=== PATIENT | female | born 1970 | race Caucasian/White ===

== ENCOUNTER 2019-07-09 18:27 | Inpatient (IN) | payer OTHER, SELFPAY ==
--- NOTE | ~2019-07-09 | XR_ITS ---
EXAMINATION: XR chest 2V DATE: 07/09/2019 20:23 INDICATION: Asthma presenting with shortness of breath and cough TECHNIQUE: PA and lateral views of the chest were obtained. COMPARISON: CT abdomen and pelvis dated 07/09/2019 FINDINGS: The small region of tree-in-bud opacities in the posterior basilar segment of the right lower lobe is indiscernible on the current plain radiographs. No pulmonary edema, pleural effusion or pneumothorax . Cardiomediastinal silhouette is normal. Visualized bones and soft tissues are unremarkable. IMPRESSION: 1. No evident acute cardiopulmonary disease. Small region of tree-in-bud opacities seen in the right lower lobe on the immediately prior CT is consistent with endobronchial spread of disease which could represent aspiration and/or pneumonia. Reviewed, dictated and finalized at location A. ER PULLER IMPRESSION: 1. No evident acute cardiopulmonary disease. Small region of tree-in-bud opacit ies seen in the right lower lobe on the immediately prior CT is consistent with endobronchial spread of disease which could represent aspiration and/or pneumo mitesh.
--- NOTE | ~2019-07-09 | US_ITS ---
EXAMINATION: US right upper quadrant DATE: 07/11/2019 09:19 INDICATION: Right upper quadrant pain, prior cholecystectomy TECHNIQUE: Multiple grayscale and Doppler ultrasound images of the abdomen were obtained. COMPARISON: CT, 07/09/2019 FINDINGS: Bowel gas obscures visualization of the pancreas. The visualized portions of the pancreas a re unremarkable. The liver demonstrates increased echogenicity, heterogenous echotexture, and decreas ed through transmission. No surface nodularity. Normal hepatopetal flow in the main portal vein. The gallbladder is surgically absent. The common bile duct measures 8 mm, likely related to post cholecys tectomy state. IMPRESSION: 1. Diffuse hepatic steatosis. Reviewed, dictated and finalized at location B. RNS CLERK
--- NOTE | ~2019-07-09 | CT_ITS ---
EXAMINATION: CT chest wo con DATE: 07/10/2019 10:22 INDICATION: Possible pneumonia on chest radiograph TECHNIQUE: Computed tomography (CT) of the chest was performed without intravenous contrast. The dose -length product (DLP) was 740.82 mGy-cm. Automated exposure control and iterative reconstruction tech nique were employed. COMPARISON: Abdominal CT from yesterday FINDINGS: There is mild emphysema. Tree-in-bud opacities are again noted in the medial aspect of the right lower lobe. Scattered small pulmonary nodules measure up to 3 mm. There is no pleural effusion or pneumothorax. No pathologically enlarged thoracic lymph nodes are identified. The heart size is no rmal. Calcified coronary artery atherosclerosis is noted. There are findings consistent with previous ly described acute pancreatitis. IMPRESSION: 1. Tree-in-bud opacities of the right lower lobe, most consistent with infection/inflammation. Reviewed, dictated and finalized at location B. NSED PRACTICAL NURSE INSTRUCTOR IMPRESSION: 1. Tree-in-bud opacities of the right lower lobe, most consistent with infectio n/inflammation.
--- NOTE | ~2019-07-09 | CT_ITS ---
EXAMINATION: CT abdomen pelvis w con DATE: 07/09/2019 20:08 INDICATION: Right upper quadrant abdominal pain, nausea and vomiting. TECHNIQUE: Computed tomography (CT) of the abdomen and pelvis was performed with 100 mL Omnipaque-350 intravenous contrast. Automated exposure control and iterative reconstruction technique were employe d. The dose-length product was 1330.28 mGy-cm. COMPARISON: 09/05/2018 FINDINGS: Small region of tree-in-bud opacity in the posterior basilar segment of the right lower lobe consiste nt with endobronchial spread of disease including aspiration and/or pneumonia. Heart size is normal. Lipomatous hypertrophy of the interatrial septum. Atherosclerotic coronary artery calcification. No p ericardial or pleural effusion. Cholecystectomy clips the gallbladder fossa. Diffuse hepatic steatosi s with more focal fat at the ligamentum teres. Spleen, bilateral adrenal glands and kidneys are andre l. There is diffuse peripancreatic inflammatory stranding consistent with acute interstitial pancreat itis. Homogeneous pancreatic parenchymal enhancement with no evident necrosis. No discrete peripancre atic fluid collections. Bowels including the appendix are normal. Bladder is normal. The uterus is no t identified and has likely been surgically resected. No free intraperitoneal gas or fluid. No pathol ogically enlarged abdominal or pelvic lymphadenopathy. Bones are unremarkable. IMPRESSION: 1. Radiographically uncomplicated acute interstitial pancreatitis. Reviewed, dictated and finalized at location A. ED PRINTER
[2019-07-09 18:33] VITALS: PULSE 79; RESP 16; TEMP 36.7; O2SAT 94
--- NOTE | 2019-07-09 18:52 | ED.ABDPAIN ---
HPI - Abdominal Pain General Chief Complaint: Abdominal Pain Stated Complaint: MULTIPLE C/O Time Seen by Provider: 07/09/19 18:42 Source: patient Mode of arrival: EMS Limitations: no limitations History of Present Illness HPI narrative: A 49 y/o female presents to the ED, via EMS, with c/o epigastric ABD pain that radiates to her lower back. She describes the pain as stabbing in character. Pt has a PMHx of DM and takes Metformin. Pt's sugars have been running around 595. Pt has not missed any doses of her medication. Pt states that she smoked marijuana 3 days ago but wasn't sure if there was crack in it. She reports N/V, a cough, chills, sweats, dysuria, and a PSHx of a cholecystectomy, but denies SOB and alcohol use. MD elicited complaint: abdominal pain Location: epigastric Quality: stabbing Radiation: back (lower) Related Data Home Medications Medication Instructions Recorded Confirmed aspirin [Aspir-81] 81 mg PO DAILY 07/09/19 07/09/19 atorvastatin mg PO DAILY 07/09/19 07/09/19 dicyclomine 10 mg PO QID 07/09/19 07/09/19 doxycycline monohydrate 100 mg PO BID 07/09/19 07/09/19 furosemide 40 mg PO DAILY 07/09/19 07/09/19 insulin lispro [Admelog SoloStar unit SUBCUT 07/09/19 U-100 Insulin] metformin 750 mg PO DAILY 07/09/19 07/09/19 nitroglycerin mg PRN 07/09/19 paroxetine HCl [Paxil] 60 mg PO HS 07/09/19 07/09/19 ranitidine HCl mg PO BID 07/09/19 topiramate 50 mg PO BID 07/09/19 07/09/19 trazodone 50 mg PO HS 07/09/19 07/09/19 Allergies Allergy/AdvReac Type Severity Reaction Status Date / Time codeine Allergy Unknown HIVES Verified 07/09/19 18:38 ibuprofen Allergy Unknown HIVES Verified 07/09/19 18:38 ketorolac Allergy Unknown HIVES Verified 07/09/19 18:38 levofloxacin Allergy Unknown ITCH Verified 07/09/19 18:38 prochlorperazine Allergy Unknown HIVES Verified 07/09/19 18:38 tramadol Allergy Unknown HIVES Verified 07/09/19 18:38 Review of Systems Review of Systems: Narrative: CONSTITUTIONAL: Reports: chills, sweats; Denies fever RESPIRATORY: Reports: a cough; Denies dyspnea. GASTROINTESTINAL: Reports epigastric ABD pain radiating to lower back, N/V GENITOURINARY: Reports: dysuria; Denies hematuria. 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 Webster Exam Narrative: Exam Narrative: GENERAL: Well-appearing, well-nourished, and in no acute distress. Tearful. HEAD: Normocephalic, atraumatic. NECK: Supple. CHEST: Clear to auscultation. No respiratory distress. HEART: Regular rate and rhythm. No murmur heard. Normal peripheral pulses. ABDOMEN: Soft, mild epigastric tenderness, RUQ tenderness, nondistended, no guarding, obese ABD, not rigid, normal active bowel sounds. EXTREMITIES: Normal range of motion. No edema. SKIN: Warm, dry, no rash. Excoriations on bilateral forearms NEURO: No focal deficits. Alert and oriented Course Vital Signs Vital signs: Vital Signs Temperature 36.7 C 07/09/19 18:33 Pulse Rate 79 07/09/19 18:33 Respiratory Rate 16 07/09/19 18:33 Pulse Oximetry 94 L 07/09/19 18:33 Temperature 36.7 C 07/09/19 22:30 Pulse Rate 79 07/09/19 18:33 Respiratory Rate 16 07/09/19 18:33 Pulse Oximetry 94 L 07/09/19 18:33 MDM - Abdominal Pain MDM Narrative Medical decision making narrative: Patient presented for evaluation of abdominal pain and vomiting. At the time of initial assessment, ABCs are intact. Vital signs are stable. She is not tachycardic or hyp
--- NOTE | 2019-07-09 19:14 | ECG_ITS ---
Measurements Intervals [place] Rate: 57 P: 37 [place]: 166 QRS: -19 QRSD: 84 T: 27 QT: 403 QTc: 393 Interpretive Statements SINUS BRADYCARDIA LOW QRS VOLTAGE IN PRECORDIAL LEADS BORDERLINE ST-T WAVE ABNORMALITY- ANTERIOR LEADS BASELINE ARTIFACT- I, III, AVL, AVF BORDERLINE ECG Electronically Signed On 07-09-2019 20:47:01 LEAVE MANAGER by Larry York D.O.
[2019-07-09 19:38] LABS: Alveolar/Arterial O2 Gradient 41.8 mmHg; Base Excess ABG 0.5 mEq/l (+/-2.0); Carboxyhemoglobin 5.4 % THb (0-2.0); Fractional Inspired Oxygen 21 %; HCO3 ABG 24.5 mEq/l (22.0-26.0); Methemoglobin ABG 0.3 %THb (0-1.5); Oxygen Content ABG 19.8 %vol (16.0-22.0); Oxygen Saturation ABG 92.8 % (95.0-100.0); Oxyhemoglobin 87.2 % THb (90.0-100.0); PCO2 ABG 37.6 mmHg (35.0-45.0); PO2 ABG 62.9 mmHg (80.0-100.0); Reduced Hemoglobin 7.1 %THb (0-5.0); Total Hemoglobin 16.2 g/dL (12.0-18.0); pH ABG 7.431 (7.350-7.450)
[2019-07-09 19:39] LABS: Device ROOM AIR; Modified Allen's Test Pass; Site Drawn LEFT RADIAL
[2019-07-09 19:57] LABS: Basophils Absolute Auto 0.1 K/mm3 (0.0-0.1); Basophils Percent Auto 0.5 % (0.2-1.2); Eosinophils Absolute Auto 0.3 K/mm3 (0-0.3); Eosinophils Percent Auto 2.4 % (0-4.4); Hematocrit 45.4 % (37.0-47.0); Hemoglobin 15.5 g/dL (12.0-15.0); Immature Granulocyte Absolute 0.06 K/mm3 (0.00-0.031); Immature Granulocyte Percent A 0.5 % (0-0.5); Lymphocytes Absolute Auto 3.43 K/mm3 (0.9-3.2); Lymphocytes Percent Auto 26.7 % (18.3-44.2); Mean Corpuscular HGB Conc 34.1 g/dl (32-36); Mean Corpuscular Hemoglobin 31.7 pg (26-34); Mean Corpuscular Volume 92.8 fl (80-100); Mean Platelet Volume 10.1 fl (7.4-10.4); Monocytes Absolute Auto 0.5 K/mm3 (0.1-0.6); Neutrophils Absolute Auto 8.5 K/mm3 (1.3-6.7); Neutrophils Percent Auto 65.9 % (45.5-73.1); Platelet Count Result 251 k/mm3 (150-375); Red Blood Count 4.89 M/mm3 (4.2-5.4); Red Cell Distribution Width 14.8 % (11.5-14.5); White Blood Count 12.8 K/mm3 (4.5-10.0)
[2019-07-09 20:01] LABS: Add Urine Microscopic? YES; Appearance Urine Clear (Clear); Bacteria Urine Trace /hpf; Bilirubin Urine Negative (Negative); Blood Urine 1+ (Negative); Color Urine Straw (Yellow); Glucose Urine UA 3+ mg/dL (Negative); Ketones Urine Negative (Negative); Leukocyte Esterase Ur Trace LEU/UL (NEGATIVE); Nitrate Urine Negative (Negative); Protein Urine Negative (Negative); Squamous Epithelial Cell Urine Rare /hpf (Few); Urobilinogen Urine Negative mg/dL (<2.0)
[2019-07-09 20:12] LABS: Amphetamine Screen Urine Negative (Negative); Barbiturate Screen Urine Negative (Negative); Benzodiazepines Screen Urine Negative (Negative); Cannabinoid Screen Urine Negative (Negative); Cocaine Screen Urine Positive (Negative); Methadone Screen Urine Negative (Negative); Opiate Screen Urine Negative (Negative); Phencyclidine Screen Urine Negative (Negative)
[2019-07-09 20:14] LABS: Alanine Aminotransferase 21 U/L (4-35); Albumin Level 3.9 g/dL (3.5-5.1); Alkaline Phosphatase 218 U/L (38-126); Aspartate Amino Transferase 18 U/L (14-36); Beta-Hydroxybutyrate/Acetoacetate 0.18 mmol/L (0.02-0.27); Bilirubin,Total 0.9 mg/dL (0.2-1.3); Blood Urea Nitrogen 13 mg/dL (7-17); Carbon Dioxide 23 mmol/L (22-30); Chloride 96 mmol/L (98-107); Estimated CRCL calculation 102 ml/min; Estimated Glomerular Filt Rate > 60; Glucose 520 mg/dL (65-105); Lipase 1781 U/L (23-300); Potassium 3.6 mmol/L (3.4-5.0); Sodium 132 mmol/L (137-145)
[2019-07-09 20:16] LABS: Specific Grav Ur 1.036 (1.001-1.035)
[2019-07-09 20:18] LABS: Troponin I < 0.012 ng/mL (0.000-0.034)
[2019-07-09] MEDS: INSULIN HUMAN REGULAR (*BKC) 100 UNITS/ML 8 UNITS SUB-Q (20:32)
[2019-07-09] MEDS: SODIUM CHLORIDE 0.9% IV 2,000 ML 999 ML IV CONT (20:35)
[2019-07-09] MEDS: ONDANSETRON INJ 4 MG/2 ML VIAL IV PUSH (20:36)
[2019-07-09] MEDS: FAMOTIDINE 20 MG/2 ML VIAL IV PUSH (20:36)
[2019-07-09 20:39] LABS: Glucose Point of Care 500 (65-105)
[2019-07-09 20:49] LABS: INR 1.1
[2019-07-09 21:04] VITALS: TEMP 36.7
[2019-07-09 22:23] LABS: Glucose Point of Care 436 (65-105)
[2019-07-09 22:26] LABS: Glucose Point of Care 334 (65-105)
[2019-07-09 22:30] VITALS: TEMP 36.7
[2019-07-09 22:39] LABS: Blood Urea Nitrogen 12 mg/dL (8-26); Estimated CRCL calculation 102 ml/min; Estimated Glomerular Filt Rate > 60
[2019-07-09 22:54] VITALS: BP 113/66; PULSE 68; RESP 20; O2SAT 93
--- NOTE | 2019-07-09 23:04 | ADMGEN ---
This patient, Mikayla Hays I, was admitted to 2 Medical Room 240-01. Patient/family oriented to hospital policies and general routines including ID bracelet, bed and alarms, visiting hours, pain management, procedures, bathroom and other care routines, personal items, smoking policy, room service/diet, and visiting hours. Valuables list has been completed. Information on how to activate the Rapid Response Team has been discussed. Patient/Family are encouraged to report perceived risks to care and to ask questions if they do not understand what they are told or what they should do.
[2019-07-09 23:09] VITALS: BP 122/61; PULSE 70; RESP 16; TEMP 36.1; O2SAT 96; BMI 39.9
[2019-07-10] VITALS (8 sets, daily range): BP systolic 101–132; BP diastolic 60–75; PULSE 62–74; RESP 16–18; TEMP 35.8–36.3; O2SAT 91–96
[2019-07-10] MEDS: SODIUM CHLORIDE 0.9% IV 1,000 ML 125 ML IV CONT ×3 (00:02→15:12)
[2019-07-10] MEDS: MICONAZOLE NITRATE 2% VAGINAL CREAM 45 GM TUBE 1 APPFUL VAGINAL ×2 (00:03→21:01)
[2019-07-10 03:20] LABS: Glucose Point of Care 283 (65-105)
[2019-07-10] MEDS: MORPHINE SULFATE 2 MG/ML INJ IV PUSH (06:19)
--- NOTE | 2019-07-10 07:14 | PC.NURSE ---
Pt requesting more pain medication. Called Dr Gallegos to ask and updated her that patient had been leaving the floor to smoke although advised not to. Dr Gallegos stated that she will give pain medication but if the patient leaves the floor then she is to sign out AMA as it is against medical advice, she will order a nicotine patch. Explained to the pt and patient agreed.
[2019-07-10 07:34] LABS: Basophils Absolute Auto 0.1 K/mm3 (0.0-0.1); Basophils Percent Auto 0.6 % (0.2-1.2); Eosinophils Absolute Auto 0.3 K/mm3 (0-0.3); Eosinophils Percent Auto 3.5 % (0-4.4); Hematocrit 41.1 % (37.0-47.0); Hemoglobin 13.7 g/dL (12.0-15.0); Immature Granulocyte Absolute 0.03 K/mm3 (0.00-0.031); Immature Granulocyte Percent A 0.3 % (0-0.5); Lymphocytes Absolute Auto 2.21 K/mm3 (0.9-3.2); Lymphocytes Percent Auto 24.7 % (18.3-44.2); Mean Corpuscular HGB Conc 33.3 g/dl (32-36); Mean Corpuscular Hemoglobin 31.4 pg (26-34); Mean Corpuscular Volume 94.3 fl (80-100); Mean Platelet Volume 9.6 fl (7.4-10.4); Monocytes Absolute Auto 0.4 K/mm3 (0.1-0.6); Monocytes Percent Auto 4.9 % (2.6-8.5); Neutrophils Absolute Auto 5.9 K/mm3 (1.3-6.7); Platelet Count Result 212 k/mm3 (150-375); Red Blood Count 4.36 M/mm3 (4.2-5.4); White Blood Count 8.9 K/mm3 (4.5-10.0)
[2019-07-10 08:07] LABS: Alanine Aminotransferase 18 U/L (4-35); Albumin Level 3.3 g/dL (3.5-5.1); Alkaline Phosphatase 173 U/L (38-126); Amylase 54 U/L (30-110); Aspartate Amino Transferase 19 U/L (14-36); Bilirubin,Total 0.7 mg/dL (0.2-1.3); Blood Urea Nitrogen 10 mg/dL (7-17); Calcium 8.3 mg/dL (8.4-10.2); Carbon Dioxide 23 mmol/L (22-30); Chloride 104 mmol/L (98-107); Estimated CRCL calculation 116 ml/min; Estimated Glomerular Filt Rate > 60; Glucose 323 mg/dL (65-105); Potassium 3.3 mmol/L (3.4-5.0); Sodium 135 mmol/L (137-145)
[2019-07-10] MEDS: FAMOTIDINE 20 MG/2 ML VIAL IV PUSH ×2 (08:10→21:10)
[2019-07-10 08:53] LABS: Lipase 695 U/L (23-300)
[2019-07-10] MEDS: HYDROMORPHONE HCL 1 MG/ML INJ IV PUSH ×4 (09:43→21:20)
[2019-07-10] MEDS: INSULIN ASPART (*BKC) 100 UNITS/ML SUB-Q ×3 (10:35→20:58)
--- NOTE | 2019-07-10 10:35 | PM.IMPN ---
Objective Data Vital Signs Vital Signs: Vital Signs - 24 hr 07/09/19 18:33 07/09/19 21:04 07/09/19 22:30 Temperature 98.1 F 98.1 F 98.1 F Pulse Rate 79 Respiratory Rate 16 Blood Pressure Pulse Oximetry 94 L 07/09/19 22:54 07/09/19 23:09 07/10/19 05:02 Temperature 96.9 F L 96.9 F L Pulse Rate 68 70 65 Respiratory Rate 20 16 16 Blood Pressure 113/66 122/61 120/75 Pulse Oximetry 93 L 96 95 07/10/19 08:00 Temperature 97.4 F L Pulse Rate 71 Respiratory Rate 18 Blood Pressure 113/64 Pulse Oximetry 93 L Intake/Output Intake/Output: Intake & Output 07/07/19 07/08/19 07/09/19 07/10/19 23:59 23:59 23:59 23:59 Intake Total 692 Output Total 600 Balance 92 Meds/Results Medications: Active Medications Generic Name Dose Route Start Last Admin Trade Name Freq PRN Reason Stop Dose Admin Dextrose 12.5 gm 07/10/19 08:49 Dextrose 50% Syringe IV PUSH PRN PRN Hypoglycemia Protocol Famotidine 20 mg 07/10/19 09:00 07/10/19 08:10 Pepcid Iv IV PUSH 20 mg Q12HR LORENA Administration Glucagon 1 mg 07/10/19 08:49 Glucagon For Inj IM PRN PRN Hypoglycemia Protocol Glucose 15 gm 07/10/19 08:49 Glutose 15 PO PRN PRN Hypoglycemia Protocol Hydromorphone HCl 1 mg 07/10/19 08:45 07/10/19 09:43 Dilaudid Inj IV PUSH 1 mg Q3H PRN Administration Pain Rated 7-10 Acetaminophen 650 mg in 65 mls @ 260 mls/hr 07/09/19 21:25 07/10/19 00:17 Ofirmev 650 Mg Ivpb IVPB 07/10/19 21:26 Infused Q6H PRN Infusion Mild Pain (1-3) or Fever Sodium Chloride 1,000 mls @ 125 mls/hr 07/09/19 21:25 07/10/19 07:12 Normal Saline Iv IV CONT 125 mls/hr .Q8H LORENA Infusion Potassium Chloride 500 mls @ 125 mls/hr 07/10/19 09:00 Kcl 40 Meq/D5w 500 Ml Peripheral IVPB 07/10/19 12:59 ONCE ONE Piperacillin/Tazobactam/Dextrose 3.375 gm in 50 mls @ 100 mls/hr 07/10/19 09:00 07/10/19 09:43 Zosyn 3.375 Gm/D5w 50ml Pm IVPB 100 mls/hr Q6H LORENA Administration Dextrose 1,000 mls @ 100 mls/hr 07/10/19 08:49 Dextrose 5% 1,000 Ml IVPB PRN PRN Hypoglycemia Protocol Insulin Aspart 3 - 6 units 07/10/19 08:50 Novolog SUB-Q Q6H LORENA Protocol Insulin Glargine 15 units 07/10/19 21:00 Lantus SUB-Q HS LORENA Miconazole Nitrate 1 appful 07/09/19 22:40 07/10/19 00:03 Monistat VAGINAL 1 appful HS LORENA Administration Nicotine 1 patch 07/10/19 06:00 07/10/19 06:19 Nicoderm Cq 21 Mg TRANSDERM 1 patch Q24H LORENA Administration Ondansetron HCl 4 mg 07/09/19 21:25 Zofran Inj IV PUSH Q4H PRN Nausea Radiology Results: ITS Impressions Abdomen/Pelvis CT 07/09/19 20:16 IMPRESSION: 1. Radiographically uncomplicated acute interstitial pancreatitis. Chest X-Ray 07/09/19 20:33 IMPRESSION: 1. No evident acute cardiopulmonary disease. Small region of tree-in-bud opacities seen in the right lower lobe on the immediately prior CT is consistent with endobronchial spread of disease which could represent aspiration and/or pneumonia. Labs Labs: Laboratory Results - last 24 hr 07/09/19 07/09/19 07/09/19 19:29 19:45 19:45 WBC 12.8 H RBC 4.89 Hgb 15.5 H Hct 45.4 MCV 92.8 MCH 31.7 MCHC 34.1 RDW 14.8 H Plt Count 251 MPV 10.1 Immature Gran % (Auto) 0.5 Neut % (Auto) 65.9 Lymph % (Auto) 26.7 Sandoval % (Auto) 4.0 Eos % (Auto) 2.4 Baso % (Auto) 0.5 Lymph # (Auto) 3.43 H Sand[place] # (Auto) 0.5 Eos # (Auto) 0.3 Baso # (Auto) 0.1 Abs Immat Gran (auto) 0.06 H Absolute Neuts (auto) 8.5 H Absolute Nucleated RBC 0.0 Nucleated RBC % 0.0 PT 14.0 INR 1.1 APTT 30.0 Puncture Site Left radial ABG pH 7.431 ABG pCO2 37.6 ABG pO2 62.9 L ABG PO2/FiO2 Ratio 3.00 ABG HCO3 24.5 ABG O2 Saturation 92.8 L ABG O2 Content 19.8 ABG Base Excess 0.5
--- NOTE | 2019-07-10 10:35 | PM.IMHP ---
H&P: HPI History of Present Illness Chief complaint: PANCREATITIS Narrative: Mikayla Hays is a 49 year old female with a history of Type II diabetes, dyslipidemia, anxiety, depression, obstructive sleep apnea, and pancreatitis that presented to the ER with complaints of severe epigastric pain since Monday. She reports that the pain started after she had been helping her sister move furniture and she assumed it was musculoskeletal in nature. She report eating fried catfish that day, but denies any alcohol use. She reports not eating since Monday evening and once the pain worsened is when she presented to the ER. The patient's CT of her abdomen/Pelvis showed 1. Radiographically uncomplicated acute interstitial pancreatitis. 2. Small region of tree-in-bud opacity in the posterior basilar segment right lower lobe consistent with aspiration and/or pneumonia. Her Chest x-ray showed 1. No evident acute cardiopulmonary disease. Small region of tree-in-bud opacities seen in the right lower lobe on the immediately prior CT is consistent with endobronchial spread of disease which could represent aspiration and/or pneumonia. I repeated a CT of her chest which showed 1. Tree-in-bud opacities of the right lower lobe, most consistent with infection/inflammation. Blood culture were ordered and she was started on Zoysn. Patient does not recall aspirating, but does report vomiting yesterday morning, but was sitting up when she did. Her VS in the ER were a temp of 96.3, pulse 70, RR 16, Blood pressure 122/61, and O2 sat 96% on room air. On admission her WBC was 12.8, Hgb 15.5, Hct 45.4, Platlet count 251. Sodium is 132, potassium 3.6, chloride 96, CO2 23, BUN 13, creatinine 0.70, glucose was 520, AST 18, ALT 21, alkaline phosphate 218, lipase 1781. Review of Systems Review of Systems: Narrative: REVIEW OF SYSTEMS: General: Reports pain to abdomen. Denies fever or chills. HEENT: Denies congestion, sore throat. Respiratory: Reports: SOB with exertion and wheezing. Denies: Hemoptysis and shortness of breath at rest. Cardiology: Denies: Chest pain, diaphoresis, edema, lightheadedness, palpitations. Gastrointestinal: Reports: Abdominal pain. Denies: Nausea, vomiting, constipation, diarrhea. Genitourinary: Reports: Vaginal itching due to yeast. Denies: Burning, hematuria. Integumentary: Denies: Rash, hives. Musculoskeletal: Denies: Joint pain, muscle weakness Neurology: Denies: Dizziness, memory loss, confusion. Psychiatric: Reports: Depression, anxiety. ROS Comment: Except as documented, all other systems reviewed and negative. [facility] Past Medical History Medical History (Updated 07/10/19 @ 13:00 by ALONZO Tinoco) Anxiety (Acute) Cholecystitis (Acute) Depression (Acute) Diabetes mellitus (Acute) Dyslipidemia (Acute) Obstructive sleep apnea (Acute) Pancreatitis (Acute) Surgical History Surgical History History of cholecystectomy (Acute) Family History Family History (Updated 07/10/19 @ 12:02 by ALONZO Tinoco) Father Hypertension Acute myocardial infarction Heart disease Mother Hypertension Diabetes mellitus Acute myocardial infarction Sibling Diabetes mellitus Social History Social History (Updated 07/10/19 @ 12:05 by ALONZO Tinoco) Social History: She had 5 children and 2 have passed. One passed as an infant from SIDS are her 23 year old daughter last year from leukemia. Smoking packs per day: 1 Smoking cigarettes per day: 20.0 Years smoked: 20 Smoking pack-years: 20.00 Smoking status: Current every day smoker Tobacco type: cigarettes Second hand tobacco smoke exposure: Yes Alcohol intake: never Substance use: current Substance use type: marijuana Other substance usage details: Denies crack/coccaine use, but reports marijuana use. UA was + for coccaine Last use: 3 days ago Living arrangements: al
[2019-07-10 10:51] LABS: Glucose Point of Care 326 (65-105)
[2019-07-10 10:51] LABS: Glucose Point of Care 337 (65-105)
[2019-07-10] MEDS: LORAZEPAM INJ 2 MG/ML VIAL 0.5 MG IV PUSH ×2 (11:57→18:11)
[2019-07-10] MEDS: FLUCONAZOLE 150 MG TABLET PO (12:01)
--- NOTE | 2019-07-10 13:00 | PC.NURSE ---
Patient requested pain medication, educated patient on alternating pain meds to acquire better coverage. Patient agreed to alternate medications.
[2019-07-10] MEDS: IPRATROPIUM BR 0.02% INH SOLN 0.5 MG/2.5 ML VIAL INHALATION ×2 (16:53→21:08)
[2019-07-10] MEDS: ALBUTEROL SULFATE NEB 2.5 MG/0.5 ML INH INHALATION ×2 (16:53→21:08)
[2019-07-10 17:06] LABS: Glucose Point of Care 237 (65-105)
--- NOTE | 2019-07-10 19:23 | PC.NURSE ---
Patient requested pain medication, took ofirmev to the patient and explained the name of the drug and it was a pain medicine. After administered ofirmev, and after 20 mL was infused patient said I want dilaudid now. Explained to patient that two pain meds shouldn't be given at once and she could have a dose of dilaudid in a few hours. Patient then said well im going home then, i can take tylenol at home. get me the doctor. Called MD to ask if patient could have both doses at once, MD okayed. Patient agreed to stay.
[2019-07-10] MEDS: VITAMIN A & D OINTMENT 60 GM TUBE 1 APPLIC TOPICAL (21:02)
[2019-07-10 21:39] LABS: Glucose Point of Care 218 (65-105)
[2019-07-10] MEDS: INSULIN GLARGINE (*BKC) 100 UNITS/ML 15 UNITS SUB-Q (22:16)
[2019-07-10 22:21] LABS: Glucose Point of Care 233 (65-105)
[2019-07-11] VITALS (12 sets, daily range): BP systolic 96–151; BP diastolic 52–76; PULSE 64–87; RESP 16–20; TEMP 36.3–36.8; O2SAT 95
[2019-07-11] MEDS: HYDROMORPHONE HCL 1 MG/ML INJ IV PUSH ×2 (00:33→05:58)
[2019-07-11 01:23] LABS: Glucose Point of Care 201 (65-105)
[2019-07-11] MEDS: ALBUTEROL SULFATE NEB 2.5 MG/0.5 ML INH INHALATION ×5 (01:38→16:14)
[2019-07-11] MEDS: IPRATROPIUM BR 0.02% INH SOLN 0.5 MG/2.5 ML VIAL INHALATION ×5 (01:38→16:13)
[2019-07-11] MEDS: LORAZEPAM INJ 2 MG/ML VIAL 0.5 MG IV PUSH ×2 (03:13→10:10)
[2019-07-11] MEDS: SODIUM CHLORIDE 0.9% IV 1,000 ML 125 ML IV CONT (03:21)
[2019-07-11 03:31] LABS: Glucose Point of Care 197 (65-105)
[2019-07-11 05:47] LABS: Basophils Absolute Auto 0.1 K/mm3 (0.0-0.1); Basophils Percent Auto 0.6 % (0.2-1.2); Eosinophils Absolute Auto 0.3 K/mm3 (0-0.3); Eosinophils Percent Auto 3.3 % (0-4.4); Hematocrit 38.9 % (37.0-47.0); Hemoglobin 12.7 g/dL (12.0-15.0); Immature Granulocyte Absolute 0.02 K/mm3 (0.00-0.031); Immature Granulocyte Percent A 0.3 % (0-0.5); Immature Platelet Fraction Pct 2.4 % (0.9-11.2); Lymphocytes Absolute Auto 2.15 K/mm3 (0.9-3.2); Lymphocytes Percent Auto 27.2 % (18.3-44.2); Mean Corpuscular HGB Conc 32.6 g/dl (32-36); Mean Corpuscular Hemoglobin 31.5 pg (26-34); Mean Corpuscular Volume 96.5 fl (80-100); Mean Platelet Volume 10.3 fl (7.4-10.4); Monocytes Absolute Auto 0.3 K/mm3 (0.1-0.6); Monocytes Percent Auto 4.1 % (2.6-8.5); Neutrophils Absolute Auto 5.1 K/mm3 (1.3-6.7); Neutrophils Percent Auto 64.5 % (45.5-73.1); Platelet Count Result 210 k/mm3 (150-375); Red Blood Count 4.03 M/mm3 (4.2-5.4); Red Cell Distribution Width 15.4 % (11.5-14.5); White Blood Count 7.9 K/mm3 (4.5-10.0)
[2019-07-11 05:52] LABS: Lipase 321 U/L (23-300)
[2019-07-11 05:54] LABS: Alanine Aminotransferase 114 U/L (4-35); Albumin Level 3.2 g/dL (3.5-5.1); Alkaline Phosphatase 198 U/L (38-126); Aspartate Amino Transferase 146 U/L (14-36); Bilirubin,Total 0.6 mg/dL (0.2-1.3); Blood Urea Nitrogen 8 mg/dL (7-17); Calcium 8.4 mg/dL (8.4-10.2); Carbon Dioxide 21 mmol/L (22-30); Chloride 109 mmol/L (98-107); Estimated CRCL calculation 100 ml/min; Estimated Glomerular Filt Rate > 60; Glucose 199 mg/dL (65-105); Potassium 3.3 mmol/L (3.4-5.0); Sodium 139 mmol/L (137-145)
[2019-07-11 06:00] LABS: Amylase < 30 U/L (30-110)
[2019-07-11 07:23] LABS: Hemoglobin A1C 13.9 % (<5.7)
--- NOTE | 2019-07-11 08:01 | PM.IMPN ---
Progress Note: A&P Assessment and Plan (1) Pancreatitis: Qualifiers: Acute pancreatitis complication: no infection or necrosis Chronicity: acute Pancreatitis type: unspecified pancreatitis type Qualified Code(s): K85.90 - Acute pancreatitis without necrosis or infection, unspecified Code(s): K85.90 - Acute pancreatitis without necrosis or infection, unspecified Status: Acute Assessment and Plan: 07/10/19: Patient's initial lipase on admission was 1781 and she was started on Normal Saline at 125. This morning her lipase decreased to 695. Will continue to keep the patient NPO until her abdominal pain/tenderness has improved. 07/11/19: Lipase has decreased to 321. Patient's RUQ showed hepatic steatosis and her pain has no improved. Will advance her diet as tolerated to a diabetic/low fat and plan for discharge today. (2) Diabetes mellitus: Qualifiers: Diabetes mellitus complication status: with hyperglycemia Diabetes mellitus skilled nursing insulin use: with extermination supervisor use Diabetes mellitus type: type 2 Qualified Code(s): E11.65 - Type 2 diabetes mellitus with hyperglycemia; Z79.4 - intermediate project manager (current) use of insulin Code(s): E11.9 - Type 2 diabetes mellitus without complications Status: Acute Assessment and Plan: 07/10/19: On admission, her blood sugar was 520. Patient is currently NPO and at home takes Lantus 30 units BID, Insulin Lispro at meals, and Metformin 750 daily. Due to the patient being NPO, will start the patient on 15 units Lantus at night and medium dose sliding scale. Will increase the Lantus to BID if her blood sugar does not improve and adjust her insulin accordingly. 07/11/19: Her Hgb A1C is 13.9. Her glucose had been improving and then after her clear liquid tray, it increased to over 500. Lantus and Novolog were given and her diet was changed. Will repeat glucose this afternoon and if she is improving, will plan for discharge. (3) Hypokalemia: Code(s): E87.6 - Hypokalemia Status: Acute Assessment and Plan: 07/10/19: K+ 3.3 Will give KCL rider due to patient being NPO. Will repeat CMP in the am. 07/11/19: K+ 3.3. Will replace. (4) Dyslipidemia: Code(s): E78.5 - Hyperlipidemia, unspecified Status: Acute Assessment and Plan: 07/10/19: Will continue statin once the patient is no longer NPO. 07/11/19: Statin restarted. (5) Obstructive sleep apnea: Code(s): G47.33 - Obstructive sleep apnea (adult) (pediatric) Status: Acute Assessment and Plan: 07/11/19: Continue CPAP. (6) Pneumonia: Qualifiers: Laterality: right Lung location: lower lobe of lung Pneumonia type: due to unspecified organism Qualified Code(s): J18.1 - Lobar pneumonia, unspecified organism Code(s): J18.9 - Pneumonia, unspecified organism Status: Acute Assessment and Plan: 07/10/19: Patient's chest x-ray showed 1. No evident acute cardiopulmonary disease. Small region of tree-in-bud opacities seen in the right lower lobe on the immediately prior CT is consistent with endobronchial spread of disease which could represent aspiration and/or pneumonia. CT of her chest showed 1. Tree-in-bud opacities of the right lower lobe, most consistent with infection/inflammation. She was started on Zoysn and breathing treatments were ordered. 07/11/19: Patient's lung sounds have improved and she remains afebrile. Will plan for discharge later today and discharge on Augmentin. (7) Yeast infection: Code(s): B37.9 - Candidiasis, unspecified Status: Acute Assessment and Plan: 07/10/19: Patient has been started on Diflucan 150 mg X 1 one and Monistat cream has been ordered by the ER for nighttime. Patient complains of continuous discomfort and will add A&D ointment for vulvar itching. Will add IV benadryl PRN for itching. 07/11/19: Patient's itching has improved. (8) Anxiety: Code(s): F41.9 - Anxiety
[2019-07-11] MEDS: FAMOTIDINE 20 MG/2 ML VIAL IV PUSH (08:19)
[2019-07-11 08:42] LABS: Hepatitis B Surface Antigen Negative (Negative)
[2019-07-11 08:48] LABS: HAV RESULT Negative (Negative); Hepatitis B Core IgM Result Negative (Negative)
[2019-07-11 09:00] LABS: Hepatitis C Virus Antibody Negative (Negative)
[2019-07-11] MEDS: HYDROMORPHONE HCL 1 MG/ML INJ 0.5 MG IV PUSH (09:23)
[2019-07-11] MEDS: TOPIRAMATE 25 MG TABLET 50 MG PO (10:48)
[2019-07-11] MEDS: ASPIRIN 81 MG ENTERIC TABLET PO (10:48)
[2019-07-11] MEDS: DOXYCYCLINE HYCLATE 100 MG TABLET PO (10:49)
[2019-07-11] MEDS: FUROSEMIDE 40 MG TABLET PO (10:49)
[2019-07-11] MEDS: ATORVASTATIN 10 MG TABLET PO (10:49)
[2019-07-11 11:00] LABS: Glucose Point of Care > 500 (65-105)
[2019-07-11] MEDS: INSULIN GLARGINE (*BKC) 100 UNITS/ML 20 UNITS SUB-Q (11:31)
[2019-07-11] MEDS: INSULIN ASPART (*BKC) 100 UNITS/ML 20 UNITS SUB-Q ×2 (11:31→14:09)
[2019-07-11] MEDS: DICYCLOMINE HCL 10 MG CAPSULE PO (13:22)
[2019-07-11] MEDS: POTASSIUM CHLORIDE 20 MEQ TABLET 40 MEQ PO (13:22)
[2019-07-11 14:03] LABS: Glucose Point of Care 428 (65-105)
--- NOTE | 2019-07-11 14:23 | PC.NURSE ---
Called and informed TARSHA Dodson of patient leaving floor to smoke. Patient states she did not know .
[2019-07-11 15:01] LABS: Glucose Point of Care 368 (65-105)
--- NOTE | 2019-07-11 19:00 | PM.DS ---
DS: Diagnosis Admitting Diagnosis Admitting Diagnosis: Acute pancreatitis without necrosis or infection, unspecified DS: Summary Hospital Course Reason for hospitalization: 1. Acute pancreatitis 2. Diabetes mellitus type 2 3. Hypokalemia 4. Hyperlipidemia 5. Obstructive sleep apnea 6. Pneumonia Hospital Course: Mikayla Hays is a 49 year old female with a history of Type II diabetes, dyslipidemia, anxiety, depression, obstructive sleep apnea, and pancreatitis that presented to the ER with complaints of severe epigastric pain since Monday. The patient's CT of her abdomen/Pelvis showed 1. Radiographically uncomplicated acute interstitial pancreatitis. 2. Small region of tree-in-bud opacity in the posterior basilar segment right lower lobe consistent with aspiration and/or pneumonia. Her Chest x-ray showed 1. No evident acute cardiopulmonary disease. Small region of tree-in-bud opacities seen in the right lower lobe on the immediately prior CT is consistent with endobronchial spread of disease which could represent aspiration and/or pneumonia. I repeated a CT of her chest which showed 1. Tree-in-bud opacities of the right lower lobe, most consistent with infection/inflammation. She was started on Zosyn and her O2 sat and WBC remained stable. On admission her lipase was 1781 and by discharge decreased to 321. She was started on clear liquids and was able to advance quickly to a diabetic/low fat diet and tolerated it well several hours after eating. Her blood sugar was elevated after eating, but decreased with insulin. She was discharged with Augmentin and instructed to contact her PCP, Dr. Karla Webster for a follow up as soon as possible. She was hemodynamically stable upon discharge. Please see what transpired during her hospital course below each diagnosis. My attending physician for this discharge was Dr. Bedolla. Time spent discussing smoking cessation with patient: 3 to 10 minutes Status at Discharge Cognitive/behavioral status at discharge: Stable Functional status at discharge: independent ambulation Overall status at discharge: patient is back to baseline Time Spent with Patient Time attestation: Total time spent providing and/or coordinating discharge services: 45 minutes Time spent: Greater than 30 minutes DS: Data Data Completed and Pending Labs on day of discharge: Labs from last 24 hours 07/11/19 07/11/19 14:59 14:01 POC Capillary Glucose 368 [id number] Preliminary micro results at discharge 07/10/19 09:43 Blood Culture - Preliminary Blood 07/10/19 09:43 Blood Culture - Preliminary Blood Discharge Plan Discharge Attending physician on discharge: Ivory eLigh Discharging Clinician: Ivory Leigh Anticipated Discharge Date/Time: 07/11/19 15:05 Patient Disposition: Home, Self-Care Activity: may shower and as tolerated Diet: diabetic and low fat Discharge Instructions: -Follow up with your primary care provider as scheduled later this month. -Please check your blood sugar at least 3x's per day and record the readings. Bring the readings with you to your follow up appointment. -Please take your antibiotics as prescribed. -Labs have been ordered to follow up on your elevated liver enzymes. Please have drawn before your follow up appointment. If you develop a fever greater than 100.4, chest pain, severe shortness of breath, leg swelling, severe abdominal pain, or persistent nausea and vomiting, please report the ER Patient Instructions: Antibiotic Form, How to Stop Smoking (DC), Pancreatitis (DC), Pain Management (DC), Type 2 Diabetes in Adults (DC) Patient Language: Italian Stand Alone Forms: General Discharge Information Follow-up/Referrals: UNKNOWN,DOCTOR [Primary Care Provider] - Keep Reg. Scheduled Appt. (Please follow up with Dr. Karla Webster as previously scheduled later this month. ) Discharge Medications: New amoxicillin-pot clavulanate 875-125 mg tablet 1 tablet
--- NOTE | 2019-07-11 19:16 | PC.NURSE ---
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 Patient was found to have left room with all of belongings around 1800. Patient had been trying to contact family for a ride.
== END 2019-07-11 18:00 | disposition home or self-care (01) | DRG 282 ==
LOC: ANHED 19:27 → ANH2MED 21:45
PROVIDERS: Clinical Nurse Specialist; Admitting Provider Internal Medicine; Emergency Provider Emergency Medicine; Visit Provider Hospitalist
DX: K85.80 Other acute pancreatitis without necrosis or infection (principal); J18.9 Pneumonia, unspecified organism; Z23 Encounter for immunization; E78.5 Hyperlipidemia, unspecified; F41.8 Other specified anxiety disorders; G47.33 Obstructive sleep apnea (adult) (pediatric); Z90.49 Acquired absence of other specified parts of digestive tract; I25.2 Old myocardial infarction; F17.210 Nicotine dependence, cigarettes, uncomplicated; E11.65 Type 2 diabetes mellitus with hyperglycemia; Z79.4 Long term (current) use of insulin; E87.6 Hypokalemia; Z79.84 Long term (current) use of oral hypoglycemic drugs; B37.9 Candidiasis, unspecified
CPT/HCPCS: 36415; 36600; 71046; 71250; 74177; 76705; 80053; 80307; 81001; 82010; 82150; 82375; 82565; 82805; 83036; 83050; 83690; 84484; 84520; 85025; 85610; 85730; 87040; 87185; 90471; 90686; 93005; 94640; 96374; 96375; 96376; 99285; A9270; G0008; J0131; J1170; J1200; J1815; J2060; J2270; J2405; J2543; J3010; J3480; J7030; Q9967

== ENCOUNTER 2020-03-27 18:48 | Observation (INO) | payer OTHER, SELFPAY ==
[2020-03-27] VITALS (9 sets, daily range): BP systolic 97–121; BP diastolic 57–79; PULSE 74–84; RESP 15–24; TEMP 36.3–36.9; O2SAT 97–99; BMI 40.1
--- NOTE | ~2020-03-27 | XR_ITS ---
EXAMINATION: XR chest 2V EXAM DATE: 03/27/2020 20:01 INDICATION: Shortness of breath, cough, history COPD asthma. TECHNIQUE: Frontal and lateral projections of the chest obtained and reviewed. Comparison is made to prior examination from 07/09/2019. FINDINGS: The lungs are clear. There are no pleural effusions. The cardiomediastinal silhouette is within normal limits. There is no pneumothorax suspected. The bones and soft tissues are unremarkab le. IMPRESSION: No acute cardiopulmonary findings. Reviewed, dictated and finalized at location A.
--- NOTE | 2020-03-27 19:08 | ECG_ITS ---
Measurements Intervals [place] Rate: 74 P: 46 TX: 159 QRS: 54 QRSD: 80 T: 57 QT: 415 QTc: 463 Interpretive Statements SINUS RHYTHM LOW QRS VOLTAGE IN PRECORDIAL LEADS BORDERLINE T WAVE ABNORMALITY- ANTERIOR LEADS BORDERLINE ECG Electronically Signed On 03-28-2020 7:35:05 CDT by Larry York D.O.
[2020-03-27 19:31] LABS: Basophils Absolute Auto 0.1 K/mm3 (0.0-0.1); Basophils Percent Auto 0.5 % (0.2-1.2); Eosinophils Absolute Auto 0.4 K/mm3 (0-0.3); Eosinophils Percent Auto 3.4 % (0-4.4); Hematocrit 40.1 % (37.0-47.0); Hemoglobin 13.2 g/dL (12.0-15.0); Immature Granulocyte Absolute 0.03 K/mm3 (0.00-0.031); Immature Granulocyte Percent A 0.3 % (0-0.5); Lymphocytes Absolute Auto 3.17 K/mm3 (0.9-3.2); Lymphocytes Percent Auto 31.1 % (18.3-44.2); Mean Corpuscular HGB Conc 32.9 g/dl (32-36); Mean Corpuscular Volume 97.1 fl (80-100); Mean Platelet Volume 9.5 fl (7.4-10.4); Monocytes Absolute Auto 0.6 K/mm3 (0.1-0.6); Monocytes Percent Auto 5.4 % (2.6-8.5); Neutrophils Percent Auto 59.3 % (45.5-73.1); Platelet Count Result 262 k/mm3 (150-375); Red Blood Count 4.13 M/mm3 (4.2-5.4); Red Cell Distribution Width 14.6 % (11.5-14.5); White Blood Count 10.2 K/mm3 (4.5-10.0)
--- NOTE | 2020-03-27 19:32 | ED.CHESTPAIN ---
HPI - Chest Pain General Chief Complaint: Chest Pain Stated Complaint: cp Time Seen by Provider: 03/27/20 19:12 Source: patient Mode of arrival: ambulatory Limitations: no limitations History of Present Illness HPI narrative: 49-year-old female History of coronary disease with a stent hypertension diabetes on insulin smokes anxiety and depression Sees cardiology in [place] around 6 or 630 she went out to walk her dog and began having a headache chest pain left arm pain left leg pain and felt cold and sweaty She received aspirin and nitroglycerin from EMS which did not make much difference No cough or shortness of breath or fever MD complaint: chest pain Pertinent past history: coronary artery disease Onset (ago): hour(s) Timing of current episode: episodic and still present Prior episodes: Yes Onset: during exertion Pain location: left chest Pain radiation: left arm and other (left leg) Severity: moderate Quality: aching Relieving factors: nothing Exacerbating factors: exertion Associated symptoms: diaphoresis Treatment prior to arrival: nitroglycerin Risk Factors Coronary artery disease risk factors: diabetes and smoking history Related Data Home Medications Medication Instructions Recorded Confirmed Basaglar KwikPen U-100 Insulin 30 unit SUBCUT 0900,2100 07/09/19 07/12/19 aspirin [Aspir-81] 81 mg PO DAILY 07/09/19 07/12/19 atorvastatin 10 mg PO DAILY 07/09/19 07/12/19 dicyclomine 10 mg PO QID 07/09/19 07/12/19 doxycycline monohydrate 100 mg PO BID 07/09/19 07/12/19 furosemide 40 mg PO DAILY 07/09/19 07/12/19 insulin lispro [Admelog SoloStar 15 unit SUBCUT TIDWM 07/09/19 07/12/19 U-100 Insulin] metformin 750 mg PO DAILY 07/09/19 07/12/19 nitroglycerin See Rx Instructions .ROUTE 07/09/19 07/12/19 .COMPLEX PRN paroxetine HCl [Paxil] 60 mg PO HS 07/09/19 07/12/19 ranitidine HCl 300 mg PO BID 07/09/19 07/12/19 topiramate 50 mg PO BID 07/09/19 07/12/19 trazodone 50 mg PO HS 07/09/19 07/12/19 Dulera 2 puff INHALATION Q12H 07/12/19 07/12/19 albuterol sulfate 2 puff INHALATION QID PRN 07/12/19 07/12/19 albuterol sulfate 2.5 mg INHALATION Q4H PRN 07/12/19 07/12/19 gabapentin 600 mg PO QAM AND QHS 07/12/19 07/12/19 lorazepam 1 mg PO HS 07/13/19 07/13/19 Allergies Allergy/AdvReac Type Severity Reaction Status Date / Time codeine Allergy Unknown HIVES Verified 07/12/19 16:36 ibuprofen Allergy Unknown HIVES Verified 07/12/19 16:36 ketorolac Allergy Unknown HIVES Verified 07/12/19 16:36 levofloxacin Allergy Unknown ITCH Verified 07/12/19 16:36 prochlorperazine Allergy Unknown HIVES Verified 07/12/19 16:36 tramadol Allergy Unknown HIVES Verified 07/12/19 16:36 Review of Systems Review of Systems: All systems reviewed & are unremarkable except as noted in HPI and below Constitutional: Constitutional: Denies chills, Reports fatigue and Denies fever(s) Eyes: Eyes: Reports no additional eye complaints ENT: Denies dizziness Cardiovascular: Cardiovascular: Reports as per HPI and Reports no additional cardiovascular complaints Respiratory: Respiratory: Reports no additional respiratory complaints, Denies cough and Denies wheezing Gastrointestinal: Gastrointestinal: Denies diarrhea and Denies vomiting Musculoskeletal: Musculoskeletal: Reports back pain (chronic) Neurologic: Denies vertigo, Reports headache(s) and Denies focal weakness Endocrine: Endocrine: Reports no additional endocrine complaints Hematologic/Lymphatic: Hematologic/Lymphatic: Reports no additional hematologic/lymphatic complaints [facility] Social History Social History Social History: She had 5 children and 2 have passed. One passed as an infant from SIDS are her 23 year old daughter last year from leukemia. Smoking packs per day: 1 Smoking cigarettes per day: 20.0 Years smoked: 20 Smoking pack-years: 20.00 Smoking status: Current every day smoker Tobacco t
[2020-03-27 19:43] LABS: Anion Gap 14.2 mmol/L (7-16); Blood Urea Nitrogen 22 mg/dL (7-17); Carbon Dioxide 23 mmol/L (22-30); Chloride 103 mmol/L (98-107); Estimated CRCL calculation 86 ml/min; Estimated Glomerular Filt Rate > 60; Glucose 235 mg/dL (65-105); Potassium 4.2 mmol/L (3.4-5.0); Sodium 136 mmol/L (137-145)
[2020-03-27 19:44] LABS: Prothrombin Time 12.6 Seconds (11.1-14.7)
[2020-03-27 19:47] LABS: Partial Thromboplastin Time 29.2 SECONDS (22.3-36.8)
[2020-03-27 19:55] LABS: Troponin I < 0.012 ng/mL (0.000-0.034)
[2020-03-27] MEDS: NITROGLYCERIN SL 0.4 MG TABLET SUBLINGUAL (20:15)
--- NOTE | 2020-03-27 20:15 | PC.NURSE ---
Administered 1 SL Nitro tab. Pt. CP 05/14 HR 77 BP 113/74
[2020-03-27] MEDS: ASPIRIN 81 MG CHEWABLE TABLET 324 MG PO (20:16)
[2020-03-27] MEDS: NITROGLYCERIN OINTMENT 1 INCH DOSE TRANSDERM (20:16)
--- NOTE | 2020-03-27 20:20 | PC.NURSE ---
administered 0.4 mg SL pt cp 05/14 BP 123/74
--- NOTE | 2020-03-27 20:35 | PC.NURSE ---
Administered 0.4 mg SL nitro pt CP 05/14 bp 90/70
--- NOTE | 2020-03-27 21:00 | PC.NURSE ---
Pt reports CP 05/14. Pt requesting sandwhich and something to drink. ERP notified. No further orders
--- NOTE | 2020-03-27 21:19 | PC.NURSE ---
pt walked outside to smoke, she was asked by Abraham RAYMOND to put out cig and return to her room. Pt ambulatory to room.
--- NOTE | 2020-03-27 21:41 | PC.NURSE ---
Pt seen amb to ed waiting room and having a cigarette
[2020-03-27] MEDS: ACETAMINOPHEN 500 MG TABLET 1000 MG PO (22:03)
[2020-03-27 22:13] LABS: Amphetamine Screen Urine Negative (Negative); Barbiturate Screen Urine Negative (Negative); Benzodiazepines Screen Urine Negative (Negative); Cannabinoid Screen Urine Positive (Negative); Cocaine Screen Urine Positive (Negative); Methadone Screen Urine Negative (Negative); Opiate Screen Urine Positive (Negative); Phencyclidine Screen Urine Negative (Negative)
[2020-03-27 22:31] LABS: Troponin I < 0.012 ng/mL (0.000-0.034)
--- NOTE | 2020-03-27 22:53 | ECG_ITS ---
Measurements Intervals [place] Rate: 81 P: -5 ND: 144 QRS: -6 QRSD: 89 T: 6 QT: 388 QTc: 451 Interpretive Statements SINUS RHYTHM LOW QRS VOLTAGE IN PRECORDIAL LEADS BORDERLINE T WAVE ABNORMALITY- ANT/INF LEADS BASELINE WANDER- II, III, V1-V3 BORDERLINE ECG Electronically Signed On 03-28-2020 7:28:12 CDT by Larry York D.O.
[2020-03-27] MEDS: BELLADONNA ALK/PHENOB ELIX 10 ML, MAG HYDROX/ALUMINUM HYD/SIMETH 30 ML, LIDOCAINE HCL 2... PO (23:33)
--- NOTE | 2020-03-27 23:47 | ADMGEN ---
This patient, Mikayla Hays, was admitted to IMU Room 204-01 on 03/27/20 at 2332. Patient/family oriented to hospital policies and general routines including ID bracelet, bed and alarms, visiting hours, pain management, procedures, bathroom and other care routines, personal items, smoking policy, room service/diet, and visiting hours. Valuables list has been completed. Information on how to activate the Rapid Response Team has been discussed. Patient/Family are encouraged to report perceived risks to care and to ask questions if they do not understand what they are told or what they should do.
[2020-03-28] VITALS (15 sets, daily range): BP systolic 91–111; BP diastolic 57–72; PULSE 65–97; RESP 16–24; TEMP 35.8–36.4; O2SAT 92–100
[2020-03-28] MEDS: NITROGLYCERIN OINTMENT 1 INCH DOSE TRANSDERM ×3 (00:51→14:25)
[2020-03-28] MEDS: LACTATED RINGERS 1,000 ML 125 ML IV CONT (00:52)
[2020-03-28 01:21] LABS: Troponin I < 0.012 ng/mL (0.000-0.034)
[2020-03-28] MEDS: ATORVASTATIN 40 MG TABLET 80 MG PO (04:11)
[2020-03-28] MEDS: GABAPENTIN 300 MG CAPSULE 600 MG PO ×4 (04:11→16:31)
[2020-03-28] MEDS: PARoxetine 20 MG TABLET 60 MG PO (04:11)
[2020-03-28] MEDS: CYCLOBENZAPRINE HCL 10 MG TABLET PO ×3 (04:11→16:31)
[2020-03-28] MEDS: TOPIRAMATE 100 MG TABLET PO ×3 (04:12→16:31)
[2020-03-28] MEDS: traZODone HCL 50 MG TABLET 100 MG PO (04:12)
[2020-03-28] MEDS: RANOLAZINE 500 MG TAB.ER.12H 1000 MG PO ×2 (04:12→12:10)
--- NOTE | 2020-03-28 06:00 | ECG_ITS ---
Measurements Intervals [place] Rate: 78 P: [place]: 0 QRS: 50 QRSD: 87 T: 46 QT: 417 QTc: 477 Interpretive Statements SINUS RHYTHM LOW QRS VOLTAGE IN PRECORDIAL LEADS BORDERLINE T WAVE ABNORMALITY- ANTERIOR LEADS BASELINE ARTIFACT- I, II, III, AVL, AVF, V1-V6 ABNORMAL ECG Electronically Signed On 03-28-2020 7:41:23 CDT by Larry York D.O.
[2020-03-28] MEDS: CLOPIDOGREL BISULFATE 75 MG TABLET PO (07:52)
[2020-03-28] MEDS: ASPIRIN 81 MG ENTERIC TABLET PO (07:52)
[2020-03-28] MEDS: FENOFIBRATE 160 MG TABLET PO (07:53)
[2020-03-28] MEDS: DOCUSATE SODIUM 100 MG CAPSULE PO (07:53)
[2020-03-28] MEDS: FUROSEMIDE 40 MG TABLET PO (07:53)
[2020-03-28] MEDS: FAMOTIDINE 20 MG/2 ML VIAL IV PUSH (07:53)
[2020-03-28] MEDS: ENOXAPARIN 40 MG/0.4 ML SYRINGE SUB-Q (07:53)
[2020-03-28] MEDS: ISOSORBIDE MONONITRATE 30 MG TAB.ER.24H PO (07:54)
[2020-03-28 08:25] LABS: Glucose Point of Care 252 (65-105)
[2020-03-28] MEDS: INSULIN HUMAN ISOPHAN/REGULAR 70/30 (*BKC) 100 UNITS/ML 52 UNITS SUB-Q ×2 (08:26→17:22)
[2020-03-28] MEDS: INSULIN ASPART (*BKC) 100 UNITS/ML SUB-Q ×3 (08:26→17:21)
--- NOTE | 2020-03-28 09:43 | PM.IMHP ---
H&P: HPI History of Present Illness Chief complaint: chest pain Narrative: Mikayla Hays is a 49 year old female with history of coronary disease, diabetes, hypertension who continues to smoke who is here for chest pain. Patient has a history heart catheterization with stent placement 2014. She is followed by phlebotomy support tech in [place]. She has not had any type of heart evaluation since 2014 she states. It should be mentioned that the patient is extremely somnolent and falls asleep often when trying to obtain history. Patient states she last saw her phlebotomy support tech a month ago. About 1-2 weeks ago, patient developed right-sided chest pain that lasted a couple of days . She went to [facility] ER but left against medical advice because of the increased wait time. They did not treat her with medications. Unclear if the chest pain resolved on its own or if she took other medications. Yesterday, while walking the dog around the block around 330 in the afternoon in heat, she developed chest pain that was 10/10. It was right-sided that radiated to the left side and down the left arm. She had shortness of breath, diaphoresis and nausea with the pain. She has also been having headaches mostly in the neck and occipital region. She has a history of migraines but this feels different. She contacted 911 and was brought to the emergency room few hours later. She states EMS gave her nitroglycerin and morphine which helped. In the emergency room she states the pain was still 9/10. She was given Tylenol nitroglycerin with some relief. The pain is not palpable or pleuritic. Patient was also given a GI cocktail as well. She was admitted for further care. Troponiins negative and EKG showing borderline T wave changes in anterior/inferior but no change from prior EKG in July. Her urine drug screen was positive for cocaine which she uses once a month. She denies any history of other illegal drug use. No history of IV drug use. She denies buying prescription medication off the street. Review of Systems Review of Systems: All systems reviewed & are unremarkable except as noted in HPI and below PMFSH Past Medical History Medical History (Updated 03/28/20 @ 13:27 by Ralph Zurita MD) Anxiety Cholecystitis Coronary artery disease Depression Diabetes mellitus Dyslipidemia Obstructive sleep apnea Pancreatitis 07/2019 Surgical History Surgical History History of cholecystectomy History of hysterectomy Social History Social History (Updated 03/28/20 @ 10:31 by Ralph Zurita MD) Social History: She had 5 children and 2 have passed. One passed as an infant from SIDS are her 23 year old daughter from leukemia. She smokes half a pack a day for past 20 years. Drug use as mentioned above. No alcohol use. She lives at home with her boyfriend and son. She is a full code. She nominates Rashaun Hays to be the individual would make medical decisions for if she is not able. Smoking packs per day: 0.5 Smoking cigarettes per day: 10.0 Years smoked: 20 Smoking pack-years: 10.00 Smoking status: Heavy tobacco smoker Tobacco type: cigarettes Second hand tobacco smoke exposure: Yes Alcohol intake: never Substance use: current Substance use type: marijuana and crack/cocaine Other substance usage details: current marijuana use and former cocaine use Last use: Cocaine use last 2018, Marijuana use 03/25/20 Additional living arrangements comments: Patient lives with boyfriend, Chinmay Jean. 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
[2020-03-28 10:44] LABS: Alveolar/Arterial O2 Gradient 27.2 mmHg; Base Excess ABG -1.1 mEq/l (+/-2.0); Device CPAP; Fractional Inspired Oxygen 21 %; Modified Allen's Test Pass; Oxygen Content ABG 16.9 %vol (16.0-22.0); Oxygen Saturation ABG 91.7 % (95.0-100.0); Oxyhemoglobin 90.1 % THb (90.0-100.0); PCO2 ABG 47.4 mmHg (35.0-45.0); PO2 ABG 65.8 mmHg (80.0-100.0); PO2 FiO2 Ratio Arterial Blood 3.13 %; Site Drawn LEFT RADIAL; Total Hemoglobin 13.3 g/dL (12.0-18.0)
[2020-03-28 10:48] LABS: CPAP 17 cmH2O
[2020-03-28 12:11] LABS: Glucose Point of Care 248 (65-105)
--- NOTE | 2020-03-28 13:18 | PM.DS ---
DS: Discharge Diagnosis Discharge Diagnosis (1) Chest pain: Code(s): R07.9 - Chest pain, unspecified Status: Acute Assessment and Plan: Patient with chest pain when she was out walking in the heat. She has multiple risk factors. She also uses cocaine. Etiology is unclear but could be related to dehydration and heat related. Consider also ischemia since she is having chest pain with exertion although this seems less likely given the normal troponins an unchanged EKG. Cocaine also could be causing chest pain as well. She was educated about the benefits of abstain from drug use. We continued her aspirin, Plavix, Imdur, Ranexa and Lipitor. She also states she has been out of her scheduled Ativan recently which alos could be causing her symptoms. She was educated about rationing medciation so as not to be completely out prior to refill. She later mentions that she has a stress test scheduled for 04/20 which I told her to keep. Her ABG was okay and she woke up and was up walking in halls. She was comfortable with discharge. She should return the emergency if she has recurrent chest pain. (2) Cocaine abuse: Code(s): F14.10 - Cocaine abuse, uncomplicated Status: Acute Assessment and Plan: Patient has been educated about the benefits of abstaining from cocaine use. (3) Obstructive sleep apnea: Code(s): G47.33 - Obstructive sleep apnea (adult) (pediatric) Status: Acute Assessment and Plan: ABG showing pH 7.34 with pCO2 of 47. After resting the CPAP, patient became more awake alert. Was up walking halls. (4) Diabetes mellitus: Qualifiers: Diabetes mellitus type: type 2 Diabetes mellitus mcc insulin use: with parts counterman use Diabetes mellitus complication status: with hyperglycemia Qualified Code(s): E11.65 - Type 2 diabetes mellitus with hyperglycemia; Z79.4 - senior living (current) use of insulin Code(s): E11.9 - Type 2 diabetes mellitus without complications Status: Acute Assessment and Plan: Last A1c 13.9 in July. Glucose in the 200s. She was covered with sliding scale protocol. Home insulin regiment was resumed. (5) Coronary artery disease: Code(s): I25.10 - Atherosclerotic heart disease of [place] coronary artery without angina pectoris Status: Acute Assessment and Plan: As mentioned above. We continued medical management. (6) Dyslipidemia: Code(s): E78.5 - Hyperlipidemia, unspecified Status: Acute Assessment and Plan: Stable. We continued high-dose Lipitor. (7) DVT prophylaxis: Code(s): Z29.9 - Encounter for prophylactic measures, unspecified Status: Acute Assessment and Plan: Lovenox (8) Tobacco abuse: Code(s): Z72.0 - Tobacco use Status: Acute Assessment and Plan: patient educated about the benefits of abstain from tobacco use. DS: Summary Hospital Course Reason for hospitalization: 49yo female with multiple medical problems here for chest pain after walking her dog in the heat and also found to have cocaine in her urine. Please see H&P for details. Hospital Course: As above Time Spent with Patient Time attestation: Total time spent providing and/or coordinating discharge services: 45 minutes Time spent: Greater than 30 minutes Exam Narrative: Exam Narrative: AF 97.5 96/57 68 16 97% Gen - Well-nourished, well-developed female no acute respiratory distress lying flat in bed with BiPAP machine in place HEENT - normocephalic. Atraumatic. Pupils equal round reactive to light. Sclera clear. Dry mucous membranes. Neck - Supple. no obvious adenopathy or masses. Chest - minor expiratory wheezes anteriorly with expiratory rhonchi posteriorly. Normal respiratory rate. CV - Regular rate and rhythm. S1-S2. No murmurs. Abd - Soft. Obese. Nontender. Positive bowel sounds. Ext - No pedal edema. 2+ DP
[2020-03-28] MEDS: LORazepam 0.5 MG TABLET PO (13:32)
--- NOTE | 2020-03-28 13:37 | ECG_ITS ---
Measurements Intervals [place] Rate: 79 P: 41 NC: 156 QRS: 47 QRSD: 88 T: 50 QT: 408 QTc: 470 Interpretive Statements SINUS RHYTHM LOW QRS VOLTAGE IN PRECORDIAL LEADS BORDERLINE T WAVE ABNORMALITY- ANTERIOR LEADS BASELINE WANDER- I, II, III, V3 BORDERLINE ECG Electronically Signed On 03-28-2020 13:58:40 CDT by Larry York D.O.
--- NOTE | 2020-03-28 13:44 | PC.NURSE ---
Patient wanted to walk in hallway. mask was applied and RN stated to stay on Unit. Patient was then off monitor. RN checked patient room. patient was not in room and monitor laying on bed. RN walked the halls and did not find patient. Tech went downstairs to look while RN called sprayer operator. Tech found patient outside smoking. Tech walked patient up to room. RN went over rules of not being able to leave floor until discharge. Patient stated she was having chest pain. Dr. Beckman called and order obtained to get a stat EKG.
[2020-03-28] MEDS: ACETAMINOPHEN 325 MG TABLET 650 MG PO (14:25)
[2020-03-28 15:08] LABS: Troponin I < 0.012 ng/mL (0.000-0.034)
[2020-03-28 20:38] LABS: Glucose Point of Care 365 (65-105)
== END 2020-03-28 17:35 | disposition home or self-care (01) ==
LOC: ANHED 22:52 → ANHIMU 23:19
PROVIDERS: Admitting Provider Internal Medicine; Emergency Provider Emergency Medicine; PCP Family Medicine; Visit Provider Internal Medicine
DX: R07.9 Chest pain, unspecified (principal); F14.10 Cocaine abuse, uncomplicated; G47.33 Obstructive sleep apnea (adult) (pediatric); E11.65 Type 2 diabetes mellitus with hyperglycemia; I25.10 Atherosclerotic heart disease of native coronary artery without angina pectoris; Z95.5 Presence of coronary angioplasty implant and graft; F17.210 Nicotine dependence, cigarettes, uncomplicated; I10 Essential (primary) hypertension; E78.5 Hyperlipidemia, unspecified; Z79.4 Long term (current) use of insulin; Z79.82 Long term (current) use of aspirin; Z79.899 Other long term (current) drug therapy
CPT/HCPCS: 36415; 36600; 71046; 80048; 80307; 82805; 84484; 85025; 85610; 85730; 93005; 96372; 96374; 99285; A9270; G0378; G0379; J1650; J1815; J7120

== ENCOUNTER 2020-04-20 16:29 | Emergency (ER) | payer OTHER, SELFPAY ==
--- NOTE | ~2020-04-20 | XR_ITS ---
EXAMINATION: XR chest 2V DATE: 04/20/2020 17:24 INDICATION: Right-sided chest pain TECHNIQUE: PA and lateral views of the chest are obtained. COMPARISON: 03/27/2020 FINDINGS: The lungs are free of acute opacities. There is no pleural effusion or pneumothorax. The ca rdiomediastinal silhouette is normal. There is mild thoracic spondylosis. IMPRESSION: 1. No acute cardiopulmonary abnormality. Reviewed, dictated and finalized at location A.
--- NOTE | ~2020-04-20 | CT_ITS ---
EXAMINATION: CTA chest PE protocol DATE: 04/20/2020 18:47 INDICATION: Chest pain. TECHNIQUE: Computed tomography (CT) pulmonary angiogram of the chest was performed with 100 mL Omnipa que-350 intravenous contrast. Additional 3D reconstructions utilizing coronal maximum intensity proje ction (MIP) were performed. Automated exposure control and iterative reconstruction technique were em ployed. The dose-length product was 996.91 mGy-cm. COMPARISON: None FINDINGS: Excellent contrast opacification of the pulmonary arteries. There is mild streak artifact from dense contrast in the superior vena cava and right atrium. Mild scattered respiratory motion artifact which does not significantly limit evaluation. No pulmonary embolism. Mild emphysema. No pneumonia, pulmon mitzi edema, pleural effusion or pneumothorax. Mild atelectasis in the lingula and right middle lobe. H eart size is normal. Atherosclerotic coronary artery calcification with stenting along the left anter ior descending coronary artery. No pericardial effusion. Thoracic aorta is normal in caliber with no dissection. No pathologically enlarged thoracic lymphadenopathy. Visualized upper abdomen and bones a re unremarkable. IMPRESSION: 1. No pulmonary embolism or other acute cardiopulmonary disease. 2. Mild emphysema. Reviewed, dictated and finalized at location A.
--- NOTE | 2020-04-20 16:33 | ECG_ITS ---
Measurements Intervals [place] Rate: 84 P: 58 [place]: 163 QRS: 59 QRSD: 79 T: 62 QT: 359 QTc: 426 Interpretive Statements SINUS RHYTHM LOW QRS VOLTAGE IN PRECORDIAL LEADS BASELINE ARTIFACT- I, III, AVL, V3, V5-V6 BORDERLINE ECG Electronically Signed On 04-20-2020 17:21:49 CDT by Larry York D.O.
[2020-04-20 16:51] VITALS: BP 123/66; PULSE 88; RESP 14; TEMP 37.7; O2SAT 96
--- NOTE | 2020-04-20 16:51 | ED.CHESTPAIN ---
HPI - Chest Pain General Chief Complaint: Chest Pain <Renay Fabian MD - Last Filed: 04/21/20 07:12> Stated Complaint: CHEST PAIN <Renay Fabian MD - Last Filed: 04/21/20 07:12> Time Seen by Provider: 04/20/20 16:43 <Renay Fabian MD - Last Filed: 04/21/20 07:12> History of Present Illness HPI narrative: Patient arrives to the ED with chest pain. She points mid lower and then under her right breast. She says it is 8 out of 10. She said is like her last heart attack. She has coronary artery disease, hypertension, and diabetes. She does not have shortness of breath or nausea but some diaphoresis. She tried aspirin and nitroglycerin at home without improvement. The pain radiates to both arms and both legs. She has not been sick recently. She still smokes cigarettes. <Renay Fabian MD - Last Filed: 04/21/20 07:12> MD complaint: chest pain <Renay Fabian MD - Last Filed: 04/21/20 07:12> Pertinent past history: coronary artery disease <Renay Fabian MD - Last Filed: 04/21/20 07:12> Onset (ago): hour(s) <Renay Fabian MD - Last Filed: 04/21/20 07:12> Timing of current episode: constant <Renay Fabian MD - Last Filed: 04/21/20 07:12> Prior episodes: Yes <Renay Fabian MD - Last Filed: 04/21/20 07:12> Pain location: substernal <Renay Fabian MD - Last Filed: 04/21/20 07:12> Pain radiation: right arm and left arm <Renay Fabian MD - Last Filed: 04/21/20 07:12> Severity: severe <Renay Fabian MD - Last Filed: 04/21/20 07:12> Pain scale (0-10): 8 <Renay Fabian MD - Last Filed: 04/21/20 07:12> Relieving factors: nothing <Renay Fabian MD - Last Filed: 04/21/20 07:12> Exacerbating factors: nothing <Renay Fabian MD - Last Filed: 04/21/20 07:12> Treatment prior to arrival: aspirin and nitroglycerin <Renay Fabian MD - Last Filed: 04/21/20 07:12> Risk Factors Coronary artery disease risk factors: diabetes and hypertension <Renay Fabian MD - Last Filed: 04/21/20 07:12> Related Data On Oral Contraceptives: No <Renay Fabian MD - Last Filed: 04/21/20 07:12> Home Medications: Home Medications Medication Instructions Recorded Confirmed aspirin [Aspir-81] 81 mg PO DAILY 07/09/19 03/28/20 atorvastatin 80 mg PO HS 07/09/19 03/28/20 furosemide 40 mg PO DAILY 07/09/19 03/28/20 paroxetine HCl [Paxil] 60 mg PO HS 07/09/19 03/28/20 trazodone 100 mg PO HS 07/09/19 03/28/20 albuterol sulfate 2 puff INHALATION QID PRN 07/12/19 03/28/20 albuterol sulfate 2.5 mg INHALATION Q4H PRN 07/12/19 03/28/20 gabapentin 600 mg PO TID 07/12/19 03/28/20 Humulin 70/30 U-100 KwikPen 52 unit SUBCUT BID 03/28/20 03/28/20 acetaminophen [Tylenol Extra 1,000 mg PO Q6H PRN 03/28/20 03/28/20 Strength] clopidogrel 75 mg PO DAILY 03/28/20 03/28/20 clotrimazole 1 applic TOPICAL BID PRN 03/28/20 03/28/20 cyclobenzaprine 10 mg PO BID 03/28/20 03/28/20 diphenhydramine-acetaminophen 1 tablet PO HS PRN 03/28/20 03/28/20 [Tylenol PM Extra Strength] docusate sodium 2 cap PO BID 03/28/20 03/28/20 fenofibrate 160 mg PO DAILY 03/28/20 03/28/20 isosorbide mononitrate 30 mg PO DAILY 03/28/20 03/28/20 nitroglycerin 0.4 mg SUBLINGUAL Q5MIN PRN 03/28/20 03/28/20 nystatin 1 applic TOPICAL BID PRN 03/28/20 03/28/20 ondansetron HCl 4 mg PO Q6H PRN 03/28/20 03/28/20 ranolazine 1,000 mg PO BID 03/28/20 03/28/20 terbinafine HCl 1 applic TOPICAL BID PRN 03/28/20 03/28/20 topiramate 100 mg PO BID 03/28/20 03/28/20 <Renay Fabian MD - Last Filed: 04/21/20 07:12> Allergies/Adverse Reactions: Allergies Allergy/AdvReac Type Severity Reaction Status Date / Time codeine Allergy Unknown HIVES Verified 04/20/20 16:56 ibuprofen Allergy Unknown HIVES Verified 04/20/20 16:56 ketorolac Allergy Unknown HIVES Verified 04/20/20 16:56 levofloxacin Allergy Unknown Swelling Verified 04/20/20 16:56 prochlorperazine Allergy Unknown HIVES Verified 04/20/20 16:56
[2020-04-20 16:56] VITALS: PULSE 85
[2020-04-20] MEDS: MORPHINE SULFATE 4 MG/ML INJ IV PUSH ×2 (17:09→18:18)
[2020-04-20] MEDS: SODIUM CHLORIDE 0.9% IV 1,000 ML 500 ML IV CONT (17:09)
[2020-04-20] MEDS: FAMOTIDINE 20 MG/2 ML VIAL IV PUSH (17:09)
[2020-04-20 17:23] LABS: Basophils Percent Auto 0.4 % (0.2-1.2); Eosinophils Absolute Auto 0.2 K/mm3 (0-0.3); Eosinophils Percent Auto 1.8 % (0-4.4); Hematocrit 39.6 % (37.0-47.0); Hemoglobin 13.2 g/dL (12.0-15.0); Immature Granulocyte Absolute 0.05 K/mm3 (0.00-0.031); Immature Granulocyte Percent A 0.5 % (0-0.5); Lymphocytes Absolute Auto 1.25 K/mm3 (0.9-3.2); Lymphocytes Percent Auto 13.2 % (18.3-44.2); Mean Corpuscular HGB Conc 33.3 g/dl (32-36); Mean Corpuscular Hemoglobin 32.4 pg (26-34); Mean Corpuscular Volume 97.1 fl (80-100); Mean Platelet Volume 9.8 fl (7.4-10.4); Monocytes Absolute Auto 0.4 K/mm3 (0.1-0.6); Neutrophils Absolute Auto 7.6 K/mm3 (1.3-6.7); Neutrophils Percent Auto 80.1 % (45.5-73.1); Platelet Count Result 246 k/mm3 (150-375); Red Blood Count 4.08 M/mm3 (4.2-5.4); Red Cell Distribution Width 14.7 % (11.5-14.5); White Blood Count 9.5 K/mm3 (4.5-10.0)
[2020-04-20 17:30] LABS: Anion Gap 8 mmol/L (8-16); Blood Urea Nitrogen 19 mg/dL (7-17); Calcium 9.1 mg/dL (8.4-10.2); Carbon Dioxide 29 mmol/L (22-30); Chloride 101 mmol/L (98-107); Estimated CRCL calculation 70 ml/min; Estimated Glomerular Filt Rate 59; Glucose 174 mg/dL (65-105); Potassium 3.9 mmol/L (3.4-5.0); Sodium 138 mmol/L (137-145)
[2020-04-20 17:35] LABS: Partial Thromboplastin Time 27.6 SECONDS (22.3-36.8)
[2020-04-20 17:39] LABS: NT Pro B Type Natriuretic Pept 64 PG/ML (5-100)
[2020-04-20 17:42] LABS: Troponin I < 0.012 ng/mL (0.000-0.034)
[2020-04-20 17:48] VITALS: BP 106/72; PULSE 81; RESP 18; O2SAT 98
[2020-04-20 18:25] VITALS: BP 108/57; PULSE 83; RESP 15; O2SAT 96
[2020-04-20 19:59] LABS: Troponin I < 0.012 ng/mL (0.000-0.034)
[2020-04-20 20:22] VITALS: BP 148/91; PULSE 86; RESP 20; TEMP 36.7; O2SAT 100
== END 2020-04-20 20:23 | disposition home or self-care (01) ==
PROVIDERS: Emergency Provider Emergency Medicine; PCP Family Medicine
DX: R07.89 Other chest pain (principal); F41.9 Anxiety disorder, unspecified; I25.10 Atherosclerotic heart disease of native coronary artery without angina pectoris; F32.9 Major depressive disorder, single episode, unspecified; E11.9 Type 2 diabetes mellitus without complications; G47.30 Sleep apnea, unspecified; E78.5 Hyperlipidemia, unspecified; Z79.4 Long term (current) use of insulin
CPT/HCPCS: 36415; 71046; 71275; 80048; 83880; 84484; 85025; 85610; 85730; 93005; 96361; 96374; 96375; 96376; 99284; J2060; J2270; J7030; Q9967

== ENCOUNTER 2020-04-21 06:57 | Outpatient (CLI) | payer OTHER, SELFPAY ==
--- NOTE | 2020-04-21 | EST_ITS ---
Patient Info Name: Mikayla Hays Age: 49 years : 1970 Gender: Female Ht: 64 in Wt: 220 lbs BSA: 2.17 m2 Exam Date: 04/21/2020 8:29 AM Exam Location: [facility] Stress Patient Status: Outpatient Admit Date: 04/21/2020 Staff Ordering Physician: Corazon, Roshni Gillis MD Attending Provider: Corazon, Roshni Gillis MD Exercise Technologist: Nancy Rodriguez RDCS Exercise Physician: Larry York DO Exam Type: CA stress elizabeth w NM Study Info Indications R06.02 - Shortness of breath A regadenoson stress test was performed. Summary 1. 1. Negative lexiscan stress test for ischemic ST changes by ECG criteria. 2. 2. Baseline relative hypotension. 3. 3. Nuclear scan to follow and will be reported separately. Please correlate with it. 4. 4. Patient informed of the above results. Protocol: Lexiscan Stress ECG Details Stage: REST Duration (min): 0 min : 56 sec HR (bpm): 80 SBP (mmHg): 87 DBP (mmHg): 57 Stage: REST Duration (min): 1 min : 3 sec HR (bpm): 80 SBP (mmHg): 87 DBP (mmHg): 57 Stage: STAGE 1 Duration (min): 0 min : 59 sec HR (bpm): 84 SBP (mmHg): 85 DBP (mmHg): 53 Stage: RECOVERY Duration (min): 1 min : 0 sec HR (bpm): 92 SBP (mmHg): 79 DBP (mmHg): 50 Stage: RECOVERY Duration (min): 2 min : 0 sec HR (bpm): 95 SBP (mmHg): 79 DBP (mmHg): 50 Stage: RECOVERY Duration (min): 3 min : 0 sec HR (bpm): 94 SBP (mmHg): 87 DBP (mmHg): 48 Stage: RECOVERY Duration (min): 4 min : 0 sec HR (bpm): 93 SBP (mmHg): 87 DBP (mmHg): 48 Stage: RECOVERY Duration (min): 4 min : 41 sec HR (bpm): 92 SBP (mmHg): 92 DBP (mmHg): 50 Rest HR: 80 bpm Peak HR: 95 bpm Rest Sys BP: 87 mmHg Peak Sys BP: 92 mmHg Max Pred HR: 172 bpm % Max Pred HR: 55 % Target HR: 146 bpm Max RPP: 8,740 bpm*mmHg Termination Reason: Completed protocol Cardiac Symptoms: Shortness of breath Total Time: 1 min : 0 sec Rest Valdez BP: 57 mmHg Peak Valdez BP: 50 mmHg Total Dose: 0.4 mg Resting ECG Sinus rhythm, low voltage- precordial leads, cannot r/o septal infarct, age indeterminate. Stress ECG No ST changes. Arrhythmias None. Report Signatures
--- NOTE | ~2020-04-21 | NM_ITS ---
EXAMINATION: NM elizabeth stress w perfusion DATE: 04/21/2020 10:06 INDICATION: Chest pain. TECHNIQUE: Rest images were obtained following intravenous administration of 10.5 mCi Tc99m tetrofosm in (Myoview). The patient was infused intravenously with Lexiscan (regadenoson). Then, 32 mCi Tc99m t etrofosmin (Myoview) was administered intravenously, and stress images were obtained. Data was recons tructed into short axis and horizontal and vertical long axis SPECT images. Gated SPECT images were a lso obtained. COMPARISON: Chest CT 04/20/2020 FINDINGS: There is a small, mild, fixed perfusion defect involving left ventricular apex and apical a nterior segment, consistent with infarct. No reversible component to suggest ischemia. There is no s egmental wall motion abnormality. Left ventricular ejection fraction measures >70%. IMPRESSION: 1. Small area of mild infarct involving left ventricular apex and apical anterior segment. 2. Normal left ventricular ejection fraction measuring >70%. Reviewed, dictated and finalized at location A. IMPRESSION: 1. Small area of mild infarct involving left ventricular apex and apical anteri or segment. 2. Normal left ventricular ejection fraction measuring >70%.
== END 2020-04-21 06:58 | disposition home or self-care (01) ==
PROVIDERS: PCP Family Medicine; Visit Provider Internal Medicine Cardiovascular Disease
DX: I21.9 Acute myocardial infarction, unspecified (principal); R06.02 Shortness of breath
CPT/HCPCS: 78452; 93017; A9502; J2785

== ENCOUNTER 2020-11-26 12:44 | Outpatient (CLI) | payer OTHER, SELFPAY ==
--- NOTE | 2020-11-26 | ECHO_ITS ---
Patient Info Name: Mikayla Hays Age: 50 years : 1970 Gender: Female Ht: 64 in Wt: 236 lbs BSA: 2.25 m2 HR: 72 bpm BP: 104 / 74 mmHg Technical Quality: Good Exam Date: 11/26/2020 1:14 PM Exam Location: [facility] Patient Status: Outpatient Admit Date: 11/26/2020 Staff Ordering Physician: Larry York DO Outsole Splicer: Jose Manuel Husain RDCS, RT Attending Provider: Larry York DO Referring Physician: Jaylen DINH; Exam Type: CA echo doppler color flow Study Info Indications I35.0 - Nonrheumatic aortic (valve) stenosis Complete two-dimensional, color flow and Doppler transthoracic echocardiogram is performed. Strain analysis performed. Summary 1. Complete two-dimensional, color flow and Doppler transthoracic echocardiogram is performed. 2. Left ventricular chamber dimension is normal. 3. The apex is akinetic. 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 No thrombus in apex. 4. Left ventricular systolic function is normal, estimated at 60-65%. 5. The left ventricular diastolic function is grade I diastolic dysfunction. 6. E/e' 9 is minimally elevated. 7. Global longitudinal strain is abnormal at -15.2%. 8. There is moderate aortic valve sclerosis. 9. There is mild aortic valve stenosis with a peak velocity of 178 cm/s, mean gradient of 7 mmHg, and aortic valve area of 1.8 cm2. 10. Dilated inferior vena cava with >50% collapse upon inspiration consistent with elevated right atrial pressure, 10 mmHg. Left Ventricle E/e' 9 is minimally elevated. Global longitudinal strain is abnormal at -15.2%. The apex is akinetic. 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 No thrombus in apex. Left ventricular chamber dimension is normal. Left ventricular systolic function is normal, estimated at 60-65%. The left ventricular diastolic function is grade I diastolic dysfunction. Right Ventricle Right ventricular chamber dimension is normal. Right ventricular systolic function is normal. Left Atria Left atrial chamber dimension is normal. Right Atria Right atrial chamber dimension is normal. Aortic Valve The aortic valve is trileaflet. There is moderate aortic valve sclerosis. There is mild aortic valve stenosis with a peak velocity of 178 cm/s, mean gradient of 7 mmHg, and aortic valve area of 1.8 cm2. There is no aortic valve regurgitation. Pulmonic Valve There is no pulmonic regurgitation. Mitral Valve There is no mitral valve stenosis. There is no mitral valve regurgitation. Tricuspid Valve There is no tricuspid valve regurgitation. Pericardium/Pleural There is no pericardial effusion. Inferior Vena Cava Dilated inferior vena cava with >50% collapse upon inspiration consistent with elevated right atrial pressure, 10 mmHg. Aorta The aortic root size at the sinus of Valsalva is normal. Left Ventricular Outflow Tract Name Value Normal LVOT 2D LVOT Diameter 2.0 cm LVOT Doppler LVOT Peak Gradient 5 mmHg LVOT Mean Gradient 2 mmHg LVOT VTI 21 cm LVOT VTI/AV VTI Ratio 0.6
== END 2020-11-26 12:45 | disposition home or self-care (01) ==
LOC: ANHCARD 12:46
PROVIDERS: PCP Family Medicine; Visit Provider Internal Medicine Cardiovascular Disease
DX: I25.10 Atherosclerotic heart disease of native coronary artery without angina pectoris (principal); I35.0 Nonrheumatic aortic (valve) stenosis; I35.8 Other nonrheumatic aortic valve disorders; I87.8 Other specified disorders of veins; I51.89 Other ill-defined heart diseases
CPT/HCPCS: 93306

== ENCOUNTER 2021-07-07 16:34 | Emergency (ER) | payer OTHER, SELFPAY ==
[2021-07-07] VITALS (8 sets, daily range): BP systolic 124–125; BP diastolic 86–90; PULSE 79–88; RESP 17–18; TEMP 36.3; O2SAT 99–100
--- NOTE | ~2021-07-07 | CT_ITS ---
EXAMINATION: CT abdomen pelvis w con DATE: 07/07/2021 21:48 INDICATION: Right upper quadrant abdominal pain for 3 days. History of pancreatitis. TECHNIQUE: Computed tomography (CT) of the abdomen and pelvis was performed with 100 cc Omnipaque 350 intravenous contrast. Automated exposure control and iterative reconstruction technique were employe d. Exam dose: 1397.40 mGy-cm total exam DLP. COMPARISON: 07/12/2019 CT abdomen pelvis FINDINGS: Mild discoid atelectasis or scarring of the lingula and medial segment of the middle lobe. No infiltrate or consolidation of the lung bases. Normal heart size. No pericardial or pleural effusi on. Status post cholecystectomy. No hepatic, splenic, pancreatic, and adrenal or renal space-occupying ma ss lesion is evident. No bile duct or pancreatic duct dilatation. No urinary tract calculus or hydrou reteronephrosis. Normal caliber of the abdominal aorta. No intraperitoneal or retroperitoneal or pelvic mass lesion or adenopathy or ascites. Normal appendix. No bowel obstruction, bowel wall thickening, pneumatosis or intraperitoneal free air . The urinary bladder is unremarkable. Status post hysterectomy. Small fat-containing umbilical hernia. Included skeletal structures are unremarkable. IMPRESSION: Status post cholecystectomy No CT evidence of pancreatitis Normal appendix Status post hysterectomy Reviewed, dictated and finalized at Location A. Reviewed, dictated and finalized at location A.
[2021-07-07 20:39] LABS: Basophils Absolute Auto 0.1 K/mm3 (0.0-0.1); Basophils Percent Auto 0.4 % (0.2-1.2); Eosinophils Absolute Auto 0.4 K/mm3 (0-0.3); Eosinophils Percent Auto 3.5 % (0-4.4); Hematocrit 42.4 % (37.0-47.0); Hemoglobin 14.2 g/dL (12.0-15.0); Immature Granulocyte Absolute 0.05 K/mm3 (0.00-0.031); Immature Granulocyte Percent A 0.4 % (0-0.5); Lymphocytes Absolute Auto 3.58 K/mm3 (0.9-3.2); Lymphocytes Percent Auto 31.5 % (18.3-44.2); Mean Corpuscular HGB Conc 33.5 g/dl (32-36); Mean Corpuscular Hemoglobin 31.8 pg (26-34); Mean Corpuscular Volume 95.1 fl (80-100); Mean Platelet Volume 9.6 fl (7.4-10.4); Monocytes Absolute Auto 0.5 K/mm3 (0.1-0.6); Monocytes Percent Auto 4.4 % (2.6-8.5); Neutrophils Absolute Auto 6.8 K/mm3 (1.3-6.7); Neutrophils Percent Auto 59.8 % (45.5-73.1); Platelet Count Result 276 k/mm3 (150-375); Red Blood Count 4.46 M/mm3 (4.2-5.4); White Blood Count 11.4 K/mm3 (4.5-10.0)
[2021-07-07 20:44] LABS: Add Urine Microscopic? YES; Appearance Urine Cloudy (Clear); Bacteria Urine Trace /hpf; Bilirubin Urine Negative (Negative); Blood Urine Negative (Negative); Color Urine Yellow (Yellow); Glucose Urine UA Negative (Negative); Ketones Urine Negative (Negative); Leukocyte Esterase Ur 2+ LEU/UL (Negative); Nitrate Urine Negative (Negative); Protein Urine Negative (Negative); Specific Grav Ur 1.013 (1.001-1.035); Squamous Epithelial Cell Urine Few /hpf (Few); Urobilinogen Urine Negative mg/dL (<2.0)
[2021-07-07 21:09] LABS: Alanine Aminotransferase 34 U/L (4-35); Albumin Level 4.1 g/dL (3.5-5.1); Alkaline Phosphatase 157 U/L (38-126); Anion Gap 11 mmol/L (8-16); Aspartate Amino Transferase 33 U/L (14-36); Bilirubin,Total 0.8 mg/dL (0.2-1.3); Blood Urea Nitrogen 22 mg/dL (7-17); Calcium 9.4 mg/dL (8.4-10.2); Carbon Dioxide 25 mmol/L (22-30); Chloride 102 mmol/L (98-107); Estimated CRCL calculation 68 ml/min; Estimated Glomerular Filt Rate 59; Glucose 290 mg/dL (65-110); Lipase 70 U/L (23-300); Potassium 3.9 mmol/L (3.4-5.0); Sodium 138 mmol/L (137-145)
[2021-07-07] MEDS: fentaNYL CITRATE INJ (*CRX) 100 MCG/2 ML VIAL 50 MCG IV PUSH (21:47)
[2021-07-07] MEDS: ONDANSETRON INJ 4 MG/2 ML VIAL (21:48)
--- NOTE | 2021-07-07 22:16 | ED.ABDPAIN ---
HPI - Abdominal Pain General Chief Complaint: Abdominal Pain Stated Complaint: abd pain/swelling/dark stool Time Seen by Provider: 07/07/21 19:58 Source: patient Mode of arrival: ambulatory History of Present Illness HPI narrative: 51-year-old with a history of hypertension, recurrent pancreatitis, asthma anxiety and depression here with complaints of epigastric pain and right upper quadrant pain for last few days. Patient states that my pancreatitis is acting up she denies any nausea or vomiting. No recent alcohol use. MD elicited complaint: abdominal pain Pertinent past history: none and other (Pancreatitis) Onset (ago): day(s) (2) Pain Consistency: constant Location: epigastric and RUQ Severity: moderate Quality: cramping and aching Exacerbating factors: nothing Related Data Home Medications Medication Instructions Recorded Confirmed aspirin [Aspir-81] 81 mg PO DAILY 07/09/19 10/29/20 atorvastatin 80 mg PO HS 07/09/19 10/29/20 furosemide 40 mg PO DAILY 07/09/19 10/29/20 paroxetine HCl [Paxil] 60 mg PO HS 07/09/19 10/29/20 trazodone 100 mg PO HS 07/09/19 10/29/20 albuterol sulfate 2 puff INHALATION QID PRN 07/12/19 10/29/20 albuterol sulfate 2.5 mg INHALATION Q4H PRN 07/12/19 10/29/20 acetaminophen [Tylenol Extra 1,000 mg PO Q6H PRN 03/28/20 10/29/20 Strength] cyclobenzaprine 10 mg PO BID 03/28/20 10/29/20 ondansetron HCl 4 mg PO Q6H PRN 03/28/20 10/29/20 ranolazine 1,000 mg PO BID 03/28/20 10/29/20 topiramate 100 mg PO BID 03/28/20 10/29/20 Allergies Allergy/AdvReac Type Severity Reaction Status Date / Time amoxicillin Allergy Mild Unknown Verified 10/29/20 13:58 cephalexin [From Keflex] Allergy Mild Unknown Verified 10/29/20 13:58 ciprofloxacin Allergy Mild Unknown Verified 10/29/20 13:58 clavulanic acid Allergy Mild Unknown Verified 10/29/20 13:58 [From Augmentin] metronidazole Allergy Mild Unknown Verified 10/29/20 13:58 Sulfa (Sulfonamide Allergy Mild Unknown Verified 10/29/20 13:58 Antibiotics) codeine Allergy Unknown HIVES Verified 10/29/20 13:58 ibuprofen Allergy Unknown HIVES Verified 10/29/20 13:58 ketorolac Allergy Unknown HIVES Verified 10/29/20 13:58 levofloxacin Allergy Unknown Swelling Verified 10/29/20 13:58 prochlorperazine Allergy Unknown HIVES Verified 10/29/20 13:58 tramadol Allergy Unknown HIVES Verified 10/29/20 13:58 Review of Systems Review of Systems: All systems reviewed & are unremarkable except as noted in HPI and below Constitutional: Constitutional: Reports no additional constitutional complaints Eyes: Eyes: Reports no additional eye complaints ENT: Reports system reviewed and no additional complaints, except as documented Cardiovascular: Cardiovascular: Reports no additional cardiovascular complaints Respiratory: Respiratory: Reports no additional respiratory complaints Gastrointestinal: Gastrointestinal: Reports as per HPI Musculoskeletal: Musculoskeletal: Reports no additional musculoskeletal complaints PMFSH Past Medical History Medical History Anxiety Cholecystitis COPD (chronic obstructive pulmonary disease) Coronary artery disease Depression Diabetes mellitus Dyslipidemia History of defect of abdominal wall Obesity Obstructive sleep apnea Pancreatitis 07/2019 Surgical History Surgical History History of bone marrow biopsy History of History of cholecystectomy History of dilatation and curettage History of hysterectomy History of tubal ligation Family History Family History Father Acute myocardial infarction Heart disease Hypertension Mother Diabetes mellitus Acute myocardial infarction Hypertension Sibling Diabetes mellitus Daughter Leukemia Social History Social History Social History: She had 5 c
== END 2021-07-07 22:40 | disposition home or self-care (01) ==
PROVIDERS: Emergency Provider Family Medicine; PCP Family Medicine
DX: R10.13 Epigastric pain (principal); F41.9 Anxiety disorder, unspecified; J44.9 Chronic obstructive pulmonary disease, unspecified; I25.10 Atherosclerotic heart disease of native coronary artery without angina pectoris; F32.9 Major depressive disorder, single episode, unspecified; E78.5 Hyperlipidemia, unspecified; E11.9 Type 2 diabetes mellitus without complications
CPT/HCPCS: 36415; 74177; 80053; 81001; 83690; 85025; 87077; 87086; 87088; 96374; 96375; 99284; J2405; J3010; Q9967

== ENCOUNTER 2021-09-08 02:37 | Observation (INO) | payer OTHER, SELFPAY ==
[2021-09-08] VITALS (7 sets, daily range): BP systolic 92–147; BP diastolic 69–89; PULSE 69–84; RESP 16–23; TEMP 36–36.8; O2SAT 92–100; BMI 38.5
--- NOTE | 2021-09-08 | ECG_ITS ---
Measurements Intervals [place] Rate: 77 P: 49 CT: 164 QRS: 51 QRSD: 89 T: 47 QT: 401 QTc: 454 Interpretive Statements SINUS RHYTHM DELAYED PRECORDIAL R/S TRANSITION LOW QRS VOLTAGE IN PRECORDIAL LEADS BORDERLINE ST-T WAVE ABNORMALITY- ANTERIOR LEADS BASELINE WANDER- V1-V2 BORDERLINE ECG Electronically Signed On 09-08-2021 6:41:37 CABLE TOOL OPERATOR by Larry York D.O.
--- NOTE | ~2021-09-08 | XR_ITS ---
EXAMINATION: XR chest 2V DATE: 09/08/2021 03:04 INDICATION: Cough. Chest pain. TECHNIQUE: Frontal and lateral views of the chest were obtained. COMPARISON: Chest 2 views 04/20/2020, CT abdomen and pelvis 07/07/2021 FINDINGS: The chest demonstrates clear lungs without pneumonia, pleural effusion, or pneumothorax. Th e heart size is normal. IMPRESSION: 1. No acute cardiopulmonary disease. Reviewed, dictated and finalized at location A. [employer]
--- NOTE | ~2021-09-08 | NM_ITS ---
EXAMINATION: NM elizabeth stress w perfusion DATE: 09/08/2021 14:13 INDICATION: Chest pain TECHNIQUE: Rest images were obtained following intravenous administration of 9.44 mCi Tc99m tetrofosm in (Myoview). The patient was infused intravenously with Lexiscan (Regadenoson). Then, 30.8 mCi Tc99m tetrofosmin (Myoview) was administered intravenously, and stress images were obtained in supine posi tion. Additional post stress prone images were obtained. Data was reconstructed into short axis and h orizontal and vertical long axis SPECT images. Gated SPECT images were also obtained. COMPARISON: None. FINDINGS: There is breast attenuation artifact along the anterior wall on the supine images which nor malizes on the prone post stress imaging. There is no definite reversible or fixed perfusion abnormal ity to suggest ischemia or infarction. There is normal left ventricular chamber size, wall motion an d ejection fraction. Left ventricular ejection fraction measures >70%. IMPRESSION: 1. Normal myocardial perfusion at rest and during stress. 2. Left ventricular ejection fraction measuring >70%. Reviewed, dictated and finalized at location B. 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
[2021-09-08 02:47] LABS: Glucose Point of Care > 500 mg/dl (65-105)
[2021-09-08 03:04] LABS: Basophils Percent Auto 0.4 % (0.2-1.2); Eosinophils Absolute Auto 0.2 K/mm3 (0-0.3); Eosinophils Percent Auto 2.3 % (0-4.4); Hematocrit 40.4 % (37.0-47.0); Hemoglobin 13.6 g/dL (12.0-15.0); Immature Granulocyte Absolute 0.03 K/mm3 (0.00-0.031); Immature Granulocyte Percent A 0.3 % (0-0.5); Lymphocytes Absolute Auto 2.18 K/mm3 (0.9-3.2); Lymphocytes Percent Auto 23.1 % (18.3-44.2); Mean Corpuscular HGB Conc 33.7 g/dl (32-36); Mean Corpuscular Volume 95.1 fl (80-100); Mean Platelet Volume 9.9 fl (7.4-10.4); Monocytes Absolute Auto 0.5 K/mm3 (0.1-0.6); Monocytes Percent Auto 5.5 % (2.6-8.5); Neutrophils Absolute Auto 6.4 K/mm3 (1.3-6.7); Neutrophils Percent Auto 68.4 % (45.5-73.1); Platelet Count Result 212 k/mm3 (150-375); Red Blood Count 4.25 M/mm3 (4.2-5.4); Red Cell Distribution Width 14.6 % (11.5-14.5); White Blood Count 9.4 K/mm3 (4.5-10.0)
--- NOTE | 2021-09-08 03:09 | ED.CHESTPAIN ---
HPI - Chest Pain General Chief Complaint: Chest Pain Stated Complaint: CP & high BS, N/V Time Seen by Provider: 09/08/21 03:11 Source: patient and EMS Mode of arrival: EMS Limitations: no limitations History of Present Illness HPI narrative: Patient is a 51-year-old female complaining of chest pain, midsternal, tightness, and abdomen, nonradiating started tonight. Patient also states that she has been having nausea, vomiting, diarrhea and cough, productive, yellowish sputum that started 3 days ago. Patient denies any shortness of breath, abdominal pain, fever or chills. Patient's blood sugar read high on the glucose meter. Related Data Home Medications Medication Instructions Recorded Confirmed aspirin [Aspir-81] 81 mg PO DAILY 07/09/19 10/29/20 atorvastatin 80 mg PO HS 07/09/19 10/29/20 furosemide 40 mg PO DAILY 07/09/19 10/29/20 paroxetine HCl [Paxil] 60 mg PO HS 07/09/19 10/29/20 trazodone 100 mg PO HS 07/09/19 10/29/20 albuterol sulfate 2 puff INHALATION QID PRN 07/12/19 10/29/20 albuterol sulfate 2.5 mg INHALATION Q4H PRN 07/12/19 10/29/20 acetaminophen [Tylenol Extra 1,000 mg PO Q6H PRN 03/28/20 10/29/20 Strength] cyclobenzaprine 10 mg PO BID 03/28/20 10/29/20 ondansetron HCl 4 mg PO Q6H PRN 03/28/20 10/29/20 ranolazine 1,000 mg PO BID 03/28/20 10/29/20 topiramate 100 mg PO BID 03/28/20 10/29/20 Allergies Allergy/AdvReac Type Severity Reaction Status Date / Time amoxicillin Allergy Mild Unknown Verified 10/29/20 13:58 cephalexin [From Keflex] Allergy Mild Unknown Verified 10/29/20 13:58 ciprofloxacin Allergy Mild Unknown Verified 10/29/20 13:58 clavulanic acid Allergy Mild Unknown Verified 10/29/20 13:58 [From Augmentin] metronidazole Allergy Mild Unknown Verified 10/29/20 13:58 Sulfa (Sulfonamide Allergy Mild Unknown Verified 10/29/20 13:58 Antibiotics) codeine Allergy Unknown HIVES Verified 10/29/20 13:58 ibuprofen Allergy Unknown HIVES Verified 10/29/20 13:58 ketorolac Allergy Unknown HIVES Verified 10/29/20 13:58 levofloxacin Allergy Unknown Swelling Verified 10/29/20 13:58 prochlorperazine Allergy Unknown HIVES Verified 10/29/20 13:58 tramadol Allergy Unknown HIVES Verified 10/29/20 13:58 Review of Systems Review of Systems: All systems reviewed & are unremarkable except as noted in HPI and below Constitutional: Constitutional: Denies body ache(s), Denies chills, Denies excessive sweating, Denies fatigue, Denies fever(s), Denies headache(s), Denies lethargy, Denies malaise, Denies weakness and Denies weight loss Eyes: Eyes: Denies blurry vision, Denies change in vision and Denies loss of vision ENT: Denies dizziness, Denies ear discharge, Denies headache(s), Denies lip swelling, Denies epistaxis, Denies nasal congestion, Denies neck pain, Denies throat swelling and Denies tongue swelling Cardiovascular: Cardiovascular: Denies diaphoresis, Denies rapid heart rate, Denies edema, Denies irregular heart rhythm, Denies lightheadedness, Denies palpitations, Denies dyspnea and Denies dyspnea on exertion Respiratory: Respiratory: Denies chest congestion, Denies hemoptysis, Denies dyspnea and Denies dyspnea on exertion Gastrointestinal: Gastrointestinal: Denies abdominal pain, Denies melena, Denies hematochezia and Denies hematemesis Musculoskeletal: Musculoskeletal: Denies abnormal gait, Denies deformity, Denies joint swelling, Denies limited range of motion, Denies neck pain and Denies numbness Neurologic: Denies Abnormal speech present, Denies abnormal gait, Denies confusion, Denies dizziness, Denies headache(s), Denies focal weakness, Denies loss of vision, Denies numbness, Denies Other visual disturbances, Denies Sensory deficit (Neuro) and Denies weakness Psychiatric: Psychiatric: Denies confusion, Denies depression, Denies auditory hallucinations, Denies homicidal ideation and Denies suicidal ideation Endocrine: Endocrine: Denies cold intolerance, Denies excessive sweating, Denies fatigue, Denies heat into
[2021-09-08 03:18] LABS: Partial Thromboplastin Time 27.6 SECONDS (22.3-36.8); Prothrombin Time 12.8 Seconds (11.1-14.7)
[2021-09-08] MEDS: LACTATED RINGERS 1,000 ML 999 ML IV CONT ×2 (03:18→05:33)
[2021-09-08 03:21] LABS: Albumin Level 4.1 g/dL (3.5-5.1); Alkaline Phosphatase 192 U/L (38-126); Anion Gap 14 mmol/L (8-16); Aspartate Amino Transferase 28 U/L (14-36); Bilirubin,Total 0.7 mg/dL (0.2-1.3); Blood Urea Nitrogen 9 mg/dL (7-17); Calcium 8.8 mg/dL (8.4-10.2); Carbon Dioxide 18 mmol/L (22-30); Chloride 98 mmol/L (98-107); Estimated CRCL calculation 76 ml/min; Estimated Glomerular Filt Rate > 60; Lipase 32 U/L (23-300); Potassium 3.6 mmol/L (3.4-5.0); Sodium 130 mmol/L (137-145)
[2021-09-08 03:31] LABS: Alanine Aminotransferase 30 U/L (4-35); Glucose 729 mg/dL (65-110); Troponin I < 0.012 ng/mL (0.000-0.034)
[2021-09-08 03:38] LABS: Alveolar/Arterial O2 Gradient 22.3 mmHg; Base Excess ABG -6.2 mEq/l (+/-2.0); Carboxyhemoglobin 6.8 % THb (0-2.0); Fractional Inspired Oxygen 21 %; Methemoglobin ABG 0.2 %THb (0-1.5); Oxygen Content ABG 16.9 %vol (16.0-22.0); Oxygen Saturation ABG 95.6 % (95.0-100.0); Oxyhemoglobin 88.6 % THb (90.0-100.0); PCO2 ABG 36.9 mmHg (35.0-45.0); PO2 ABG 83.2 mmHg (80.0-100.0); PO2 FiO2 Ratio Arterial Blood 3.96 %; Reduced Hemoglobin 4.4 %THb (0-5.0); Total Hemoglobin 13.5 g/dL (12.0-18.0)
[2021-09-08 03:39] LABS: Device ROOM AIR; Modified Allen's Test Pass; Site Drawn RIGHT RADIAL
[2021-09-08 04:06] LABS: EDCOVIDSCREEN Negative (Negative)
[2021-09-08 04:07] LABS: Beta-Hydroxybutyrate/Acetoacetate 0.11 mmol/L (0.02-0.27)
[2021-09-08] MEDS: SODIUM CHLORIDE 0.9% IV 1,000 ML 999 ML IV CONT (04:24)
[2021-09-08] MEDS: LORazepam (*CRX) 1 MG TABLET PO ×2 (05:13→10:44)
[2021-09-08] MEDS: INSULIN HUMAN REGULAR (*BKC) 100 UNITS/ML 10 UNITS IV PUSH (05:14)
[2021-09-08 05:18] LABS: Glucose Point of Care > 500 mg/dl (65-105)
[2021-09-08] MEDS: POTASSIUM CHLORIDE 20 MEQ PACKET (FOR LIQUID) 40 MEQ PO (05:20)
--- NOTE | 2021-09-08 06:11 | PC.NURSE ---
patient none compliant with efforts to monitor taking off monitoring equipment and walking to bathroom without notifying staff
[2021-09-08 06:15] LABS: Glucose Point of Care 458 mg/dl (65-105)
[2021-09-08 06:45] LABS: Troponin I < 0.012 ng/mL (0.000-0.034)
--- NOTE | 2021-09-08 07:47 | ADMGEN ---
This patient, Mikayla Hays, was admitted to IMU Room 203-01. Patient/family oriented to hospital policies and general routines including ID bracelet, bed and alarms, visiting hours, pain management, procedures, bathroom and other care routines, personal items, smoking policy, room service/diet, and visiting hours. Information on how to activate the Rapid Response Team has been discussed. Patient/Family are encouraged to report perceived risks to care and to ask questions if they do not understand what they are told or what they should do.
[2021-09-08] MEDS: LACTATED RINGERS 1,000 ML 125 ML IV CONT (08:25)
[2021-09-08] MEDS: MORPHINE SULFATE (*CRX) 2 MG/ML INJ IV PUSH (08:30)
--- NOTE | 2021-09-08 08:33 | EST_ITS ---
Patient Info Name: Mikayla Hays Age: 51 years : 1970 Gender: Female Ht: 64 in Wt: 241 lbs BSA: 2.28 m2 HR: 68 bpm BP: 108 / 63 mmHg Heart Rhythm: Sinus Rhythm Exam Date: 09/08/2021 1:06 PM Exam Location: [facility] Stress Patient Status: Inpatient Admit Date: 09/08/2021 Staff Ordering Physician: Kimberly Barrios DO Attending Provider: Erik Trevizo MD Exercise Technologist: Tatyana Eugene CT Exercise Physician: Larry York DO Exam Type: CA stress elizabeth w NM Study Info Indications R07.9 - Chest pain, unspecified A regadenoson stress test was performed. Summary 1. 1. Negative lexiscan stress test for ischemic ST changes by ECG criteria. 2. 2. Stable hemodynamics throughout the test. 3. 3. Nuclear scan to follow and will be reported separately. Please correlate with it. 4. 4. Patient informed of the above results. Protocol: Lexiscan Stress ECG Details Stage: REST Duration (min): 0 min : 58 sec HR (bpm): 68 SBP (mmHg): 108 DBP (mmHg): 63 Stage: REST Duration (min): 5 min : 35 sec HR (bpm): 67 SBP (mmHg): 108 DBP (mmHg): 63 Stage: STAGE 1 Duration (min): 1 min : 0 sec HR (bpm): 71 SBP (mmHg): 141 DBP (mmHg): 68 Stage: RECOVERY Duration (min): 1 min : 0 sec HR (bpm): 80 SBP (mmHg): 141 DBP (mmHg): 68 Stage: RECOVERY Duration (min): 2 min : 0 sec HR (bpm): 77 SBP (mmHg): 141 DBP (mmHg): 68 Stage: RECOVERY Duration (min): 3 min : 0 sec HR (bpm): 74 SBP (mmHg): 109 DBP (mmHg): 66 Stage: RECOVERY Duration (min): 3 min : 59 sec HR (bpm): 73 SBP (mmHg): 109 DBP (mmHg): 66 Rest HR: 67 bpm Peak HR: 84 bpm Rest Sys BP: 108 mmHg Peak Sys BP: 141 mmHg Max Pred HR: 170 bpm % Max Pred HR: 49 % Target HR: 145 bpm Max RPP: 11,844 bpm*mmHg Termination Reason: Completed protocol Cardiac Symptoms: Shortness of breath, Headache Total Time: 1 min : 0 sec Rest Valdez BP: 63 mmHg Peak Valdez BP: 68 mmHg Total Dose: 0.4 mg Resting ECG Sinus rhythm, borderline ST-T wave abnormality in anterior leads, low voltage in precordial leads. Stress ECG No ST changes. Arrhythmias None. Report Signatures
--- NOTE | 2021-09-08 08:38 | PM.IMHP ---
H&P: HPI History of Present Illness Date/Time: 09/08/21 08:38 Patient is a 51-year-old female past medical history of CAD status post stent from VT in 2013, hypertension, recurrent pancreatitis, asthma/COPD, nicotine dependence, anxiety/depression, who presents to ED with mid substernal chest pain. Patient has a history of VT in 2013 1 stent placed in LAD by Dr. Jackson at [facility]. She now follows Dr. York cardiology for which she has a follow-up appointment this week. 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 Of note patient recently had cocaine 5 days ago. Patient has been grieving the loss of her nephew who from an VT at age 34. Patient also said that her daughter had previously. Patient appears to be in significant distress, in tears during the exam. She does not have a psychiatrist and is requesting new provider. She is on many medications including benzodiazepines for her anxiety depression. She lives with her boyfriend and is independent. In the ED: Troponins have been negative x2, EKG normal sinus rhythm. She is hyperglycemic blood sugar 700s. Pseudo hyponatremia secondary to hyperglycemia. COVID-19 past was negative. Patient admitted for observation for chest pain. Chief Complaint: midsternal chest pain Review of Systems Review of Systems: Constitutional: No Fever, No Chills, No Night Sweats, No Fatigue, No Malaise ENT/Mouth: No Hearing Changes, No Ear Pain, No Nasal Congestion, No Sinus Pain, No Hoarseness, No sore throat, No Rhinorrhea, No Swallowing Difficulty Eyes: No Eye Pain, No Redness, No Vision Changes Cardiovascular: Endorses chest pain which is present at rest and worse with exertion. No Palpitations, No Orthopnea, No Claudication, No Edema Respiratory: No Cough, No Sputum, No Wheezing, No Shortness of Breath Gastrointestinal: No Nausea, No Vomiting, No Diarrhea, No Constipation, No Abdominal Pain, No Heartburn, No Hematochezia, No Melena Genitourinary: No Dysuria, No Urinary Frequency, No Hematuria, No Urinary Incontinence, No Urgency Musculoskeletal: No Arthralgias, No Myalgias, No Joint Swelling, No Joint Stiffness, No Back Pain Skin: No Skin Lesions, No Pruritis, No Hair Changes Neuro: No Weakness, No Numbness, No Paresthesias, No Loss of Consciousness, No Syncope, No Dizziness, No Headache Psych: Endorses anxiety, depression. She has insomnia which she uses trazodone Heme: No Bruising, No Bleeding Lymph: No Adenopathy Endocrine: No Polyuria, No Polydipsia, No Temperature Intolerance [facility] Past Medical History Medical History Anxiety Cholecystitis COPD (chronic obstructive pulmonary disease) Coronary artery disease Depression Diabetes mellitus Dyslipidemia History of defect of abdominal wall Obesity Obstructive sleep apnea Pancreatitis 07/2019 Surgical History Surgical History History of bone marrow biopsy History of History of cholecystectomy History of dilatation and curettage History of hysterectomy History of tubal ligation Family History Family History Father Acute myocardial infarction Heart disease Hypertension Congestive heart failure Mother Diabetes mellitus Acute myocardial infarction Hypertension Congestive heart failure Sibling Diabetes mellitus Asthma Chronic obstructive pulmonary disease Congestive heart failure Daughter Leukemia Sibling Overdose Asthma Chronic obstructive pulmonary disease Other Acute myocardial infarction Congestive heart failure Sibling Asthma Chronic obstructive pulmonary disease Sibling Asthma Chronic obstructive pulmonary disease Social History Social History So
[2021-09-08 09:25] LABS: Troponin I < 0.012 ng/mL (0.000-0.034)
[2021-09-08] MEDS: buPROPion HCL XL (24 HR) 150 MG TABCR 300 MG PO (10:44)
[2021-09-08] MEDS: CYCLOBENZAPRINE HCL 10 MG TABLET PO (10:44)
[2021-09-08] MEDS: ASPIRIN 81 MG ENTERIC TABLET PO (10:44)
[2021-09-08] MEDS: NICOTINE (*PBKC) 21 MG PATCH 1 PATCH TRANSDERM (11:57)
[2021-09-08] MEDS: TOPIRAMATE 100 MG TABLET PO (11:58)
[2021-09-08] MEDS: RANOLAZINE 500 MG TAB.ER.12H 1000 MG PO (11:58)
--- NOTE | 2021-09-08 12:20 | PC.NURSE ---
Pt to stress test, via wheelchair
[2021-09-08 12:43] LABS: Glucose Point of Care 439 mg/dl (65-105)
[2021-09-08 13:05] LABS: Glucose Point of Care 422 mg/dl (65-105)
[2021-09-08] MEDS: busPIRone HCL 2.5 MG TABLET PO (14:45)
[2021-09-08] MEDS: busPIRone HCL 5 MG TABLET PO (14:45)
[2021-09-08] MEDS: glipiZIDE 5 MG TABLET PO (14:45)
--- NOTE | 2021-09-08 14:54 | PM.DS ---
DS: Admitting Diagnosis Discharge Date 09/08/2021 Admitting Diagnosis Atypical chest pain DS: Discharge Diagnosis Discharge Diagnosis (1) Asthma-COPD overlap syndrome: Code(s): J44.9 - Chronic obstructive pulmonary disease, unspecified Status: Acute (2) Obesity: Code(s): E66.9 - Obesity, unspecified Status: Acute (3) Cocaine abuse: Code(s): F14.10 - Cocaine abuse, uncomplicated Status: Acute (4) Tobacco abuse: Code(s): Z72.0 - Tobacco use Status: Acute (5) Coronary artery disease: Code(s): I25.10 - Atherosclerotic heart disease of [place] coronary artery without angina pectoris Status: Acute (6) Chest pain: Code(s): R07.9 - Chest pain, unspecified Status: Acute DS: Summary Hospital Course Reason for hospitalization: Atypical chest pain Hospital Course: Patient is a 51-year-old female past medical history of CAD status post stent from DC in 2013, hypertension, recurrent pancreatitis, asthma/COPD, nicotine dependence, anxiety/depression, who presents to ED with mid substernal chest pain. Patient has a history of DC in 2013 1 stent placed in LAD by Dr. Jackson at [facility]. She now follows Dr. York cardiology for which she has a follow-up appointment this week. 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 Of note patient recently had cocaine 5 days ago. Patient has been grieving the loss of her nephew who from an DC at age 34. Also her daughter had recently contributing to depression. Patient appears to be in significant distress, in tears during the exam. She does not have a psychiatrist and is requesting new provider. She is on many medications including benzodiazepines for her anxiety depression. She lives with her boyfriend and is independent. She feels she has good social network at home. Her chest pain her troponins have been negative, EKG shows normal sinus rhythm. She had a Lexiscan which was negative. Patient's chest pain is likely secondary to her depression and grieving. Patient to follow-up with Dr. York as previously scheduled this week. She will also follow up with her PCP in 1 week. Case management have given resources for grievance counseling. At time of discharge vitals stable, labs stable, patient is stable for discharge. Patient understands agrees with plan. Time spent discussing smoking cessation with patient: 3 to 10 minutes Status at Discharge Cognitive/behavioral status at discharge: At baseline Functional status at discharge: independent ambulation Overall status at discharge: patient is back to baseline Time Spent with Patient Time attestation: Total time spent providing and/or coordinating discharge services:35 Time spent: Greater than 30 minutes Exam Narrative: - GENERAL: Morbidly obese woman sitting in bed no acute distress. She is tearful about loss of her nephew - EYES: EOMI. Anicteric. - HENT: Moist mucous membranes. - LUNGS: Clear to auscultation bilaterally, no wheezing, rhonchi, or rales. - CARDIOVASCULAR: Regular rate and rhythm. No murmur. No JVD. - ABDOMEN: Soft, non-tender and non-distended. Obese. - EXTREMITIES: No edema. Peripheral pulses 2+. Non-tender. - NEUROLOGIC: No focal neurological deficits. CN II-XII grossly intact. - PSYCHIATRIC: Awake, Alert and oriented x 3. Tearful anxious mood and affect. - SKIN: No rashes or lesions. Warm. Tattoos throughout. - LYMPH: No cervical lymphadenopathy. DS: Data Data Completed and Pending Labs on day of discharge: Labs from last 24 hours 09/08/21 09/08/21 09/08/21 11:44 08:48 07:49 WBC RBC Hgb Hct MCV MCH MCHC RDW Plt Count MPV Immature Gran % (Auto) Neut % (Auto) Lymph % (Auto) Tate % (Auto) Eos % (Auto) Baso % (Auto) Lymph # (Auto) Tate # (Auto) Eos # (Auto) Baso # (Auto) Abs Im
[2021-09-08 15:15] LABS: Cholesterol 130 mg/dL (0-200); HDL Direct 26 mg/dL; Triglycerides 411 mg/dL (<150)
[2021-09-08 15:26] LABS: LDL Cholesterol Direct 53 mg/dL
[2021-09-08 16:03] LABS: Hemoglobin A1C > 14.0 % (<5.7)
== END 2021-09-08 17:47 | disposition home or self-care (01) ==
LOC: ANHED 03:28 → ANHIMU 14:47
PROVIDERS: Internal Medicine; Admitting Provider Student in an Organized Health Care Education/Training Program; Emergency Provider Emergency Medicine; Visit Provider Student in an Organized Health Care Education/Training Program
DX: R07.89 Other chest pain (principal); E11.65 Type 2 diabetes mellitus with hyperglycemia; J44.9 Chronic obstructive pulmonary disease, unspecified; E66.01 Morbid (severe) obesity due to excess calories; E78.5 Hyperlipidemia, unspecified; F41.8 Other specified anxiety disorders; F14.10 Cocaine abuse, uncomplicated; F17.210 Nicotine dependence, cigarettes, uncomplicated; G47.33 Obstructive sleep apnea (adult) (pediatric); I25.10 Atherosclerotic heart disease of native coronary artery without angina pectoris; I25.2 Old myocardial infarction; I10 Essential (primary) hypertension; Z20.822 Contact with and (suspected) exposure to COVID-19; Z68.38 Body mass index [BMI] 38.0-38.9, adult; Z90.49 Acquired absence of other specified parts of digestive tract; Z90.710 Acquired absence of both cervix and uterus; Z95.5 Presence of coronary angioplasty implant and graft; Z79.82 Long term (current) use of aspirin; Z79.4 Long term (current) use of insulin; Z79.84 Long term (current) use of oral hypoglycemic drugs; Z79.899 Other long term (current) drug therapy
CPT/HCPCS: 36415; 36600; 71046; 78452; 80053; 80061; 82010; 82375; 82805; 82948; 83036; 83050; 83690; 84484; 85025; 85610; 85730; 87426; 93005; 93017; 96361; 96374; 96375; 99285; A9270; A9502; C9803; G0378; G0379; J1815; J2270; J2785; J7030; J7120

== ENCOUNTER 2021-10-12 15:11 | Inpatient (IN) | payer OTHER, SELFPAY ==
--- NOTE | ~2021-10-12 | US_ITS ---
EXAMINATION: US right upper quadrant EXAM DATE: 10/13/2021 11:08 INDICATION: Acute pancreatitis TECHNIQUE: Multiple grayscale and Doppler images of the abdomen right upper quadrant were obtained (b y a technologist who performed the scan) and subsequently reviewed. Comparison is made to prior exami nation from 07/11/2019. FINDINGS: The pancreatic head and body are normal in appearance. The pancreatic tail is not visualized. There is echogenic liver parenchyma, hepatic steatosis. There are no focal liver lesions identified. Th ere is no evidence of intrahepatic biliary duct dilation. Portal venous flow was seen in the hepatop edal, normal direction and has normal Doppler waveform. No right-sided hydronephrosis. Common bile duct measures 7 mm, which is normal. The gallbladder fossa is unremarkable. IMPRESSION: 1. Hepatic steatosis. Reviewed, dictated and finalized at location B. [employer]OR SAFETY COUNCIL IMPRESSION: 1. Hepatic steatosis.
--- NOTE | ~2021-10-12 | MR_ITS ---
EXAMINATION: MR MRCP wo con/w 3D wo ind pp DATE: 10/14/2021 13:02 INDICATION: Pancreatitis. Elevated liver enzymes. TECHNIQUE: Magnetic resonance imaging (MRI) of the abdomen was performed without intravenous contrast . Sequences included coronal T2-weighted SS-FSE and coronal T2-weighted FS SS-FSE. Study was terminat ed at patient request prior to obtaining remaining sequences including prior to postcontrast imaging. COMPARISON: CT dated 10/12/2021 and ultrasound dated 10/13/2021 FINDINGS: Heart size is normal. No pericardial or pleural effusion. Status post cholecystectomy. Liver, spleen, bilateral adrenal glands and kidneys are normal. There is minimal interstitial edema at the pancreas consistent with acute interstitial pancreatitis. No peripancreatic fluid collections. Common bile du ct is normal in caliber measuring up to 6 mm. No evident choledocholithiasis or intrahepatic biliary ductal dilation. Main pancreatic duct is normal in caliber. Bowels are unremarkable. No pathologicall y enlarged abdominal or pelvic lymphadenopathy. Bone marrow signal is normal throughout. IMPRESSION: 1. Acute interstitial pancreatitis which appears relatively mild with no peripancreatic fluid collect ions. 2. Status post cholecystectomy. No intra- or extra hepatic biliary ductal dilation or evident choledo cholithiasis. 3. Mildly limited study which was halted at patient request prior to completion of the majority of th e sequences including the postcontrast sequences. Reviewed, dictated and finalized at location A. UCT BUILDER IMPRESSION: 1. Acute interstitial pancreatitis which appears relatively mild with no peripa ncreatic fluid collections. 2. Status post cholecystectomy. No intra- or extra hepatic biliary ductal dilat ion or evident choledocholithiasis. 3. Mildly limited study which was halted at patient request prior to completion of the majority of the sequences including the postcontrast sequences.
--- NOTE | ~2021-10-12 | CT_ITS ---
EXAMINATION: CT abdomen pelvis w con DATE: 10/12/2021 18:12 INDICATION: Right upper quadrant abdominal pain. TECHNIQUE: Computed tomography (CT) of the abdomen and pelvis was performed with 100 mL Omnipaque 350 intravenous contrast. Automated exposure control and iterative reconstruction technique were employe d. The dose-length product was 1183.04 mGy-cm. COMPARISON: CT abdomen and pelvis 07/07/2021 FINDINGS: The visualized portions of the lung bases demonstrate mild atelectasis. No pleural effusion . The heart size is normal. There are coronary artery calcifications. No pericardial effusion. The li anjel and spleen are normal. There are changes of cholecystectomy. There is fat stranding around the pa ncreas, consistent with acute interstitial pancreatitis. The adrenal glands and kidneys are normal. T here are no dilated loops of bowel. The appendix is normal. There are no pathologically enlarged lymp h nodes. There is no free intraperitoneal fluid. There is mild lumbar spondylosis. IMPRESSION: 1. Acute interstitial pancreatitis. Reviewed, dictated and finalized at location A. NESS DEAN
[2021-10-12 15:21] VITALS: BP 136/74; PULSE 72; RESP 14; TEMP 36.7; O2SAT 100
[2021-10-12 16:11] VITALS: BP 125/81; PULSE 81; RESP 18; TEMP 36.7; O2SAT 99
--- NOTE | 2021-10-12 16:18 | ED.ABDPAIN ---
HPI - Abdominal Pain General Chief Complaint: Abdominal Pain Stated Complaint: abd pain x 2 days Time Seen by Provider: 10/12/21 16:06 Source: RN notes reviewed History of Present Illness HPI narrative: Patient presents emergency room from home for abdominal pain. Patient states symptoms began 2 days ago. The pain is located diffusely throughout the abdomen described as aching in nature states is been associate with nausea and vomiting. States she has had a history of previous pancreatitis and this feels similar to prior she denies any fevers or chills chest pain shortness of breath or any other symptoms states she has been taking her insulin Related Data Home Medications Medication Instructions Recorded Confirmed aspirin [Aspir-81] 81 mg PO DAILY 07/09/19 09/08/21 atorvastatin 80 mg PO HS 07/09/19 09/08/21 furosemide 40 mg PO DAILY 07/09/19 09/08/21 paroxetine HCl [Paxil] 60 mg PO HS 07/09/19 09/08/21 trazodone 100 mg PO HS 07/09/19 09/08/21 albuterol sulfate 2 puff INHALATION QID PRN 07/12/19 09/08/21 albuterol sulfate 2.5 mg INHALATION Q4H PRN 07/12/19 09/08/21 acetaminophen [Tylenol Extra 1,000 mg PO Q6H PRN 03/28/20 09/08/21 Strength] cyclobenzaprine 10 mg PO Q12H 03/28/20 09/08/21 ondansetron HCl 4 mg PO Q6H PRN 03/28/20 09/08/21 ranolazine 1,000 mg PO Q12H 03/28/20 09/08/21 topiramate 100 mg PO Q12H 03/28/20 09/08/21 bupropion HCl 300 mg PO DAILY 09/08/21 09/08/21 buspirone 7.5 mg PO Q12H 09/08/21 09/08/21 glipizide 5 mg PO ,09/08/21 09/08/21 insulin lispro protamin-lispro 90 unit SUBCUT Q12H 09/08/21 09/08/21 [Humalog Mix 75-25 KwikPen] rizatriptan See Rx Instructions .ROUTE 09/08/21 09/08/21 .COMPLEX PRN Allergies Allergy/AdvReac Type Severity Reaction Status Date / Time amoxicillin Allergy Mild Rash Verified 09/08/21 07:59 cephalexin [From Keflex] Allergy Mild Rash Verified 09/08/21 07:59 ciprofloxacin Allergy Mild Rash Verified 09/08/21 07:59 clavulanic acid Allergy Mild Rash Verified 09/08/21 07:59 [From Augmentin] metronidazole Allergy Mild Rash Verified 09/08/21 07:59 Sulfa (Sulfonamide Allergy Mild Rash Verified 09/08/21 07:59 Antibiotics) codeine Allergy Unknown HIVES Verified 10/29/20 13:58 ibuprofen Allergy Unknown HIVES Verified 10/29/20 13:58 ketorolac Allergy Unknown HIVES Verified 10/29/20 13:58 levofloxacin Allergy Unknown Swelling Verified 10/29/20 13:58 prochlorperazine Allergy Unknown HIVES Verified 10/29/20 13:58 tramadol Allergy Unknown HIVES Verified 10/29/20 13:58 Review of Systems Review of Systems: Gen.: Denies fevers or chills ENT: Denies congestion Respiratory: Denies shortness of breath or cough CV: Denies chest pain or palpitations GI: See HPI Musculoskeletal: Denies back pain or muscle pain Neuro: Denies numbness, tingling, weakness or focal weakness Skin: Denies rash Except as documented, all other systems reviewed and negative PMFSH Past Medical History Medical History Anxiety Cholecystitis COPD (chronic obstructive pulmonary disease) Coronary artery disease Depression Diabetes mellitus Dyslipidemia History of defect of abdominal wall Obesity Obstructive sleep apnea Pancreatitis 07/2019 Surgical History Surgical History History of bone marrow biopsy History of History of cholecystectomy History of dilatation and curettage History of hysterectomy History of tubal ligation Family History Family History Father Acute myocardial infarction Heart disease Hypertension Congestive heart failure Mother Diabetes mellitus Acute myocardial infarction Hypertension Congestive heart failure Sibling Diabetes mellitus Asthma Chronic obstructive pulmonary disease Congestive heart failure Daughter Leukemia Sibling Overdose Asthma Chronic obstructive pul
[2021-10-12] MEDS: SODIUM CHLORIDE 0.9% IV 1,000 ML 999 ML IV CONT ×2 (16:42→17:47)
[2021-10-12] MEDS: MORPHINE SULFATE (*CRX) 4 MG/ML INJ IV PUSH ×3 (16:43→21:38)
[2021-10-12] MEDS: ONDANSETRON INJ 4 MG/2 ML VIAL IV PUSH ×2 (16:43→20:41)
--- NOTE | 2021-10-12 16:50 | PC.NURSE ---
Patient receives saline, zofran, and morphine. Patient requested pain medication to be infused first prior to zofran or saline. Patient receives saline and zofran prior to pain medication. During pain medication administration, patient requested morphine to be infused at nearest port. Patient states she doesnt have to wait as long to receive pain relief. Medication infused at distal port. medication administration well tolerated. ERP informed of patient status.
[2021-10-12 16:59] LABS: Basophils Percent Auto 0.3 % (0.2-1.2); Eosinophils Absolute Auto 0.3 K/mm3 (0-0.3); Hematocrit 39.9 % (37.0-47.0); Hemoglobin 13.8 g/dL (12.0-15.0); Immature Granulocyte Absolute 0.01 K/mm3 (0.00-0.031); Immature Granulocyte Percent A 0.1 % (0-0.5); Lymphocytes Absolute Auto 3.21 K/mm3 (0.9-3.2); Lymphocytes Percent Auto 36.8 % (18.3-44.2); Mean Corpuscular HGB Conc 34.6 g/dl (32-36); Mean Corpuscular Hemoglobin 31.4 pg (26-34); Mean Corpuscular Volume 90.9 fl (80-100); Mean Platelet Volume 10.2 fl (7.4-10.4); Monocytes Absolute Auto 0.4 K/mm3 (0.1-0.6); Monocytes Percent Auto 4.5 % (2.6-8.5); Neutrophils Absolute Auto 4.8 K/mm3 (1.3-6.7); Neutrophils Percent Auto 55.3 % (45.5-73.1); Platelet Count Result 193 k/mm3 (150-375); Red Blood Count 4.39 M/mm3 (4.2-5.4); Red Cell Distribution Width 14.6 % (11.5-14.5); White Blood Count 8.7 K/mm3 (4.5-10.0)
[2021-10-12 17:04] LABS: Alanine Aminotransferase 26 U/L (4-35); Albumin Level 4.1 g/dL (3.5-5.1); Alkaline Phosphatase 186 U/L (38-126); Anion Gap 10 mmol/L (8-16); Aspartate Amino Transferase 22 U/L (14-36); Bilirubin,Total 0.6 mg/dL (0.2-1.3); Blood Urea Nitrogen 12 mg/dL (7-17); Calcium 9.2 mg/dL (8.4-10.2); Carbon Dioxide 19 mmol/L (22-30); Chloride 102 mmol/L (98-107); Estimated CRCL calculation 86 ml/min; Estimated Glomerular Filt Rate > 60; Glucose 438 mg/dL (65-110); Lipase 1914 U/L (23-300); Potassium 3.9 mmol/L (3.4-5.0); Sodium 131 mmol/L (137-145)
--- NOTE | 2021-10-12 17:35 | PC.NURSE ---
Patient upset morphine medication was administered through distal injection port instead of proximal injection port in IV tubing. Stated that was why morphine did not work the first time.
[2021-10-12 17:50] VITALS: BP 142/83; PULSE 73; RESP 20; O2SAT 99
--- NOTE | 2021-10-12 17:54 | PC.NURSE ---
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 Reports improvement of pain with 2nd IV morphine medication.
[2021-10-12 18:04] LABS: Triglycerides 323 mg/dL (<150)
--- NOTE | 2021-10-12 18:15 | PC.NURSE ---
Patient states she does not want to leave monitoring equipment on and will remove when staff leaves room.
[2021-10-12 18:45] LABS: Glucose Point of Care 365 mg/dl (65-105)
[2021-10-12 18:48] LABS: Add Urine Microscopic? YES; Appearance Urine Clear (Clear); Bilirubin Urine Negative (Negative); Blood Urine Negative (Negative); Color Urine Straw (Yellow); Glucose Urine UA 3+ mg/dL (Negative); Ketones Urine Negative (Negative); Leukocyte Esterase Ur Negative LEU/UL (Negative); Mucus Urine Rare /lpf; Nitrate Urine Negative (Negative); Protein Urine Negative (Negative); RBC Urine 0-2 /hpf (0-2); Squamous Epithelial Cell Urine Occasional /hpf (Few); Urobilinogen Urine Negative mg/dL (<2.0); WBC Urine 0-3 /hpf
[2021-10-12 18:49] LABS: Specific Grav Ur 1.035 (1.001-1.035)
--- NOTE | 2021-10-12 19:01 | PC.NURSE ---
Patient states her pain is 10/10 after 2 doses of morphine. patient asks if there is anything stronger than morphine she can have. ERP consulted.
[2021-10-12] MEDS: INSULIN ASPART (*BKC) 100 UNITS/ML SUB-Q (19:34)
[2021-10-12 19:38] LABS: Glucose Point of Care 380 mg/dl (65-105)
[2021-10-12 20:03] VITALS: BP 150/79; PULSE 70; RESP 18; O2SAT 99
[2021-10-12] MEDS: fentaNYL CITRATE INJ (*CRX) 100 MCG/2 ML VIAL 25 MCG IV PUSH (20:03)
[2021-10-12 20:10] VITALS: BP 127/83; PULSE 74; RESP 20; TEMP 36.7; O2SAT 97
[2021-10-12] MEDS: SODIUM CHLORIDE 0.9% IV 1,000 ML 150 ML IV CONT (20:41)
--- NOTE | 2021-10-12 21:45 | PM.IMHP ---
H&P: HPI History of Present Illness Date/Time: 10/12/21 21:45 Chief Complaint: Abdominal pain Narrative: Patient presents to the emergency room from home for abdominal pain. Patient states symptoms began 2 days ago. The pain is located diffusely throughout the abdomen but more so in the upper abdominal area. She describes the pain as aching in nature. She states that this is associated with nausea and vomiting. States she has had a history of previous pancreatitis and this feels similar to prior. She denies any fevers or chills chest pain shortness of breath or any other symptoms states she has also been taking her insulin regularly. No new medications started. Review of Systems Review of Systems: - CONSTITUTIONAL: Denies weight loss, fever and chills. - HEENT: Denies changes in vision and hearing - RESPIRATORY: Denies SOB and has chronic cough due to smoking. - CV: Denies palpitations and CP. - GI: Reports abdominal pain, nausea, vomiting and denies diarrhea. - : Denies dysuria and urinary frequency. - MSK: Denies myalgia and joint pain. - SKIN: Denies rash and pruritus. - NEUROLOGICAL: Denies headache and syncope. - PSYCHIATRIC: Denies recent changes in mood. Denies anxiety and depression. All systems reviewed & are unremarkable except as noted in HPI and below Constitutional: Constitutional: Reports fatigue and Reports weakness Neurologic: Reports weakness Endocrine: Endocrine: Reports fatigue PMFSH Past Medical History Medical History Anxiety Cholecystitis COPD (chronic obstructive pulmonary disease) Coronary artery disease Depression Diabetes mellitus Dyslipidemia History of defect of abdominal wall Obesity Obstructive sleep apnea Pancreatitis 07/2019 Surgical History Surgical History History of bone marrow biopsy History of History of cholecystectomy History of dilatation and curettage History of hysterectomy History of tubal ligation Family History Family History Father Acute myocardial infarction Heart disease Hypertension Congestive heart failure Mother Diabetes mellitus Acute myocardial infarction Hypertension Congestive heart failure Sibling Diabetes mellitus Asthma Chronic obstructive pulmonary disease Congestive heart failure Daughter Leukemia Sibling Overdose Asthma Chronic obstructive pulmonary disease Other Acute myocardial infarction Congestive heart failure Sibling Asthma Chronic obstructive pulmonary disease Sibling Asthma Chronic obstructive pulmonary disease Social History Social History Social History: She had 5 children and 2 have passed. One passed as an infant from SIDS are her 23 year old daughter from leukemia. She smokes half a pack a day for past 20 years. Drug use as mentioned above. No alcohol use. She lives at home with her boyfriend and son. She is a full code. She nominates Rashaun Hays to be the individual would make medical decisions for if she is not able. Smoking packs per day: 1 Smoking cigarettes per day: 20.0 Years smoked: 30 Smoking pack-years: 30.00 Smoking status: Heavy tobacco smoker Tobacco type: cigarettes Second hand tobacco smoke exposure: Yes Alcohol intake: never Substance use: current Substance use type: crack/cocaine Other substance usage details: current marijuana use and former cocaine use Last use: a month ago Additional living arrangements comments: Patient lives with boyfriend, Chinmay Jean. 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
[2021-10-12 21:53] LABS: Glucose Point of Care 323 mg/dl (65-105)
[2021-10-12 22:30] LABS: Hemoglobin A1C 13.2 % (<5.7)
[2021-10-12] MEDS: INSULIN HUMAN NPH (*BKC) 100 UNITS/ML 50 UNITS SUB-Q (23:18)
[2021-10-13 00:39] LABS: Glucose Point of Care 372 mg/dl (65-105)
[2021-10-13] MEDS: ONDANSETRON INJ 4 MG/2 ML VIAL IV PUSH ×2 (01:01→05:33)
[2021-10-13] MEDS: MORPHINE SULFATE (*CRX) 4 MG/ML INJ IV PUSH (01:27)
[2021-10-13] MEDS: SODIUM CHLORIDE 0.9% IV 1,000 ML 150 ML IV CONT ×2 (02:31→09:46)
[2021-10-13] MEDS: HYDROmorphone HCL INJ (*CRX) 1 MG/ML SYR IV PUSH ×6 (05:32→22:27)
[2021-10-13] MEDS: INSULIN HUMAN NPH (*BKC) 100 UNITS/ML 50 UNITS SUB-Q (05:43)
[2021-10-13 05:51] LABS: Glucose Point of Care 333 mg/dl (65-105)
[2021-10-13 06:00] VITALS: BP 123/66; PULSE 67; RESP 18; TEMP 36.3; O2SAT 99
[2021-10-13 06:43] LABS: Basophils Percent Auto 0.5 % (0.2-1.2); Eosinophils Absolute Auto 0.1 K/mm3 (0-0.3); Eosinophils Percent Auto 2.1 % (0-4.4); Hematocrit 39.8 % (37.0-47.0); Hemoglobin 13.2 g/dL (12.0-15.0); Immature Granulocyte Absolute 0.02 K/mm3 (0.00-0.031); Immature Granulocyte Percent A 0.3 % (0-0.5); Lymphocytes Absolute Auto 2.12 K/mm3 (0.9-3.2); Lymphocytes Percent Auto 32.3 % (18.3-44.2); Mean Corpuscular HGB Conc 33.2 g/dl (32-36); Mean Corpuscular Hemoglobin 31.6 pg (26-34); Mean Corpuscular Volume 95.2 fl (80-100); Mean Platelet Volume 9.9 fl (7.4-10.4); Monocytes Absolute Auto 0.3 K/mm3 (0.1-0.6); Neutrophils Absolute Auto 3.9 K/mm3 (1.3-6.7); Neutrophils Percent Auto 59.8 % (45.5-73.1); Platelet Count Result 172 k/mm3 (150-375); Red Blood Count 4.18 M/mm3 (4.2-5.4); Red Cell Distribution Width 14.7 % (11.5-14.5); White Blood Count 6.6 K/mm3 (4.5-10.0)
[2021-10-13 06:56] LABS: Alanine Aminotransferase 48 U/L (4-35); Albumin Level 3.8 g/dL (3.5-5.1); Alkaline Phosphatase 183 U/L (38-126); Anion Gap 6 mmol/L (8-16); Aspartate Amino Transferase 91 U/L (14-36); Bilirubin,Total 0.5 mg/dL (0.2-1.3); Blood Urea Nitrogen 6 mg/dL (7-17); Calcium 8.5 mg/dL (8.4-10.2); Carbon Dioxide 20 mmol/L (22-30); Chloride 110 mmol/L (98-107); Estimated CRCL calculation 112 ml/min; Estimated Glomerular Filt Rate > 60; Glucose 294 mg/dL (65-110); Potassium 3.7 mmol/L (3.4-5.0); Sodium 136 mmol/L (137-145)
[2021-10-13 06:59] LABS: Lipase 1903 U/L (23-300)
[2021-10-13] MEDS: ENOXAPARIN 40 MG/0.4 ML SYRINGE SUB-Q (08:38)
[2021-10-13] MEDS: INSULIN ASPART (*BKC) 100 UNITS/ML 18 UNITS SUB-Q (08:39)
[2021-10-13] MEDS: INSULIN ASPART (*BKC) 100 UNITS/ML SUB-Q (08:40)
--- NOTE | 2021-10-13 10:15 | P.PNIM_ITS ---
Progress Note: A&P Assessment and Plan (1) Acute pancreatitis: Code(s): K85.90 - Acute pancreatitis without necrosis or infection, unspecified Status: Acute Assessment and Plan: * Acute pancreatitis noted on the CT of the abd/pel * IV fluids D5/NS at 150ml/hr * IV Dilaudid * IV Zofran * NPO except ice chips * lipase level 1914 on admission, and 1903 toda, continue trend * right up upper quadrant ultrasound Hepatic steatosis. * She does have severe hyperglycemia on admission along with hypertriglyceridemia that could precipitate pancreatitis * No new medications elucidated in the history (2) Acute hyperglycemia: Code(s): R73.9 - Hyperglycemia, unspecified Status: Acute Assessment and Plan: * Diabetes mellitus with severe hyperglycemia * Accu cheks Q6hr while NPO * Glucose was 438 on admission, and 294 today * restart her home insulin regimen and titrate as needed * 75/25 units in the morning 90 units in the evening * start with NPH 50 units b.i.d. along with Humalog 18 units t.i.d. with meals. * Add sliding scale insulin moderate does (3) Diabetes mellitus: Qualifiers: Diabetes mellitus complication status: with hyperglycemia Diabetes mellitus long term care pharmacist insulin use: with care home use Diabetes mellitus type: type 2 Qualified Code(s): E11.65 - Type 2 diabetes mellitus with hyperglycemia; Z79.4 - USP (current) use of insulin Code(s): E11.9 - Type 2 diabetes mellitus without complications Status: Acute Assessment and Plan: * See above * A1c is 13.2 (4) Asthma-COPD overlap syndrome: Code(s): J44.9 - Chronic obstructive pulmonary disease, unspecified Status: Acute Assessment and Plan: * Asthma/COPD not in acute severe exacerbation * Continue home inhalers (5) Obesity: Code(s): E66.9 - Obesity, unspecified Status: Acute Assessment and Plan: * Obesity BMI 39 * Life style changes * Card Lacer Jacquard consult (6) Coronary artery disease: Code(s): I25.10 - Atherosclerotic heart disease of [place] coronary artery without angina pectoris Status: Acute Assessment and Plan: * Coronary artery disease status post stent 2012 in LAD * Restart aspirin 81mg PO when not NPO (7) Hypertriglyceridemia: Code(s): E78.1 - Pure hyperglyceridemia Status: Acute Assessment and Plan: * Hypertriglyceridemia likely due to diabetes. * Triglycerides are 323 (8) Dyslipidemia: Code(s): E78.5 - Hyperlipidemia, unspecified Status: Acute Assessment and Plan: * Restart home medications when appropiate (9) Obstructive sleep apnea: Code(s): G47.33 - Obstructive sleep apnea (adult) (pediatric) Status: Acute Assessment and Plan: * Obstructive sleep apnea on CPAP * Cpap titrate to home settings (10) Anxiety and depression: Code(s): F41.9 - Anxiety disorder, unspecified; F32.A - Depression, unspecified Status: Acute Assessment and Plan: * Anxiety/depression * Continue home medications when appropiate (11) Transaminitis: Code(s): R74.01 - Elevation of levels of liver transaminase levels Status: Acute Assessment and Plan: * Liver enzymes elevated * AST/ALT 91/48, Alk Phos 183 * RUQ ultrasound showed hepatic rayray
--- NOTE | 2021-10-13 10:15 | PM.IMPN ---
Progress Note: A&P Assessment and Plan (1) Acute pancreatitis: Code(s): K85.90 - Acute pancreatitis without necrosis or infection, unspecified Status: Acute Assessment and Plan: Acute pancreatitis noted on the CT of the abd/pel IV fluids D5/NS at 150ml/hr IV Dilaudid IV Zofran NPO except ice chips lipase level 1914 on admission, and 1903 toda, continue trend right up upper quadrant ultrasound Hepatic steatosis. She does have severe hyperglycemia on admission along with hypertriglyceridemia that could precipitate pancreatitis No new medications elucidated in the history (2) Acute hyperglycemia: Code(s): R73.9 - Hyperglycemia, unspecified Status: Acute Assessment and Plan: Diabetes mellitus with severe hyperglycemia Accu cheks Q6hr while NPO Glucose was 438 on admission, and 294 today restart her home insulin regimen and titrate as needed 75/25 units in the morning 90 units in the evening start with NPH 50 units b.i.d. along with Humalog 18 units t.i.d. with meals. Add sliding scale insulin moderate does (3) Diabetes mellitus: Qualifiers: Diabetes mellitus complication status: with hyperglycemia Diabetes mellitus middle or intermediate school principal insulin use: with middle or intermediate school principal use Diabetes mellitus type: type 2 Qualified Code(s): E11.65 - Type 2 diabetes mellitus with hyperglycemia; Z79.4 - predatory animal exterminator (current) use of insulin Code(s): E11.9 - Type 2 diabetes mellitus without complications Status: Acute Assessment and Plan: See above A1c is 13.2 (4) Asthma-COPD overlap syndrome: Code(s): J44.9 - Chronic obstructive pulmonary disease, unspecified Status: Acute Assessment and Plan: Asthma/COPD not in acute severe exacerbation Continue home inhalers (5) Obesity: Code(s): E66.9 - Obesity, unspecified Status: Acute Assessment and Plan: Obesity BMI 39 Life style changes Mine Safety Manager consult (6) Coronary artery disease: Code(s): I25.10 - Atherosclerotic heart disease of [place] coronary artery without angina pectoris Status: Acute Assessment and Plan: Coronary artery disease status post stent 2013 in LAD Restart aspirin 81mg PO when not NPO (7) Hypertriglyceridemia: Code(s): E78.1 - Pure hyperglyceridemia Status: Acute Assessment and Plan: Hypertriglyceridemia likely due to diabetes. Triglycerides are 323 (8) Dyslipidemia: Code(s): E78.5 - Hyperlipidemia, unspecified Status: Acute Assessment and Plan: Restart home medications when appropiate (9) Obstructive sleep apnea: Code(s): G47.33 - Obstructive sleep apnea (adult) (pediatric) Status: Acute Assessment and Plan: Obstructive sleep apnea on CPAP Cpap titrate to home settings (10) Anxiety and depression: Code(s): F41.9 - Anxiety disorder, unspecified; F32.A - Depression, unspecified Status: Acute Assessment and Plan: Anxiety/depression Continue home medications when appropiate (11) Transaminitis: Code(s): R74.01 - Elevation of levels of liver transaminase levels Status: Acute Assessment and Plan: Liver enzymes elevated AST/ALT 91/48, Alk Phos 183 RUQ ultrasound showed hepatic stenosis Hep panel in the am (12) Hypoglycemia: Code(s): E16.2 - Hypoglycemia, unspecified Status: Acute Assessment and Plan: Glucose noted to be 55 Fluids switched to D5NS at 150 Trend glucose Adjust therapy as indicated Time Spent With Patient Time with patient: Greater than 35 minutes Subjective Date/time seen: 10/13/21 1015 Interval history: Date/Time: 10/12/21 21:45 Narrative: Patient presents to the emergency room from home for abdominal pain. Patient states symptoms began 2 days ago. The pain is located diffusely throughout t
[2021-10-13] MEDS: LORazepam INJ (*CRX) 2 MG/ML VIAL 0.5 MG IV PUSH (11:21)
[2021-10-13 12:28] VITALS: O2SAT 95
[2021-10-13 12:43] LABS: Glucose Point of Care 55 mg/dl (65-105)
[2021-10-13 13:05] LABS: Glucose Point of Care 74 mg/dl (65-105)
[2021-10-13] MEDS: DEXTROSE 5%/0.9% SOD CHL 1,000 ML 150 ML IV CONT ×2 (13:14→20:34)
[2021-10-13 14:00] VITALS: BP 121/69; PULSE 70; RESP 14; TEMP 36.1; O2SAT 98
[2021-10-13 14:21] LABS: Glucose Point of Care 101 mg/dl (65-105)
[2021-10-13 18:27] LABS: Glucose Point of Care 138 mg/dl (65-105)
[2021-10-13 22:00] VITALS: BP 97/44; PULSE 72; RESP 16; TEMP 36.4; O2SAT 97
[2021-10-13 23:21] LABS: Glucose Point of Care 102 mg/dl (65-105)
[2021-10-14] MEDS: LORazepam INJ (*CRX) 2 MG/ML VIAL 0.5 MG IV PUSH ×2 (02:58→08:15)
[2021-10-14] MEDS: diphenhydrAMINE HCl INJ 50 MG/ML VIAL 25 MG IV PUSH ×2 (02:59→13:58)
[2021-10-14] MEDS: HYDROmorphone HCL INJ (*CRX) 1 MG/ML SYR IV PUSH ×5 (03:07→20:58)
--- NOTE | 2021-10-14 04:29 | PC.NURSE ---
10/14/2021 0131 spoke with hospitalist sriram while on the floor at this time. given new verbal order for benadryl 25mg ivp q6h prn for itching.
[2021-10-14 05:49] VITALS: BP 100/71; PULSE 70; RESP 18; TEMP 36.2; O2SAT 98
[2021-10-14 06:52] LABS: Glucose Point of Care 79 mg/dl (65-105)
[2021-10-14 06:58] LABS: Basophils Percent Auto 0.4 % (0.2-1.2); Eosinophils Absolute Auto 0.2 K/mm3 (0-0.3); Eosinophils Percent Auto 2.7 % (0-4.4); Hematocrit 38.2 % (37.0-47.0); Hemoglobin 12.6 g/dL (12.0-15.0); Immature Granulocyte Absolute 0.01 K/mm3 (0.00-0.031); Immature Granulocyte Percent A 0.1 % (0-0.5); Lymphocytes Absolute Auto 2.26 K/mm3 (0.9-3.2); Lymphocytes Percent Auto 33.4 % (18.3-44.2); Mean Corpuscular Hemoglobin 31.8 pg (26-34); Mean Corpuscular Volume 96.5 fl (80-100); Mean Platelet Volume 9.8 fl (7.4-10.4); Monocytes Absolute Auto 0.3 K/mm3 (0.1-0.6); Monocytes Percent Auto 4.9 % (2.6-8.5); Neutrophils Percent Auto 58.5 % (45.5-73.1); Platelet Count Result 175 k/mm3 (150-375); Red Blood Count 3.96 M/mm3 (4.2-5.4); Red Cell Distribution Width 14.9 % (11.5-14.5); White Blood Count 6.8 K/mm3 (4.5-10.0)
[2021-10-14 07:09] LABS: Alanine Aminotransferase 266 U/L (4-35); Albumin Level 3.7 g/dL (3.5-5.1); Alkaline Phosphatase 399 U/L (38-126); Anion Gap 6 mmol/L (8-16); Aspartate Amino Transferase 468 U/L (14-36); Bilirubin,Total 1.1 mg/dL (0.2-1.3); Blood Urea Nitrogen 6 mg/dL (7-17); Calcium 8.7 mg/dL (8.4-10.2); Carbon Dioxide 24 mmol/L (22-30); Chloride 109 mmol/L (98-107); Estimated CRCL calculation 112 ml/min; Estimated Glomerular Filt Rate > 60; Glucose 66 mg/dL (65-110); Lipase 207 U/L (23-300); Potassium 3.6 mmol/L (3.4-5.0); Sodium 139 mmol/L (137-145)
[2021-10-14 08:00] VITALS: PULSE 70; RESP 18; O2SAT 98
[2021-10-14] MEDS: SODIUM CHLORIDE 0.9% IV 1,000 ML 999 ML IV CONT (08:00)
[2021-10-14] MEDS: ENOXAPARIN 40 MG/0.4 ML SYRINGE SUB-Q (08:06)
[2021-10-14 09:38] LABS: Lactic Acid Reflex 0.5 mmol/L (0.7-2.1)
[2021-10-14 09:55] LABS: Acetaminophen < 10 ug/mL (10-30)
[2021-10-14 10:43] LABS: Hepatitis B Surface Antigen Negative (Negative)
[2021-10-14 10:49] LABS: HAV RESULT Negative (Negative); Hepatitis B Core IgM Result Negative (Negative)
[2021-10-14 11:00] LABS: Hepatitis C Virus Antibody Negative (Negative)
--- NOTE | 2021-10-14 11:15 | P.PNIM_ITS ---
Progress Note: A&P Assessment and Plan (1) Acute pancreatitis: Code(s): K85.90 - Acute pancreatitis without necrosis or infection, unspecified Status: Acute Assessment and Plan: * Acute pancreatitis noted on the CT of the abd/pel * IV fluids D5/NS at 150ml/hr * IV Dilaudid * IV Zofran * NPO except ice chips * lipase level 1914 on admission, and 207 today, continue trend * right up upper quadrant ultrasound Hepatic steatosis. * She does have severe hyperglycemia on admission along with hypertriglyceridemia that could precipitate pancreatitis * No new medications elucidated in the history (2) Acute hyperglycemia: Code(s): R73.9 - Hyperglycemia, unspecified Status: Acute Assessment and Plan: * Diabetes mellitus with severe hyperglycemia * Accu cheks Q6hr while NPO * Glucose was 438 on admission, and 294 today * restart her home insulin regimen and titrate as needed * 75/25 units in the morning 90 units in the evening * start with NPH 50 units b.i.d. along with Humalog 18 units t.i.d. with meals. * Add sliding scale insulin moderate does (3) Diabetes mellitus: Qualifiers: Diabetes mellitus complication status: with hyperglycemia Diabetes mellitus long term care social worker insulin use: with usp use Diabetes mellitus type: type 2 Qualified Code(s): E11.65 - Type 2 diabetes mellitus with hyperglycemia; Z79.4 - senior care (current) use of insulin Code(s): E11.9 - Type 2 diabetes mellitus without complications Status: Acute Assessment and Plan: * See above * A1c is 13.2 (4) Asthma-COPD overlap syndrome: Code(s): J44.9 - Chronic obstructive pulmonary disease, unspecified Status: Acute Assessment and Plan: * Asthma/COPD not in acute severe exacerbation * Continue home inhalers (5) Obesity: Code(s): E66.9 - Obesity, unspecified Status: Acute Assessment and Plan: * Obesity BMI 39 * Life style changes * Payroll Lead consult (6) Coronary artery disease: Code(s): I25.10 - Atherosclerotic heart disease of [place] coronary artery without angina pectoris Status: Acute Assessment and Plan: * Coronary artery disease status post stent 2012 in LAD * Restart aspirin 81mg PO when not NPO (7) Hypertriglyceridemia: Code(s): E78.1 - Pure hyperglyceridemia Status: Acute Assessment and Plan: * Hypertriglyceridemia likely due to diabetes. * Triglycerides are 323 (8) Dyslipidemia: Code(s): E78.5 - Hyperlipidemia, unspecified Status: Acute Assessment and Plan: * Restart home medications when appropiate (9) Obstructive sleep apnea: Code(s): G47.33 - Obstructive sleep apnea (adult) (pediatric) Status: Acute Assessment and Plan: * Obstructive sleep apnea on CPAP * Cpap titrate to home settings (10) Anxiety and depression: Code(s): F41.9 - Anxiety disorder, unspecified; F32.A - Depression, unspecified Status: Acute Assessment and Plan: * Anxiety/depression * Continue home medications when appropiate (11) Transaminitis: Code(s): R74.01 - Elevation of levels of liver transaminase levels Status: Acute Assessment and Plan: * Liver enzymes elevated * AST/ALT 468/233, Alk Phos 399, trending up * GI Consult anayeli boone
--- NOTE | 2021-10-14 11:15 | PM.IMPN ---
Progress Note: A&P Assessment and Plan (1) Acute pancreatitis: Code(s): K85.90 - Acute pancreatitis without necrosis or infection, unspecified Status: Acute Assessment and Plan: Acute pancreatitis noted on the CT of the abd/pel IV fluids D5/NS at 150ml/hr IV Dilaudid IV Zofran NPO except ice chips lipase level 1914 on admission, and 207 today, continue trend right up upper quadrant ultrasound Hepatic steatosis. She does have severe hyperglycemia on admission along with hypertriglyceridemia that could precipitate pancreatitis No new medications elucidated in the history (2) Acute hyperglycemia: Code(s): R73.9 - Hyperglycemia, unspecified Status: Acute Assessment and Plan: Diabetes mellitus with severe hyperglycemia Accu cheks Q6hr while NPO Glucose was 438 on admission, and 294 today restart her home insulin regimen and titrate as needed 75/25 units in the morning 90 units in the evening start with NPH 50 units b.i.d. along with Humalog 18 units t.i.d. with meals. Add sliding scale insulin moderate does (3) Diabetes mellitus: Qualifiers: Diabetes mellitus complication status: with hyperglycemia Diabetes mellitus terminal carman insulin use: with terminal carman use Diabetes mellitus type: type 2 Qualified Code(s): E11.65 - Type 2 diabetes mellitus with hyperglycemia; Z79.4 - extermination supervisor (current) use of insulin Code(s): E11.9 - Type 2 diabetes mellitus without complications Status: Acute Assessment and Plan: See above A1c is 13.2 (4) Asthma-COPD overlap syndrome: Code(s): J44.9 - Chronic obstructive pulmonary disease, unspecified Status: Acute Assessment and Plan: Asthma/COPD not in acute severe exacerbation Continue home inhalers (5) Obesity: Code(s): E66.9 - Obesity, unspecified Status: Acute Assessment and Plan: Obesity BMI 39 Life style changes Livestock Farmers consult (6) Coronary artery disease: Code(s): I25.10 - Atherosclerotic heart disease of [place] coronary artery without angina pectoris Status: Acute Assessment and Plan: Coronary artery disease status post stent 2013 in LAD Restart aspirin 81mg PO when not NPO (7) Hypertriglyceridemia: Code(s): E78.1 - Pure hyperglyceridemia Status: Acute Assessment and Plan: Hypertriglyceridemia likely due to diabetes. Triglycerides are 323 (8) Dyslipidemia: Code(s): E78.5 - Hyperlipidemia, unspecified Status: Acute Assessment and Plan: Restart home medications when appropiate (9) Obstructive sleep apnea: Code(s): G47.33 - Obstructive sleep apnea (adult) (pediatric) Status: Acute Assessment and Plan: Obstructive sleep apnea on CPAP Cpap titrate to home settings (10) Anxiety and depression: Code(s): F41.9 - Anxiety disorder, unspecified; F32.A - Depression, unspecified Status: Acute Assessment and Plan: Anxiety/depression Continue home medications when appropiate (11) Transaminitis: Code(s): R74.01 - Elevation of levels of liver transaminase levels Status: Acute Assessment and Plan: Liver enzymes elevated AST/ALT 468/233, Alk Phos 399, trending up GI Consult thank you for your help Continue to trend labs RUQ ultrasound showed hepatic stenosis Hep panel negative Lactic acid 0.5 Urine tox screen pending Tylenol level <10 MRCP completed just need to be read (12) Hypoglycemia: Code(s): E16.2 - Hypoglycemia, unspecified Status: Acute Assessment and Plan: Glucose noted to be 55, current glucose is 66, POC 79 Fluids switched to D5NS at 150 Trend glucose Adjust therapy as indicated Time Spent With Patient Time with patient: Greater than 35 minutes Subjective Date/time seen: 10/14/21 11:
[2021-10-14 11:34] LABS: Glucose Point of Care 56 mg/dl (65-105)
[2021-10-14] MEDS: DEXTROSE 50% 25 GM/50 ML SYRINGE IV PUSH (12:00)
--- NOTE | 2021-10-14 12:23 | PC.NURSE ---
MD Barclay called to increase diet to clr liquids then progress to low fat diet.Awaiting call back.
[2021-10-14 12:59] LABS: Glucose Point of Care 189 mg/dl (65-105)
--- NOTE | 2021-10-14 14:02 | PC.NURSE ---
Pt stopped MRI screen early, unable to complete.
[2021-10-14 14:30] VITALS: BP 94/63; PULSE 78; RESP 20; TEMP 36.6; O2SAT 94
[2021-10-14 14:37] VITALS: O2SAT 94
--- NOTE | 2021-10-14 15:20 | PC.NURSE ---
Weston Dang informed, pt has not IV access, bolus didn't infuse, pt uncooperative, bends arm and IV continues to beep, has pulled out several IV's this shift.
--- NOTE | 2021-10-14 15:47 | PC.NURSE ---
order received for midline.
[2021-10-14] MEDS: diphenhydrAMINE HCl INJ 50 MG/ML VIAL IV PUSH (16:21)
[2021-10-14] MEDS: methylPREDNISolone SOD SUCC 125 MG VIAL 80 MG IV PUSH (16:27)
[2021-10-14 16:30] VITALS: BP 136/75
--- NOTE | 2021-10-14 16:57 | WPDGICN ---
Assessment and Plan Assessment and plan (1) Acute pancreatitis: Code(s): K85.90 - Acute pancreatitis without necrosis or infection, unspecified Status: Acute Assessment and Plan: acute on chronic episode of pancreatitis, no clear etiology but this is 4th episode at least, she is post cholecystectomy in the past she used cocaine denies alcohol abuse liquid diet and advance as tolerated (2) Transaminitis: Code(s): R74.01 - Elevation of levels of liver transaminase levels Status: Acute Assessment and Plan: from pancreatitis hepatitis panel negative (3) Cocaine abuse: Code(s): F14.10 - Cocaine abuse, uncomplicated Status: Acute Assessment and Plan: positive in previous Utox (4) Diabetes mellitus: Qualifiers: Diabetes mellitus type: type 2 Diabetes mellitus halfway insulin use: with halfway use Diabetes mellitus complication status: with hyperglycemia Qualified Code(s): E11.65 - Type 2 diabetes mellitus with hyperglycemia; Z79.4 - retirement (current) use of insulin Code(s): E11.9 - Type 2 diabetes mellitus without complications Status: Acute Assessment and Plan: managed by insulin DM sometimes can cause pancreatitis will check MRCP to rule out biliary cause (5) Nausea and vomiting in adult: Code(s): R11.2 - Nausea with vomiting, unspecified Status: Acute GI Consult Note Consult date/time: 10/14/21 16:57 Reason for consult: acute pancreatitis HPI: Mikayla Hays is a 51 year old female admitted with new onset of severe abdominal epigastric pain associated with nausea and vomiting, she was diagnosed again with pancreatitis after had elevated pancreatic enzymes (this will be 4th episode), she had cholecystectomy in the past. Denies alcohol, she has DM on insulin. Blood work also revealed elevated transaminases 200-400's, normal bilirubin. CT scan showed pancreatitis with normal bile duct. Pain improved but not gone, also still nausea. Review of Systems Constitutional: Constitutional: Denies chills Eyes: Eyes: Denies blurry vision ENT: Reports Normal hearing present Cardiovascular: Cardiovascular: Denies chest pain Respiratory: Respiratory: Denies dyspnea Gastrointestinal: Gastrointestinal: Reports abdominal pain, Reports nausea and Reports vomiting Genitourinary: Genitourinary: Denies hematuria Musculoskeletal: Musculoskeletal: Denies neck pain Integumentary/Breasts: Skin/Breast: Denies dry skin Neurologic: Denies headache(s) Psychiatric: Psychiatric: Denies behavioral changes PMFSH Past Medical History Medical History (Updated 10/14/21 @ 17:00 by Grover Mistry MD) Cholecystitis COPD (chronic obstructive pulmonary disease) Coronary artery disease Diabetes mellitus Dyslipidemia History of defect of abdominal wall Nausea and vomiting in adult Obesity Obstructive sleep apnea Pancreatitis 07/2019 Surgical History Surgical History History of bone marrow biopsy History of History of cholecystectomy History of dilatation and curettage History of hysterectomy History of tubal ligation Family History Family History Father Acute myocardial infarction Heart disease Hypertension Congestive heart failure Mother Diabetes mellitus Acute myocardial infarction Hypertension Congestive heart failure Sibling Diabetes mellitus Asthma Chronic obstructive pulmonary disease Congestive heart failure Daughter Leukemia Sibling Overdose Asthma Chronic obstructive pulmonary disease Other Acute myocardial infarction Congestive heart failure Sibling Asthma Chronic obstructive pulmonary disease Sibling Asthma Chronic obstructive pulmonary disease Social History Social History So
--- NOTE | 2021-10-14 17:16 | PC.NURSE ---
urine Drug screen sent to lab for analysis
--- NOTE | 2021-10-14 17:17 | PC.NURSE ---
Charge nurse Annamarie Moody to call [facility] for midline placement.
--- NOTE | 2021-10-14 17:33 | PC.NURSE ---
pt has pulled out x4 IV in total.
[2021-10-14 17:53] LABS: Glucose Point of Care 229 mg/dl (65-105)
[2021-10-14 19:25] LABS: Barbiturate Screen Urine Negative (Negative); Benzodiazepines Screen Urine Negative (Negative)
[2021-10-14 19:36] LABS: Amphetamine Screen Urine Negative (Negative); Cannabinoid Screen Urine Negative (Negative); Cocaine Screen Urine Negative (Negative); Methadone Screen Urine Negative (Negative); Opiate Screen Urine Positive (Negative); Phencyclidine Screen Urine Negative (Negative)
[2021-10-14] MEDS: PARoxetine 20 MG TABLET 40 MG PO (20:43)
[2021-10-14] MEDS: CYCLOBENZAPRINE HCL 10 MG TABLET PO (20:43)
[2021-10-14] MEDS: traZODone HCL 50 MG TABLET 200 MG PO (20:44)
[2021-10-14] MEDS: RANOLAZINE 500 MG TAB.ER.12H PO (20:44)
[2021-10-14] MEDS: TOPIRAMATE 100 MG TABLET PO (20:44)
[2021-10-14] MEDS: ATORVASTATIN 40 MG TABLET 80 MG PO (20:44)
[2021-10-14] MEDS: busPIRone HCL 2.5 MG TABLET 7.5 MG PO (20:47)
[2021-10-14] MEDS: LORazepam (*CRX) 1 MG TABLET PO (20:58)
[2021-10-14 21:42] VITALS: BP 141/68; PULSE 81; RESP 18; TEMP 36.3; O2SAT 96
[2021-10-15 00:21] LABS: Glucose Point of Care 487 mg/dl (65-105)
[2021-10-15] MEDS: INSULIN ASPART (*BKC) 100 UNITS/ML 6 UNITS SUB-Q (00:21)
[2021-10-15 05:45] VITALS: BP 107/49; PULSE 59; RESP 18; TEMP 36.7; O2SAT 94
[2021-10-15 07:25] LABS: Basophils Percent Auto 0.2 % (0.2-1.2); Eosinophils Percent Auto 0.2 % (0-4.4); Hematocrit 40.6 % (37.0-47.0); Hemoglobin 13.2 g/dL (12.0-15.0); Immature Granulocyte Absolute 0.02 K/mm3 (0.00-0.031); Immature Granulocyte Percent A 0.4 % (0-0.5); Lymphocytes Absolute Auto 1.17 K/mm3 (0.9-3.2); Lymphocytes Percent Auto 23.3 % (18.3-44.2); Mean Corpuscular HGB Conc 32.5 g/dl (32-36); Mean Corpuscular Hemoglobin 31.1 pg (26-34); Mean Corpuscular Volume 95.8 fl (80-100); Mean Platelet Volume 10.1 fl (7.4-10.4); Monocytes Absolute Auto 0.2 K/mm3 (0.1-0.6); Monocytes Percent Auto 4.4 % (2.6-8.5); Neutrophils Absolute Auto 3.6 K/mm3 (1.3-6.7); Neutrophils Percent Auto 71.5 % (45.5-73.1); Platelet Count Result 187 k/mm3 (150-375); Red Blood Count 4.24 M/mm3 (4.2-5.4); Red Cell Distribution Width 14.6 % (11.5-14.5)
[2021-10-15 07:34] LABS: Alanine Aminotransferase 166 U/L (4-35); Albumin Level 3.6 g/dL (3.5-5.1); Alkaline Phosphatase 428 U/L (38-126); Anion Gap 9 mmol/L (8-16); Aspartate Amino Transferase 92 U/L (14-36); Bilirubin,Total 0.7 mg/dL (0.2-1.3); Blood Urea Nitrogen 9 mg/dL (7-17); Calcium 9.1 mg/dL (8.4-10.2); Carbon Dioxide 22 mmol/L (22-30); Chloride 107 mmol/L (98-107); Estimated CRCL calculation 112 ml/min; Estimated Glomerular Filt Rate > 60; Glucose 363 mg/dL (65-110); Magnesium 2.2 mg/dL (1.6-2.3); Potassium 3.9 mmol/L (3.4-5.0); Sodium 138 mmol/L (137-145)
[2021-10-15 08:00] VITALS: PULSE 59; RESP 18; O2SAT 94
[2021-10-15 08:31] LABS: Glucose Point of Care 379 mg/dl (65-105)
[2021-10-15] MEDS: INSULIN ASPART (*BKC) 100 UNITS/ML SUB-Q ×2 (08:34→12:00)
[2021-10-15] MEDS: INSULIN ASPART (*BKC) 100 UNITS/ML 10 UNITS SUB-Q ×2 (08:34→12:00)
[2021-10-15] MEDS: busPIRone HCL 2.5 MG TABLET 7.5 MG PO ×2 (08:36→21:50)
[2021-10-15] MEDS: ASPIRIN 81 MG ENTERIC TABLET PO (08:36)
[2021-10-15] MEDS: CYCLOBENZAPRINE HCL 10 MG TABLET PO ×2 (08:37→21:50)
[2021-10-15] MEDS: FUROSEMIDE 20 MG TABLET PO (08:37)
[2021-10-15] MEDS: RANOLAZINE 500 MG TAB.ER.12H PO ×2 (08:37→21:51)
[2021-10-15] MEDS: buPROPion HCL XL (24 HR) 150 MG TABCR 300 MG PO (08:37)
[2021-10-15] MEDS: INSULIN GLARGINE (*BKC) 100 UNITS/ML 45 UNITS SUB-Q (08:38)
[2021-10-15] MEDS: TOPIRAMATE 100 MG TABLET PO ×2 (08:38→21:51)
[2021-10-15] MEDS: ENOXAPARIN 40 MG/0.4 ML SYRINGE SUB-Q (08:39)
[2021-10-15] MEDS: LORazepam (*CRX) 1 MG TABLET PO ×2 (08:40→21:51)
--- NOTE | 2021-10-15 10:15 | PM.IMPN ---
Progress Note: A&P Assessment and Plan (1) Acute pancreatitis: Code(s): K85.90 - Acute pancreatitis without necrosis or infection, unspecified Status: Acute Assessment and Plan: Acute pancreatitis noted on the CT of the abd/pel IV fluids D5/NS at 150ml/hr IV Dilaudid, discontinued as this could be causing the itching IV Zofran Advance diet as tolerated GI consult thank you for your help lipase level 1914 on admission, and 207 right up upper quadrant ultrasound Hepatic steatosis. She does have severe hyperglycemia on admission along with hypertriglyceridemia that could precipitate pancreatitis No new medications elucidated in the history (2) Acute hyperglycemia: Code(s): R73.9 - Hyperglycemia, unspecified Status: Acute Assessment and Plan: Diabetes mellitus with severe hyperglycemia Accu cheks Q6hr while NPO Glucose was 438 on admission, and 487 per POC today Changed insulin to 45 units of Lantus, 10 units before meals Sliding scale ordered and adjusted for her trends Adjust therapy as indicated (3) Diabetes mellitus: Qualifiers: Diabetes mellitus complication status: with hyperglycemia Diabetes mellitus custodial insulin use: with custodial use Diabetes mellitus type: type 2 Qualified Code(s): E11.65 - Type 2 diabetes mellitus with hyperglycemia; Z79.4 - group home (current) use of insulin Code(s): E11.9 - Type 2 diabetes mellitus without complications Status: Acute Assessment and Plan: See above A1c is 13.2 (4) Asthma-COPD overlap syndrome: Code(s): J44.9 - Chronic obstructive pulmonary disease, unspecified Status: Acute Assessment and Plan: Asthma/COPD not in acute severe exacerbation Continue home inhalers (5) Obesity: Code(s): E66.9 - Obesity, unspecified Status: Acute Assessment and Plan: Obesity BMI 39 Life style changes Post Graduate Internship consult (6) Coronary artery disease: Code(s): I25.10 - Atherosclerotic heart disease of [place] coronary artery without angina pectoris Status: Acute Assessment and Plan: Coronary artery disease status post stent 2013 in LAD Restart aspirin 81mg PO when not NPO (7) Hypertriglyceridemia: Code(s): E78.1 - Pure hyperglyceridemia Status: Acute Assessment and Plan: Hypertriglyceridemia likely due to diabetes. Triglycerides are 323 (8) Dyslipidemia: Code(s): E78.5 - Hyperlipidemia, unspecified Status: Acute Assessment and Plan: Home medications restarted (9) Obstructive sleep apnea: Code(s): G47.33 - Obstructive sleep apnea (adult) (pediatric) Status: Acute Assessment and Plan: Obstructive sleep apnea on CPAP Cpap titrate to home settings (10) Anxiety and depression: Code(s): F41.9 - Anxiety disorder, unspecified; F32.A - Depression, unspecified Status: Acute Assessment and Plan: Anxiety/depression Home medications restarted Added Atarax (11) Transaminitis: Code(s): R74.01 - Elevation of levels of liver transaminase levels Status: Acute Assessment and Plan: Liver enzymes elevated AST/ALT 468/233, Alk Phos 399, trending up GI Consult thank you for your help Continue to trend labs RUQ ultrasound showed hepatic stenosis Hep panel negative Lactic acid 0.5 Urine tox screen pending Tylenol level <10 MRCP completed Acute interstitial pancreatitis which appears relatively mild with no peripancreatic fluid collections, no stones present, or dilation of the bile duct (12) Hypoglycemia: Code(s): E16.2 - Hypoglycemia, unspecified Status: Acute Assessment and Plan: Seems to be resolved at this time as glucose is in the 400s per POC Glucose noted to be 55, current glucose is 66, POC 79 Fluids switched to D5NS
--- NOTE | 2021-10-15 10:15 | P.PNIM_ITS ---
Progress Note: A&P Assessment and Plan (1) Acute pancreatitis: Code(s): K85.90 - Acute pancreatitis without necrosis or infection, unspecified Status: Acute Assessment and Plan: * Acute pancreatitis noted on the CT of the abd/pel * IV fluids D5/NS at 150ml/hr * IV Dilaudid, discontinued as this could be causing the itching * IV Zofran * Advance diet as tolerated * GI consult thank you for your help * lipase level 1914 on admission, and 207 * right up upper quadrant ultrasound Hepatic steatosis. * She does have severe hyperglycemia on admission along with hypertriglyceridemia that could precipitate pancreatitis * No new medications elucidated in the history (2) Acute hyperglycemia: Code(s): R73.9 - Hyperglycemia, unspecified Status: Acute Assessment and Plan: * Diabetes mellitus with severe hyperglycemia * Accu cheks Q6hr while NPO * Glucose was 438 on admission, and 487 per POC today * Changed insulin to 45 units of Lantus, 10 units before meals * Sliding scale ordered and adjusted for her trends * Adjust therapy as indicated (3) Diabetes mellitus: Qualifiers: Diabetes mellitus complication status: with hyperglycemia Diabetes m joãoitus halfway insulin use: with truck terminal manager use Diabetes mellitus type: type 2 Qualified Code(s): E11.65 - Type 2 diabetes mellitus with hyperglycemia; Z79.4 - parts counterman (current) use of insulin Code(s): E11.9 - Type 2 diabetes mellitus without complications Status: Acute Assessment and Plan: * See above * A1c is 13.2 (4) Asthma-COPD overlap syndrome: Code(s): J44.9 - Chronic obstructive pulmonary disease, unspecified Status: Acute Assessment and Plan: * Asthma/COPD not in acute severe exacerbation * Continue home inhalers (5) Obesity: Code(s): E66.9 - Obesity, unspecified Status: Acute Assessment and Plan: * Obesity BMI 39 * Life style changes * Wafer Batter Mixer consult (6) Coronary artery disease: Code(s): I25.10 - Atherosclerotic heart disease of [place] coronary artery without angina pectoris Status: Acute Assessment and Plan: * Coronary artery disease status post stent 2012 in LAD * Restart aspirin 81mg PO when not NPO (7) Hypertriglyceridemia: Code(s): E78.1 - Pure hyperglyceridemia Status: Acute Assessment and Plan: * Hypertriglyceridemia likely due to diabetes. * Triglycerides are 323 (8) Dyslipidemia: Code(s): E78.5 - Hyperlipidemia, unspecified Status: Acute Assessment and Plan: * Home medications restarted (9) Obstructive sleep apnea: Code(s): G47.33 - Obstructive sleep apnea (adult) (pediatric) Status: Acute Assessment and Plan: * Obstructive sleep apnea on CPAP * Cpap titrate to home settings (10) Anxiety and depression: Code(s): F41.9 - Anxiety disorder, unspecified; F32.A - Depression, unspecified Status: Acute Assessment and Plan: * Anxiety/depression * Home medications restarted * Added Atarax (11) Transaminitis: Code(s): R74.01 - Elevation of levels of liver transaminase levels Status: Acute Assessment and Plan: * Liver enzymes elevated * AST/ALT 468/233, Alk Phos 399, trending up * GI Consult thank you for your hel
[2021-10-15] MEDS: HYDROmorphone HCL INJ (*CRX) 1 MG/ML SYR IV PUSH (10:42)
[2021-10-15] MEDS: diphenhydrAMINE HCl INJ 50 MG/ML VIAL IV PUSH (10:42)
--- NOTE | 2021-10-15 11:50 | PCDIET ---
RDN consulted for uncontrolled diabetes and obesity. RDN provided nutrition education for diabetes management. See nutritional teachings for further information.
[2021-10-15 11:53] LABS: Glucose Point of Care 419 mg/dl (65-105)
[2021-10-15 11:58] LABS: Glucose Point of Care 410 mg/dl (65-105)
[2021-10-15] MEDS: hydrOXYzine HCL 25 MG TABLET 50 MG PO ×2 (12:00→21:52)
[2021-10-15] MEDS: cloNIDine HCL 0.1 MG TABLET PO ×2 (12:00→21:50)
[2021-10-15] MEDS: HYDROcodone/acetaminophen (*CRX) 5-325 MG TABLET 1 TAB PO (12:01)
--- NOTE | 2021-10-15 12:04 | PC.NURSE ---
Reported 419 accucheck to Weston Dang NP, stated will put orders in.
[2021-10-15 12:09] VITALS: BP 124/90; PULSE 62
[2021-10-15] MEDS: SODIUM CHLORIDE 0.9% IV 500 ML IV CONT (12:44)
[2021-10-15 14:00] VITALS: BP 116/71; PULSE 72; RESP 14; TEMP 35.9; O2SAT 100
--- NOTE | 2021-10-15 16:09 | WPDGIPROGNO ---
Progress Note: A&P Assessment and Plan (1) Acute pancreatitis: Code(s): K85.90 - Acute pancreatitis without necrosis or infection, unspecified Status: Acute Assessment and Plan: acute on chronic episode, MRCP reviewed and no stones, no lesions, showed pancreatitis advancing diet as tolerated hopefully home in 1-2 days (2) Transaminitis: Code(s): R74.01 - Elevation of levels of liver transaminase levels Status: Acute Assessment and Plan: from pancreatitis and trending down normal bilirubin (3) Diabetes mellitus: Qualifiers: Diabetes mellitus type: type 2 Diabetes mellitus snf insulin use: with vermin exterminator use Diabetes mellitus complication status: with hyperglycemia Qualified Code(s): E11.65 - Type 2 diabetes mellitus with hyperglycemia; Z79.4 - correction (current) use of insulin Code(s): E11.9 - Type 2 diabetes mellitus without complications Status: Acute Assessment and Plan: uncontrolled DM, probably also a factor in pancreatitis (4) Hypertriglyceridemia: Code(s): E78.1 - Pure hyperglyceridemia Status: Acute Assessment and Plan: at 300-400's (5) Cocaine abuse: Code(s): F14.10 - Cocaine abuse, uncomplicated Status: Acute Assessment and Plan: utox was negative this time Subjective Date/time seen: 10/15/21 16:09 Interval history: less pain and tolerating more diet, feeling better Review of Systems Review of Systems: All systems reviewed & are unremarkable except as noted in HPI and below Exam Const: General: comfortable and no acute distress Nutritional Appearance: obese HENMT: General nose exam: Normal nares present Eyes: General: appearance normal, both eyes and all related structures Neck: Neck: no JVD Resp: Auscultation: clear to auscultation bilaterally Cardio: Rate: regular rate Rhythm: regular rhythm GI: GI Palp: Yes Soft to palpation and Yes Tenderness to palpation present (GI) (epigastric, no rebound) Auscultation: normal bowel sounds Skin: General skin exam: normal color Neuro: Speech: normal speech Motor exam (neuro): Normal motor muscle tone present throughout Extrem: General: normal to inspection Psych: Mental Status: mental status grossly normal Objective Data Vital Signs Vital Signs: Vital Signs - 24 hr 10/14/21 16:30 10/14/21 21:42 10/15/21 05:45 Temperature 97.4 F L 98.1 F Pulse Rate 81 59 L Respiratory Rate 18 18 Blood Pressure 136/75 141/68 H 107/49 L Pulse Oximetry 96 94 10/15/21 08:00 10/15/21 12:09 10/15/21 14:00 Temperature 96.7 F L Pulse Rate 59 L 62 72 Respiratory Rate 18 14 Blood Pressure 124/90 116/71 Pulse Oximetry 94 100 Intake/Output Intake/Output: Intake & Output 10/12/21 10/13/21 10/14/21 10/15/21 23:59 23:59 23:59 23:59 Intake Total 1999 3810 600 1920 Output Total 400 800 Balance 1999 3810 200 1120 Meds/Results Medications: Active Medications Generic Name Dose Route Start Last Admin Trade Name Freq PRN Reason Stop Dose Admin Acetaminophen 1,000 mg 10/14/21 13:46 Acetaminophen 500 Mg Tablet PO Q6H PRN Pain (Scale Score 1-3) Hydrocodone Bitart/Acetaminophen 1 tab 10/14/21 15:51 10/15/21 12:01 Hydrocodone/Acetaminophen (*Crx) 5-325 Mg Tablet PO 1 tab Q6H PRN Administration Pain Rated 4-6 Albuterol 2 puff 10/14/21 13:46 Albuterol Sulfate (*Sp) Aerosol 1 Puff INHALATION QID PRN Shortness Of Breath Aspirin 81 mg 10/15/21 09:00 10/15/21 08:36 Aspirin 81 Mg Enteric Tablet PO 81 mg DAILY LORENA Administration Atorvastatin Calcium 80 mg 10/14/21 21:00 10/14/21 20:44 Atorvastatin 40 Mg Tablet PO 80 mg HS LORENA Administration Bupropion HCl 300 mg 10/15/21 09:00 10/15/21 08:37 Bupropion Hcl Xl (24 Hr) 150 Mg Tabcr PO 300 mg DAILY LORENA Administration Buspirone HCl 7.5 mg 10/14/21 21:00 10/15/21 08:36 Buspirone Hcl 2.5 Mg Table
--- NOTE | 2021-10-15 16:56 | PC.NURSE ---
Provider Weston Dang informed bs 129, order to hold insulin scheduled and SSI this evening with dinner.
[2021-10-15 16:57] LABS: Glucose Point of Care 129 mg/dl (65-105)
[2021-10-15 20:00] VITALS: O2SAT 100
[2021-10-15 21:43] LABS: Glucose Point of Care 205 mg/dl (65-105)
[2021-10-15] MEDS: ATORVASTATIN 40 MG TABLET 80 MG PO (21:49)
[2021-10-15] MEDS: traZODone HCL 50 MG TABLET 200 MG PO (21:51)
[2021-10-15] MEDS: PARoxetine 20 MG TABLET 40 MG PO (21:51)
[2021-10-15 22:00] VITALS: BP 123/80; PULSE 67; RESP 16; TEMP 36; O2SAT 100
[2021-10-16] MEDS: hydrOXYzine HCL 25 MG TABLET 50 MG PO (05:29)
[2021-10-16 06:00] VITALS: BP 95/53; PULSE 65; RESP 16; TEMP 37; O2SAT 96
[2021-10-16 06:06] LABS: Basophils Percent Auto 0.5 % (0.2-1.2); Eosinophils Absolute Auto 0.1 K/mm3 (0-0.3); Eosinophils Percent Auto 2.4 % (0-4.4); Hematocrit 39.8 % (37.0-47.0); Hemoglobin 12.7 g/dL (12.0-15.0); Immature Granulocyte Absolute 0.01 K/mm3 (0.00-0.031); Immature Granulocyte Percent A 0.2 % (0-0.5); Immature Platelet Fraction Pct 3.4 % (0.9-11.2); Lymphocytes Absolute Auto 2.69 K/mm3 (0.9-3.2); Mean Corpuscular HGB Conc 31.9 g/dl (32-36); Mean Corpuscular Hemoglobin 31.7 pg (26-34); Mean Corpuscular Volume 99.3 fl (80-100); Mean Platelet Volume 9.7 fl (7.4-10.4); Monocytes Absolute Auto 0.2 K/mm3 (0.1-0.6); Monocytes Percent Auto 3.9 % (2.6-8.5); Neutrophils Absolute Auto 2.8 K/mm3 (1.3-6.7); Platelet Count Result 188 k/mm3 (150-375); Red Blood Count 4.01 M/mm3 (4.2-5.4); Red Cell Distribution Width 14.6 % (11.5-14.5); White Blood Count 5.9 K/mm3 (4.5-10.0)
[2021-10-16 06:17] LABS: Alanine Aminotransferase 107 U/L (4-35); Albumin Level 3.3 g/dL (3.5-5.1); Alkaline Phosphatase 326 U/L (38-126); Anion Gap 11 mmol/L (8-16); Aspartate Amino Transferase 39 U/L (14-36); Bilirubin,Total 0.8 mg/dL (0.2-1.3); Blood Urea Nitrogen 11 mg/dL (7-17); Carbon Dioxide 20 mmol/L (22-30); Chloride 107 mmol/L (98-107); Estimated CRCL calculation 97 ml/min; Estimated Glomerular Filt Rate > 60; Glucose 282 mg/dL (65-110); Potassium 3.8 mmol/L (3.4-5.0); Sodium 138 mmol/L (137-145)
[2021-10-16 08:09] LABS: Glucose Point of Care 246 mg/dl (65-105)
[2021-10-16] MEDS: TOPIRAMATE 100 MG TABLET PO (09:38)
[2021-10-16] MEDS: RANOLAZINE 500 MG TAB.ER.12H PO (09:38)
[2021-10-16] MEDS: FUROSEMIDE 20 MG TABLET PO (09:38)
[2021-10-16] MEDS: CYCLOBENZAPRINE HCL 10 MG TABLET PO (09:38)
[2021-10-16] MEDS: ASPIRIN 81 MG ENTERIC TABLET PO (09:38)
[2021-10-16] MEDS: buPROPion HCL XL (24 HR) 150 MG TABCR 300 MG PO (09:38)
[2021-10-16] MEDS: busPIRone HCL 2.5 MG TABLET 7.5 MG PO (09:38)
[2021-10-16] MEDS: ENOXAPARIN 40 MG/0.4 ML SYRINGE SUB-Q (09:39)
[2021-10-16] MEDS: cloNIDine HCL 0.1 MG TABLET PO (09:42)
[2021-10-16] MEDS: LORazepam (*CRX) 1 MG TABLET PO (09:42)
[2021-10-16] MEDS: INSULIN GLARGINE (*BKC) 100 UNITS/ML 45 UNITS SUB-Q (09:43)
[2021-10-16] MEDS: INSULIN ASPART (*BKC) 100 UNITS/ML 10 UNITS SUB-Q ×2 (09:44→12:56)
[2021-10-16] MEDS: INSULIN ASPART (*BKC) 100 UNITS/ML SUB-Q ×2 (09:44→12:57)
[2021-10-16] MEDS: HYDROcodone/acetaminophen (*CRX) 5-325 MG TABLET 1 TAB PO (10:06)
--- NOTE | 2021-10-16 10:42 | WPDGIPROGNO ---
Progress Note: A&P Assessment and Plan (1) Acute pancreatitis: Code(s): K85.90 - Acute pancreatitis without necrosis or infection, unspecified Status: Acute Assessment and Plan: acute on chronic episode, MRCP reviewed and no stones, no lesions, showed pancreatitis low fat diet and she can go home today follow-up office in 3-4 weeks (2) Transaminitis: Code(s): R74.01 - Elevation of levels of liver transaminase levels Status: Acute Assessment and Plan: from pancreatitis, already trending down with normal bilirubin (3) Diabetes mellitus: Qualifiers: Diabetes mellitus type: type 2 Diabetes mellitus tank terminal gauger insulin use: with tank terminal gauger use Diabetes mellitus complication status: with hyperglycemia Qualified Code(s): E11.65 - Type 2 diabetes mellitus with hyperglycemia; Z79.4 - jail (current) use of insulin Code(s): E11.9 - Type 2 diabetes mellitus without complications Status: Acute Assessment and Plan: uncontrolled DM, probably also a factor in pancreatitis (4) Hypertriglyceridemia: Code(s): E78.1 - Pure hyperglyceridemia Status: Acute Assessment and Plan: at 300-400's Subjective Date/time seen: 10/16/21 10:42 Interval history: abdominal pain and had breakfast, feeling like going home Review of Systems Review of Systems: All systems reviewed & are unremarkable except as noted in HPI and below Exam Const: General: comfortable and no acute distress Nutritional Appearance: obese HENMT: General nose exam: Normal nares present Eyes: General: appearance normal, both eyes and all related structures Neck: Neck: no JVD Resp: Auscultation: clear to auscultation bilaterally Cardio: Rate: regular rate Rhythm: regular rhythm GI: Inspection: non-distended GI Palp: Yes Soft to palpation and No Guarding due to palpation present (GI) Auscultation: normal bowel sounds Skin: General skin exam: normal color Neuro: Speech: normal speech Motor exam (neuro): Normal motor muscle tone present throughout Extrem: General: normal to inspection Psych: Mental Status: mental status grossly normal Objective Data Vital Signs Vital Signs: Vital Signs - 24 hr 10/15/21 12:09 10/15/21 14:00 10/15/21 20:00 Temperature 96.7 F L Pulse Rate 62 72 Respiratory Rate 14 Blood Pressure 124/90 116/71 Pulse Oximetry 100 100 10/15/21 22:00 10/16/21 06:00 Temperature 96.8 F L 98.6 F Pulse Rate 67 65 Respiratory Rate 16 16 Blood Pressure 123/80 95/53 L Pulse Oximetry 100 96 Intake/Output Intake/Output: Intake & Output 10/13/21 10/14/21 10/15/21 10/16/21 23:59 23:59 23:59 23:59 Intake Total 3810 600 2860 1210 Output Total 400 800 500 Balance 3810 200 2060 710 Meds/Results Medications: Active Medications Generic Name Dose Route Start Last Admin Trade Name Freq PRN Reason Stop Dose Admin Acetaminophen 1,000 mg 10/14/21 13:46 Acetaminophen 500 Mg Tablet PO Q6H PRN Pain (Scale Score 1-3) Hydrocodone Bitart/Acetaminophen 1 tab 10/14/21 15:51 10/16/21 10:06 Hydrocodone/Acetaminophen (*Crx) 5-325 Mg Tablet PO 1 tab Q6H PRN Administration Pain Rated 4-6 Albuterol 2 puff 10/14/21 13:46 Albuterol Sulfate (*Sp) Aerosol 1 Puff INHALATION QID PRN Shortness Of Breath Aspirin 81 mg 10/15/21 09:00 10/16/21 09:38 Aspirin 81 Mg Enteric Tablet PO 81 mg DAILY LORENA Administration Atorvastatin Calcium 80 mg 10/14/21 21:00 10/15/21 21:49 Atorvastatin 40 Mg Tablet PO 80 mg HS LORENA Administration Bupropion HCl 300 mg 10/15/21 09:00 10/16/21 09:38 Bupropion Hcl Xl (24 Hr) 150 Mg Tabcr PO 300 mg DAILY LORENA Administration Buspirone HCl 7.5 mg 10/14/21 21:00 10/16/21 09:38 Buspirone Hcl 2.5 Mg Tablet PO 7.5 mg Q12HR LORENA Administration Clonidine HCl 0.1 mg 10/15/21 11:10 10/16/21 09:42 Clonidine Hcl 0.1 Mg Tablet PO 0.1 mg Q12HR SC
--- NOTE | 2021-10-16 10:45 | PM.DS ---
DS: Admitting Diagnosis Discharge Date 10/16/21 1045 Admitting Diagnosis acute pancreatitis DS: Discharge Diagnosis Discharge Diagnosis (1) Acute pancreatitis: Code(s): K85.90 - Acute pancreatitis without necrosis or infection, unspecified Status: Acute Assessment and Plan: Acute pancreatitis noted on the CT of the abd/pel IV fluids D5/NS at 150ml/hr IV Dilaudid, discontinued as this could be causing the itching IV Zofran Advance diet as tolerated GI consult thank you for your help lipase level 1914 on admission, and 207 right up upper quadrant ultrasound Hepatic steatosis. She does have severe hyperglycemia on admission along with hypertriglyceridemia that could precipitate pancreatitis No new medications elucidated in the history (2) Acute hyperglycemia: Code(s): R73.9 - Hyperglycemia, unspecified Status: Acute Assessment and Plan: Diabetes mellitus with severe hyperglycemia Accu cheks Q6hr while NPO Glucose was 438 on admission, and 487 per POC today Changed insulin to 45 units of Lantus, 10 units before meals Sliding scale ordered and adjusted for her trends Adjust therapy as indicated (3) Diabetes mellitus: Qualifiers: Diabetes mellitus complication status: with hyperglycemia Diabetes mellitus termite inspector insulin use: with fci use Diabetes mellitus type: type 2 Qualified Code(s): E11.65 - Type 2 diabetes mellitus with hyperglycemia; Z79.4 - long term care phlebotomist (current) use of insulin Code(s): E11.9 - Type 2 diabetes mellitus without complications Status: Acute Assessment and Plan: See above A1c is 13.2 (4) Asthma-COPD overlap syndrome: Code(s): J44.9 - Chronic obstructive pulmonary disease, unspecified Status: Acute Assessment and Plan: Asthma/COPD not in acute severe exacerbation Continue home inhalers (5) Obesity: Code(s): E66.9 - Obesity, unspecified Status: Acute Assessment and Plan: Obesity BMI 39 Life style changes Computer Teacher consult (6) Coronary artery disease: Code(s): I25.10 - Atherosclerotic heart disease of [place] coronary artery without angina pectoris Status: Acute Assessment and Plan: Coronary artery disease status post stent 2013 in LAD Restart aspirin 81mg PO when not NPO (7) Hypertriglyceridemia: Code(s): E78.1 - Pure hyperglyceridemia Status: Acute Assessment and Plan: Hypertriglyceridemia likely due to diabetes. Triglycerides are 323 (8) Dyslipidemia: Code(s): E78.5 - Hyperlipidemia, unspecified Status: Acute Assessment and Plan: Home medications restarted (9) Obstructive sleep apnea: Code(s): G47.33 - Obstructive sleep apnea (adult) (pediatric) Status: Acute Assessment and Plan: Obstructive sleep apnea on CPAP Cpap titrate to home settings (10) Anxiety and depression: Code(s): F41.9 - Anxiety disorder, unspecified; F32.A - Depression, unspecified Status: Acute Assessment and Plan: Anxiety/depression Home medications restarted Added Atarax (11) Transaminitis: Code(s): R74.01 - Elevation of levels of liver transaminase levels Status: Acute Assessment and Plan: Liver enzymes elevated AST/ALT 468/233, Alk Phos 399, trending up GI Consult thank you for your help Continue to trend labs RUQ ultrasound showed hepatic stenosis Hep panel negative Lactic acid 0.5 Urine tox screen pending Tylenol level <10 MRCP completed Acute interstitial pancreatitis which appears relatively mild with no peripancreatic fluid collections, no stones present, or dilation of the bile duct (12) Hypoglycemia: Code(s): E16.2 - Hypoglycemia, unspecified Status: Acute Assessment and Plan: Seems to be resolved at this time as glucose
--- NOTE | 2021-10-16 10:45 | P.DS_ITS ---
DS: Admitting Diagnosis Discharge Date 10/16/21 1045 Admitting Diagnosis acute pancreatitis DS: Discharge Diagnosis Discharge Diagnosis (1) Acute pancreatitis: Code(s): K85.90 - Acute pancreatitis without necrosis or infection, unspecified Status: Acute Assessment and Plan: * Acute pancreatitis noted on the CT of the abd/pel * IV fluids D5/NS at 150ml/hr * IV Dilaudid, discontinued as this could be causing the itching * IV Zofran * Advance diet as tolerated * GI consult thank you for your help * lipase level 1914 on admission, and 207 * right up upper quadrant ultrasound Hepatic steatosis. * She does have severe hyperglycemia on admission along with hypertriglyceridemia that could precipitate pancreatitis * No new medications elucidated in the history (2) Acute hyperglycemia: Code(s): R73.9 - Hyperglycemia, unspecified Status: Acute Assessment and Plan: * Diabetes mellitus with severe hyperglycemia * Accu cheks Q6hr while NPO * Glucose was 438 on admission, and 487 per POC today * Changed insulin to 45 units of Lantus, 10 units before meals * Sliding scale ordered and adjusted for her trends * Adjust therapy as indicated (3) Diabetes mellitus: Qualifiers: Diabetes mellitus complication status: with hyperglycemia Diabetes mellitus long distance billing operator insulin use: with long distance billing operator use Diabetes mellitus type: type 2 Qualified Code(s): E11.65 - Type 2 diabetes mellitus with hyperglycemia; Z79.4 - alf (current) use of insulin Code(s): E11.9 - Type 2 diabetes mellitus without complications Status: Acute Assessment and Plan: * See above * A1c is 13.2 (4) Asthma-COPD overlap syndrome: Code(s): J44.9 - Chronic obstructive pulmonary disease, unspecified Status: Acute Assessment and Plan: * Asthma/COPD not in acute severe exacerbation * Continue home inhalers (5) Obesity: Code(s): E66.9 - Obesity, unspecified Status: Acute Assessment and Plan: * Obesity BMI 39 * Life style changes * Mechanist consult (6) Coronary artery disease: Code(s): I25.10 - Atherosclerotic heart disease of [place] coronary artery without angina pectoris Status: Acute Assessment and Plan: * Coronary artery disease status post stent 2012 in LAD * Restart aspirin 81mg PO when not NPO (7) Hypertriglyceridemia: Code(s): E78.1 - Pure hyperglyceridemia Status: Acute Assessment and Plan: * Hypertriglyceridemia likely due to diabetes. * Triglycerides are 323 (8) Dyslipidemia: Code(s): E78.5 - Hyperlipidemia, unspecified Status: Acute Assessment and Plan: * Home medications restarted (9) Obstructive sleep apnea: Code(s): G47.33 - Obstructive sleep apnea (adult) (pediatric) Status: Acute Assessment and Plan: * Obstructive sleep apnea on CPAP * Cpap titrate to home settings (10) Anxiety and depression: Code(s): F41.9 - Anxiety disorder, unspecified; F32.A - Depression, unspecified Status: Acute Assessment and Plan: * Anxiety/depression * Home medications restarted * Added Atarax (11) Transaminitis: Code(s): R74.01 - Elevation of levels of liver transaminase levels Status: Acute Assessment and
[2021-10-16 12:32] LABS: Glucose Point of Care 206 mg/dl (65-105)
== END 2021-10-16 13:35 | disposition home or self-care (01) | DRG 282 ==
LOC: ANHED 17:12 → ANH3MEDSUR 18:47
PROVIDERS: Internal Medicine; Admitting Provider Family Medicine; Emergency Provider Emergency Medicine; Visit Provider Nurse Practitioner
DX: K85.80 Other acute pancreatitis without necrosis or infection (principal); F41.9 Anxiety disorder, unspecified; J44.9 Chronic obstructive pulmonary disease, unspecified; I25.10 Atherosclerotic heart disease of native coronary artery without angina pectoris; F32.A Depression, unspecified; E78.5 Hyperlipidemia, unspecified; E66.9 Obesity, unspecified; G47.33 Obstructive sleep apnea (adult) (pediatric); F17.210 Nicotine dependence, cigarettes, uncomplicated; Z79.82 Long term (current) use of aspirin; E11.65 Type 2 diabetes mellitus with hyperglycemia; Z68.39 Body mass index [BMI] 39.0-39.9, adult; Z95.5 Presence of coronary angioplasty implant and graft; E78.1 Pure hyperglyceridemia; R74.01 Elevation of levels of liver transaminase levels; E11.649 Type 2 diabetes mellitus with hypoglycemia without coma; Z76.5 Malingerer [conscious simulation]
CPT/HCPCS: 36415; 74177; 74181; 76376; 76705; 80053; 80074; 80307; 81001; 82948; 83036; 83605; 83690; 83735; 84478; 85025; 85055; 96361; 96372; 96374; 96375; 96376; 99285; A9270; G0378; G0379; J1170; J1200; J1650; J1815; J2060; J2270; J2405; J2930; J3010; J7030; J7040; J7042; Q9967

== ENCOUNTER 2021-11-16 13:33 | Emergency (ER) | payer OTHER, SELFPAY ==
[2021-11-16 13:37] VITALS: BP 131/79; PULSE 76; RESP 17; TEMP 36.5; O2SAT 99
--- NOTE | 2021-11-16 14:05 | ED.DENTAL ---
HPI - Dental/Oral General Chief complaint: Dental/Oral Stated complaint: dental pain Time Seen by Provider: 11/16/21 13:50 Source: patient and EMS Mode of arrival: EMS Limitations: no limitations History of Present Illness HPI Narrative: Patient presents with left upper dental pain started weeks ago. Started on amoxicillin November 03, 2021, by her dentist, no improvement then started on Augmentin by her family physician without improvement, still hurting. Patient was advised to go to the emergency room. Patient denies any fever, chills, nausea, vomiting, headache, difficulty breathing or swallowing. MD Complaint: tooth pain Location: Tooth # Teeth map: 1. Extensive dental caries and decay, swollen erythematous gum, no clear abscess formation at this time., Diffusely tender ,no discharge Related Data Home Medications Medication Instructions Recorded Confirmed aspirin [Aspir-81] 81 mg PO DAILY 07/09/19 10/13/21 furosemide 20 mg PO DAILY 07/09/19 10/13/21 paroxetine HCl [Paxil] 40 mg PO HS 07/09/19 10/13/21 albuterol sulfate 2 puff INHALATION QID PRN 07/12/19 10/13/21 albuterol sulfate 2.5 mg INHALATION Q4H PRN 07/12/19 10/13/21 acetaminophen [Tylenol Extra 1,000 mg PO Q6H PRN 03/28/20 10/13/21 Strength] cyclobenzaprine 10 mg PO Q12H 03/28/20 10/13/21 ondansetron HCl 4 mg PO Q6H PRN 03/28/20 10/13/21 ranolazine 500 mg PO Q12H 03/28/20 10/13/21 topiramate 100 mg PO Q12H 03/28/20 10/13/21 bupropion HCl 300 mg PO DAILY 09/08/21 10/13/21 buspirone 7.5 mg PO Q12H 09/08/21 10/13/21 glipizide 5 mg PO 09/08/21 10/13/21 insulin lispro protamin-lispro 90 unit SUBCUT Q12H 09/08/21 10/13/21 [Humalog Mix 75-25 KwikPen] rizatriptan 10 mg PO QID PRN 09/08/21 10/13/21 atorvastatin 80 mg PO HS 10/13/21 10/13/21 trazodone 200 mg PO HS 10/13/21 10/13/21 Allergies Allergy/AdvReac Type Severity Reaction Status Date / Time amoxicillin Allergy Mild Rash Verified 10/13/21 14:29 cephalexin [From Keflex] Allergy Mild Rash Verified 10/13/21 14:29 ciprofloxacin Allergy Mild Rash Verified 10/13/21 14:29 clavulanic acid Allergy Mild Rash Verified 10/13/21 14:29 [From Augmentin] metronidazole Allergy Mild Rash Verified 10/13/21 14:29 Sulfa (Sulfonamide Allergy Mild Rash Verified 10/13/21 14:29 Antibiotics) codeine Allergy Unknown HIVES Verified 10/13/21 14:29 ibuprofen Allergy Unknown HIVES Verified 10/13/21 14:29 ketorolac Allergy Unknown HIVES Verified 10/13/21 14:29 levofloxacin Allergy Unknown Swelling Verified 10/13/21 14:29 prochlorperazine Allergy Unknown HIVES Verified 10/29/20 13:58 tramadol Allergy Unknown HIVES Verified 10/29/20 13:58 Review of Systems Review of Systems: CONSTITUTIONAL: Denies fever, chills, or sweats. EYES: Denies visual changes, redness, or discharge. ENT: Denies rhinorrhea, congestion, sore throat, or otalgia. Extensive dental decay and caries CARDIOVASCULAR: Denies chest pain, palpitations, or edema. RESPIRATORY: Denies cough or dyspnea. GASTROINTESTINAL: Denies abdominal pain, nausea, vomiting, or diarrhea. GENITOURINARY: Denies dysuria or hematuria. SKIN: Denies rash or itching. MUSCULOSKELETAL: Denies back pain, joint pain, or myalgia. NEUROLOGIC: Denies headache, numbness, or weakness. PSYCHIATRIC: Denies anxiety or depression. [facility] Past Medical History Medical History Cholecystitis COPD (chronic obstructive pulmonary disease) Coronary artery disease Diabetes mellitus Dyslipidemia History of defect of abdominal wall Nausea and vomiting in adult Obesity Obstructive sleep apnea Pancreatitis 07/2019 Surgical History Surgical History History of bone marrow biopsy History of History of cholecystectomy History of dilatation and curettage History of hysterectomy History of tubal ligation Family History Family History Father
[2021-11-16] MEDS: MORPHINE SULFATE INJ (*CRX) 10 MG/ML AMP 6 MG IM (14:24)
[2021-11-16] MEDS: ONDANSETRON HCL ODT 4 MG TABLET PO (14:24)
== END 2021-11-16 14:31 | disposition home or self-care (01) ==
PROVIDERS: Emergency Provider Emergency Medicine
DX: K02.9 Dental caries, unspecified (principal); J44.9 Chronic obstructive pulmonary disease, unspecified; I25.10 Atherosclerotic heart disease of native coronary artery without angina pectoris; E11.9 Type 2 diabetes mellitus without complications; E78.5 Hyperlipidemia, unspecified; G47.33 Obstructive sleep apnea (adult) (pediatric); E66.9 Obesity, unspecified; Z68.39 Body mass index [BMI] 39.0-39.9, adult; F17.210 Nicotine dependence, cigarettes, uncomplicated; Z79.82 Long term (current) use of aspirin; Z79.4 Long term (current) use of insulin
CPT/HCPCS: 96372; 99283; A9270; J2270

== ENCOUNTER 2021-11-24 06:23 | Outpatient (RCR) | payer SELFPAY | END 2022-02-07 10:33 | disposition home or self-care (01) | LOC: ANHDMC 06:23 | DX: E11.9 Type 2 diabetes mellitus without complications (principal); Z71.3 Dietary counseling and surveillance | CPT/HCPCS: 99199 ==

== ENCOUNTER 2021-12-06 15:17 | Observation (INO) | payer OTHER, SELFPAY ==
--- NOTE | ~2021-12-06 | XR_ITS ---
EXAMINATION: XR chest 1V portable EXAM DATE: 12/06/2021 15:46 INDICATION: Chest pain. TECHNIQUE: Portable AP frontal chest x-ray was obtained. Comparison is made to prior examination from 09/08/2021. FINDINGS: The lungs are clear. There are no pleural effusions. The cardiomediastinal silhouette is within normal limits. There is no pneumothorax suspected. The bones and soft tissues are unremarkab le. IMPRESSION: No acute cardiopulmonary findings. Reviewed, dictated and finalized at location A.
--- NOTE | ~2021-12-06 | US_ITS ---
EXAMINATION: US venous doppler [facility] DATE: 12/07/2021 10:39 INDICATION: Left lower limb pain TECHNIQUE: Grayscale ultrasound images without and with compression and Doppler ultrasound images of the bilateral lower extremity veins were obtained. COMPARISON: None. FINDINGS: The visualized portions of right common femoral vein, profunda (deep) femoral vein, femoral vein, pop liteal vein, posterior tibial veins, peroneal veins, gastrocnemius vein and greater saphenous vein ou tflow are patent. The visualized portions of left common femoral vein, profunda femoral vein, femoral vein, popliteal v ein, posterior tibial veins, peroneal veins, gastrocnemius vein and greater saphenous vein outflow ar e patent. IMPRESSION: 1. No deep venous thrombosis in either lower limb. Reviewed, dictated and finalized at location B.
[2021-12-06 15:26] VITALS: BP 106/77; PULSE 81; RESP 20; TEMP 37.1; O2SAT 98
--- NOTE | 2021-12-06 15:30 | PC.NURSE ---
EDP at bedside to assess pt.
--- NOTE | 2021-12-06 15:32 | ECG_ITS ---
Measurements Intervals [place] Rate: 73 P: 51 WA: 158 QRS: 48 QRSD: 85 T: 51 QT: 395 QTc: 437 Interpretive Statements SINUS RHYTHM LOW QRS VOLTAGE IN PRECORDIAL LEADS SEPTAL MYOCARDIAL INFARCTION , OF INDETERMINATE AGE Electronically Signed On 12-06-2021 15:54:11 CDT by Isai Feldman M.D.
--- NOTE | 2021-12-06 15:39 | ED.CHESTPAIN ---
HPI - Chest Pain General Chief Complaint: Chest Pain Stated Complaint: chest pain Time Seen by Provider: 12/06/21 15:22 Source: patient Mode of arrival: EMS Limitations: no limitations History of Present Illness HPI narrative: 51-year-old female presents emergency room by EMS secondary to chest pain. She states she developed chest pain just prior to coming to emergency room. Scribes as a sharp pain to the left side of her chest. All the time she described as a dull ache and having some radiation to her left arm. She does have a history of coronary artery disease already having a stent in her LAD. Since that time it sounds like she had a follow-up cardiac catheterization showed a 60% lesion in one of her vessels but no angioplasty was done at that time as not indicated. She states that recently when she gets up and starts moving around and exerting herself she gets very short of breath. She is also complaining of some mid abdominal pain she had pancreatitis in the past. She denies alcohol consumption. She does smoke about a half a pack per day. She is had some nausea associated with abdominal pain. She is also complaining of some pain to her left great toe. States that she actually took a knife and cut it because it was very large and stomach had some drainage coming from it. Patient is a diabetic. Related Data Home Medications Medication Instructions Recorded Confirmed aspirin [Aspir-81] 81 mg PO DAILY 07/09/19 10/13/21 furosemide 20 mg PO DAILY 07/09/19 10/13/21 paroxetine HCl [Paxil] 40 mg PO HS 07/09/19 10/13/21 albuterol sulfate 2 puff INHALATION QID PRN 07/12/19 10/13/21 albuterol sulfate 2.5 mg INHALATION Q4H PRN 07/12/19 10/13/21 acetaminophen [Tylenol Extra 1,000 mg PO Q6H PRN 03/28/20 10/13/21 Strength] cyclobenzaprine 10 mg PO Q12H 03/28/20 10/13/21 ondansetron HCl 4 mg PO Q6H PRN 03/28/20 10/13/21 ranolazine 500 mg PO Q12H 03/28/20 10/13/21 topiramate 100 mg PO Q12H 03/28/20 10/13/21 bupropion HCl 300 mg PO DAILY 09/08/21 10/13/21 buspirone 7.5 mg PO Q12H 09/08/21 10/13/21 glipizide 5 mg PO 09,12 09/08/21 10/13/21 insulin lispro protamin-lispro 90 unit SUBCUT Q12H 09/08/21 10/13/21 [Humalog Mix 75-25 KwikPen] rizatriptan 10 mg PO QID PRN 09/08/21 10/13/21 atorvastatin 80 mg PO HS 10/13/21 10/13/21 trazodone 200 mg PO HS 10/13/21 10/13/21 Allergies Allergy/AdvReac Type Severity Reaction Status Date / Time amoxicillin Allergy Mild Rash Verified 10/13/21 14:29 cephalexin [From Keflex] Allergy Mild Rash Verified 10/13/21 14:29 ciprofloxacin Allergy Mild Rash Verified 10/13/21 14:29 clavulanic acid Allergy Mild Rash Verified 10/13/21 14:29 [From Augmentin] metronidazole Allergy Mild Rash Verified 10/13/21 14:29 Sulfa (Sulfonamide Allergy Mild Rash Verified 10/13/21 14:29 Antibiotics) codeine Allergy Unknown HIVES Verified 10/13/21 14:29 ibuprofen Allergy Unknown HIVES Verified 10/13/21 14:29 ketorolac Allergy Unknown HIVES Verified 10/13/21 14:29 levofloxacin Allergy Unknown Swelling Verified 10/13/21 14:29 prochlorperazine Allergy Unknown HIVES Verified 10/29/20 13:58 tramadol Allergy Unknown HIVES Verified 10/29/20 13:58 Review of Systems Review of Systems: CONSTITUTIONAL: Denies fever, chills, or sweats. EYES: Denies visual changes, redness, or discharge. ENT: Denies rhinorrhea, congestion, sore throat, or otalgia. CARDIOVASCULAR: Having chest pain but no palpitations RESPIRATORY: Denies cough but having some exertional dyspnea GASTROINTESTINAL: Denies abdominal pain, nausea, vomiting, or diarrhea. GENITOURINARY: Denies dysuria or hematuria. SKIN: Denies rash or itching. MUSCULOSKELETAL: Denies back pain, joint pain, or myalgia. Complaining of pain to her left great toe on the lateral aspect NEUROLOGIC: Denies headache, numbness, or weakness. PSYCHIATRIC: Denies anxiety or depression. [facility] Past Medical History Medical History Cholecystitis C
[2021-12-06] MEDS: MORPHINE SULFATE (*CRX) 2 MG/ML INJ IV PUSH (16:06)
[2021-12-06] MEDS: ONDANSETRON INJ 4 MG/2 ML VIAL IV PUSH (16:06)
[2021-12-06 16:09] LABS: Basophils Percent Auto 0.4 % (0.2-1.2); Eosinophils Absolute Auto 0.2 K/mm3 (0-0.3); Eosinophils Percent Auto 2.4 % (0-4.4); Hematocrit 36.8 % (37.0-47.0); Hemoglobin 12.1 g/dL (12.0-15.0); Immature Granulocyte Absolute 0.04 K/mm3 (0.00-0.031); Immature Granulocyte Percent A 0.5 % (0-0.5); Lymphocytes Percent Auto 30.9 % (18.3-44.2); Mean Corpuscular HGB Conc 32.9 g/dl (32-36); Mean Corpuscular Hemoglobin 31.2 pg (26-34); Mean Corpuscular Volume 94.8 fl (80-100); Mean Platelet Volume 9.1 fl (7.4-10.4); Monocytes Absolute Auto 0.4 K/mm3 (0.1-0.6); Monocytes Percent Auto 4.5 % (2.6-8.5); Neutrophils Absolute Auto 5.2 K/mm3 (1.3-6.7); Neutrophils Percent Auto 61.3 % (45.5-73.1); Platelet Count Result 229 k/mm3 (150-375); Red Blood Count 3.88 M/mm3 (4.2-5.4); Red Cell Distribution Width 15.1 % (11.5-14.5); White Blood Count 8.4 K/mm3 (4.5-10.0)
[2021-12-06 16:19] LABS: Alanine Aminotransferase 18 U/L (4-35); Alkaline Phosphatase 147 U/L (38-126); Anion Gap 8 mmol/L (8-16); Aspartate Amino Transferase 20 U/L (14-36); Bilirubin,Total 0.6 mg/dL (0.2-1.3); Blood Urea Nitrogen 14 mg/dL (7-17); Calcium 8.5 mg/dL (8.4-10.2); Carbon Dioxide 22 mmol/L (22-30); Chloride 107 mmol/L (98-107); Estimated CRCL calculation 77 ml/min; Estimated Glomerular Filt Rate > 60; Glucose 355 mg/dL (65-110); Potassium 3.4 mmol/L (3.4-5.0); Sodium 137 mmol/L (137-145)
[2021-12-06 16:20] LABS: INR 1.1; Prothrombin Time 13.4 Seconds (11.1-14.7)
[2021-12-06 16:21] LABS: Partial Thromboplastin Time 29.6 SECONDS (22.3-36.8)
[2021-12-06 16:23] LABS: Lipase 33 U/L (23-300)
[2021-12-06 16:31] LABS: Troponin I < 0.012 ng/mL (0.000-0.034)
[2021-12-06] MEDS: MORPHINE SULFATE (*CRX) 4 MG/ML INJ IV PUSH (17:00)
[2021-12-06] MEDS: LIDOCAINE HCL 1% PF 30 ML VIAL (17:45)
--- NOTE | 2021-12-06 19:00 | PC.NURSE ---
Patient continues to wander in the hallway. Attempted to go outside and smoke in the ambulance bay and was redirected.
--- NOTE | 2021-12-06 19:50 | ADMGEN ---
This patient, Mikayla Hays, was admitted to IMU Room 204-01. Patient/family oriented to hospital policies and general routines including ID bracelet, bed and alarms, visiting hours, pain management, procedures, bathroom and other care routines, personal items, smoking policy, room service/diet, and visiting hours. Information on how to activate the Rapid Response Team has been discussed. Patient/Family are encouraged to report perceived risks to care and to ask questions if they do not understand what they are told or what they should do.
[2021-12-06 20:00] VITALS: BP 117/99; PULSE 75; PULSE 79; RESP 20; TEMP 36.6; O2SAT 99
[2021-12-06 20:46] VITALS: BMI 39.3
[2021-12-06 20:54] LABS: Glucose Point of Care 366 mg/dl (65-105)
[2021-12-06] MEDS: ACETAMINOPHEN 500 MG TABLET 1000 MG PO (21:49)
[2021-12-06 22:00] VITALS: PULSE 88
[2021-12-06 22:05] LABS: Troponin I < 0.012 ng/mL (0.000-0.034)
[2021-12-06] MEDS: ATORVASTATIN 40 MG TABLET 80 MG PO (22:59)
[2021-12-06] MEDS: PARoxetine 20 MG TABLET 40 MG PO (22:59)
[2021-12-06] MEDS: busPIRone HCL 5 MG TABLET PO (23:00)
[2021-12-06] MEDS: TOPIRAMATE 100 MG TABLET PO (23:00)
[2021-12-06] MEDS: LORazepam (*CRX) 1 MG TABLET PO (23:00)
[2021-12-06] MEDS: busPIRone HCL 2.5 MG TABLET PO (23:00)
[2021-12-06] MEDS: RANOLAZINE 500 MG TAB.ER.12H PO (23:00)
[2021-12-06] MEDS: traZODone HCL 50 MG TABLET 200 MG PO (23:00)
[2021-12-06] MEDS: TAPENTADOL HCL (*CRX) 50 MG TABLET PO (23:10)
[2021-12-06 23:36] VITALS: BP 120/77; PULSE 71; RESP 20; TEMP 35.9; O2SAT 97
[2021-12-06] MEDS: NICOTINE (*PBKC) 14 MG PATCH 1 PATCH TRANSDERM (23:41)
[2021-12-07] VITALS (11 sets, daily range): BP systolic 102–120; BP diastolic 63–77; PULSE 61–95; RESP 18–22; TEMP 36.3–36.9; O2SAT 93–99
[2021-12-07 00:56] LABS: Troponin I < 0.012 ng/mL (0.000-0.034)
[2021-12-07 08:07] LABS: Glucose Point of Care 248 mg/dl (65-105)
[2021-12-07] MEDS: INSULIN ASPART (*BKC) 100 UNITS/ML SUB-Q (08:33)
[2021-12-07] MEDS: TOPIRAMATE 100 MG TABLET PO (08:38)
[2021-12-07] MEDS: RANOLAZINE 500 MG TAB.ER.12H PO (08:38)
[2021-12-07] MEDS: NICOTINE (*PBKC) 14 MG PATCH 1 PATCH TRANSDERM (08:38)
[2021-12-07] MEDS: busPIRone HCL 2.5 MG TABLET PO (08:39)
[2021-12-07] MEDS: busPIRone HCL 5 MG TABLET PO (08:39)
[2021-12-07] MEDS: glipiZIDE 5 MG TABLET PO (08:40)
[2021-12-07] MEDS: ASPIRIN 81 MG ENTERIC TABLET PO (08:40)
[2021-12-07] MEDS: LORazepam (*CRX) 1 MG TABLET PO (08:42)
[2021-12-07] MEDS: buPROPion HCL XL (24 HR) 150 MG TABCR 300 MG PO (09:56)
[2021-12-07] MEDS: FUROSEMIDE 20 MG TABLET PO (09:56)
[2021-12-07] MEDS: TAPENTADOL HCL (*CRX) 50 MG TABLET PO ×2 (10:00→14:04)
--- NOTE | 2021-12-07 10:02 | ECG_ITS ---
Measurements Intervals [place] Rate: 74 P: 55 NV: 160 QRS: 51 QRSD: 80 T: 44 QT: 395 QTc: 441 Interpretive Statements SINUS RHYTHM LOW QRS VOLTAGE IN PRECORDIAL LEADS Electronically Signed On 12-07-2021 11:43:45 CDT by Isai Feldman M.D.
--- NOTE | 2021-12-07 10:49 | PM.CNCAR ---
Assessment and Plan Assessment and plan (1) Chest pain: Code(s): R07.9 - Chest pain, unspecified Status: Acute Assessment and Plan: 51-year-old female with CAD, history of PCI/stenting of LAD in the setting of [place] as per patient at [facility] (intervention report not available); mild aortic stenosis, type 2 diabetes mellitus,? Crohn's disease, history of pancreatitis, obesity, SOFIA on CPAP, anxiety/depression, heavy tobacco abuse, cocaine abuse. Patient has baseline angina, admitted to the hospital with worsening chest pain in the setting of cocaine abuse. EKG did not show any acute ST segment abnormality. Serial troponins negative. Recent MPI negative for ischemia. -patient was strongly advised to stop smoking and stop cocaine. She was cautioned that she is at risk for major adverse cardiovascular events with ongoing tobacco and cocaine abuse. She verbalized understanding. -medical treatment with aspirin, statin. Antianginal treatment with nitroglycerin, ranolazine. Avoid beta-juhi due to ongoing cocaine abuse. -outpatient cardiology follow-up. Need for repeat ischemic evaluation can be considered as an outpatient if necessary based on clinical course. -other medical management as per primary team. (2) Coronary artery disease: Code(s): I25.10 - Atherosclerotic heart disease of [place] coronary artery without angina pectoris Status: Acute Assessment and Plan: Medical treatment as described above (3) Tobacco abuse: Code(s): Z72.0 - Tobacco use Status: Acute Assessment and Plan: Smoking cessation counseling done (4) Cocaine abuse: Code(s): F14.10 - Cocaine abuse, uncomplicated Status: Acute Assessment and Plan: Patient advised to stop cocaine. Recommend social work/case folder evaluation for drug rehab. History of Present Illness History of Present Illness Consult date/time: 12/07/21 10:49 DATE OF CONSULT: 12/07/2021 REASON FOR CONSULT: Chest pain, CAD REQUESTING PHYSICIAN:Ralph Zurita MD CHIEF COMPLAINT: Chest pain HPI: 51-year-old female with CAD, history of PCI/stenting of LAD in the setting of [place] as per patient at [facility] (intervention report not available); mild aortic stenosis, type 2 diabetes mellitus,? Crohn's disease, history of pancreatitis, obesity, SOFIA on CPAP, anxiety/depression, heavy tobacco abuse, cocaine abuse. Patient presented to [facility] on 12/06/2021 with complaints of chest pain. At baseline, patient states that she usually gets chest pain with limited activity. She states that she uses nitroglycerin at home. She also has dyspnea on exertion. No palpitation, dizziness syncope. She states that she smoked cocaine couple of days ago and had worsening chest pain yesterday. She states that she used to see Dr York, but has not had recent follow-up as per patient. EKG on my personal evaluation showed sinus rhythm, low voltage in the precordial leads, septal Q-waves, unchanged from previous EKG. Serial troponins are negative. Chest x-ray unremarkable. No DVT on venous duplex. Lipase on this admission is within normal limits. Urine drug screen positive for opiates and cocaine. Recent MPI from 09/08/2021 normal at rest and during stress; LVEF more than 70%. Previous echo from 11/26/2020 showed normal LV systolic function with segmental wall motion abnormality; mild aortic stenosis. Reason For Visit: chest pain, CAD, Abd Pain, Ingrown toenail Review of Systems Review of Systems: General: Negative for fever, chills, fatigue Psychological: Positive for anxiety, depression Ophthalmic: negative for loss of vision ENT: Negative for epistaxis, headaches Allergy and immunology: Negative for hives, nasal congestion Hematologic and lymphatic: Negative for overt bleeding problems Endocrine: Negative for hot flashes, palpitations Respiratory: Negative for cough, hemoptysis Cardiovascula
[2021-12-07 10:51] LABS: Amphetamine Screen Urine Negative (Negative); Barbiturate Screen Urine Negative (Negative); Benzodiazepines Screen Urine Negative (Negative); Cannabinoid Screen Urine Negative (Negative); Cocaine Screen Urine Positive (Negative); Methadone Screen Urine Negative (Negative); Opiate Screen Urine Positive (Negative); Phencyclidine Screen Urine Negative (Negative)
[2021-12-07 10:58] LABS: Hepatitis B Surface Antigen Negative (Negative)
[2021-12-07 11:02] LABS: Thyroid Stimulating Hormone Reflex 0.575 uIU/mL (0.465-4.68)
[2021-12-07 11:03] LABS: Hepatitis B Core IgM Result Negative (Negative)
[2021-12-07 11:09] LABS: HIV 1/2 Ab P24 Ag Result Negative (Negative)
[2021-12-07 11:15] LABS: Hepatitis B Surface Anti Res Negative; Hepatitis C Virus Antibody Negative (Negative)
[2021-12-07 11:19] LABS: D Dimer 0.49 ug/mL (<0.48)
[2021-12-07 11:42] LABS: Glucose Point of Care 60 mg/dl (65-105)
--- NOTE | 2021-12-07 13:47 | PM.SD2 ---
Same Day Admit/Disch: HPI History of Present Illness Chief complaint: chest pain, CAD, Abd Pain, Ingrown toenail Narrative: Mikayla Hays is a 51 year old female with CAD, DM, and COPD presents with complaints chest pain. Over the past few days patient has had diarrhea with nausea and abdominal pain. She has a history of pancreatitis. She does not drink alcohol. Denies fevers but was having chills, rhinorrhea and cough productive yellow sputum. Also complains of left ear pain. No sore throat. She took Tylenol, Imodium and NyQuil for her symptoms. Diarrhea is still persistent but better. She denies shortness of breath. She does wheeze. She has been eating okay. About 2 hours prior to presenting to the ED, patient developed sharp stabbing chest pain when laying in bed. She was not feeling well. The pain radiated to her left arm. It was continuous but would wax and wane in severity. She does state that it pleuritic, palpable and positional made worse with moving the left arm. She was raking leaves 2 days ago. She did not have chest pain when she was raking leaves. Pain seems to be worse with walking. She denies any injury or fall. She does complain of left calf pain. No history of VTE. Her diabetes is poorly controlled with wide variations in her glucose from 90-400. Last A1c was 13.2 in October. Patient also complains of breast discharge this been going on for years. She cannot recall her last mammogram. Patient still smokes a pack a day and has done so for about 30 years. She still smokes cocaine and did so about 3 days prior to this admission. She denies any other drug use and no hx of IV drug use. She is agreeable for HIV and Hepatitis testing Patient also complains of left great toe pain. She had been seen in the ED recently and was diagnosed with paronychia involving the left great toe that was treated. The symptoms returned and she used a knife to try to open and drain without much success. Patient presented to the emergency room for evaluation. COUNTS INCLUDE 234 BEDS AT THE [facility] Past Medical History Medical History (Updated 12/07/21 @ 14:13 by Ralph Zurita MD) Cholecystitis COPD (chronic obstructive pulmonary disease) Coronary artery disease Stent to the LAD in 2012. Diabetes mellitus Dyslipidemia History of defect of abdominal wall Nausea and vomiting in adult Obesity Obstructive sleep apnea Pancreatitis 07/2019 Surgical History Surgical History History of bone marrow biopsy History of History of cholecystectomy History of dilatation and curettage History of hysterectomy History of tubal ligation Family History Family History Father Acute myocardial infarction Heart disease Hypertension Congestive heart failure Mother Diabetes mellitus Acute myocardial infarction Hypertension Congestive heart failure Sibling Diabetes mellitus Asthma Chronic obstructive pulmonary disease Congestive heart failure Daughter Leukemia Sibling Overdose Asthma Chronic obstructive pulmonary disease Other Acute myocardial infarction Congestive heart failure Sibling Asthma Chronic obstructive pulmonary disease Sibling Asthma Chronic obstructive pulmonary disease Social History Social History (Updated 12/07/21 @ 13:57 by Ralph Zurita MD) Social History: She had 5 children and 2 have passed. One passed as an from SIDS and her 23 year old daughter from leukemia. She smokes a pack a day for past 30 years. She uses marijuana and smokes cocaine. No alcohol use. She lives at home with her boyfriend. She is a full code. She nominates Rashaun Hays, her son, to be the individual would make medical decisions for if she is not able. Smoking packs per day: 0.5 Smoking cigarettes per day: 10.0 Years smoked: 30 Smoking pack-years: 15.00 Smoking status: Current every
[2021-12-11 20:09] LABS: Hepatitis B Core Ab Total Nonreactive (Nonreactive)
--- NOTE | 2021-12-14 07:39 | PC.NURSE ---
Hep B core total is nonreactive. Dr. Yudith mccarthy.
== END 2021-12-07 14:37 | disposition home or self-care (01) ==
LOC: ANHED 15:34 → ANHIMU 23:34
PROVIDERS: Internal Medicine; Admitting Provider Family Medicine; Emergency Provider Emergency Medicine; Visit Provider Internal Medicine
DX: R07.9 Chest pain, unspecified (principal); L03.032 Cellulitis of left toe; L60.0 Ingrowing nail; I25.10 Atherosclerotic heart disease of native coronary artery without angina pectoris; E11.65 Type 2 diabetes mellitus with hyperglycemia; E78.5 Hyperlipidemia, unspecified; F14.10 Cocaine abuse, uncomplicated; F17.210 Nicotine dependence, cigarettes, uncomplicated; G47.33 Obstructive sleep apnea (adult) (pediatric); N64.52 Nipple discharge; J44.9 Chronic obstructive pulmonary disease, unspecified; Z79.4 Long term (current) use of insulin; Z95.5 Presence of coronary angioplasty implant and graft; Z79.82 Long term (current) use of aspirin; Z90.49 Acquired absence of other specified parts of digestive tract; Z79.84 Long term (current) use of oral hypoglycemic drugs; Z90.710 Acquired absence of both cervix and uterus
CPT/HCPCS: 11740; 36415; 71045; 80053; 80307; 82948; 83690; 84443; 84484; 85025; 85380; 85610; 85730; 86703; 86704; 86705; 86706; 86803; 87340; 93005; 93970; 96374; 96375; 96376; 99285; A9270; G0378; G0379; G0432; J1815; J2270; J2405

== ENCOUNTER 2022-04-18 18:52 | Emergency (ER) | payer OTHER, SELFPAY ==
[2022-04-18 18:58] VITALS: BP 123/90; PULSE 69; RESP 17; TEMP 36.3; O2SAT 100
--- NOTE | 2022-04-18 19:16 | PC.NURSE ---
EDP at bedside to assess pt.
--- NOTE | 2022-04-18 19:20 | ED.ABDPAIN ---
HPI - Abdominal Pain General Chief Complaint: Abdominal Pain Stated Complaint: RU EXT ABSCESS, HTN, HYPERGLYCEMIA Time Seen by Provider: 04/18/22 19:08 History of Present Illness HPI narrative: 51-year-old female presents emergency room with 2 separate complaints. She comes in secondary to abdominal pain. She been having abdominal pain for couple weeks. She went to the hospital and told she had colitis. However now she is having increasing pain in the right upper and midportion of her abdomen. She states this is consistent with pancreatitis which she has had before. She denies alcohol consumption. She has had no nausea vomiting but has had some diarrhea. Second complaint she is got an early abscess formation to the right axilla. She states that been going for couple days getting larger and more tender. No drainage from it at this time. Related Data Home Medications Medication Instructions Recorded Confirmed aspirin 81 mg tablet,delayed 81 mg PO DAILY 07/09/19 12/06/21 release (Aspir-) furosemide 40 mg tablet 20 mg PO DAILY 07/09/19 12/06/21 paroxetine HCl 40 mg tablet (Paxil) 40 mg PO HS 07/09/19 12/06/21 albuterol sulfate 2.5 mg/3 mL 2.5 mg inhalation Q4H PRN SOB 07/12/19 12/06/21 (0.083 %) solution for nebulization albuterol sulfate 90 mcg/actuation 2 puff inhalation QID PRN SOB 07/12/19 12/06/21 aerosol inhaler acetaminophen 500 mg tablet 1,000 mg PO Q6H PRN Pain (Scale 03/28/20 12/06/21 (Tylenol Extra Strength) Score 1-3) ondansetron HCl 4 mg tablet 4 mg PO Q6H PRN Nausea And Vomiting 03/28/20 12/06/21 ranolazine 500 mg tablet,extended 500 mg PO Q12H 03/28/20 12/06/21 release,12 hr topiramate 100 mg tablet 100 mg PO Q12H 03/28/20 12/06/21 bupropion HCl 300 mg 24 hr tablet, 300 mg PO DAILY 09/08/21 12/06/21 extended release buspirone 7.5 mg tablet 7.5 mg PO Q12H 09/08/21 12/06/21 glipizide 5 mg tablet 5 mg PO 09,12 09/08/21 12/06/21 insulin lispro protamine-lispro 90 unit subcut Q12H 09/08/21 12/06/21 100 unit/mL (75-25) subcutaneous pen (Humalog Mix 75-25 KwikPen) rizatriptan 10 mg tablet 10 mg PO QID PRN Migraine Headache 09/08/21 12/06/21 atorvastatin 80 mg tablet 80 mg PO HS 10/13/21 12/06/21 trazodone 100 mg tablet 200 mg PO HS 10/13/21 12/06/21 Allergies Allergy/AdvReac Type Severity Reaction Status Date / Time cephalexin [From Keflex] Allergy Mild Rash Verified 04/18/22 20:02 ciprofloxacin Allergy Mild Rash Verified 04/18/22 20:02 clavulanic acid Allergy Mild Rash Verified 04/18/22 20:02 [From Augmentin] metronidazole Allergy Mild Rash Verified 04/18/22 20:02 Sulfa (Sulfonamide Allergy Mild Rash Verified 04/18/22 20:02 Antibiotics) codeine Allergy Unknown HIVES Verified 04/18/22 20:02 ibuprofen Allergy Unknown HIVES Verified 04/18/22 20:02 levofloxacin Allergy Unknown Swelling Verified 04/18/22 20:02 prochlorperazine Allergy Unknown HIVES Verified 04/18/22 20:02 tramadol Allergy Unknown HIVES Verified 04/18/22 20:02 Review of Systems Review of Systems: CONSTITUTIONAL: Denies fever, chills, or sweats. Patient is obese EYES: Denies visual changes, redness, or discharge. ENT: Denies rhinorrhea, congestion, sore throat, or otalgia. CARDIOVASCULAR: Denies chest pain, palpitations, or edema. RESPIRATORY: Denies cough or dyspnea. GASTROINTESTINAL: Complaining of abdominal pain with some diarrhea but no nausea vomiting. GENITOURINARY: Denies dysuria or hematuria. SKIN: Denies rash or itching. Swollen painful area noted to the right axilla MUSCULOSKELETAL: Denies back pain, joint pain, or myalgia. NEUROLOGIC: Denies headache, numbness, or weakness. PSYCHIATRIC: Denies anxiety or depression. [facility] Past Medical History Medical History Cholecystitis COPD (chronic obstructive pulmonary disease) Coronary artery disease Stent to the LAD in 2013. Diabetes mellitus Dyslipidemia History of defect of abdominal wall Nausea and vomiting in adul
[2022-04-18] MEDS: MORPHINE SULFATE (*CRX) 4 MG/ML INJ IV PUSH (19:29)
[2022-04-18] MEDS: LIDOCAINE HCL 1% LOCAL INJ 20 ML VIAL 10 ML INFILTRATE (19:30)
[2022-04-18 20:05] LABS: Basophils Absolute Auto 0.1 K/mm3 (0.0-0.1); Basophils Percent Auto 0.4 % (0.2-1.2); Eosinophils Absolute Auto 0.2 K/mm3 (0-0.3); Eosinophils Percent Auto 1.8 % (0-4.4); Hematocrit 35.1 % (37.0-47.0); Hemoglobin 11.8 g/dL (12.0-15.0); Immature Granulocyte Absolute 0.04 K/mm3 (0.00-0.031); Immature Granulocyte Percent A 0.4 % (0-0.5); Lymphocytes Percent Auto 23.4 % (18.3-44.2); Mean Corpuscular HGB Conc 33.6 g/dl (32-36); Mean Corpuscular Hemoglobin 30.5 pg (26-34); Mean Corpuscular Volume 90.7 fl (80-100); Mean Platelet Volume 9.6 fl (7.4-10.4); Monocytes Absolute Auto 0.5 K/mm3 (0.1-0.6); Monocytes Percent Auto 4.8 % (2.6-8.5); Neutrophils Absolute Auto 7.7 K/mm3 (1.3-6.7); Neutrophils Percent Auto 69.2 % (45.5-73.1); Platelet Count Result 195 k/mm3 (150-375); Red Blood Count 3.87 M/mm3 (4.2-5.4); Red Cell Distribution Width 14.4 % (11.5-14.5); White Blood Count 11.1 K/mm3 (4.5-10.0)
--- NOTE | 2022-04-18 20:12 | PC.NURSE ---
Patient ambulatory to the with steady gait. Urine sample collected.
[2022-04-18 20:14] LABS: Alanine Aminotransferase 24 U/L (6-35); Albumin Level 3.8 g/dL (3.5-5.1); Alkaline Phosphatase 178 U/L (38-126); Anion Gap 14 mmol/L (8-16); Aspartate Amino Transferase 22 U/L (14-36); Bilirubin,Total 0.6 mg/dL (0.2-1.3); Blood Urea Nitrogen 12 mg/dL (7-17); Calcium 8.8 mg/dL (8.4-10.2); Carbon Dioxide 21 mmol/L (22-30); Chloride 98 mmol/L (98-107); Estimated CRCL calculation 66 ml/min; Estimated Glomerular Filt Rate 59; Glucose 457 mg/dL (65-110); Lipase 124 U/L (23-300); Potassium 3.5 mmol/L (3.4-5.0); Sodium 133 mmol/L (137-145)
[2022-04-18] MEDS: MORPHINE SULFATE (*CRX) 2 MG/ML INJ IV PUSH (20:54)
[2022-04-18 21:05] VITALS: BP 95/62; RESP 16; O2SAT 99
== END 2022-04-18 21:23 | disposition home or self-care (01) ==
PROVIDERS: Emergency Provider Emergency Medicine
DX: L02.411 Cutaneous abscess of right axilla (principal); R10.9 Unspecified abdominal pain; E11.8 Type 2 diabetes mellitus with unspecified complications; Z79.4 Long term (current) use of insulin; J44.9 Chronic obstructive pulmonary disease, unspecified; I25.10 Atherosclerotic heart disease of native coronary artery without angina pectoris; G47.30 Sleep apnea, unspecified
CPT/HCPCS: 36415; 80053; 83690; 85025; 96374; 96376; 99284; J2270

== ENCOUNTER 2022-04-19 13:25 | Emergency (ER) | payer OTHER, SELFPAY ==
--- NOTE | ~2022-04-19 | XR_ITS ---
EXAMINATION: XR chest 2V DATE: 04/19/2022 15:26 INDICATION: Shortness of breath. TECHNIQUE: Frontal and lateral views of the chest were obtained. COMPARISON: Chest single view 12/06/2021, CT abdomen and pelvis 10/12/2021 FINDINGS: There is no pneumonia, pleural effusion, pneumothorax. The heart size is normal. IMPRESSION: 1. No acute cardiopulmonary disease. Reviewed, dictated and finalized at location A.
[2022-04-19 13:41] VITALS: BP 120/64; PULSE 77; RESP 16; TEMP 37.2; O2SAT 100
--- NOTE | 2022-04-19 13:46 | ECG_ITS ---
Measurements Intervals [place] Rate: 74 P: 43 HI: 153 QRS: 52 QRSD: 90 T: 11 QT: 386 QTc: 429 Interpretive Statements SINUS RHYTHM LOW QRS VOLTAGE IN PRECORDIAL LEADS [QRS DEFLECTION < 1.0 mV IN CHEST LEADS] MODERATE T-WAVE ABNORMALITY, CONSIDER ANTEROLATERAL ISCHEMIA [-0.1+ mV T WAVE IN V3- V6] ABNORMAL ECG COMPARED TO ECG 12/07/2021 11:12:03 NO SIGNIFICANT CHANGES Electronically Signed On 04-19-2022 14:18:11 CDT by Bethel Kim M.D.
--- NOTE | 2022-04-19 15:01 | ED.WOUNDLAC ---
HPI - Wound/Laceration General Chief Complaint: Wound/Laceration Stated Complaint: abcess to right arm Time Seen by Provider: 04/19/22 15:01 History of Present Illness HPI narrative: The patient is a 51-year-old female with a history of HTN, HLD, chronic pancreatitis, DM, recurrent skin infection presenting to the ER for evaluation of right axillary pain after incision and drainage in this ER yesterday. Per chart review, patient had a simple axillary abscess that was incised and drained by other ER physician yesterday. Patient states that she tolerated this well but has had increased swelling, pain since initial incision and drainage. Patient reports fever of 101 Fahrenheit this afternoon. She reports general malaise. She denies nausea, vomiting. She does report pain at the site, increased redness and swelling. She denies drainage or other bruising. She denies bleeding. Patient reports in the past she has had to be admitted for IV antibiotics for recurrent skin infections. Chart reviewed, pt with history of malingering and drug seeking behavior per chart review. Related Data Home Medications Medication Instructions Recorded Confirmed aspirin 81 mg tablet,delayed 81 mg PO DAILY 07/09/19 12/06/21 release (Aspir-) furosemide 40 mg tablet 20 mg PO DAILY 07/09/19 12/06/21 paroxetine HCl 40 mg tablet (Paxil) 40 mg PO HS 07/09/19 12/06/21 albuterol sulfate 2.5 mg/3 mL 2.5 mg inhalation Q4H PRN SOB 07/12/19 12/06/21 (0.083 %) solution for nebulization albuterol sulfate 90 mcg/actuation 2 puff inhalation QID PRN SOB 07/12/19 12/06/21 aerosol inhaler acetaminophen 500 mg tablet 1,000 mg PO Q6H PRN Pain (Scale 03/28/20 12/06/21 (Tylenol Extra Strength) Score 1-3) ondansetron HCl 4 mg tablet 4 mg PO Q6H PRN Nausea And Vomiting 03/28/20 12/06/21 ranolazine 500 mg tablet,extended 500 mg PO Q12H 03/28/20 12/06/21 release,12 hr topiramate 100 mg tablet 100 mg PO Q12H 03/28/20 12/06/21 bupropion HCl 300 mg 24 hr tablet, 300 mg PO DAILY 09/08/21 12/06/21 extended release buspirone 7.5 mg tablet 7.5 mg PO Q12H 09/08/21 12/06/21 glipizide 5 mg tablet 5 mg PO 09,12 09/08/21 12/06/21 insulin lispro protamine-lispro 90 unit subcut Q12H 09/08/21 12/06/21 100 unit/mL (75-25) subcutaneous pen (Humalog Mix 75-25 KwikPen) rizatriptan 10 mg tablet 10 mg PO QID PRN Migraine Headache 09/08/21 12/06/21 atorvastatin 80 mg tablet 80 mg PO HS 10/13/21 12/06/21 trazodone 100 mg tablet 200 mg PO HS 10/13/21 12/06/21 Allergies Allergy/AdvReac Type Severity Reaction Status Date / Time tramadol Allergy Unknown HIVES Verified 04/18/22 20:02 Review of Systems Review of Systems: CONSTITUTIONAL: Reports fever and chills EYES: Denies visual changes, redness, or discharge. ENT: Denies rhinorrhea, congestion, sore throat, or otalgia. CARDIOVASCULAR: Denies chest pain, palpitations, or edema. RESPIRATORY: Denies cough or dyspnea. GASTROINTESTINAL: Denies abdominal pain, nausea, vomiting, or diarrhea. GENITOURINARY: Denies dysuria or hematuria. SKIN: Ports right underarm abscess with redness, swelling MUSCULOSKELETAL: Denies back pain, joint pain, or myalgia. NEUROLOGIC: Denies headache, numbness, or weakness. [facility] Past Medical History Medical History Cholecystitis COPD (chronic obstructive pulmonary disease) Coronary artery disease Stent to the LAD in 2012. Diabetes mellitus Dyslipidemia History of defect of abdominal wall Nausea and vomiting in adult Obesity Obstructive sleep apnea Pancreatitis 07/2019 Surgical History Surgical History History of bone marrow biopsy History of History of cholecystectomy History of dilatation and curettage History of hysterectomy History of tubal ligation Family History Family History Father Acute myocardial infarction H
[2022-04-19 15:23] LABS: Basophils Percent Auto 0.3 % (0.2-1.2); Eosinophils Absolute Auto 0.1 K/mm3 (0-0.3); Eosinophils Percent Auto 1.1 % (0-4.4); Hematocrit 35.2 % (37.0-47.0); Hemoglobin 12.1 g/dL (12.0-15.0); Immature Granulocyte Absolute 0.04 K/mm3 (0.00-0.031); Immature Granulocyte Percent A 0.4 % (0-0.5); Lymphocytes Absolute Auto 1.78 K/mm3 (0.9-3.2); Lymphocytes Percent Auto 15.8 % (18.3-44.2); Mean Corpuscular HGB Conc 34.4 g/dl (32-36); Mean Corpuscular Hemoglobin 31.2 pg (26-34); Mean Corpuscular Volume 90.7 fl (80-100); Mean Platelet Volume 9.9 fl (7.4-10.4); Monocytes Absolute Auto 0.5 K/mm3 (0.1-0.6); Monocytes Percent Auto 4.5 % (2.6-8.5); Neutrophils Absolute Auto 8.8 K/mm3 (1.3-6.7); Neutrophils Percent Auto 77.9 % (45.5-73.1); Platelet Count Result 191 k/mm3 (150-375); Red Blood Count 3.88 M/mm3 (4.2-5.4); Red Cell Distribution Width 14.6 % (11.5-14.5); White Blood Count 11.2 K/mm3 (4.5-10.0)
[2022-04-19 15:50] VITALS: BP 117/60; PULSE 73; RESP 16; O2SAT 100
[2022-04-19] MEDS: oxyCODONE/ACETAMINOPHEN (*CRX) 5-325 MG TABLET 1 TABLET PO (15:59)
[2022-04-19] MEDS: LORazepam (*CRX) 0.5 MG TABLET PO (16:00)
[2022-04-19 16:04] LABS: INR 1.2; Prothrombin Time 14.3 Seconds (11.1-14.7)
[2022-04-19 16:05] LABS: Partial Thromboplastin Time 30.9 SECONDS (22.3-36.8)
[2022-04-19 16:07] VITALS: PULSE 71; RESP 15; O2SAT 99
[2022-04-19 16:08] LABS: Lipase 42 U/L (23-300)
[2022-04-19 16:09] LABS: Alanine Aminotransferase 22 U/L (6-35); Alkaline Phosphatase 141 U/L (38-126); Anion Gap 14 mmol/L (8-16); Aspartate Amino Transferase 21 U/L (14-36); Blood Urea Nitrogen 7 mg/dL (7-17); Calcium 9.2 mg/dL (8.4-10.2); Carbon Dioxide 22 mmol/L (22-30); Chloride 102 mmol/L (98-107); Estimated CRCL calculation 80 ml/min; Estimated Glomerular Filt Rate > 60; Glucose 310 mg/dL (65-110); Potassium 3.6 mmol/L (3.4-5.0); Sodium 138 mmol/L (137-145)
[2022-04-19 16:12] LABS: Erythrocyte Sedimentation Rate 72 mm/hr (0-20)
[2022-04-19 16:15] VITALS: PULSE 70; RESP 17; O2SAT 99
[2022-04-19 16:17] VITALS: BP 96/56; PULSE 75; RESP 24; O2SAT 100
[2022-04-19 16:20] LABS: Troponin I < 0.012 ng/mL (0.000-0.034)
[2022-04-19] MEDS: MORPHINE SULFATE (*CRX) 4 MG/ML INJ IV PUSH (16:50)
[2022-04-19 21:18] LABS: CRP 5.5 mg/dL (<1.0)
== END 2022-04-19 17:20 | disposition home or self-care (01) ==
PROVIDERS: General Practice; Emergency Provider Emergency Medicine
DX: L03.111 Cellulitis of right axilla (principal); I10 Essential (primary) hypertension; E11.9 Type 2 diabetes mellitus without complications; E78.5 Hyperlipidemia, unspecified; J44.9 Chronic obstructive pulmonary disease, unspecified; I25.10 Atherosclerotic heart disease of native coronary artery without angina pectoris; G47.33 Obstructive sleep apnea (adult) (pediatric); E66.9 Obesity, unspecified; Z68.34 Body mass index [BMI] 34.0-34.9, adult; Z95.5 Presence of coronary angioplasty implant and graft; F17.210 Nicotine dependence, cigarettes, uncomplicated; Z79.82 Long term (current) use of aspirin; Z79.4 Long term (current) use of insulin; Z79.84 Long term (current) use of oral hypoglycemic drugs; Z90.710 Acquired absence of both cervix and uterus; R94.31 Abnormal electrocardiogram [ECG] [EKG]
CPT/HCPCS: 10060; 36415; 71046; 80053; 83690; 84484; 85025; 85610; 85652; 85730; 86140; 87070; 87147; 87186; 87205; 93005; 96374; 99284; A9270; J2270

== ENCOUNTER 2022-04-26 14:50 | Emergency (ER) | payer OTHER, SELFPAY ==
[2022-04-26 14:53] VITALS: BP 124/61; PULSE 76; RESP 18; TEMP 36.4; O2SAT 100
--- NOTE | 2022-04-26 16:38 | ED.SKABFB ---
HPI - Skin/Abscess/Foreign Bdy General Chief complaint: Skin/Abscess/Foreign Body Stated complaint: abcess Time Seen by Provider: 04/26/22 16:19 History of Present Illness HPI narrative: 51-year-old female presents to the ER today for recurrence of her right axillary abscess. She has a few other areas that she was concerned about but there are no abscesses in those locations. She does report that she is got some tenderness under the left nipple and she has had some nipple discharge as well. She has not had a mammogram in a long time. She was in our ER a little over a week ago and had her right axillary abscess drained. She denies any fever or chills. No nausea or vomiting. She is currently on doxycycline. Culture from last week shows staph. Related Data Home Medications Medication Instructions Recorded Confirmed aspirin 81 mg tablet,delayed 81 mg PO DAILY 07/09/19 12/06/21 release (Aspir-) furosemide 40 mg tablet 20 mg PO DAILY 07/09/19 12/06/21 paroxetine HCl 40 mg tablet (Paxil) 40 mg PO HS 07/09/19 12/06/21 albuterol sulfate 2.5 mg/3 mL 2.5 mg inhalation Q4H PRN SOB 07/12/19 12/06/21 (0.083 %) solution for nebulization albuterol sulfate 90 mcg/actuation 2 puff inhalation QID PRN SOB 07/12/19 12/06/21 aerosol inhaler acetaminophen 500 mg tablet 1,000 mg PO Q6H PRN Pain (Scale 03/28/20 12/06/21 (Tylenol Extra Strength) Score 1-3) ondansetron HCl 4 mg tablet 4 mg PO Q6H PRN Nausea And Vomiting 03/28/20 12/06/21 ranolazine 500 mg tablet,extended 500 mg PO Q12H 03/28/20 12/06/21 release,12 hr topiramate 100 mg tablet 100 mg PO Q12H 03/28/20 12/06/21 bupropion HCl 300 mg 24 hr tablet, 300 mg PO DAILY 09/08/21 12/06/21 extended release buspirone 7.5 mg tablet 7.5 mg PO Q12H 09/08/21 12/06/21 glipizide 5 mg tablet 5 mg PO 09,12 09/08/21 12/06/21 insulin lispro protamine-lispro 90 unit subcut Q12H 09/08/21 12/06/21 100 unit/mL (75-25) subcutaneous pen (Humalog Mix 75-25 KwikPen) rizatriptan 10 mg tablet 10 mg PO QID PRN Migraine Headache 09/08/21 12/06/21 atorvastatin 80 mg tablet 80 mg PO HS 10/13/21 12/06/21 trazodone 100 mg tablet 200 mg PO HS 10/13/21 12/06/21 Allergies Allergy/AdvReac Type Severity Reaction Status Date / Time tramadol Allergy Unknown HIVES Verified 04/18/22 20:02 Review of Systems Review of Systems: CONSTITUTIONAL: Denies fever, chills, or sweats. EYES: Denies visual changes, redness, or discharge. ENT: Denies rhinorrhea, congestion, sore throat, or otalgia. CARDIOVASCULAR: Denies chest pain, palpitations, or edema. RESPIRATORY: Denies cough or dyspnea. GASTROINTESTINAL: Denies abdominal pain, nausea, vomiting, or diarrhea. GENITOURINARY: Denies dysuria or hematuria. SKIN: as per HPI MUSCULOSKELETAL: Denies back pain, joint pain, or myalgia. NEUROLOGIC: Denies headache, numbness, dizziness, or weakness. PSYCHIATRIC: Denies anxiety or depression. [facility] Past Medical History Medical History Cholecystitis COPD (chronic obstructive pulmonary disease) Coronary artery disease Stent to the LAD in 2012. Diabetes mellitus Dyslipidemia History of defect of abdominal wall Nausea and vomiting in adult Obesity Obstructive sleep apnea Pancreatitis 07/2019 Surgical History Surgical History History of bone marrow biopsy History of History of cholecystectomy History of dilatation and curettage History of hysterectomy History of tubal ligation Family History Family History Father Acute myocardial infarction Heart disease Hypertension Congestive heart failure Mother Diabetes mellitus Acute myocardial infarction Hypertension Congestive heart failure Sibling Diabetes mellitus Asthma Chronic obstructive pulmonary disease Congestive heart failure Daughter Leukemia Sibling Overdose A
[2022-04-26] MEDS: LIDOCAINE HCL 1% LOCAL INJ 20 ML VIAL 8 ML INFILTRATE (17:08)
[2022-04-26] MEDS: HYDROcodone/acetaminophen (*CRX) 7.5-325 MG TABLET 1 TAB PO (17:08)
[2022-04-26] MEDS: MORPHINE SULFATE (*CRX) 2 MG/ML INJ IV PUSH (17:24)
[2022-04-26 18:16] VITALS: BP 108/77; PULSE 85; RESP 16; O2SAT 100
== END 2022-04-26 18:18 | disposition home or self-care (01) ==
PROVIDERS: Emergency Provider Nurse Practitioner Family
DX: L02.411 Cutaneous abscess of right axilla (principal); J44.9 Chronic obstructive pulmonary disease, unspecified; I25.10 Atherosclerotic heart disease of native coronary artery without angina pectoris; E78.5 Hyperlipidemia, unspecified; E11.9 Type 2 diabetes mellitus without complications; Z79.4 Long term (current) use of insulin; Z79.82 Long term (current) use of aspirin; E66.9 Obesity, unspecified; Z68.39 Body mass index [BMI] 39.0-39.9, adult; G47.33 Obstructive sleep apnea (adult) (pediatric); Z90.710 Acquired absence of both cervix and uterus; F17.210 Nicotine dependence, cigarettes, uncomplicated
CPT/HCPCS: 10061; 96374; 99284; A9270; J2270

== ENCOUNTER 2022-05-05 11:39 | Observation (INO) | payer OTHER, SELFPAY ==
[2022-05-05] VITALS (37 sets, daily range): BP systolic 103–164; BP diastolic 61–134; PULSE 66–99; RESP 13–31; TEMP 36.3–36.8; O2SAT 91–100; BMI 35.9
--- NOTE | ~2022-05-05 | XR_ITS ---
EXAMINATION: XR chest 2V DATE: 05/05/2022 12:25 INDICATION: Midsternal chest pain TECHNIQUE: PA and lateral views of the chest are obtained. COMPARISON: 04/19/2022 FINDINGS: The lungs are free of acute opacities. No pleural effusion or pneumothorax. The cardiomedia stinal silhouette is normal. There is mild thoracic spondylosis. Surgical clips in the right upper qu adrant are likely from prior cholecystectomy. IMPRESSION: 1. No acute cardiopulmonary abnormality. Reviewed, dictated and finalized at location A.
--- NOTE | 2022-05-05 11:40 | ECG_ITS ---
Measurements Intervals [place] Rate: 95 P: 70 [place]: 153 QRS: 64 QRSD: 90 T: 35 QT: 367 QTc: 463 Interpretive Statements SINUS RHYTHM LOW QRS VOLTAGE IN PRECORDIAL LEADS ST-T WAVE ABNORMALITY IN ANTEROLAT/INF LEADS- CONSIDER ISCHEMIA ABNORMAL ECG COMPARED TO ECG 04/19/2022 13:50:37 NO SIGNIFICANT CHANGES Electronically Signed On 05-05-2022 12:01:54 CDT by Larry York D.O.
[2022-05-05 11:50] LABS: Glucose Point of Care > 500 mg/dl (65-105)
[2022-05-05 12:12] LABS: Basophils Percent Auto 0.5 % (0.2-1.2); Eosinophils Absolute Auto 0.1 K/mm3 (0-0.3); Eosinophils Percent Auto 1.3 % (0-4.4); Hematocrit 42.6 % (37.0-47.0); Hemoglobin 14.1 g/dL (12.0-15.0); Immature Granulocyte Absolute 0.02 K/mm3 (0.00-0.031); Immature Granulocyte Percent A 0.2 % (0-0.5); Lymphocytes Absolute Auto 2.83 K/mm3 (0.9-3.2); Lymphocytes Percent Auto 34.7 % (18.3-44.2); Mean Corpuscular HGB Conc 33.1 g/dl (32-36); Mean Corpuscular Hemoglobin 30.7 pg (26-34); Mean Corpuscular Volume 92.6 fl (80-100); Mean Platelet Volume 9.8 fl (7.4-10.4); Monocytes Absolute Auto 0.4 K/mm3 (0.1-0.6); Monocytes Percent Auto 5.3 % (2.6-8.5); Neutrophils Absolute Auto 4.7 K/mm3 (1.3-6.7); Platelet Count Result 276 k/mm3 (150-375); Red Cell Distribution Width 15.1 % (11.5-14.5); White Blood Count 8.2 K/mm3 (4.5-10.0)
[2022-05-05 12:16] LABS: Alanine Aminotransferase 43 U/L (6-35); Albumin Level 4.6 g/dL (3.5-5.1); Alkaline Phosphatase 300 U/L (38-126); Anion Gap 22 mmol/L (8-16); Aspartate Amino Transferase 39 U/L (14-36); Bilirubin,Total 0.8 mg/dL (0.2-1.3); Blood Urea Nitrogen 8 mg/dL (7-17); Calcium 9.5 mg/dL (8.4-10.2); Carbon Dioxide 14 mmol/L (22-30); Chloride 97 mmol/L (98-107); Estimated CRCL calculation 70 ml/min; Estimated Glomerular Filt Rate 59; Glucose 589 mg/dL (65-110); INR 1.1; Lipase 277 U/L (23-300); Partial Thromboplastin Time 30.2 SECONDS (22.3-36.8); Potassium 3.8 mmol/L (3.4-5.0); Sodium 133 mmol/L (137-145)
--- NOTE | 2022-05-05 12:18 | ED.CHESTPAIN ---
HPI - Chest Pain General Chief Complaint: Chest Pain <Jenny Glover PA-C - Last Filed: 05/05/22 19:09> Stated Complaint: chest pain <Jenny Glover PA-C - Last Filed: 05/05/22 19:09> Time Seen by Provider: 05/05/22 12:16 <Jenny Glover PA-C - Last Filed: 05/05/22 19:09> History of Present Illness HPI narrative: Patient is a 51-year-old female with a history of cocaine use, CAD, history of PCI/stenting of LAD in the setting of DC at [facility] (per patient-2013), diabetes, cigarette smoking, here via EMS for evaluation of chest pain. Patient states the pain is in the center of her chest, described as a crushing sensation, occasionally moves down her left arm. Pain is there all the time but is worse with exertion. She has been feeling short of breath, has had 3 episodes of vomiting nonbloody/nonbilious emesis today, and has lower abdominal pain. She took an aspirin in addition to sublingual nitro without significant relief of her pain. She has not been compliant with her insulin at home. MPI from 09/08/2021 normal at rest and during stress; LVEF more than 70%. Has not had cath since 2012. Denies abdominal pain, diarrhea, fevers, chills. <Jenny Glover PA-C - Last Filed: 05/05/22 19:09> Related Data Home Medications: Home Medications Medication Instructions Recorded Confirmed furosemide 40 mg tablet 20 mg PO DAILY 07/09/19 05/05/22 paroxetine HCl 40 mg tablet (Paxil) 40 mg PO HS 07/09/19 05/05/22 albuterol sulfate 2.5 mg/3 mL 2.5 mg inhalation Q4H PRN SOB 07/12/19 05/05/22 (0.083 %) solution for nebulization albuterol sulfate 90 mcg/actuation 2 puff inhalation Q6H PRN SOB 07/12/19 05/05/22 aerosol inhaler acetaminophen 500 mg tablet 1,000 mg PO Q6H PRN Pain (Scale 03/28/20 05/05/22 (Tylenol Extra Strength) Score 1-3) ondansetron HCl 4 mg tablet 4 mg PO Q6H PRN Nausea And Vomiting 03/28/20 05/05/22 ranolazine 500 mg tablet,extended 500 mg PO Q12H 03/28/20 05/05/22 release,12 hr topiramate 100 mg tablet 100 mg PO Q12H 03/28/20 05/05/22 bupropion HCl 300 mg 24 hr tablet, 300 mg PO DAILY 09/08/21 05/05/22 extended release buspirone 7.5 mg tablet 7.5 mg PO Q12H 09/08/21 05/05/22 glipizide 5 mg tablet 5 mg PO 09/08/21 05/05/22 insulin lispro protamine-lispro 90 unit subcut Q12H 09/08/21 05/05/22 100 unit/mL (75-25) subcutaneous pen (Humalog Mix 75-25 KwikPen) rizatriptan 10 mg tablet 10 mg PO QID PRN Migraine Headache 09/08/21 05/05/22 atorvastatin 80 mg tablet 80 mg PO HS 10/13/21 05/05/22 trazodone 100 mg tablet 200 mg PO HS 10/13/21 05/05/22 aspirin 81 mg tablet,delayed 81 mg PO DAILY 05/05/22 05/05/22 release lorazepam 1 mg tablet 1 mg PO PRN PRN Anxiety 05/05/22 05/05/22 nitroglycerin 0.4 mg sublingual 0.4 mg sublingual Q5M PRN Chest 05/05/22 05/05/22 tablet Pain oxycodone-acetaminophen 5 mg-325 1 tablet PO PRN PRN Pain 05/05/22 05/05/22 mg tablet sulfamethoxazole 800 1 tablet PO BID 05/05/22 05/05/22 mg-trimethoprim 160 mg tablet <Jenny Glover PA-C - Last Filed: 05/05/22 19:09> Allergies/Adverse Reactions: Allergies Allergy/AdvReac Type Severity Reaction Status Date / Time levofloxacin [From Levaquin] AdvReac Itching Verified 05/05/22 12:39 <Jenny Glover PA-C - Last Filed: 05/05/22 19:09> Review of Systems Review of Systems: Gen: Denies fevers or chills Eyes: Denies eye pain or visual change ENT: Denies congestion Respiratory: Reports shortness of breath. Denies cough CV: Reports chest pain. denies chest pain or palpitations GI: Reports nausea, vomiting and abdominal pain. : denies burning, urgency, frequency or hematuria Musculoskeletal: Denies back pain or muscle pain Neuro: Denies numbness, tingling, weakness or focal weakness Skin: Denies rash Except as documented, all other systems reviewed and negative <Jenny Glover PA-C - Last Filed: 05/05/22 19:09> [facility] Past Med
[2022-05-05 12:25] LABS: Troponin I < 0.012 ng/mL (0.000-0.034)
[2022-05-05 12:39] LABS: Alveolar/Arterial O2 Gradient 26.1 mmHg; Base Excess ABG -10.3 mEq/l (+/-2.0); Fractional Inspired Oxygen 21 %; Oxygen Content ABG 19.4 %vol (16.0-22.0); Oxygen Saturation ABG 96.5 % (95.0-100.0); PCO2 ABG 27.6 mmHg (35.0-45.0); PO2 ABG 90.6 mmHg (80.0-100.0); PO2 FiO2 Ratio Arterial Blood 4.31 %; Total Hemoglobin 14.6 g/dL (12.0-18.0); pH ABG 7.323 (7.350-7.450)
[2022-05-05] MEDS: SODIUM CHLORIDE 0.9% IV 1,000 ML 999 ML IV CONT ×3 (12:39→22:50)
[2022-05-05 12:40] LABS: Device ROOM AIR; Modified Allen's Test Pass; Site Drawn LEFT RADIAL
[2022-05-05] MEDS: INSULIN HUMAN REGULAR (*BKC) 100 UNITS/ML 10 UNITS IV PUSH (12:40)
[2022-05-05] MEDS: ONDANSETRON INJ 4 MG/2 ML VIAL IV PUSH (12:40)
--- NOTE | 2022-05-05 12:47 | PC.NURSE ---
pt currently refusing nitro, asking for alternative pain medications. provider aware, no NNO
[2022-05-05] MEDS: MORPHINE SULFATE (*CRX) 2 MG/ML INJ IV PUSH (13:19)
[2022-05-05 13:26] LABS: Magnesium 1.9 mg/dL (1.6-2.3); Phosphorus 4.2 mg/dL (2.5-4.5)
[2022-05-05 13:31] LABS: Beta-Hydroxybutyrate/Acetoacetate 0.09 mmol/L (0.02-0.27)
[2022-05-05 14:00] LABS: Appearance Urine Clear (Clear); Bilirubin Urine Negative (Negative); Blood Urine Negative (Negative); Color Urine Yellow (Yellow); Glucose Urine UA 3+ mg/dL (Negative); Ketones Urine Negative (Negative); Leukocyte Esterase Ur Negative LEU/UL (Negative); Nitrate Urine Negative (Negative); Protein Urine Negative (Negative); Specific Grav Ur 1.015 (1.001-1.035); Urobilinogen Urine 0.2 mg/dL (<2.0)
[2022-05-05 14:08] LABS: Bacteria Urine Trace /hpf; Mucus Urine Rare /lpf; Squamous Epithelial Cell Urine Few /hpf (Few); WBC Urine 0-3 /hpf
[2022-05-05 14:14] LABS: Add Urine Microscopic? YES
[2022-05-05 14:35] LABS: D Dimer 0.46 ug/mL (<0.48)
[2022-05-05 16:42] LABS: Anion Gap 7 mmol/L (8-16); Blood Urea Nitrogen 6 mg/dL (7-17); Calcium 8.5 mg/dL (8.4-10.2); Carbon Dioxide 19 mmol/L (22-30); Chloride 107 mmol/L (98-107); Estimated CRCL calculation 77 ml/min; Estimated Glomerular Filt Rate > 60; Glucose 199 mg/dL (65-110); Potassium 3.9 mmol/L (3.4-5.0); Sodium 133 mmol/L (137-145)
[2022-05-05 16:45] LABS: Lactic Acid Reflex 1.5 mmol/L (0.7-2.0)
[2022-05-05 16:56] LABS: Troponin I < 0.012 ng/mL (0.000-0.034)
[2022-05-05] MEDS: ASPIRIN 81 MG CHEWABLE TABLET 324 MG PO (18:53)
--- NOTE | 2022-05-05 19:32 | ADMGEN ---
This patient, Mikayla Hays, was admitted to IMU Room 201-01. Patient/family oriented to hospital policies and general routines including ID bracelet, bed and alarms, visiting hours, pain management, procedures, bathroom and other care routines, personal items, smoking policy, room service/diet, and visiting hours. Information on how to activate the Rapid Response Team has been discussed. Patient/Family are encouraged to report perceived risks to care and to ask questions if they do not understand what they are told or what they should do. Pt found in room. Unsure of arrival time.
[2022-05-05] MEDS: SODIUM CHLORIDE 0.9% IV 1,000 ML 75 ML IV CONT (20:23)
[2022-05-05 20:33] LABS: Glucose Point of Care 357 mg/dl (65-105)
[2022-05-05 21:03] LABS: Troponin I < 0.012 ng/mL (0.000-0.034)
[2022-05-05] MEDS: INSULIN ASPART (*BKC) 100 UNITS/ML 10 UNITS SUB-Q (21:24)
--- NOTE | 2022-05-05 21:40 | PM.IMHP ---
H&P: HPI History of Present Illness Date/Time: 05/05/22 20:40 Chief Complaint: Chest pain Narrative: 51-year-old female with a past medical history of coronary artery disease status post stent, hypertension, recurrent pancreatitis, COPD, tobacco use, anxiety, depression, and uncontrolled diabetes who presented to the ER via EMS after developing chest pain. The patient reports that she was having extra stress in her life due to not yet receiving her daughter's ashes that worse post be delivered in March and her son recently being put in [facility]cf. She was sitting in her sister's house when she developed substernal chest pain that radiated to her left arm and was accompanied by nausea and diaphoresis. She reported that her symptoms were similar to when she had her stent placed in her LAD in 2012. She reports that the symptoms started just after she became quite anxious about her social situation. Her pain was improved with morphine. She reports that she last used cocaine to ER staff 2 days ago and reports that she last used cocaine 7 days ago to me. She received nitro via EMS which did not provide any relief of her pain. She is still having chest pain at the time of my evaluation. She reports that her headache that was worse than her chest pain. She has been having headache all day in it is frontal in position and is severe and aching. She has not had any vision changes or light sensitivity. She does have a history of migraines. She reports that Tylenol does not work for her headaches and reports an allergy to ibuprofen as a makes her nauseous. She has a history of drug-seeking behaviors in the past. She reports increased dyspnea on exertion for the last week but she reports that this is been due to her purposely trying to increase her activity. She was not having increased chest pain with activity. She has a chronic smoker's cough and has chronic production of yellow sputum. She reports that her cough has been worse over last 2 days and that her chest pain is worse with deep breathing. She is noted to be wheezing on exam. She denies any lower extremity swelling or history of heart failure. She denies any orthopnea. She was recently on Bactrim for 14 days after having an abscess drained under her arm. She has subsequently had diarrhea for the last 2 days about 5 loose stools a day. She reports that the stools are watery and brown in color. There made worse by her painful hemorrhoids and she is requesting something to treat her diarrhea. She denies any associated abdominal pain. She does have a history of peripheral neuropathy but denies any increasing symptoms. She also has history of diabetic retinopathy. She does not know where her recent A1c was. She admits that she has not taken her insulin today. She has not checked her blood sugars in the last week. She has had increased thirst over the last week. Review of Systems Review of Systems: 12 systems were reviewed with pertinent positives and negatives per HPI. Except as documented in the HPI, all other systems were reviewed and are negative. [facility] Past Medical History Medical History (Updated 05/06/22 @ 00:14 by Ashleigh Gallegos DO) Cocaine abuse COPD (chronic obstructive pulmonary disease) Coronary artery disease Stent to the LAD in 2012. Diabetes mellitus A1c 13.2% October 2021 Diabetic neuropathy Diabetic retinopathy Drug-seeking behavior Dyslipidemia Hypertriglyceridemia Obesity Obstructive sleep apnea Pancreatitis 07/2019 Tobacco abuse Surgical History Surgical History (Updated 05/05/22 @ 23:26 by Ashleigh Gallegos DO) History of bone marrow biopsy History of History of cholecystectomy History of coronary artery stent placement (~2012) [facility] History of dilatation and curettage History of hysterectomy History of tubal ligation Family History Family History Father Acute myoc
[2022-05-05 22:36] LABS: IFOB Positive Control Positive; Immunochemical Fecal Occult Bl Negative (N)
[2022-05-05 22:38] LABS: Toxigenic C. Diff NEGATIVE (NEGATIVE)
[2022-05-05] MEDS: LORazepam (*CRX) 1 MG TABLET PO (22:44)
[2022-05-05] MEDS: traMADol HCL (*CRX) 50 MG TABLET PO (22:44)
[2022-05-05 22:45] LABS: Amphetamine Screen Urine Negative (Negative); Barbiturate Screen Urine Negative (Negative); Benzodiazepines Screen Urine Negative (Negative); Cannabinoid Screen Urine Negative (Negative); Cocaine Screen Urine Positive (Negative); Methadone Screen Urine Negative (Negative); Opiate Screen Urine Negative (Negative); Phencyclidine Screen Urine Negative (Negative)
[2022-05-05] MEDS: busPIRone HCL 2.5 MG TABLET PO (22:46)
[2022-05-05] MEDS: busPIRone HCL 5 MG TABLET PO (22:46)
[2022-05-05] MEDS: traZODone HCL 50 MG TABLET 200 MG PO (22:46)
[2022-05-05] MEDS: TOPIRAMATE 100 MG TABLET PO (22:46)
[2022-05-05] MEDS: RANOLAZINE 500 MG TAB.ER.12H PO (22:46)
[2022-05-05] MEDS: PARoxetine 20 MG TABLET 40 MG PO (22:46)
[2022-05-05] MEDS: ATORVASTATIN 40 MG TABLET 80 MG PO (22:47)
[2022-05-05] MEDS: WITCH HAZEL 40 PADS 1 PAD TOPICAL (23:34)
[2022-05-06] VITALS (16 sets, daily range): BP systolic 104–105; BP diastolic 47–62; PULSE 54–93; RESP 14–24; TEMP 36.1–36.9; O2SAT 95–99
[2022-05-06 00:59] LABS: Glucose Point of Care 332 mg/dl (65-105)
[2022-05-06 00:59] LABS: Glucose Point of Care 72 mg/dl (65-105)
[2022-05-06 01:41] LABS: Glucose Point of Care 60 mg/dl (65-105)
[2022-05-06 01:41] LABS: Glucose Point of Care 71 mg/dl (65-105)
[2022-05-06] MEDS: IPRATROPIUM BR 0.02% INH SOLN 0.5 MG/2.5 ML VIAL INHALATION ×3 (01:42→13:02)
[2022-05-06] MEDS: DEXTROSE 50% 25 GM/50 ML SYRINGE IV PUSH (01:42)
[2022-05-06] MEDS: ALBUTEROL SULFATE NEB 2.5 MG/3 ML INH 5 MG INHALATION ×3 (01:42→13:02)
[2022-05-06 02:12] LABS: Glucose Point of Care 176 mg/dl (65-105)
[2022-05-06 05:18] LABS: Alanine Aminotransferase 32 U/L (6-35); Albumin Level 3.4 g/dL (3.5-5.1); Alkaline Phosphatase 208 U/L (38-126); Anion Gap 7 mmol/L (8-16); Aspartate Amino Transferase 32 U/L (14-36); Bilirubin,Total 0.4 mg/dL (0.2-1.3); Blood Urea Nitrogen 6 mg/dL (7-17); Calcium 8.2 mg/dL (8.4-10.2); Carbon Dioxide 18 mmol/L (22-30); Chloride 114 mmol/L (98-107); Estimated CRCL calculation 82 ml/min; Estimated Glomerular Filt Rate > 60; Glucose 69 mg/dL (65-110); Potassium 3.4 mmol/L (3.4-5.0); Sodium 139 mmol/L (137-145)
[2022-05-06 05:20] LABS: Hemoglobin A1C 11.2 % (<5.7)
[2022-05-06] MEDS: GLUCAGON FOR INJ 1 MG VIAL IM (05:40)
[2022-05-06 06:21] LABS: Glucose Point of Care 210 mg/dl (65-105)
[2022-05-06 06:21] LABS: Glucose Point of Care 73 mg/dl (65-105)
[2022-05-06 07:05] LABS: Hematocrit 36.3 % (37.0-47.0); Hemoglobin 12.1 g/dL (12.0-15.0); Mean Corpuscular HGB Conc 33.3 g/dl (32-36); Mean Corpuscular Volume 93.1 fl (80-100); Mean Platelet Volume 10.2 fl (7.4-10.4); Platelet Count Result 224 k/mm3 (150-375); Red Cell Distribution Width 15.1 % (11.5-14.5); White Blood Count 7.6 K/mm3 (4.5-10.0)
--- NOTE | 2022-05-06 07:35 | PM.IMPN ---
Progress Note: A&P Assessment and Plan (1) Hyperosmolar hyperglycemic state (HHS): Code(s): E11.00 - Type 2 diabetes mellitus with hyperosmolarity without nonketotic hyperglycemic-hyperosmolar coma (NKHHC) Status: Acute Assessment and Plan: Due to noncompliance, restart home medications and monitor (2) Chest pain: Qualifiers: Chest pain type: chest pain on breathing Qualified Code(s): R07.1 - Chest pain on breathing Code(s): R07.9 - Chest pain, unspecified Status: Acute Assessment and Plan: Cardiology has signed off, recommended outpatient follow-up, discussed smoking cessation and avoidance of cocaine (3) COPD exacerbation: Code(s): J44.1 - Chronic obstructive pulmonary disease with (acute) exacerbation Status: Acute Assessment and Plan: Stable (4) Diarrhea: Code(s): R19.7 - Diarrhea, unspecified Status: Acute Assessment and Plan: Improved with Imodium (5) Transaminitis: Code(s): R74.01 - Elevation of levels of liver transaminase levels Status: Acute Assessment and Plan: Improved (6) High anion gap metabolic acidosis: Code(s): E87.2 - Acidosis Status: Acute Assessment and Plan: Resolved (7) Cocaine abuse: Code(s): F14.10 - Cocaine abuse, uncomplicated Status: Acute Assessment and Plan: Recommended cessation (8) Anxiety and depression: Code(s): F41.9 - Anxiety disorder, unspecified; F32.A - Depression, unspecified Status: Acute Assessment and Plan: Uncontrolled, recommended increasing the dose (9) Coronary artery disease: Qualifiers: Associated angina: without angina Coronary Disease-Associated Artery/Lesion type: mcgrath artery [place] vs. transplanted heart: mcgrath heart Qualified Code(s): I25.10 - Atherosclerotic heart disease of mcgrath coronary artery without angina pectoris Code(s): I25.10 - Atherosclerotic heart disease of mcgrath coronary artery without angina pectoris Status: Acute Assessment and Plan: No evidence of acute cardiac ischemia. Will continue statin therapy and Ranexa. (10) Headache: Qualifiers: Headache chronicity pattern: acute headache Headache type: unspecified Intractability: intractable Qualified Code(s): R51.9 - Headache, unspecified Code(s): R51.9 - Headache, unspecified Status: Acute Assessment and Plan: Resolved Plan DVT prophylaxis Lovenox GI prophylaxis not indicated Code status full code Subjective Date/time seen: 05/06/22 07:35 Interval history: Patient with significant anxiety, tearful over social issues at home. No overnight events noted. No chest pain or shortness of breath. No nausea, vomiting or diarrhea. No fevers or chills. Review of Systems Review of Systems: 12 point review of systems was assessed and was negative except as noted in the HPI Exam Narrative: General: No acute distress, alert and oriented per baseline HEENT: Atraumatic, normocephalic, mucous membranes moist CV: Regular rate and rhythm, S1, S2 Lungs: Clear to auscultation bilaterally, no rales or crackles noted, no wheezes, good air entry Abdomen: Soft, nontender, nondistended Extremities: Normal to inspection Skin: No rashes noted, no lesions or wounds seen Psych: Euthymic, normal affect Objective Data Vital Signs Vital Signs: Vital Signs - 24 hr 05/05/22 11:43 05/05/22 12:47 05/05/22 12:38 Temperature 98.2 F Pulse Rate 99 93 87 Respiratory Rate 22 H 26 H Blood Pressure 126/77 Pulse Oximetry 99 Oxygen Delivery Room Air 05/05/22 12:41 05/05/22 12:45 05/05/22 12:46 Temperature Pulse Rate 91 89 88 Respiratory Rate 18 24 H 24 H Blood Pressure 125/84 129/80 Pulse Oximetry Oxygen Delivery 05/05/22 12:47 05/05/22 13:00 05/05/22 13:02 Temperature Pulse Rate 93 90 91 Respiratory Rate 2
[2022-05-06 07:52] LABS: Glucose Point of Care 283 mg/dl (65-105)
[2022-05-06] MEDS: NICOTINE (*PBKC) 21 MG PATCH 1 PATCH TRANSDERM (08:26)
[2022-05-06] MEDS: TOPIRAMATE 100 MG TABLET PO ×2 (08:28→19:54)
[2022-05-06] MEDS: glipiZIDE 5 MG TABLET PO (08:29)
[2022-05-06] MEDS: RANOLAZINE 500 MG TAB.ER.12H PO ×2 (08:29→19:54)
[2022-05-06] MEDS: busPIRone HCL 2.5 MG TABLET PO ×2 (08:29→19:53)
[2022-05-06] MEDS: ENOXAPARIN 40 MG/0.4 ML SYRINGE SUB-Q (08:29)
[2022-05-06] MEDS: ASPIRIN 81 MG ENTERIC TABLET PO (08:30)
[2022-05-06] MEDS: buPROPion HCL XL (24 HR) 150 MG TABCR 300 MG PO (08:30)
[2022-05-06] MEDS: INSULIN ASPART (*BKC) 100 UNITS/ML SUB-Q ×2 (08:31→08:32)
[2022-05-06] MEDS: busPIRone HCL 5 MG TABLET PO ×2 (08:33→19:53)
--- NOTE | 2022-05-06 10:19 | PM.CNCAR ---
Assessment and Plan Assessment and plan (1) Cocaine abuse: Code(s): F14.10 - Cocaine abuse, uncomplicated Status: Acute (2) Chest pain: Qualifiers: Chest pain type: chest pain on breathing Qualified Code(s): R07.1 - Chest pain on breathing Code(s): R07.9 - Chest pain, unspecified Status: Acute Plan This is a 51-year-old woman known to have coronary artery disease with stenting of her left anterior descending a long time ago. She has had a number of hospital admissions with chest pain but has never had a documented ischemic problem on any of the subsequent admissions. Once again she is admitted to the hospital with some atypical sounding sharp low substernal pain that was brief and self-limited in nature. There were no ischemic sounding symptoms associated with this. Fortunately her electrocardiogram does not show any signs of acute ischemia or injury and her troponin levels are negative. Unfortunately she continues to smoke cigarettes and consumes cocaine. I described the dangers of these habits to this patient in some detail at the end of my consultation. She is stable for discharge. She says she has an appointment later this month for follow-up with my partner, Dr. Feldman which she was encouraged to keep. At this point she does not need to be kept in the hospital for ischemia testing in my opinion Anthony Kang MD [facility] History of Present Illness History of Present Illness Consult date/time: 05/06/22 10:19 Consult reason: chest pain Reason For Visit: chest pain/hyperglycemia Narrative: This is a 51-year-old woman I am seeing at the request of the hospitalist because of chest pain. She is unknown to me prior to this encounter but is known to have coronary disease and has follow-up scheduled with my partner Dr. Feldman. The patient yesterday came to the hospital because of chest pain she describes while she was at home episodes of sharp stabbing mid to low substernal pain that occurred off and on for about 10-15 minutes. She came to the emergency room where she was evaluated and after that admitted to the hospital. Her chest pain was not associated with shortness of breath diaphoresis or nausea. There was no radiation of the pain to any other location in her body. In the emergency room her electrocardiogram shows a sinus mechanism with precordial T-wave inversions. Compared to previous ECGs in the chart there is no interval change. Her troponin levels have of course been sampled and they are normal x3 sets. The patient feels well this morning when I entered the room to see her in consultation she was sleeping in her bed. She has a history of coronary artery disease with a history of a stent to her left anterior descending many years ago. She has not had any known ischemic problems since then. She has had a series of admissions at a variety of hospital with chest pain incident since then but never another documented coronary artery stenosis. We saw the patient here previously with a similar episode. She is not having any exertional chest pain she does have some exertional shortness of breath which is chronic and attributed to COPD and cigarette smoking. She unfortunately continues to smoke cigarettes and unfortunately also continues to use cocaine. Her drug screen on admission was again positive for cocaine. At times her drug screen is also positive for opiates this time it was not. He is denying any symptoms such as orthopnea PND or edema she is not experiencing any palpitations or other cardiac symptoms or concerns. Review of Systems Constitutional: Constitutional: Reports fatigue Eyes: Eyes: Reports no additional eye complaints ENT: Reports system reviewed and no additional complaints, except as documented Cardiovascular: Cardiovascular: Reports as per HPI Respiratory: Respiratory: Reports dyspnea on exertion Gastrointestinal: Gastrointestinal: Reports no additional gastrointestin
[2022-05-06] MEDS: LORazepam (*CRX) 1 MG TABLET PO (10:29)
[2022-05-06 12:09] LABS: Glucose Point of Care 147 mg/dl (65-105)
[2022-05-06] MEDS: INSULIN ASPART (*BKC) 100 UNITS/ML 8 UNITS SUB-Q (12:30)
--- NOTE | 2022-05-06 13:29 | PHAR ---
SPOKE WITH DR NOLAN 05-05-22 LATE EVENING TO VERIFY DOSE AND TIMING OF HUMALOG 75/25. PATIENT DOSE WAS VERY HIGH, 90 UNITS Q12HR, AND FREQUENCY OF Q12HR MAY BE INCORRECT THIS TYPE OF INSULIN USUALLY GIVEN BEFORE MEALS. DR STATED GLUCOSE WAS HIGH AND TO GIVE ONE DOSE NOW AND THEN BIDAC WOULD BE OK. SUGGESTED MAYBE LANTUS WOULD BE A BETTER OPTION. DR DIDN'T WANT TO SWITCH TO LANTUS MAYBE DUE TO INSURANCE PAYING SO KEEP DOSE AND TYPE ORDERED FOR NOW.
--- NOTE | 2022-05-06 14:38 | PC.NURSE ---
pt report given to Neva RAYMOND, all questions answered. pt transport via bed to [phone]
--- NOTE | 2022-05-06 15:37 | PC.NURSE ---
This patient, Mikayla Hays, was received from IMU on 05/06/22 at 1537. Patient/family oriented to unit policies and routines. Report received SEGUNDO Rey.
[2022-05-06 17:27] LABS: Glucose Point of Care 188 mg/dl (65-105)
[2022-05-06] MEDS: LORazepam INJ (*CRX) 2 MG/ML VIAL 1 MG IV PUSH (18:14)
--- NOTE | 2022-05-06 18:14 | PCRCNOTE ---
pt uses cpap at home but has refused to wear cpap here.
[2022-05-06] MEDS: ATORVASTATIN 40 MG TABLET 80 MG PO (19:52)
[2022-05-06] MEDS: PARoxetine 20 MG TABLET 40 MG PO (19:53)
[2022-05-06] MEDS: traZODone HCL 50 MG TABLET 200 MG PO (19:54)
[2022-05-06 20:58] LABS: Glucose Point of Care 154 mg/dl (65-105)
[2022-05-07] MEDS: IPRATROPIUM BR 0.02% INH SOLN 0.5 MG/2.5 ML VIAL INHALATION ×2 (02:00→08:23)
[2022-05-07] MEDS: ALBUTEROL SULFATE NEB 2.5 MG/3 ML INH 5 MG INHALATION ×2 (02:00→08:22)
[2022-05-07 02:40] VITALS: PULSE 82; RESP 20
[2022-05-07 02:50] VITALS: PULSE 80; RESP 20
[2022-05-07] MEDS: ALBUTEROL SULFATE NEB 2.5 MG/0.5 ML INH (03:00)
[2022-05-07 05:33] VITALS: BP 105/49; PULSE 66; RESP 18; TEMP 36.7; O2SAT 100
--- NOTE | 2022-05-07 07:51 | PM.DS ---
DS: Admitting Diagnosis Discharge Date May 07, 2022 Admitting Diagnosis Chest pain DS: Discharge Diagnosis Discharge Diagnosis (1) Hyperosmolar hyperglycemic state (HHS): Code(s): E11.00 - Type 2 diabetes mellitus with hyperosmolarity without nonketotic hyperglycemic-hyperosmolar coma (NKHHC) Status: Acute Assessment and Plan: Due to noncompliance, restart home medications and monitor (2) Chest pain: Qualifiers: Chest pain type: chest pain on breathing Qualified Code(s): R07.1 - Chest pain on breathing Code(s): R07.9 - Chest pain, unspecified Status: Acute Assessment and Plan: Cardiology has signed off, recommended outpatient follow-up, discussed smoking cessation and avoidance of cocaine (3) COPD exacerbation: Code(s): J44.1 - Chronic obstructive pulmonary disease with (acute) exacerbation Status: Acute Assessment and Plan: Stable (4) Diarrhea: Code(s): R19.7 - Diarrhea, unspecified Status: Acute Assessment and Plan: Improved with Imodium (5) Transaminitis: Code(s): R74.01 - Elevation of levels of liver transaminase levels Status: Acute Assessment and Plan: Improved (6) High anion gap metabolic acidosis: Code(s): E87.2 - Acidosis Status: Acute Assessment and Plan: Resolved (7) Cocaine abuse: Code(s): F14.10 - Cocaine abuse, uncomplicated Status: Acute Assessment and Plan: Recommended cessation (8) Anxiety and depression: Code(s): F41.9 - Anxiety disorder, unspecified; F32.A - Depression, unspecified Status: Acute Assessment and Plan: Uncontrolled, recommended increasing the dose (9) Coronary artery disease: Qualifiers: Associated angina: without angina Coronary Disease-Associated Artery/Lesion type: [place] artery [place] vs. transplanted heart: [place] heart Qualified Code(s): I25.10 - Atherosclerotic heart disease of [place] coronary artery without angina pectoris Code(s): I25.10 - Atherosclerotic heart disease of [place] coronary artery without angina pectoris Status: Acute Assessment and Plan: No evidence of acute cardiac ischemia. Will continue statin therapy and Ranexa. (10) Headache: Qualifiers: Headache chronicity pattern: acute headache Headache type: unspecified Intractability: intractable Qualified Code(s): R51.9 - Headache, unspecified Code(s): R51.9 - Headache, unspecified Status: Acute Assessment and Plan: Resolved Plan DVT prophylaxis Lovenox GI prophylaxis not indicated Code status full code DS: Summary Hospital Course Hospital Course: 51-year-old female with a past medical history of coronary artery disease status post stent, hypertension, recurrent pancreatitis, COPD, tobacco use, anxiety, depression, and uncontrolled diabetes who presented to the ER via EMS after developing chest pain.? The patient reports that she was having extra stress in her life due to not yet receiving her daughter's ashes that worse post be delivered in March and her son recently being put in half-way.? She was sitting in her sister's house when she developed substernal chest pain that radiated to her left arm and was accompanied by nausea and diaphoresis.? She reported that her symptoms were similar to when she had her stent placed in her LAD in 2012.? She reports that the symptoms started just after she became quite anxious about her social situation.? Her pain was improved with morphine.? She reports that she last used cocaine to ER staff 2 days ago and reports that she last used cocaine 7 days ago to me.? She received nitro via EMS which did not provide any relief of her pain.? She is still having chest pain at the time of my evaluation.? She reports that her headache that was worse than her chest pain.? She has been having headache all day in it is frontal in position and
--- NOTE | 2022-05-07 08:04 | PC.NURSE ---
Spoke with Dr. Feldman to make sure patient is ready to discharge at 10am. Her ride will be here at 10am per care coordination. Dr. Feldman states patient is ready to discharge
[2022-05-07 08:15] VITALS: PULSE 79; RESP 20
[2022-05-07 08:24] VITALS: PULSE 78; RESP 20
[2022-05-07 08:25] LABS: Glucose Point of Care 192 mg/dl (65-105)
[2022-05-07] MEDS: NICOTINE (*PBKC) 21 MG PATCH 1 PATCH TRANSDERM (08:47)
[2022-05-07] MEDS: ASPIRIN 81 MG ENTERIC TABLET PO (08:47)
[2022-05-07] MEDS: busPIRone HCL 2.5 MG TABLET PO (08:47)
[2022-05-07] MEDS: buPROPion HCL XL (24 HR) 150 MG TABCR 450 MG PO (08:47)
[2022-05-07] MEDS: TOPIRAMATE 100 MG TABLET PO (08:47)
[2022-05-07] MEDS: RANOLAZINE 500 MG TAB.ER.12H PO (08:47)
[2022-05-07] MEDS: busPIRone HCL 5 MG TABLET PO (08:51)
[2022-05-07] MEDS: INSULIN ASPART (*BKC) 100 UNITS/ML 8 UNITS SUB-Q (08:56)
[2022-05-07] MEDS: LORazepam (*CRX) 1 MG TABLET PO (09:04)
== END 2022-05-07 09:40 | disposition home or self-care (01) ==
LOC: ANHED 19:03 → ANHIMU 19:29 → ANH2MED 05-06 15:27
PROVIDERS: Emergency Medicine; Internal Medicine; Nurse Practitioner; Physician Assistant; Admitting Provider Student in an Organized Health Care Education/Training Program; Emergency Provider Emergency Medicine; Visit Provider Student in an Organized Health Care Education/Training Program
DX: E11.00 Type 2 diabetes mellitus with hyperosmolarity without nonketotic hyperglycemic-hyperosmolar coma (NKHHC) (principal); R07.1 Chest pain on breathing; R74.01 Elevation of levels of liver transaminase levels; R19.7 Diarrhea, unspecified; E87.2 Acidosis; J44.1 Chronic obstructive pulmonary disease with (acute) exacerbation; R51.9 Headache, unspecified; I25.10 Atherosclerotic heart disease of native coronary artery without angina pectoris; I25.2 Old myocardial infarction; Z95.5 Presence of coronary angioplasty implant and graft; G47.33 Obstructive sleep apnea (adult) (pediatric); E11.40 Type 2 diabetes mellitus with diabetic neuropathy, unspecified; E11.319 Type 2 diabetes mellitus with unspecified diabetic retinopathy without macular edema; E78.5 Hyperlipidemia, unspecified; F41.9 Anxiety disorder, unspecified; F32.A Depression, unspecified; F17.210 Nicotine dependence, cigarettes, uncomplicated; Z91.14 Patient's other noncompliance with medication regimen; Z79.51 Long term (current) use of inhaled steroids; Z79.84 Long term (current) use of oral hypoglycemic drugs; Z79.82 Long term (current) use of aspirin; F12.90 Cannabis use, unspecified, uncomplicated; F14.10 Cocaine abuse, uncomplicated
CPT/HCPCS: 36415; 36600; 71046; 80048; 80053; 80307; 81001; 82010; 82274; 82805; 82948; 83036; 83605; 83690; 83735; 84100; 84484; 85025; 85027; 85380; 85610; 85730; 87045; 87427; 87493; 93005; 94640; 96361; 96372; 96374; 96375; 99285; A9270; G0378; G0379; J1610; J1650; J1815; J2060; J2270; J2405; J7030

== ENCOUNTER 2022-05-25 14:19 | Observation (INO) | payer OTHER, SELFPAY ==
[2022-05-25] VITALS (17 sets, daily range): BP systolic 111–133; BP diastolic 66–116; PULSE 72–98; RESP 14–22; TEMP 36.4–36.6; O2SAT 94–100; BMI 34.0
--- NOTE | ~2022-05-25 | US_ITS ---
EXAMINATION: US_ABSCYSTIMG_US DATE: 05/26/2022 14:49 INDICATION: Abscess in the periareolar region of the slightly outer left breast TECHNIQUE: The procedure including the risks and benefits were discussed with the patient. Risks disc ussed included bleeding. A timeout was performed to verify the patient's name, date of , and p rocedure to be performed. The skin overlying the left breast was prepared and draped in usual sterile fashion. Anesthetic was administered with 1% lidocaine subcutaneously. An 18-gauge needle was advan cuca using ultrasound guidance into the breast abscess. There were no immediate complications. FINDINGS: Ultrasound images demonstrate the catheter within the abscess. Approximately 5 mL of purule nt and bloody material was aspirated. IMPRESSION: 1. Successful ultrasound-guided left breast abscess drainage. Abscess fluid was sent for further anal ysis. Reviewed, dictated and finalized at location A. IMPRESSION: 1. Successful ultrasound-guided left breast abscess drainage. Abscess fluid was sent for further analysis.
[2022-05-25 14:50] LABS: Glucose Point of Care 458 mg/dl (65-105)
[2022-05-25 16:10] LABS: Appearance Urine Clear (Clear); Bilirubin Urine Negative (Negative); Blood Urine Negative (Negative); Color Urine Yellow (Yellow); Glucose Urine UA 3+ mg/dL (Negative); Ketones Urine Negative (Negative); Leukocyte Esterase Ur Trace LEU/UL (Negative); Nitrate Urine Negative (Negative); Protein Urine Negative (Negative); Urobilinogen Urine 0.2 mg/dL (<2.0); pH Urine 6.5 (5.0-9.0)
[2022-05-25 16:23] LABS: Mucus Urine Rare /lpf; RBC Urine 0-2 /hpf (0-2); Squamous Epithelial Cell Urine Moderate /hpf (Few); WBC Urine 0-3 /hpf
[2022-05-25 16:27] LABS: Add Urine Microscopic? YES
[2022-05-25 17:05] LABS: Glucose Point of Care 379 mg/dl (65-105)
[2022-05-25 17:07] LABS: Basophils Absolute Auto 0.1 K/mm3 (0.0-0.1); Basophils Percent Auto 0.4 % (0.2-1.2); Eosinophils Absolute Auto 0.2 K/mm3 (0-0.3); Eosinophils Percent Auto 1.6 % (0-4.4); Hematocrit 40.4 % (37.0-47.0); Hemoglobin 13.8 g/dL (12.0-15.0); Immature Granulocyte Absolute 0.03 K/mm3 (0.00-0.031); Immature Granulocyte Percent A 0.2 % (0-0.5); Lymphocytes Absolute Auto 2.76 K/mm3 (0.9-3.2); Lymphocytes Percent Auto 21.7 % (18.3-44.2); Mean Corpuscular HGB Conc 34.2 g/dl (32-36); Mean Corpuscular Hemoglobin 30.5 pg (26-34); Mean Corpuscular Volume 89.2 fl (80-100); Mean Platelet Volume 9.8 fl (7.4-10.4); Monocytes Absolute Auto 0.6 K/mm3 (0.1-0.6); Neutrophils Absolute Auto 9.1 K/mm3 (1.3-6.7); Neutrophils Percent Auto 71.1 % (45.5-73.1); Platelet Count Result 298 k/mm3 (150-375); Red Blood Count 4.53 M/mm3 (4.2-5.4); Red Cell Distribution Width 14.6 % (11.5-14.5); White Blood Count 12.7 K/mm3 (4.5-10.0)
--- NOTE | 2022-05-25 17:07 | ED.SKABFB ---
HPI - Skin/Abscess/Foreign Bdy General Chief complaint: Dental/Oral Stated complaint: oral ulcers Time Seen by Provider: 05/25/22 15:42 History of Present Illness HPI narrative: Pt presents with numerous abscesses. Pt has one on her chin, one on her breast, one under her arm and a small one on her lower abdomen. Pt says her blood sugars have been elevated. Related Data Home Medications Medication Instructions Recorded Confirmed furosemide 40 mg tablet 20 mg PO DAILY 07/09/19 05/05/22 paroxetine HCl 40 mg tablet (Paxil) 40 mg PO HS 07/09/19 05/05/22 albuterol sulfate 2.5 mg/3 mL 2.5 mg inhalation Q4H PRN SOB 07/12/19 05/05/22 (0.083 %) solution for nebulization albuterol sulfate 90 mcg/actuation 2 puff inhalation Q6H PRN SOB 07/12/19 05/05/22 aerosol inhaler acetaminophen 500 mg tablet 1,000 mg PO Q6H PRN Pain (Scale 03/28/20 05/05/22 (Tylenol Extra Strength) Score 1-3) ondansetron HCl 4 mg tablet 4 mg PO Q6H PRN Nausea And Vomiting 03/28/20 05/05/22 ranolazine 500 mg tablet,extended 500 mg PO Q12H 03/28/20 05/05/22 release,12 hr topiramate 100 mg tablet 100 mg PO Q12H 03/28/20 05/05/22 buspirone 7.5 mg tablet 7.5 mg PO Q12H 09/08/21 05/05/22 glipizide 5 mg tablet 5 mg PO 09/08/21 05/05/22 insulin lispro protamine-lispro 90 unit subcut Q12H 09/08/21 05/05/22 100 unit/mL (75-25) subcutaneous pen (Humalog Mix 75-25 KwikPen) rizatriptan 10 mg tablet 10 mg PO QID PRN Migraine Headache 09/08/21 05/05/22 atorvastatin 80 mg tablet 80 mg PO HS 10/13/21 05/05/22 trazodone 100 mg tablet 200 mg PO HS 10/13/21 05/05/22 aspirin 81 mg tablet,delayed 81 mg PO DAILY 05/05/22 05/05/22 release lorazepam 1 mg tablet 1 mg PO PRN PRN Anxiety 05/05/22 05/05/22 nitroglycerin 0.4 mg sublingual 0.4 mg sublingual Q5M PRN Chest 05/05/22 05/05/22 tablet Pain oxycodone-acetaminophen 5 mg-325 1 tablet PO PRN PRN Pain 05/05/22 05/05/22 mg tablet Allergies Allergy/AdvReac Type Severity Reaction Status Date / Time metoclopramide [From Reglan] Allergy Hives Verified 05/25/22 20:01 prochlorperazine Allergy Hives Verified 05/25/22 20:01 [From Compazine] levofloxacin [From Levaquin] AdvReac Itching Verified 05/25/22 20:01 Review of Systems Review of Systems: All systems reviewed & are unremarkable except as noted in HPI and below PMFSH Past Medical History Medical History (Updated 05/25/22 @ 21:16 by Estiven Yañez III, DO) Cocaine abuse COPD (chronic obstructive pulmonary disease) Coronary artery disease Stent to the LAD in 2012. Diabetes mellitus A1c 13.2% October 2021 Diabetic neuropathy Diabetic retinopathy Drug-seeking behavior Dyslipidemia Hypertriglyceridemia Obesity Obstructive sleep apnea Pancreatitis 07/2019 Tobacco abuse Surgical History Surgical History (Updated 05/05/22 @ 23:26 by Ashleigh Gallegos DO) History of bone marrow biopsy History of History of cholecystectomy History of coronary artery stent placement (~2012) [facility] History of dilatation and curettage History of hysterectomy History of tubal ligation Family History Family History Father Acute myocardial infarction Heart disease Hypertension Congestive heart failure Mother Diabetes mellitus Acute myocardial infarction Hypertension Congestive heart failure Sibling Diabetes mellitus Asthma Chronic obstructive pulmonary disease Congestive heart failure Daughter Leukemia Sibling Overdose Asthma Chronic obstructive pulmonary disease Other Acute myocardial infarction Congestive heart failure Sibling Asthma Chronic obstructive pulmonary disease Sibling Asthma Chronic obstructive pulmonary disease Social History Social History (Updated 05/05/22 @ 23:54 by Ashleigh Gallegos DO) Social History: She had 5 children and 2 have passed. One passed as an infant from SIDS and her 23 year old daughter f
[2022-05-25 17:22] LABS: Beta-Hydroxybutyrate/Acetoacetate 0.06 mmol/L (0.02-0.27)
[2022-05-25] MEDS: MORPHINE SULFATE (*CRX) 4 MG/ML INJ IV PUSH ×2 (17:46→21:37)
[2022-05-25 20:04] LABS: Alanine Aminotransferase 21 U/L (6-35); Alkaline Phosphatase 182 U/L (38-126); Anion Gap 15 mmol/L (8-16); Aspartate Amino Transferase 27 U/L (14-36); Bilirubin,Total 0.8 mg/dL (0.2-1.3); Blood Urea Nitrogen 8 mg/dL (7-17); Calcium 9.4 mg/dL (8.4-10.2); Carbon Dioxide 21 mmol/L (22-30); Chloride 98 mmol/L (98-107); Estimated CRCL calculation 76 ml/min; Estimated Glomerular Filt Rate > 60; Glucose 395 mg/dL (65-110); Magnesium 1.9 mg/dL (1.6-2.3); Phosphorus 3.6 mg/dL (2.5-4.5); Potassium 2.7 mmol/L (3.4-5.0); Sodium 134 mmol/L (137-145)
[2022-05-25] MEDS: fentaNYL CITRATE INJ (*CRX) 100 MCG/2 ML VIAL 50 MCG IV PUSH (20:04)
[2022-05-25] MEDS: POTASSIUM CHLORIDE 20 MEQ TABLET 40 MEQ PO (20:18)
[2022-05-25] MEDS: LIDOCAINE HCL 1% PF 30 ML VIAL 20 ML INFILTRATE (21:04)
--- NOTE | 2022-05-25 21:20 | PM.IMHP ---
H&P: HPI History of Present Illness Date/Time: 05/25/22 21:20 Chief Complaint: Abscesses. Narrative: This is a 51-year-old female smoker with history of MRSA skin and soft tissue infections, uncontrolled diabetes, coronary artery disease, hypertension, pancreatitis, and COPD who presented to the ED via EMS from home for evaluation of multiple abscesses. She reports multiple hard, painful, and red areas on her chin, left breast, axilla, and lower abdomen which she first noted a few days ago. It is not unusual for her to developed abscesses and she has had several I and D's for the same over the years. The abscesses on the right side of her chin and in the right axilla were lanced in the emergency department however due to the location of the abscess on the left breast, it was felt that she needed to be seen by surgery for possible debridement and she is being admitted in this setting. The abscesses are painful and she frequently asks for pain medication. Other than a mild headache, she has no other complaints. She denies fever, chills, sweats, nausea, and vomiting. Review of Systems Review of Systems: Twelve systems were reviewed and are negative except for as per HPI. [facility] Past Medical History Medical History (Updated 05/26/22 @ 02:20 by Fanny Corona PA-C) Chronic obstructive pulmonary disease Cocaine abuse Coronary artery disease Stent to the LAD in 2012. Diabetic neuropathy Diabetic retinopathy Dyslipidemia Insulin dependent type 2 diabetes mellitus, uncontrolled Hemoglobin A1c was 13.2% in October 2021. MRSA infection Obesity Obstructive sleep apnea Pancreatitis (07/2019) Tobacco abuse Surgical History Surgical History History of bone marrow biopsy History of History of cholecystectomy History of coronary artery stent placement (~2012) [facility] History of dilatation and curettage History of hysterectomy History of tubal ligation Family History Family History Father Acute myocardial infarction Heart disease Hypertension Congestive heart failure Mother Diabetes mellitus Acute myocardial infarction Hypertension Congestive heart failure Sibling Diabetes mellitus Asthma Chronic obstructive pulmonary disease Congestive heart failure Daughter Leukemia Sibling Overdose Asthma Chronic obstructive pulmonary disease Other Acute myocardial infarction Congestive heart failure Sibling Asthma Chronic obstructive pulmonary disease Sibling Asthma Chronic obstructive pulmonary disease Social History Social History (Updated 05/26/22 @ 02:14 by Fanny Corona PA-C) Social History: She had 5 children and 2 have passed. One passed as an from SIDS and her 23 year old daughter from leukemia in 2018. She smokes a pack a day and has since the age of 17. She uses marijuana and smokes cocaine recreationally. No alcohol use. She lives at home with her boyfriend. She nominates Rashaun Hays, her son, as her surrogate medical decision maker and she wishes to be a full code. Spiritual care concerns: No Agree to blood products: Yes Meds Home Medications and Allergies Home Medications Medication Instructions Recorded Confirmed Type furosemide 40 mg tablet 20 mg PO DAILY 07/09/19 05/25/22 History paroxetine HCl 40 mg tablet (Paxil) 40 mg PO HS 07/09/19 05/25/22 History albuterol sulfate 2.5 mg/3 mL 2.5 mg inhalation Q4H PRN SOB 07/12/19 05/25/22 History (0.083 %) solution for nebulization albuterol sulfate 90 mcg/actuation 2 puff inhalation Q6H PRN SOB 07/12/19 05/25/22 History aerosol inhaler acetaminophen 500 mg tablet 1,000 mg PO Q6H PRN Pain (Scale 03/28/20 05/25/22 History (Tylenol Extra Strength) Score 1-3) ondansetron HCl 4 mg tablet 4 mg PO Q6H PRN Nausea And Vomiting 03/28/20 05/25/22 History ranola
[2022-05-25 22:34] LABS: SARS-CoV-2 RNA PCR Negative
[2022-05-25] MEDS: MORPHINE SULFATE (*CRX) 2 MG/ML INJ IV PUSH (22:52)
--- NOTE | 2022-05-25 23:03 | ADMGEN ---
This patient, Mikayla Hays, was admitted to Medical Room 248-01. Patient/family oriented to hospital policies and general routines including ID bracelet, bed and alarms, visiting hours, pain management, procedures, bathroom and other care routines, personal items, smoking policy, room service/diet, and visiting hours. Information on how to activate the Rapid Response Team has been discussed. Patient/Family are encouraged to report perceived risks to care and to ask questions if they do not understand what they are told or what they should do.
[2022-05-26] VITALS (9 sets, daily range): BP systolic 100–136; BP diastolic 60–100; PULSE 56–90; RESP 14–20; TEMP 36–36.6; O2SAT 92–100
[2022-05-26 00:33] LABS: Anion Gap 16 mmol/L (8-16); Blood Urea Nitrogen 8 mg/dL (7-17); Calcium 8.6 mg/dL (8.4-10.2); Carbon Dioxide 20 mmol/L (22-30); Chloride 94 mmol/L (98-107); Estimated CRCL calculation 80 ml/min; Estimated Glomerular Filt Rate > 60; Glucose 579 mg/dL (65-110); Magnesium 1.6 mg/dL (1.6-2.3); Potassium 2.9 mmol/L (3.4-5.0); Sodium 130 mmol/L (137-145)
[2022-05-26] MEDS: INSULIN ASPART (*BKC) 100 UNITS/ML 10 UNITS SUB-Q (00:49)
[2022-05-26] MEDS: HYDROcodone/acetaminophen (*CRX) 5-325 MG TABLET 1 TAB PO ×3 (00:49→13:14)
[2022-05-26] MEDS: POTASSIUM CHLORIDE INJ 40 MEQ in SODIUM CHLORIDE 0.9% IV 500 ML 130 MEQ IVPB ×2 (00:51→06:52)
[2022-05-26 01:04] LABS: Glucose Point of Care > 500 mg/dl (65-105)
[2022-05-26 02:02] LABS: Glucose Point of Care 499 mg/dl (65-105)
[2022-05-26] MEDS: MORPHINE SULFATE (*CRX) 2 MG/ML INJ IV PUSH ×6 (02:54→22:51)
[2022-05-26] MEDS: ATORVASTATIN 40 MG TABLET 80 MG PO ×2 (03:13→20:11)
[2022-05-26] MEDS: traZODone HCL 50 MG TABLET 200 MG PO ×2 (03:14→20:11)
[2022-05-26] MEDS: PARoxetine 20 MG TABLET 40 MG PO ×2 (03:14→20:11)
[2022-05-26 05:33] LABS: Basophils Absolute Auto 0.1 K/mm3 (0.0-0.1); Basophils Percent Auto 0.5 % (0.2-1.2); Eosinophils Absolute Auto 0.2 K/mm3 (0-0.3); Eosinophils Percent Auto 1.5 % (0-4.4); Hematocrit 34.3 % (37.0-47.0); Hemoglobin 11.7 g/dL (12.0-15.0); Immature Granulocyte Absolute 0.06 K/mm3 (0.00-0.031); Immature Granulocyte Percent A 0.5 % (0-0.5); Lymphocytes Absolute Auto 2.67 K/mm3 (0.9-3.2); Mean Corpuscular HGB Conc 34.1 g/dl (32-36); Mean Corpuscular Hemoglobin 31.2 pg (26-34); Mean Corpuscular Volume 91.5 fl (80-100); Mean Platelet Volume 9.7 fl (7.4-10.4); Monocytes Absolute Auto 0.8 K/mm3 (0.1-0.6); Monocytes Percent Auto 6.5 % (2.6-8.5); Neutrophils Absolute Auto 8.9 K/mm3 (1.3-6.7); Platelet Count Result 270 k/mm3 (150-375); Red Blood Count 3.75 M/mm3 (4.2-5.4); Red Cell Distribution Width 14.6 % (11.5-14.5); White Blood Count 12.7 K/mm3 (4.5-10.0)
[2022-05-26 07:14] LABS: Blood Urea Nitrogen 9 mg/dL (7-17); Calcium 8.8 mg/dL (8.4-10.2); Carbon Dioxide 24 mmol/L (22-30); Estimated CRCL calculation 71 ml/min; Estimated Glomerular Filt Rate > 60; Glucose 270 mg/dL (65-110); Sodium 137 mmol/L (137-145)
--- NOTE | 2022-05-26 07:44 | PM.IMPN ---
Progress Note: A&P Assessment and Plan (1) Abscess of multiple sites: Code(s): L02.91 - Cutaneous abscess, unspecified Status: Acute Assessment and Plan: Two were drained in the emergency department but per General Surgery both will need additional attention as they continue to be painful and are no longer draining. Planned for IR for aspiration of axillary abscess today. Patient discussed with the infectious disease pharmacist, who agrees with vancomycin for adequate coverage. Wound cultures pending. -Appreciate General Surgery recommendations -Continue vancomycin - pharmacy to dose (2) History of MRSA infection: Code(s): Z86.14 - Personal history of Methicillin resistant Staphylococcus aureus infection Status: Acute (3) Insulin dependent type 2 diabetes mellitus, uncontrolled: Status: Acute Assessment and Plan: Hx of uncontrolled DM with last a1c 9.2 on 05/06/22. Persistent hyperglycemia will increase home 75/25 by 10%. BG 99 this morning but that was after a one time 10 units aspart for BG 490. -Insulin 75/25 95 units BIDWM -High dose SSI (4) Hypokalemia: Code(s): E87.6 - Hypokalemia Status: Acute Assessment and Plan: Was given an additional 80 mEq this morning. -Repeat BMP 2100 (5) Tobacco abuse: Code(s): Z72.0 - Tobacco use Status: Acute (6) Coronary artery disease: Qualifiers: Associated angina: without angina Coronary Disease-Associated Artery/Lesion type: [place] artery [place] vs. transplanted heart: [place] heart Qualified Code(s): I25.10 - Atherosclerotic heart disease of [place] coronary artery without angina pectoris Code(s): I25.10 - Atherosclerotic heart disease of [place] coronary artery without angina pectoris Status: Acute Assessment and Plan: Takes statin and aspirin at home. ASA held for possible procedure. Will resume after completion of I&D of all abscesses this hospitalization. Continue statin. (7) Asthma-COPD overlap syndrome: Code(s): J44.9 - Chronic obstructive pulmonary disease, unspecified Status: Acute Assessment and Plan: Stable. Continue PRN duonebs. (8) Anemia: Code(s): D64.9 - Anemia, unspecified Status: Acute Assessment and Plan: MCV 91. Significant drop from yesterday but this may have been due to hemoconcentration. Will monitor. -Iron studies -b12 and folate -Reticulocyte count -FOBT Plan Hold DVT prophylaxis for now - patient walking unit Subjective Date/time seen: 05/26/22 07:44 Patient says she is still having significant pain from the abscesses. She says yesterday was the birthday of her child who from leukemia. Patient says she takes half a milligram of lorazepam twice a day as needed at home. She denies taking the medication scheduled. Review of Systems Integumentary/Breasts: Skin/Breast: Reports breast pain Exam Narrative: GENERAL: NAD, cooperative HEENT: Normocephalic, atraumatic, anicteric NECK:Supple CV: Normal S1, S2, RRR, No MRG RESP: CTAB, Normal work of breathing. EXTREMITIES: Warm and well perfused, no clubbing, cyanosis, or edema SKIN: warm, dry and intact. NEURO: CN 2-12 grossly intact. Objective Data Vital Signs Vital Signs: Vital Signs - 24 hr 05/25/22 14:38 05/25/22 18:15 05/25/22 20:01 Temperature 97.9 F Pulse Rate 93 85 92 Respiratory Rate 18 16 18 Blood Pressure 118/91 H 132/92 H 113/86 Pulse Oximetry 100 98 99 Oxygen Delivery Room Air 05/25/22 17:49 05/25/22 17:53 05/25/22 18:00 Temperature Pulse Rate 94 87 84 Respiratory Rate 17 19 16 Blood Pressure 132/116 H Pulse Oximetry 94 99 Oxygen Delivery 05/25/22 18:02 05/25/22 18:15 05/25/22 18:17 Temperature Pulse Rate 83 84 85 Respiratory Rate 20 14 16 Blood Pressure 132/92 H 133/92 H Pulse Oximetry 98 Oxygen Delivery 05/25/22 18:30 05/25/22 18:32 05/25/22
[2022-05-26 07:52] LABS: Anion Gap 14 mmol/L (8-16); Chloride 99 mmol/L (98-107)
[2022-05-26 08:13] LABS: Glucose Point of Care 99 mg/dl (65-105)
[2022-05-26] MEDS: RANOLAZINE 500 MG TAB.ER.12H PO ×2 (08:21→20:11)
[2022-05-26] MEDS: glipiZIDE 5 MG TABLET PO ×2 (08:21→13:14)
[2022-05-26] MEDS: buPROPion HCL XL (24 HR) 150 MG TABCR 450 MG PO (08:22)
[2022-05-26] MEDS: TOPIRAMATE 100 MG TABLET PO ×2 (08:22→20:12)
[2022-05-26] MEDS: FUROSEMIDE 20 MG TABLET PO (08:22)
[2022-05-26] MEDS: NICOTINE (*PBKC) 21 MG PATCH 1 PATCH TRANSDERM (08:22)
--- NOTE | 2022-05-26 10:10 | PM.CNGS ---
Assessment and Plan Assessment and plan (1) Abscess of multiple sites: Code(s): L02.91 - Cutaneous abscess, unspecified Status: Acute Assessment and Plan: Patient with multiple abscesses. The largest abscess is located on the left breast. Will proceed with an ultrasound-guided aspiration of the left breast abscess in Radiology. Agree with IV Vancomycin. Will keep her NPO for now for procedure. She also has a smaller facial abscess on the right chin that still has purulent drainage and may need additional I&D to extend the previous incision as it does not appear adequately drained. Discussed treatment options with her regarding bedside I&D with local anesthetic versus going to the OR for drainage with sedation. Description of the procedure, risks, benefits, alternatives, and expected post-op wound care were discussed. Patient would be agreeable to bedside I&D. Dr. Mandujano will evaluate the patient separately to evaluate the need for further I&D. There is another very small right axillary abscess that was I&D'd in the ER but the incision has already closed. This is very small with minimal redness. It still has some induration. No fluctuance or purulent drainage. Will continue to monitor. (2) Insulin dependent type 2 diabetes mellitus, uncontrolled: Status: Acute Assessment and Plan: Uncontrolled with a hgb A1C 11.2 earlier this month. Glucose was 579 on admission and is improving, most recent glucose was 99 this morning. On sliding scale insulin. Management per Hospitalist. (3) Chronic obstructive pulmonary disease: Code(s): J44.9 - Chronic obstructive pulmonary disease, unspecified Status: Acute (4) History of MRSA infection: Code(s): Z86.14 - Personal history of Methicillin resistant Staphylococcus aureus infection Status: Acute (5) Hypokalemia: Code(s): E87.6 - Hypokalemia Status: Acute Assessment and Plan: Potassium 3.0 this morning, given another 40 meq KCL IV. Monitor labs and replace as needed. (6) Tobacco abuse: Code(s): Z72.0 - Tobacco use Status: Acute Assessment and Plan: Encouraged cessation and discussed how this increases her risks of for the breast abscess and can affect healing. (7) Cocaine abuse: Code(s): F14.10 - Cocaine abuse, uncomplicated Status: Acute Assessment and Plan: Encouraged cessation. (8) Obesity: Code(s): E66.9 - Obesity, unspecified Status: Acute (9) Obstructive sleep apnea: Code(s): G47.33 - Obstructive sleep apnea (adult) (pediatric) Status: Acute (10) Hidradenitis suppurativa: Code(s): L73.2 - Hidradenitis suppurativa Status: Acute Assessment and Plan: Recommended follow-up with her PCP after discharge to continue to follow. Plan I have discussed the patient's case and plan of care with Dr. Mandujano. Thank you for allowing us to see the patient in consultation and we will continue to follow along with you. History of Present Illness Consult details Consult date: 05/26/22 Reason for consult: other (Left breast abscess, facial abscess, right axillary abscess) Requesting physician: Kiersten Ramirez MD Narrative: This is a 51 year old woman with a history of uncontrolled insulin dependent diabetes mellitus, coronary artery disease with remote history of coronary artery stent, COPD, SOFIA with noncompliance of CPAP, hyperlipidemia, seizure disorder, and bipolar depression. She also has a history of hidradenitis suppurativa that was treated with doxycycline by her primary physician in the past. She has been off doxycycline for over a year. Since then, she has had more frequent issues with abscesses. She does report a remote history of MRSA infection. About 4 days ago, she first noticed a small bump on her right chin. This progressively became more swollen, red, and tender. Over the past few days, she also noticed a red tender bump in her right axil
[2022-05-26 13:01] LABS: Glucose Point of Care 158 mg/dl (65-105)
[2022-05-26] MEDS: LORazepam (*CRX) 0.5 MG TABLET PO ×2 (13:14→20:12)
[2022-05-26 17:31] LABS: Glucose Point of Care 230 mg/dl (65-105)
[2022-05-26] MEDS: INSULIN ASPART (*BKC) 100 UNITS/ML SUB-Q (17:52)
[2022-05-26 21:24] LABS: Glucose Point of Care 92 mg/dl (65-105)
[2022-05-26 22:21] LABS: Anion Gap 10 mmol/L (8-16); Blood Urea Nitrogen 12 mg/dL (7-17); Calcium 8.5 mg/dL (8.4-10.2); Carbon Dioxide 26 mmol/L (22-30); Chloride 102 mmol/L (98-107); Estimated CRCL calculation 71 ml/min; Estimated Glomerular Filt Rate > 60; Glucose 56 mg/dL (65-110); Potassium 2.8 mmol/L (3.4-5.0); Sodium 138 mmol/L (137-145)
[2022-05-26] MEDS: POTASSIUM CHLORIDE 20 MEQ TABLET 40 MEQ PO (22:28)
[2022-05-26] MEDS: DEXTROSE 50% 25 GM/50 ML SYRINGE IV PUSH (22:29)
[2022-05-27] VITALS (10 sets, daily range): BP systolic 90–112; BP diastolic 40–78; PULSE 64–80; RESP 16–21; TEMP 35.8–37.1; O2SAT 100
[2022-05-27 00:08] LABS: Glucose Point of Care 111 mg/dl (65-105)
[2022-05-27] MEDS: POTASSIUM CHLORIDE INJ 40 MEQ in SODIUM CHLORIDE 0.9% IV 500 ML 130 MEQ IVPB (01:01)
[2022-05-27] MEDS: MORPHINE SULFATE (*CRX) 2 MG/ML INJ IV PUSH ×8 (01:01→22:27)
[2022-05-27] MEDS: MAGNESIUM SULF 2 GM/WATER 50ML 2 GM/50 ML BAG IVPB (01:01)
[2022-05-27 06:08] LABS: Basophils Percent Auto 0.4 % (0.2-1.2); Eosinophils Absolute Auto 0.2 K/mm3 (0-0.3); Eosinophils Percent Auto 2.8 % (0-4.4); Hematocrit 31.8 % (37.0-47.0); Hemoglobin 10.6 g/dL (12.0-15.0); Immature Granulocyte Absolute 0.03 K/mm3 (0.00-0.031); Immature Granulocyte Percent A 0.4 % (0-0.5); Immature Reticulocyte Fraction 19.6 % (3.0-15.9); Lymphocytes Absolute Auto 2.17 K/mm3 (0.9-3.2); Lymphocytes Percent Auto 26.5 % (18.3-44.2); Mean Corpuscular HGB Conc 33.3 g/dl (32-36); Mean Corpuscular Hemoglobin 30.7 pg (26-34); Mean Corpuscular Volume 92.2 fl (80-100); Mean Platelet Volume 9.4 fl (7.4-10.4); Monocytes Absolute Auto 0.5 K/mm3 (0.1-0.6); Monocytes Percent Auto 6.3 % (2.6-8.5); Neutrophils Absolute Auto 5.2 K/mm3 (1.3-6.7); Neutrophils Percent Auto 63.6 % (45.5-73.1); Platelet Count Result 261 k/mm3 (150-375); Red Blood Count 3.45 M/mm3 (4.2-5.4); Red Cell Distribution Width 14.8 % (11.5-14.5); Reticulocyte Percent 3.11 % (0.7-4.3); Reticulocytes Absolute 0.11 B/L (32.2-175.7); White Blood Count 8.2 K/mm3 (4.5-10.0)
[2022-05-27 06:53] LABS: Anion Gap 10 mmol/L (8-16); Blood Urea Nitrogen 10 mg/dL (7-17); Calcium 8.4 mg/dL (8.4-10.2); Carbon Dioxide 24 mmol/L (22-30); Chloride 108 mmol/L (98-107); Estimated CRCL calculation 71 ml/min; Estimated Glomerular Filt Rate > 60; Glucose 107 mg/dL (65-110); Magnesium 2.2 mg/dL (1.6-2.3); Potassium 3.9 mmol/L (3.4-5.0); Sodium 142 mmol/L (137-145)
--- NOTE | 2022-05-27 07:20 | PM.IMPN ---
Progress Note: A&P Assessment and Plan (1) Abscess of multiple sites: Code(s): L02.91 - Cutaneous abscess, unspecified Status: Acute Assessment and Plan: S/P IR drainage of breast abscess. Wound culture with mixed morenita. Clinically improved. -Appreciate General Surgery recommendations -Continue vancomycin - pharmacy to dose (2) Positive blood culture: Code(s): R78.81 - Bacteremia Status: Acute Assessment and Plan: 1/2 blood cultures with gram positive cocci, which was drawn prior to starting vancomycin. Speciation pending. -Continue vancomycin -Repeat blood cultures in AM (3) History of MRSA infection: Code(s): Z86.14 - Personal history of Methicillin resistant Staphylococcus aureus infection Status: Acute (4) Insulin dependent type 2 diabetes mellitus, uncontrolled: Status: Acute Assessment and Plan: Hx of uncontrolled DM with last a1c 9.2 on 05/06/22. Significantly improved blood glucose control. Had an episode of hypoglycemia. Will reduce insulin to 90 BID. -Insulin 75/25 90 units BIDWM -High dose SSI (5) Hypokalemia: Code(s): E87.6 - Hypokalemia Status: Acute Assessment and Plan: Resolved. (6) Tobacco abuse: Code(s): Z72.0 - Tobacco use Status: Acute (7) Coronary artery disease: Qualifiers: Associated angina: without angina Coronary Disease-Associated Artery/Lesion type: [place] artery [place] vs. transplanted heart: [place] heart Qualified Code(s): I25.10 - Atherosclerotic heart disease of [place] coronary artery without angina pectoris Code(s): I25.10 - Atherosclerotic heart disease of [place] coronary artery without angina pectoris Status: Acute Assessment and Plan: Continue asa and statin. (8) Asthma-COPD overlap syndrome: Code(s): J44.9 - Chronic obstructive pulmonary disease, unspecified Status: Acute Assessment and Plan: Stable. Continue PRN duonebs. (9) Anemia: Code(s): D64.9 - Anemia, unspecified Status: Acute Assessment and Plan: Iron deficiency on labs. -Ferrous sulfate BID Plan Hold DVT prophylaxis for now - patient walking unit Subjective Date/time seen: 05/27/22 07:20 Patient says she feels better. She says the abscess on her chin has started to drain. Review of Systems Integumentary/Breasts: Skin/Breast: Reports wounds Exam Narrative: GENERAL: NAD, cooperative HEENT: Normocephalic, atraumatic, anicteric NECK:Supple CV: Normal S1, S2, RRR, No MRG RESP: CTAB, Normal work of breathing. EXTREMITIES: Warm and well perfused, no clubbing, cyanosis, or edema SKIN: warm, dry and intact. NEURO: CN 2-12 grossly intact. Objective Data Vital Signs Vital Signs: Vital Signs - 24 hr 05/26/22 07:31 05/26/22 08:00 05/26/22 08:00 Temperature 97.9 F Pulse Rate 56 L 78 Respiratory Rate 14 Blood Pressure 116/83 Pulse Oximetry 92 Oxygen Delivery Room Air 05/26/22 12:00 05/26/22 15:31 05/26/22 16:00 Temperature 97.9 F Pulse Rate 76 77 75 Respiratory Rate 20 Blood Pressure 136/100 H Pulse Oximetry 100 Oxygen Delivery 05/26/22 19:23 05/26/22 20:00 05/26/22 20:00 Temperature 96.8 F L Pulse Rate 75 87 Respiratory Rate 18 Blood Pressure 100/60 Pulse Oximetry 100 Oxygen Delivery Room Air 05/27/22 00:00 05/27/22 03:39 05/27/22 04:00 Temperature 98.8 F Pulse Rate 68 76 64 Respiratory Rate 16 Blood Pressure 98/40 L Pulse Oximetry 100 Oxygen Delivery Intake/Output Intake/Output: Intake & Output 05/24/22 05/25/22 05/26/22 05/27/22 23:59 23:59 23:59 23:59 Intake Total 2060 1670 Output Total 2900 800 Balance -840 870 Meds/Results Medications: Active Medications Generic Name Dose Route Start Last Admin Trade Name Freq PRN Reason Stop Dose Admin Acetaminophen 650 mg 05/25/22 21:26 Acetaminop
[2022-05-27 07:34] LABS: Glucose Point of Care 85 mg/dl (65-105)
[2022-05-27 07:59] LABS: Folic Acid 3.7 ng/mL (2.76->20)
[2022-05-27 08:12] LABS: Glucose Point of Care 85 mg/dl (65-105)
[2022-05-27] MEDS: buPROPion HCL XL (24 HR) 150 MG TABCR 450 MG PO (08:38)
[2022-05-27] MEDS: NICOTINE (*PBKC) 21 MG PATCH 1 PATCH TRANSDERM (08:39)
[2022-05-27] MEDS: RANOLAZINE 500 MG TAB.ER.12H PO ×2 (08:40→20:26)
[2022-05-27] MEDS: TOPIRAMATE 100 MG TABLET PO ×2 (08:40→20:26)
[2022-05-27] MEDS: FUROSEMIDE 20 MG TABLET PO (08:40)
[2022-05-27 09:01] LABS: Vancomycin Trough 16.6 ug/mL (10.0-20.0)
[2022-05-27 09:31] LABS: Glucose Point of Care 100 mg/dl (65-105)
[2022-05-27] MEDS: HYDROcodone/acetaminophen (*CRX) 5-325 MG TABLET 1 TAB PO (09:33)
--- NOTE | 2022-05-27 11:52 | PM.PNGS ---
Progress Note: A&P Assessment and Plan (1) Abscess of face: Code(s): L02.01 - Cutaneous abscess of face Status: Acute Assessment and Plan: No residual abscess. Should heal with continued antibiotics. Can switch to oral antibiotics and discharge at any time from my perspective. (2) Abscess of breast: Code(s): N61.1 - Abscess of the breast and nipple Status: Acute Assessment and Plan: Drained 2 days ago with ultrasound and looks good. No sign of recurrent abscess. Continue antibiotics but these can be changed to oral antibiotics and patient can be discharged and followed up as an outpatient. (3) Insulin dependent type 2 diabetes mellitus, uncontrolled: Status: Acute Assessment and Plan: Discussed the importance of good diabetic control to avoid further abscesses and in healing of the current multiple abscesses patient has. Subjective Subjective Date/Time Seen: 05/27/22 11:52 Patient reports: still having pain and afebrile Interval history: Complains of pain multiple areas including left breast. Review of Systems Review of Systems: All systems reviewed & are unremarkable except as noted in HPI and below (HPI and those items noted below) Constitutional: Constitutional: Denies chills and Denies fever(s) Cardiovascular: Cardiovascular: Denies chest pain, Denies diaphoresis, Denies dyspnea and Denies paroxysmal nocturnal dyspnea Respiratory: Respiratory: Denies chest congestion, Denies cough and Denies dyspnea Integumentary/Breasts: Skin/Breast: Reports breast pain and Reports sores Exam Const: General: comfortable, no acute distress, alert and awake Nutritional Appearance: overweight HENMT: Mouth: Yes other (Right chin abscess tender but not fluctuant, well drained, healing) Chest: Breast/axilla inspection: abnormal inspection of the breast (Left breast abscess much smaller, no fluid noted) Breast/axilla palpation: abnormal palpation of the breast (Left breast tender but no abscess noted.) Objective Data Vital Signs Vital Signs: Vital Signs - 24 hr 05/26/22 12:00 05/26/22 15:31 05/26/22 16:00 Temperature 36.6 C Pulse Rate 76 77 75 Respiratory Rate 20 Blood Pressure 136/100 H Pulse Oximetry 100 Oxygen Delivery 05/26/22 19:23 05/26/22 20:00 05/26/22 20:00 Temperature 36.0 C L Pulse Rate 75 87 Respiratory Rate 18 Blood Pressure 100/60 Pulse Oximetry 100 Oxygen Delivery Room Air 05/27/22 00:00 05/27/22 03:39 05/27/22 04:00 Temperature 37.1 C Pulse Rate 68 76 64 Respiratory Rate 16 Blood Pressure 98/40 L Pulse Oximetry 100 Oxygen Delivery Intake/Output Intake/Output: Intake & Output 05/24/22 05/25/22 05/26/22 05/27/22 23:59 23:59 23:59 23:59 Intake Total 2060 1910 Output Total 2900 800 Balance -840 1110 Meds/Results Medications: Active Medications Generic Name Dose Route Start Last Admin Trade Name Freq PRN Reason Stop Dose Admin Acetaminophen 650 mg 05/25/22 21:26 Acetaminophen 325 Mg Tablet PO Q6H PRN Mild Pain (1-3) or Fever Hydrocodone Bitart/Acetaminophen 1 tab 05/25/22 21:26 05/27/22 09:33 Hydrocodone/Acetaminophen (*Crx) 5-325 Mg Tablet PO 1 tab Q6H PRN Administration Pain Rated 4-6 Albuterol 2 puff 05/26/22 02:02 Albuterol Sulfate (*Sp) Aerosol 1 Puff INHALATION Q6H PRN Shortness Of Breath Atorvastatin Calcium 80 mg 05/26/22 02:55 05/26/22 20:11 Atorvastatin 40 Mg Tablet PO 80 mg HS LORENA Administration Bupropion HCl 450 mg 05/26/22 09:00 05/27/22 08:38 Bupropion Hcl Xl (24 Hr) 150 Mg Tabcr PO 450 mg DAILY LORENA Administration Dextrose 12.5 gm 05/25/22 21:27 05/26/22 22:29 Dextrose 50% 25 Gm/50 Ml Syringe IV PUSH 12.5 gm PRN PRN Administration Hypoglycemia Protocol Furosemide 20 mg 05/26/22 09:00 05/27/22 08:40 Furosemide 20 Mg Tablet PO 20 mg DAILY LORENA Administration Gl
[2022-05-27 12:08] LABS: Glucose Point of Care 108 mg/dl (65-105)
[2022-05-27 12:24] LABS: Iron 41 ug/dL (37-170)
[2022-05-27 12:36] LABS: Percent Iron Saturation 19 % (20-50)
[2022-05-27] MEDS: LORazepam (*CRX) 0.5 MG TABLET PO (15:36)
[2022-05-27 16:52] LABS: Glucose Point of Care 69 mg/dl (65-105)
[2022-05-27] MEDS: FERROUS SULFATE 324 MG TABLET PO (18:08)
[2022-05-27] MEDS: ASPIRIN 81 MG ENTERIC TABLET PO (18:08)
[2022-05-27 18:17] LABS: Glucose Point of Care 65 mg/dl (65-105)
[2022-05-27] MEDS: traZODone HCL 50 MG TABLET 200 MG PO (20:26)
[2022-05-27] MEDS: PARoxetine 20 MG TABLET 40 MG PO (20:26)
[2022-05-27] MEDS: ATORVASTATIN 40 MG TABLET 80 MG PO (20:26)
[2022-05-28] VITALS (14 sets, daily range): BP systolic 90–125; BP diastolic 40–71; PULSE 61–91; RESP 12–21; TEMP 36.1–36.7; O2SAT 100
[2022-05-28 00:13] LABS: Glucose Point of Care 130 mg/dl (65-105)
[2022-05-28] MEDS: MORPHINE SULFATE (*CRX) 2 MG/ML INJ IV PUSH ×2 (00:33→02:24)
--- NOTE | 2022-05-28 06:05 | PC.NURSE ---
Pt frequently asking for pain medication through out the night and rates her pain at at either a 9 or 10. Pt does not appear in distress, she has been up walking the halls and drinking diet pepsi, her blood pressure has been low. This morning patient is asking for more pain medication and blood pressure systolic is below 100. Explained to patient that her blood pressure is to low to give pain medication at this time. Patient has repeatedly asked for her blood pressure to be taken to see if it is up enough for pain medication. Patient has had no moaning, no grimace, no crying. Pt has been walking halls. Weston Delgado NP has been notified, stated to let Dr Ramirez know about medication and BP.
[2022-05-28 06:18] LABS: Basophils Absolute Auto 0.1 K/mm3 (0.0-0.1); Basophils Percent Auto 0.7 % (0.2-1.2); Eosinophils Absolute Auto 0.3 K/mm3 (0-0.3); Eosinophils Percent Auto 3.7 % (0-4.4); Hematocrit 32.9 % (37.0-47.0); Hemoglobin 10.4 g/dL (12.0-15.0); Immature Granulocyte Absolute 0.02 K/mm3 (0.00-0.031); Immature Granulocyte Percent A 0.3 % (0-0.5); Lymphocytes Absolute Auto 2.58 K/mm3 (0.9-3.2); Lymphocytes Percent Auto 33.7 % (18.3-44.2); Mean Corpuscular HGB Conc 31.6 g/dl (32-36); Mean Corpuscular Hemoglobin 30.3 pg (26-34); Mean Corpuscular Volume 95.9 fl (80-100); Mean Platelet Volume 9.6 fl (7.4-10.4); Monocytes Absolute Auto 0.5 K/mm3 (0.1-0.6); Monocytes Percent Auto 6.7 % (2.6-8.5); Neutrophils Absolute Auto 4.2 K/mm3 (1.3-6.7); Neutrophils Percent Auto 54.9 % (45.5-73.1); Platelet Count Result 272 k/mm3 (150-375); Red Blood Count 3.43 M/mm3 (4.2-5.4); White Blood Count 7.7 K/mm3 (4.5-10.0)
[2022-05-28 06:24] LABS: Anion Gap 12 mmol/L (8-16); Blood Urea Nitrogen 10 mg/dL (7-17); Calcium 8.5 mg/dL (8.4-10.2); Carbon Dioxide 26 mmol/L (22-30); Chloride 103 mmol/L (98-107); Estimated CRCL calculation 65 ml/min; Estimated Glomerular Filt Rate 59; Glucose 145 mg/dL (65-110); Potassium 3.7 mmol/L (3.4-5.0); Sodium 141 mmol/L (137-145)
--- NOTE | 2022-05-28 07:34 | PM.IMPN ---
Progress Note: A&P Assessment and Plan (1) Abscess of multiple sites: Code(s): L02.91 - Cutaneous abscess, unspecified Status: Acute Assessment and Plan: S/P IR drainage of breast abscess. Wound culture with mixed morenita. Clinically improved. -Appreciate General Surgery recommendations (2) Positive blood culture: Code(s): R78.81 - Bacteremia Status: Acute Assessment and Plan: 1/2 blood cultures with staphylococcus epidermis. Repeat cultures sent this morning. This was most likely a contaminant. -Will switch to oral clindamycin 300 q6h today (3) History of MRSA infection: Code(s): Z86.14 - Personal history of Methicillin resistant Staphylococcus aureus infection Status: Acute (4) Insulin dependent type 2 diabetes mellitus, uncontrolled: Status: Acute Assessment and Plan: Hx of uncontrolled DM with last a1c 9.2 on 05/06/22. Significantly improved blood glucose control. Had an episode of hypoglycemia. Will reduce insulin to 90 BID. -Insulin 75/25 90 units BIDWM -High dose SSI (5) Hypokalemia: Code(s): E87.6 - Hypokalemia Status: Acute Assessment and Plan: Resolved. (6) Tobacco abuse: Code(s): Z72.0 - Tobacco use Status: Acute (7) Coronary artery disease: Qualifiers: Associated angina: without angina Coronary Disease-Associated Artery/Lesion type: [place] artery [place] vs. transplanted heart: [place] heart Qualified Code(s): I25.10 - Atherosclerotic heart disease of [place] coronary artery without angina pectoris Code(s): I25.10 - Atherosclerotic heart disease of [place] coronary artery without angina pectoris Status: Acute Assessment and Plan: Continue asa and statin. (8) Asthma-COPD overlap syndrome: Code(s): J44.9 - Chronic obstructive pulmonary disease, unspecified Status: Acute Assessment and Plan: Stable. Continue PRN duonebs. (9) Anemia: Code(s): D64.9 - Anemia, unspecified Status: Acute Assessment and Plan: Anemia of chronic disease. Not symptomatic. Will monitor. Subjective Date/time seen: 05/28/22 07:34 Patient says she takes all of her insulin at home. Blood glucose levels have been low to normal while hospitalized and insulin dose has been held and lowered. Patient asks if she can be given Ione for discharge. She says she feels better. She reports the wound on her face is still draining but the wounds under each axilla are not draining. Nursing has concerns about intravenous morphine requests. Nurse reports the patient will ask to have her blood pressure checked to see if it is high enough and then request morphine. Review of Systems Integumentary/Breasts: Skin/Breast: Reports wounds Exam Narrative: GENERAL: NAD, cooperative HEENT: Normocephalic, atraumatic, anicteric NECK:Supple CV: Normal S1, S2, RRR, No MRG RESP: CTAB, Normal work of breathing. EXTREMITIES: Warm and well perfused, no clubbing, cyanosis, or edema SKIN: warm, dry and intact. NEURO: CN 2-12 grossly intact. Objective Data Vital Signs Vital Signs: Vital Signs - 24 hr 05/27/22 08:30 05/27/22 08:30 05/27/22 12:00 Temperature Pulse Rate 80 71 Respiratory Rate Blood Pressure Pulse Oximetry Oxygen Delivery Room Air 05/27/22 14:00 05/27/22 16:00 05/27/22 20:00 Temperature 96.5 F L Pulse Rate 71 74 78 Respiratory Rate 18 Blood Pressure 100/78 Pulse Oximetry 100 Oxygen Delivery 05/27/22 20:00 05/27/22 22:40 05/27/22 21:30 Temperature 98.4 F Pulse Rate 71 Respiratory Rate 21 H Blood Pressure 112/58 L 90/46 L Pulse Oximetry 100 Oxygen Delivery Room Air 05/28/22 01:20 05/28/22 00:00 05/28/22 02:22 Temperature Pulse Rate 68 Respiratory Rate Blood Pressure 100/66 100/54 L Pulse Oximetry Oxygen Delivery 05/28/22 04:00 05/28/22 05:01
[2022-05-28] MEDS: buPROPion HCL XL (24 HR) 150 MG TABCR 450 MG PO (08:22)
[2022-05-28] MEDS: ASPIRIN 81 MG ENTERIC TABLET PO (08:22)
[2022-05-28] MEDS: FUROSEMIDE 20 MG TABLET PO (08:22)
[2022-05-28] MEDS: RANOLAZINE 500 MG TAB.ER.12H PO ×2 (08:22→20:34)
[2022-05-28] MEDS: FERROUS SULFATE 324 MG TABLET PO (08:22)
[2022-05-28] MEDS: TOPIRAMATE 100 MG TABLET PO ×2 (08:22→20:36)
[2022-05-28] MEDS: NICOTINE (*PBKC) 21 MG PATCH 1 PATCH TRANSDERM (08:23)
[2022-05-28] MEDS: HYDROcodone/acetaminophen (*CRX) 5-325 MG TABLET 1 TAB PO ×3 (08:26→20:33)
[2022-05-28] MEDS: LORazepam (*CRX) 0.5 MG TABLET PO ×2 (08:27→17:55)
[2022-05-28 08:47] LABS: Glucose Point of Care 143 mg/dl (65-105)
[2022-05-28 12:00] LABS: Glucose Point of Care 72 mg/dl (65-105)
[2022-05-28] MEDS: NICOTINE (*PBKC) 4 MG GUM PO (16:29)
[2022-05-28 17:04] LABS: Glucose Point of Care 168 mg/dl (65-105)
[2022-05-28] MEDS: CLINDAMYCIN HCL 150 MG CAP 300 MG PO (17:19)
[2022-05-28] MEDS: ATORVASTATIN 40 MG TABLET 80 MG PO (20:34)
[2022-05-28] MEDS: PARoxetine 20 MG TABLET 40 MG PO (20:34)
[2022-05-28] MEDS: traZODone HCL 50 MG TABLET 200 MG PO (20:36)
[2022-05-28 21:02] LABS: Glucose Point of Care 83 mg/dl (65-105)
[2022-05-28 21:22] LABS: IFOB Positive Control Positive; Immunochemical Fecal Occult Bl Negative (N)
[2022-05-29] VITALS (7 sets, daily range): BP systolic 93–118; BP diastolic 54–78; PULSE 61–84; RESP 18–21; TEMP 36.2–36.7; O2SAT 100
[2022-05-29] MEDS: CLINDAMYCIN HCL 150 MG CAP 300 MG PO ×3 (00:36→11:17)
[2022-05-29] MEDS: HYDROcodone/acetaminophen (*CRX) 5-325 MG TABLET 1 TAB PO ×3 (02:24→14:53)
[2022-05-29 06:12] LABS: Basophils Percent Auto 0.6 % (0.2-1.2); Eosinophils Absolute Auto 0.3 K/mm3 (0-0.3); Eosinophils Percent Auto 3.9 % (0-4.4); Hematocrit 34.3 % (37.0-47.0); Hemoglobin 10.2 g/dL (12.0-15.0); Immature Granulocyte Absolute 0.03 K/mm3 (0.00-0.031); Immature Granulocyte Percent A 0.4 % (0-0.5); Lymphocytes Absolute Auto 2.59 K/mm3 (0.9-3.2); Lymphocytes Percent Auto 38.7 % (18.3-44.2); Mean Corpuscular HGB Conc 29.7 g/dl (32-36); Mean Corpuscular Hemoglobin 30.1 pg (26-34); Mean Corpuscular Volume 101.2 fl (80-100); Mean Platelet Volume 9.3 fl (7.4-10.4); Monocytes Absolute Auto 0.5 K/mm3 (0.1-0.6); Neutrophils Absolute Auto 3.3 K/mm3 (1.3-6.7); Neutrophils Percent Auto 49.4 % (45.5-73.1); Platelet Count Result 251 k/mm3 (150-375); Red Blood Count 3.39 M/mm3 (4.2-5.4); Red Cell Distribution Width 15.1 % (11.5-14.5); White Blood Count 6.7 K/mm3 (4.5-10.0)
[2022-05-29 06:49] LABS: Anion Gap 11 mmol/L (8-16); Blood Urea Nitrogen 16 mg/dL (7-17); Calcium 8.6 mg/dL (8.4-10.2); Carbon Dioxide 19 mmol/L (22-30); Chloride 111 mmol/L (98-107); Estimated CRCL calculation 67 ml/min; Estimated Glomerular Filt Rate 59; Glucose 67 mg/dL (65-110); Sodium 141 mmol/L (137-145)
--- NOTE | 2022-05-29 07:38 | PM.DS ---
DS: Admitting Diagnosis Discharge Date 05/29/22 Admitting Diagnosis Abscess DS: Discharge Diagnosis Discharge Diagnosis (1) Abscess of multiple sites: Code(s): L02.91 - Cutaneous abscess, unspecified Status: Acute Assessment and Plan: S/P IR drainage of breast abscess. Wound culture with mixed morenita. Clinically improved. -Appreciate General Surgery recommendations (2) Positive blood culture: Code(s): R78.81 - Bacteremia Status: Acute Assessment and Plan: 1/2 blood cultures with staphylococcus epidermis. Repeat cultures sent this morning. This was most likely a contaminant. Repeat cultures have no growth at the time of discharge. (3) History of MRSA infection: Code(s): Z86.14 - Personal history of Methicillin resistant Staphylococcus aureus infection Status: Acute Assessment and Plan: MRSA swab negative. (4) Insulin dependent type 2 diabetes mellitus, uncontrolled: Status: Acute Assessment and Plan: This is difficulty as patient has substance abuse at home (cocaine) and it is likely the patient is either eating a very high carbohydrate diet or not taking the insulin because while hospitalized the patient's insulin has been held daily. She has had significant hypoglycemia. Advised patient that she would benefit from seeing an Casing Grader. Patient would also likely benefit from a continuous glucose monitor. insulin to 75/25 45 units BIDWM for discharge due to persistent hypoglycemia after being given the home dose of insulin while hospitalized. (5) Hypokalemia: Code(s): E87.6 - Hypokalemia Status: Acute Assessment and Plan: Resolved. (6) Tobacco abuse: Code(s): Z72.0 - Tobacco use Status: Acute (7) Coronary artery disease: Qualifiers: Associated angina: without angina Coronary Disease-Associated Artery/Lesion type: [place] artery [place] vs. transplanted heart: [place] heart Qualified Code(s): I25.10 - Atherosclerotic heart disease of [place] coronary artery without angina pectoris Code(s): I25.10 - Atherosclerotic heart disease of [place] coronary artery without angina pectoris Status: Acute Assessment and Plan: Continue asa and statin. (8) Asthma-COPD overlap syndrome: Code(s): J44.9 - Chronic obstructive pulmonary disease, unspecified Status: Acute Assessment and Plan: Stable. Resume home medications. (9) Anemia: Code(s): D64.9 - Anemia, unspecified Status: Acute Assessment and Plan: Anemia of chronic disease. Not symptomatic. Will monitor. (10) Diabetes mellitus: Qualifiers: Diabetes mellitus type: type 2 Diabetes mellitus long-term insulin use: with long-term use Diabetes mellitus complication status: with hyperglycemia Qualified Code(s): E11.65 - Type 2 diabetes mellitus with hyperglycemia; Z79.4 - halfway (current) use of insulin Code(s): E11.9 - Type 2 diabetes mellitus without complications Status: Acute (11) Abscess of breast: Code(s): N61.1 - Abscess of the breast and nipple Status: Acute DS: Summary Hospital Course Reason for hospitalization: Abscesses Hospital Course: 51F with a past medical history of substance abuse - cocaine, MRSA, diabetes, coronary artery disease, hypertension, pancreatitis, chronic obstructive pulmonary disease who presented to the emergency department with abscesses on the left of chin, bilateral axilla and left breast. Patient was started on vancomycin and incision and drainage of the face and axilla abscess in the emergency department. General surgery was consulted and determined the left breast abscess was appropriate for drainage by interventional radiology. Interventional radiology drained the left breast abscess and the fluid culture grew actinomyces neuii, which susceptibility testing is not routinely per
[2022-05-29] MEDS: buPROPion HCL XL (24 HR) 150 MG TABCR 450 MG PO (08:24)
[2022-05-29] MEDS: ENOXAPARIN 40 MG/0.4 ML SYRINGE SUB-Q (08:24)
[2022-05-29] MEDS: FUROSEMIDE 20 MG TABLET PO (08:24)
[2022-05-29] MEDS: ASPIRIN 81 MG ENTERIC TABLET PO (08:24)
[2022-05-29] MEDS: LORazepam (*CRX) 0.5 MG TABLET PO (08:24)
[2022-05-29] MEDS: RANOLAZINE 500 MG TAB.ER.12H PO (08:25)
[2022-05-29] MEDS: TOPIRAMATE 100 MG TABLET PO (08:25)
[2022-05-29] MEDS: NICOTINE (*PBKC) 21 MG PATCH 1 PATCH TRANSDERM (08:25)
[2022-05-29 08:37] LABS: Glucose Point of Care 20 mg/dl (65-105)
[2022-05-29 08:50] LABS: Glucose Point of Care 94 mg/dl (65-105)
[2022-05-29] MEDS: NICOTINE (*PBKC) 4 MG GUM PO (10:43)
[2022-05-29 12:08] LABS: Glucose Point of Care 208 mg/dl (65-105)
[2022-05-29] MEDS: INSULIN ASPART (*BKC) 100 UNITS/ML SUB-Q (12:25)
[2022-05-29 15:34] LABS: Glucose Point of Care 206 mg/dl (65-105)
== END 2022-05-29 16:31 | disposition home or self-care (01) ==
LOC: ANHED 21:16 → ANH2MED 23:49
PROVIDERS: Physician Assistant; Admitting Provider Internal Medicine; Emergency Provider Emergency Medicine; Visit Provider Family Medicine
DX: N61.1 Abscess of the breast and nipple (principal); L02.01 Cutaneous abscess of face; L02.411 Cutaneous abscess of right axilla; L02.211 Cutaneous abscess of abdominal wall; Z86.14 Personal history of Methicillin resistant Staphylococcus aureus infection; E87.6 Hypokalemia; F17.210 Nicotine dependence, cigarettes, uncomplicated; I25.10 Atherosclerotic heart disease of native coronary artery without angina pectoris; J44.9 Chronic obstructive pulmonary disease, unspecified; D64.9 Anemia, unspecified; E11.40 Type 2 diabetes mellitus with diabetic neuropathy, unspecified; E11.319 Type 2 diabetes mellitus with unspecified diabetic retinopathy without macular edema; I10 Essential (primary) hypertension; Z95.5 Presence of coronary angioplasty implant and graft; E66.9 Obesity, unspecified; R51.9 Headache, unspecified; Z68.36 Body mass index [BMI] 36.0-36.9, adult; Z76.5 Malingerer [conscious simulation]; E78.5 Hyperlipidemia, unspecified; E78.1 Pure hyperglyceridemia; G47.33 Obstructive sleep apnea (adult) (pediatric); Z99.89 Dependence on other enabling machines and devices; Z91.19 Patient's noncompliance with other medical treatment and regimen; L73.2 Hidradenitis suppurativa; Z20.822 Contact with and (suspected) exposure to COVID-19; F12.90 Cannabis use, unspecified, uncomplicated; F14.10 Cocaine abuse, uncomplicated; Z87.19 Personal history of other diseases of the digestive system; Z79.51 Long term (current) use of inhaled steroids; Z79.1 Long term (current) use of non-steroidal anti-inflammatories (NSAID); Z79.84 Long term (current) use of oral hypoglycemic drugs; Z79.4 Long term (current) use of insulin; Z79.82 Long term (current) use of aspirin; Z79.891 Long term (current) use of opiate analgesic; Z79.899 Other long term (current) drug therapy; Z83.3 Family history of diabetes mellitus; Z83.6 Family history of other diseases of the respiratory system
CPT/HCPCS: 10061; 10160; 36415; 76942; 80048; 80053; 80202; 81001; 81025; 82010; 82274; 82565; 82607; 82728; 82746; 82948; 83540; 83550; 83735; 84100; 85025; 85046; 87040; 87070; 87075; 87081; 87147; 87181; 87186; 87205; 96365; 96366; 96367; 96368; 96372; 96374; 96375; 96376; 99285; A9270; C9803; G0378; G0379; J1650; J1815; J2270; J3010; J3370; J3475; J3480; J7040; U0003; U0005

== ENCOUNTER 2022-07-14 10:08 | Outpatient (RCR) | payer OTHER, SELFPAY | END 2022-10-10 14:35 | disposition home or self-care (01) | LOC: ANHDMC 10:08 | DX: E11.9 Type 2 diabetes mellitus without complications (principal); Z71.89 Other specified counseling | CPT/HCPCS: G0108 ==

== ENCOUNTER 2022-07-26 00:56 | Emergency (ER) | payer OTHER, SELFPAY ==
[2022-07-26] VITALS (10 sets, daily range): BP systolic 82–113; BP diastolic 58–82; PULSE 60–76; RESP 9–26; TEMP 36.7; O2SAT 97–100
--- NOTE | ~2022-07-26 | XR_ITS ---
EXAMINATION: XR chest 1V portable DATE: 07/26/2022 01:46 INDICATION: Chest pain. Shortness of breath. TECHNIQUE: A single frontal view of the chest was obtained. COMPARISON: Chest 2 views 05/05/2022, CT abdomen and pelvis 10/12/2021 FINDINGS: The chest demonstrates clear lungs without pneumonia, pleural effusion, or pneumothorax. Th e heart size is normal. IMPRESSION: 1. No acute cardiopulmonary disease. Reviewed, dictated and finalized at location A. PAPER SCRAPER
--- NOTE | 2022-07-26 01:04 | ECG_ITS ---
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
[2022-07-26 01:17] LABS: Basophils Absolute Auto 0.1 K/mm3 (0.0-0.1); Basophils Percent Auto 0.4 % (0.2-1.2); Eosinophils Absolute Auto 0.4 K/mm3 (0-0.3); Eosinophils Percent Auto 3.7 % (0-4.4); Hematocrit 38.2 % (37.0-47.0); Hemoglobin 12.4 g/dL (12.0-15.0); Immature Granulocyte Absolute 0.05 K/mm3 (0.00-0.031); Immature Granulocyte Percent A 0.4 % (0-0.5); Lymphocytes Absolute Auto 3.59 K/mm3 (0.9-3.2); Lymphocytes Percent Auto 32.2 % (18.3-44.2); Mean Corpuscular HGB Conc 32.5 g/dl (32-36); Mean Corpuscular Hemoglobin 31.7 pg (26-34); Mean Corpuscular Volume 97.7 fl (80-100); Mean Platelet Volume 8.9 fl (7.4-10.4); Monocytes Absolute Auto 0.4 K/mm3 (0.1-0.6); Monocytes Percent Auto 3.8 % (2.6-8.5); Neutrophils Absolute Auto 6.6 K/mm3 (1.3-6.7); Neutrophils Percent Auto 59.5 % (45.5-73.1); Platelet Count Result 258 k/mm3 (150-375); Red Blood Count 3.91 M/mm3 (4.2-5.4); Red Cell Distribution Width 15.3 % (11.5-14.5); White Blood Count 11.1 K/mm3 (4.5-10.0)
[2022-07-26 01:27] LABS: Anion Gap 12 mmol/L (8-16); Blood Urea Nitrogen 17 mg/dL (7-17); Calcium 9.2 mg/dL (8.4-10.2); Carbon Dioxide 22 mmol/L (22-30); Chloride 107 mmol/L (98-107); Estimated CRCL calculation 79 ml/min; Estimated Glomerular Filt Rate > 60; Glucose 158 mg/dL (65-110); Potassium 3.6 mmol/L (3.4-5.0); Sodium 141 mmol/L (137-145)
[2022-07-26 01:39] LABS: Troponin I < 0.012 ng/mL (0.000-0.034)
[2022-07-26] MEDS: MORPHINE SULFATE (*CRX) 2 MG/ML INJ IV PUSH (01:43)
--- NOTE | 2022-07-26 01:43 | ED.CHESTPAIN ---
HPI - Chest Pain General Chief Complaint: Chest Pain Stated Complaint: CHEST PAIN Time Seen by Provider: 07/26/22 01:04 History of Present Illness HPI narrative: Patient with history of polysubstance use disorder with last cocaine use several days ago, CAD status post stents, presents here with chest pain in her left side that radiates down her left arm, started suddenly while she was at rest, associated with feeling cold, she took 3 nitros and aspirins at home with some relief in her symptoms, but now she is having a headache and seeing that she is still having some chest pain. She is asking for Dilaudid by name. Related Data Home Medications Medication Instructions Recorded Confirmed furosemide 40 mg tablet 20 mg PO DAILY 07/09/19 05/25/22 paroxetine HCl 40 mg tablet (Paxil) 40 mg PO HS 07/09/19 05/25/22 albuterol sulfate 2.5 mg/3 mL 2.5 mg inhalation Q4H PRN SOB 07/12/19 05/25/22 (0.083 %) solution for nebulization albuterol sulfate 90 mcg/actuation 2 puff inhalation Q6H PRN SOB 07/12/19 05/25/22 aerosol inhaler acetaminophen 500 mg tablet 1,000 mg PO Q6H PRN Pain (Scale 03/28/20 05/25/22 (Tylenol Extra Strength) Score 1-3) ondansetron HCl 4 mg tablet 4 mg PO Q6H PRN Nausea And Vomiting 03/28/20 05/25/22 ranolazine 500 mg tablet,extended 500 mg PO Q12H 03/28/20 05/25/22 release,12 hr topiramate 100 mg tablet 100 mg PO Q12H 03/28/20 05/25/22 glipizide 5 mg tablet 5 mg PO 09,12 09/08/21 05/25/22 rizatriptan 10 mg tablet 10 mg PO QID PRN Migraine Headache 09/08/21 05/25/22 atorvastatin 80 mg tablet 80 mg PO HS 10/13/21 05/25/22 trazodone 100 mg tablet 200 mg PO HS 10/13/21 05/25/22 aspirin 81 mg tablet,delayed 81 mg PO DAILY 05/05/22 05/25/22 release lorazepam 1 mg tablet 1 mg PO PRN PRN Anxiety 05/05/22 05/25/22 nitroglycerin 0.4 mg sublingual 0.4 mg sublingual Q5M PRN Chest 05/05/22 05/25/22 tablet Pain Allergies Allergy/AdvReac Type Severity Reaction Status Date / Time metoclopramide [From Reglan] Allergy Hives Verified 05/25/22 20:01 prochlorperazine Allergy Hives Verified 05/25/22 20:01 [From Compazine] levofloxacin [From Levaquin] AdvReac Itching Verified 05/25/22 20:01 Review of Systems Review of Systems: CONST: No fever. HEENT: No sore throat C/V: chest pain RESP: No cough GI: Nausea : No dysuria. M/S: No joint pain. SKIN: No rash. NEURO: Headache without focal numbness or weakness PSYCH: [No depression] FOR[facility], [facility] Past Medical History Medical History Chronic obstructive pulmonary disease Cocaine abuse Coronary artery disease Stent to the LAD in 2012. Diabetic neuropathy Diabetic retinopathy Dyslipidemia Insulin dependent type 2 diabetes mellitus, uncontrolled Hemoglobin A1c was 11.2% in May 2022. MRSA infection Obesity Obstructive sleep apnea Pancreatitis (07/2019) Tobacco abuse Surgical History Surgical History History of bone marrow biopsy History of History of cholecystectomy History of coronary artery stent placement (~2012) [facility] History of dilatation and curettage History of hysterectomy History of tubal ligation Family History Family History Father Acute myocardial infarction Heart disease Hypertension Congestive heart failure Mother Diabetes mellitus Acute myocardial infarction Hypertension Congestive heart failure Sibling Diabetes mellitus Asthma Chronic obstructive pulmonary disease Congestive heart failure Daughter Leukemia Sibling Overdose Asthma Chronic obstructive pulmonary disease Other Acute myocardial infarction Congestive heart failure Sibling Asthma Chronic obstructive pulmonary disease Sibling Asthma Chronic obstructive pulmonary disease Social History Social History Social History
[2022-07-26] MEDS: ASPIRIN 81 MG CHEWABLE TABLET 324 MG PO (01:44)
[2022-07-26] MEDS: SODIUM CHLORIDE 0.9% IV 1,000 ML 999 ML (01:48)
--- NOTE | 2022-07-26 01:49 | PC.NURSE ---
pt took 3 baby ASA at home
[2022-07-26 01:57] LABS: Amphetamine Screen Urine Negative (Negative); Barbiturate Screen Urine Negative (Negative); Benzodiazepines Screen Urine Negative (Negative); Cannabinoid Screen Urine Negative (Negative); Cocaine Screen Urine Positive (Negative); Methadone Screen Urine Negative (Negative); Opiate Screen Urine Negative (Negative); Phencyclidine Screen Urine Negative (Negative)
[2022-07-26] MEDS: LORazepam INJ (*CRX) 2 MG/ML VIAL 1 MG IV PUSH (01:57)
--- NOTE | 2022-07-26 02:01 | PC.NURSE ---
pt asked this nurse to push IV morphine through SLN fast . Pt was agitated when morphine mixed with Saline flush prior to administration.
[2022-07-26 02:17] LABS: Lipase 26 U/L (23-300)
[2022-07-26 02:40] LABS: Influenza A QL RT-PCR Negative (Negative); Influenza B QL RT-PCR Negative (Negative); RSV RNA, RT-PCR Negative (Negative); SARS-CoV-2 RNA PCR Negative
--- NOTE | 2022-07-26 02:50 | PC.NURSE ---
pt turned monitor off and walking in hatch with IV fluids. Asked pt to go back in room and she became agitated and asked for pain medication. ERP notified
[2022-07-26] MEDS: SUMAtriptan SUCCINATE 6 MG/0.5 ML VIAL SUB-Q (03:59)
[2022-07-26 05:30] LABS: Troponin I < 0.012 ng/mL (0.000-0.034)
== END 2022-07-26 06:25 | disposition home or self-care (01) ==
PROVIDERS: Emergency Provider Emergency Medicine
DX: F14.10 Cocaine abuse, uncomplicated (principal); R07.9 Chest pain, unspecified; R51.9 Headache, unspecified; Z20.822 Contact with and (suspected) exposure to COVID-19; F17.210 Nicotine dependence, cigarettes, uncomplicated; J44.9 Chronic obstructive pulmonary disease, unspecified; I25.10 Atherosclerotic heart disease of native coronary artery without angina pectoris; E11.40 Type 2 diabetes mellitus with diabetic neuropathy, unspecified; G47.30 Sleep apnea, unspecified
CPT/HCPCS: 36415; 71045; 80048; 80307; 83690; 84484; 85025; 87637; 93005; 96361; 96365; 96372; 96375; 99284; A9270; J0131; J1100; J2060; J2270; J3030; J7030

== ENCOUNTER 2022-09-04 00:15 | Emergency (ER) | payer OTHER, SELFPAY ==
[2022-09-04 00:22] VITALS: BP 137/65; PULSE 88; RESP 18; TEMP 36.6; O2SAT 100
[2022-09-04 01:31] VITALS: BP 105/72; PULSE 76; RESP 18; TEMP 36.3; O2SAT 99
--- NOTE | 2022-09-04 01:58 | ED.SKABFB ---
HPI - Skin/Abscess/Foreign Bdy General Chief complaint: Skin/Abscess/Foreign Body Stated complaint: left arm pain with abscesses Time Seen by Provider: 09/04/22 01:50 Source: patient Mode of arrival: ambulatory Limitations: no limitations History of Present Illness HPI narrative: This is a 52-year-old female that presents to the emergency department for an abscess present to the left axilla over the last couple of days. Reports she was seen at another facility for this and started on clindamycin. She has had little relief. Reports an area of redness and swelling under the left leg. Denies fevers or drainage from the area. Related Data Home Medications Medication Instructions Recorded Confirmed furosemide 40 mg tablet 20 mg PO DAILY 07/09/19 05/25/22 paroxetine HCl 40 mg tablet (Paxil) 40 mg PO HS 07/09/19 05/25/22 albuterol sulfate 2.5 mg/3 mL 2.5 mg inhalation Q4H PRN SOB 07/12/19 05/25/22 (0.083 %) solution for nebulization albuterol sulfate 90 mcg/actuation 2 puff inhalation Q6H PRN SOB 07/12/19 05/25/22 aerosol inhaler acetaminophen 500 mg tablet 1,000 mg PO Q6H PRN Pain (Scale 03/28/20 05/25/22 (Tylenol Extra Strength) Score 1-3) ondansetron HCl 4 mg tablet 4 mg PO Q6H PRN Nausea And Vomiting 03/28/20 05/25/22 ranolazine 500 mg tablet,extended 500 mg PO Q12H 03/28/20 05/25/22 release,12 hr topiramate 100 mg tablet 100 mg PO Q12H 03/28/20 05/25/22 glipizide 5 mg tablet 5 mg PO ,12 09/08/21 05/25/22 rizatriptan 10 mg tablet 10 mg PO QID PRN Migraine Headache 09/08/21 05/25/22 atorvastatin 80 mg tablet 80 mg PO HS 10/13/21 05/25/22 trazodone 100 mg tablet 200 mg PO HS 10/13/21 05/25/22 aspirin 81 mg tablet,delayed 81 mg PO DAILY 05/05/22 05/25/22 release lorazepam 1 mg tablet 1 mg PO PRN PRN Anxiety 05/05/22 05/25/22 nitroglycerin 0.4 mg sublingual 0.4 mg sublingual Q5M PRN Chest 05/05/22 05/25/22 tablet Pain Allergies Allergy/AdvReac Type Severity Reaction Status Date / Time metoclopramide [From Reglan] Allergy Hives Verified 09/04/22 00:28 Penicillins Allergy Other Verified 09/04/22 00:28 prochlorperazine Allergy Hives Verified 09/04/22 00:28 [From Compazine] Sulfa (Sulfonamide Allergy Other Verified 09/04/22 00:28 Antibiotics) levofloxacin [From Levaquin] AdvReac Itching Verified 09/04/22 00:28 Review of Systems Review of Systems: CONSTITUTIONAL: Denies fever SKIN: Reports redness and swelling MUSCULOSKELETAL: Denies joint pain, or myalgia. NEUROLOGIC: Denies numbness All systems reviewed & are unremarkable except as noted in HPI and below PMFSH Past Medical History Medical History Chronic obstructive pulmonary disease Cocaine abuse Coronary artery disease Stent to the LAD in 2012. Diabetic neuropathy Diabetic retinopathy Dyslipidemia Insulin dependent type 2 diabetes mellitus, uncontrolled Hemoglobin A1c was 11.2% in May 2022. MRSA infection Obesity Obstructive sleep apnea Pancreatitis (07/2019) Tobacco abuse Surgical History Surgical History History of bone marrow biopsy History of History of cholecystectomy History of coronary artery stent placement (~2012) [facility] History of dilatation and curettage History of hysterectomy History of tubal ligation Family History Family History Father Acute myocardial infarction Heart disease Hypertension Congestive heart failure Mother Diabetes mellitus Acute myocardial infarction Hypertension Congestive heart failure Sibling Diabetes mellitus Asthma Chronic obstructive pulmonary disease Congestive heart failure Daughter Leukemia Sibling Overdose Asthma Chronic obstructive pulmonary disease Other Acute myocardial infarction Congestive heart failure Sibling Asthma Chronic obstructive pulmonary disease Sibling Ast
[2022-09-04] MEDS: KETOROLAC 30 MG/ML VIAL (*BKC) IM (02:05)
[2022-09-04] MEDS: LIDOCAINE HCL 1% PF 30 ML VIAL 20 ML INFILTRATE (02:17)
[2022-09-04 02:30] VITALS: BP 106/59; PULSE 74; RESP 18; TEMP 36.7; O2SAT 98
[2022-09-04] MEDS: DOXYCYCLINE HYCLATE 100 MG TABLET PO (02:37)
[2022-09-04 02:51] VITALS: BP 126/79; PULSE 79; RESP 18; TEMP 36.7; O2SAT 98
== END 2022-09-04 02:54 | disposition home or self-care (01) ==
PROVIDERS: Emergency Provider Physician Assistant; PCP Internal Medicine Cardiovascular Disease
DX: L02.412 Cutaneous abscess of left axilla (principal); J44.9 Chronic obstructive pulmonary disease, unspecified; I25.10 Atherosclerotic heart disease of native coronary artery without angina pectoris; E11.40 Type 2 diabetes mellitus with diabetic neuropathy, unspecified; E11.319 Type 2 diabetes mellitus with unspecified diabetic retinopathy without macular edema; E78.5 Hyperlipidemia, unspecified; G47.33 Obstructive sleep apnea (adult) (pediatric); Z79.4 Long term (current) use of insulin; Z95.5 Presence of coronary angioplasty implant and graft; F12.90 Cannabis use, unspecified, uncomplicated; F14.90 Cocaine use, unspecified, uncomplicated; Z79.51 Long term (current) use of inhaled steroids; Z79.84 Long term (current) use of oral hypoglycemic drugs; Z79.82 Long term (current) use of aspirin
CPT/HCPCS: 10060; 10061; 96372; 99283; A9270; J1885

== ENCOUNTER 2023-02-17 15:31 | Emergency (ER) | payer OTHER, SELFPAY ==
[2023-02-17] VITALS (7 sets, daily range): BP systolic 101; BP diastolic 67; PULSE 84; RESP 18; O2SAT 96–99
--- NOTE | ~2023-02-17 | CT_ITS ---
EXAMINATION: CT soft tissue neck w con DATE: 02/17/2023 17:08 INDICATION: Pain and swelling of the throat TECHNIQUE: Computed tomography (CT) of the neck was performed with 75 mL Omnipaque-350 intravenous co ntrast. Automated exposure control and iterative reconstruction technique were employed. The dose-mamadou gth product was 586.89 mGy-cm. COMPARISON: None FINDINGS: Motion artifact at the level of the glottis. Mild prominence of the palatine tonsils, no abscess. Nor mal epiglottis. Bilateral subcentimeter thyroid nodules, which require no additional workup. The s ubmandibular and parotid glands are symmetric. Enlarged upper anterior cervical chain lymph nodes. There are no masses identified. The superior mediastinum is unremarkable. The airway is unremar kable. Parapharyngeal and pre-glottic fat planes are preserved. Atherosclerotic calcifications, o therwise normal enhancing arteries. The orbits are unremarkable. Visualized sinuses and mastoid ai r cells are well aerated. Emphysematous change. Bilateral sub-6 mm pulmonary nodules. There is mil d cervical spondylosis. IMPRESSION: 1. Prominent palatine tonsils, without CT evidence of abscess. 2. Upper anterior cervical chain lymphadenopathy. 3. Multiple sub-6 mm pulmonary nodules, which require no additional workup unless the patient is at h igh risk, in which case consider an optional CT in 12 months. Reviewed, dictated and finalized at location K. IMPRESSION: 1. Prominent palatine tonsils, without CT evidence of abscess. 2. Upper anterior cervical chain lymphadenopathy. 3. Multiple sub-6 mm pulmonary nodules, which require no additional workup unle ss the patient is at high risk, in which case consider an optional CT in 12 mon ths.
[2023-02-17 16:19] LABS: Basophils Percent Auto 0.4 % (0.2-1.2); Eosinophils Absolute Auto 0.2 K/mm3 (0-0.3); Eosinophils Percent Auto 2.2 % (0-4.4); Hematocrit 41.9 % (37.0-47.0); Hemoglobin 14.1 g/dL (12.0-15.0); Immature Granulocyte Absolute 0.03 K/mm3 (0.00-0.031); Immature Granulocyte Percent A 0.3 % (0-0.5); Lymphocytes Absolute Auto 2.23 K/mm3 (0.9-3.2); Mean Corpuscular HGB Conc 33.7 g/dl (32-36); Mean Corpuscular Hemoglobin 31.5 pg (26-34); Mean Corpuscular Volume 93.5 fl (80-100); Mean Platelet Volume 10.1 fl (7.4-10.4); Monocytes Absolute Auto 0.5 K/mm3 (0.1-0.6); Monocytes Percent Auto 4.7 % (2.6-8.5); Neutrophils Absolute Auto 7.1 K/mm3 (1.3-6.7); Neutrophils Percent Auto 70.4 % (45.5-73.1); Platelet Count Result 217 k/mm3 (150-375); Red Blood Count 4.48 M/mm3 (4.2-5.4); Red Cell Distribution Width 13.8 % (11.5-14.5); White Blood Count 10.1 K/mm3 (4.5-10.0)
[2023-02-17 16:40] LABS: Anion Gap 10 mmol/L (8-16); Blood Urea Nitrogen 13 mg/dL (7-17); Calcium 8.9 mg/dL (8.4-10.2); Carbon Dioxide 23 mmol/L (22-30); Chloride 101 mmol/L (98-107); Estimated CRCL calculation 64 ml/min; Estimated Glomerular Filt Rate 58; Glucose 553 mg/dL (65-110); Potassium 4.1 mmol/L (3.4-5.0); Sodium 134 mmol/L (137-145)
--- NOTE | 2023-02-17 16:41 | ED.GENADULT ---
HPI - General Adult General Chief complaint: Unspecified Stated complaint: throat abscess Time Seen by Provider: 02/17/23 15:45 History of Present Illness HPI narrative: Patient has history of abscesses, substance use disorder, presents with abscess to her chin, feels like her neck also, since yesterday. She went to an outside hospital but states that they did not do anything for her. She is asking for pain medications. No difficulty with speaking or swallowing but does state that she feels like she cannot open her mouth as wide as usual. Related Data Home Medications Medication Instructions Recorded Confirmed furosemide 40 mg tablet 20 mg PO DAILY 07/09/19 05/25/22 paroxetine HCl 40 mg tablet (Paxil) 40 mg PO HS 07/09/19 05/25/22 albuterol sulfate 2.5 mg/3 mL 2.5 mg inhalation Q4H PRN SOB 07/12/19 05/25/22 (0.083 %) solution for nebulization albuterol sulfate 90 mcg/actuation 2 puff inhalation Q6H PRN SOB 07/12/19 05/25/22 aerosol inhaler acetaminophen 500 mg tablet 1,000 mg PO Q6H PRN Pain (Scale 03/28/20 05/25/22 (Tylenol Extra Strength) Score 1-3) ondansetron HCl 4 mg tablet 4 mg PO Q6H PRN Nausea And Vomiting 03/28/20 05/25/22 ranolazine 500 mg tablet,extended 500 mg PO Q12H 03/28/20 05/25/22 release,12 hr topiramate 100 mg tablet 100 mg PO Q12H 03/28/20 05/25/22 glipizide 5 mg tablet 5 mg PO ,12 09/08/21 05/25/22 rizatriptan 10 mg tablet 10 mg PO QID PRN Migraine Headache 09/08/21 05/25/22 atorvastatin 80 mg tablet 80 mg PO HS 10/13/21 05/25/22 trazodone 100 mg tablet 200 mg PO HS 10/13/21 05/25/22 aspirin 81 mg tablet,delayed 81 mg PO DAILY 05/05/22 05/25/22 release lorazepam 1 mg tablet 1 mg PO PRN PRN Anxiety 05/05/22 05/25/22 nitroglycerin 0.4 mg sublingual 0.4 mg sublingual Q5M PRN Chest 05/05/22 05/25/22 tablet Pain Allergies Allergy/AdvReac Type Severity Reaction Status Date / Time metoclopramide [From Reglan] Allergy Hives Verified 02/17/23 15:41 Penicillins Allergy Other Verified 02/17/23 15:41 prochlorperazine Allergy Hives Verified 02/17/23 15:41 [From Compazine] Sulfa (Sulfonamide Allergy Other Verified 02/17/23 15:41 Antibiotics) tramadol Allergy Hives Verified 02/17/23 15:41 levofloxacin [From Levaquin] AdvReac Itching Verified 02/17/23 15:41 Review of Systems Review of Systems: CONST: No fever. HEENT: sore throat, sores on cheek C/V: No chest pain RESP: No cough GI: no nausea or vomiting : No dysuria. M/S: No joint pain. SKIN: No rash. NEURO: [No headache or focal numbness or weakness] PSYCH: [No depression] [facility] Past Medical History Medical History Chronic obstructive pulmonary disease Cocaine abuse Coronary artery disease Stent to the LAD in 2012. Diabetic neuropathy Diabetic retinopathy Dyslipidemia Insulin dependent type 2 diabetes mellitus, uncontrolled Hemoglobin A1c was 11.2% in May 2022. MRSA infection Obesity Obstructive sleep apnea Pancreatitis (07/2019) Tobacco abuse Surgical History Surgical History History of bone marrow biopsy History of History of cholecystectomy History of coronary artery stent placement (~2012) [facility] History of dilatation and curettage History of hysterectomy History of tubal ligation Family History Family History Father Acute myocardial infarction Heart disease Hypertension Congestive heart failure Mother Diabetes mellitus Acute myocardial infarction Hypertension Congestive heart failure Sibling Diabetes mellitus Asthma Chronic obstructive pulmonary disease Congestive heart failure Daughter Leukemia Sibling Overdose Asthma Chronic obstructive pulmonary disease Other Acute myocardial infarction Congestive heart failure Sibling Asthma Chronic obstructive pulmonary disease Sibling Asthm
[2023-02-17] MEDS: KETOROLAC 15 MG/ML VIAL (*BKC) IV PUSH ×2 (16:44→18:57)
[2023-02-17] MEDS: MORPHINE SULFATE (*CRX) 2 MG/ML INJ IV PUSH (16:46)
[2023-02-17] MEDS: LACTATED RINGERS 1,000 ML 999 ML IV CONT (17:23)
[2023-02-17] MEDS: CLINDAMYCIN 600 MG/D5W 50 ML 600 MG/50 ML PIGGYBACK 100 MG IVPB (17:25)
== END 2023-02-17 19:05 | disposition home or self-care (01) ==
PROVIDERS: Emergency Provider Emergency Medicine
DX: J03.90 Acute tonsillitis, unspecified (principal); E11.40 Type 2 diabetes mellitus with diabetic neuropathy, unspecified; E11.319 Type 2 diabetes mellitus with unspecified diabetic retinopathy without macular edema; I25.10 Atherosclerotic heart disease of native coronary artery without angina pectoris; E78.5 Hyperlipidemia, unspecified; G47.33 Obstructive sleep apnea (adult) (pediatric); E66.9 Obesity, unspecified; Z68.33 Body mass index [BMI] 33.0-33.9, adult; F17.210 Nicotine dependence, cigarettes, uncomplicated; Z95.5 Presence of coronary angioplasty implant and graft; Z86.14 Personal history of Methicillin resistant Staphylococcus aureus infection; Z90.49 Acquired absence of other specified parts of digestive tract; Z90.710 Acquired absence of both cervix and uterus; Z79.84 Long term (current) use of oral hypoglycemic drugs; Z79.82 Long term (current) use of aspirin; Z79.4 Long term (current) use of insulin
CPT/HCPCS: 36415; 70491; 80048; 85025; 87040; 96361; 96365; 96375; 99284; J1100; J1885; J2270; J7120; Q9967

== ENCOUNTER 2023-05-30 10:38 | Inpatient (IN) | payer OTHER, SELFPAY ==
[2023-05-30] VITALS (13 sets, daily range): BP systolic 100–121; BP diastolic 57–73; PULSE 76–104; RESP 16–29; TEMP 36.6–37.1; O2SAT 97–100; BMI 32.7
--- NOTE | ~2023-05-30 | CT_ITS ---
EXAMINATION:CT diagnostic chest w con DATE: 05/30/2023 14:26 INDICATION: Right lung mass. Abnormal chest radiograph. TECHNIQUE: Computed tomography (CT) of the chest was performed with 75 mL Omnipaque 350 intravenous c ontrast. Automated exposure control and iterative reconstruction technique were employed. The dose-le ngth product (DLP) was 660.40 mGy-cm. COMPARISON: CT 04/20/2020, chest 2 views 05/30/2023 FINDINGS: There is mild emphysema. There are airspace opacities in right upper lobe with air bronchog randi, consistent with pneumonia. There is mild atelectasis bilaterally. No pleural effusion. There ar e nodules in the thyroid measuring up to 10 mm, likely not clinically significant. The heart size is normal. There are coronary artery calcifications. No pericardial effusion. There is mild mediastinal and right hilar lymphadenopathy, likely reactive. There are changes of cholecystectomy. There is diff use hepatic steatosis. The bones are unremarkable. IMPRESSION: 1. Right upper lobe pneumonia. 2. Mild right hilar and mediastinal lymphadenopathy, likely reactive. 3. Mild emphysema. Reviewed, dictated and finalized at location A.
--- NOTE | ~2023-05-30 | XR_ITS ---
EXAMINATION: XR chest 2V DATE: 05/30/2023 12:32 INDICATION: Cough and shortness of breath TECHNIQUE: frontal and lateral views of the chest were obtained. COMPARISON: Chest radiograph dated 07/26/2022 FINDINGS: New 5-6 cm masslike opacity likely the right upper lobe along the posterosuperior aspect of the right hilum. No other airspace opacities, pulmonary edema, pleural effusion or pneumothorax. The cardiomed iastinal silhouette is normal. Mild thoracic dextrocurvature. Bones and soft tissues are otherwise un remarkable. IMPRESSION: 1. 5-6 cm right upper lobe mass suspicious for primary bronchogenic carcinoma. Differential would inc lude focal pneumonia. Recommend further evaluation with contrast-enhanced chest CT . Reviewed, dictated and finalized at location A. IMPRESSION: 1. 5-6 cm right upper lobe mass suspicious for primary bronchogenic carcinoma. Differential would include focal pneumonia. Recommend further evaluation with c ontrast-enhanced chest CT .
--- NOTE | ~2023-05-30 | CT_ITS ---
EXAMINATION: CT brain wo con DATE: 05/30/2023 14:26 INDICATION: Headache. TECHNIQUE: Computed tomography (CT) of the head was performed without intravenous contrast. The mA wa s adjusted according to patient size. Iterative reconstruction technique was employed. The dose-lengt h product was 605.33 mGy-cm. COMPARISON: None FINDINGS: There is no intracranial hemorrhage, acute infarction, or abnormal intracranial mass lesion . The ventricles are normal in size. The orbits are normal. The mastoid air cells are normal. The par anasal sinuses are clear. IMPRESSION: 1. Normal brain. Reviewed, dictated and finalized at location A. IMPRESSION: 1. Normal brain.
[2023-05-30 11:14] LABS: Alveolar/Arterial O2 Gradient 44.3 mmHg; Base Excess ABG -4.5 mEq/l (+/-2.0); Carboxyhemoglobin 2.2 % THb (0-2.0); Fractional Inspired Oxygen 21 %; HCO3 ABG 16.6 mEq/l (22.0-26.0); Methemoglobin ABG 0.3 %THb (0-1.5); Oxygen Content ABG 17.6 %vol (16.0-22.0); Oxygen Saturation ABG 96.9 % (95.0-100.0); Oxyhemoglobin 93.4 % THb (90.0-100.0); PO2 ABG 79.3 mmHg (80.0-100.0); PO2 FiO2 Ratio Arterial Blood 3.78 %; Reduced Hemoglobin 4.1 %THb (0-5.0); Total Hemoglobin 13.4 g/dL (12.0-18.0)
[2023-05-30 11:18] LABS: Modified Allen's Test Pass; PCO2 ABG 21.8 mmHg (35.0-45.0); Site Drawn RIGHT RADIAL
[2023-05-30 11:46] LABS: Basophils Absolute Auto 0.1 K/mm3 (0.0-0.1); Basophils Percent Auto 0.4 % (0.2-1.2); Hemoglobin 13.2 g/dL (12.0-15.0); Immature Granulocyte Absolute 0.19 K/mm3 (0.00-0.031); Lymphocytes Absolute Auto 1.67 K/mm3 (0.9-3.2); Lymphocytes Percent Auto 8.4 % (18.3-44.2); Mean Corpuscular HGB Conc 31.4 g/dl (32-36); Mean Corpuscular Hemoglobin 30.9 pg (26-34); Mean Corpuscular Volume 98.4 fl (80-100); Mean Platelet Volume 10.5 fl (7.4-10.4); Monocytes Percent Auto 5.2 % (2.6-8.5); Neutrophils Absolute Auto 16.9 K/mm3 (1.3-6.7); Platelet Count Result 180 k/mm3 (150-375); Red Blood Count 4.27 M/mm3 (4.2-5.4); Red Cell Distribution Width 13.4 % (11.5-14.5); White Blood Count 19.9 K/mm3 (4.5-10.0)
[2023-05-30 11:47] LABS: Appearance Urine Clear (Clear); Bilirubin Urine Negative (Negative); Blood Urine Negative (Negative); Color Urine Yellow (Yellow); Glucose Urine UA 3+ mg/dL (Negative); Ketones Urine 1+ mg/dL (Negative); Leukocyte Esterase Ur Negative LEU/UL (Negative); Nitrate Urine Negative (Negative); Protein Urine Negative (Negative); Specific Grav Ur 1.034 (1.001-1.035); Urobilinogen Urine 0.2 mg/dL (<2.0); pH Urine 6.5 (5.0-9.0)
[2023-05-30 11:50] LABS: Add Urine Microscopic? NO
[2023-05-30 12:01] LABS: Alanine Aminotransferase 22 U/L (6-35); Albumin Level 3.5 g/dL (3.5-5.1); Alkaline Phosphatase 144 U/L (38-126); Anion Gap 12 mmol/L (8-16); Aspartate Amino Transferase 23 U/L (14-36); Bilirubin,Total 1.5 mg/dL (0.2-1.3); Blood Urea Nitrogen 9 mg/dL (7-17); Calcium 8.2 mg/dL (8.4-10.2); Carbon Dioxide 17 mmol/L (22-30); Chloride 93 mmol/L (98-107); Estimated Glomerular Filt Rate > 60; Magnesium 2.1 mg/dL (1.6-2.3); Phosphorus 3.1 mg/dL (2.5-4.5); Potassium 3.5 mmol/L (3.4-5.0); Sodium 122 mmol/L (137-145)
--- NOTE | 2023-05-30 12:09 | ECG_ITS ---
Measurements Intervals [place] Rate: 94 P: -4 NE: 129 QRS: 55 QRSD: 93 T: 47 QT: 396 QTc: 497 Interpretive Statements SINUS RHYTHM DELAYED PRECORDIAL R/S TRANSITION LOW QRS VOLTAGE IN PRECORDIAL LEADS BORDERLINE ST-T WAVE ABNORMALITY- ANTERIOR LEADS BASELINE ARTIFACT- I, III, AVL, V2 BORDERLINE ECG NO PREVIOUS ECG AVAILABLE FOR COMPARISON Electronically Signed On 05-30-2023 13:03:03 CDT by Larry York D.O.
[2023-05-30 12:13] LABS: Beta-Hydroxybutyrate/Acetoacetate 1.33 mmol/L (0.02-0.27)
[2023-05-30 12:15] LABS: Glucose 643 mg/dL (65-110)
--- NOTE | 2023-05-30 12:25 | ED.NAVMDI ---
HPI - Nausea/Vomiting/Diarrhea General Chief complaint: Nausea/Vomiting/Diarrhea Stated complaint: dka? Time Seen by Provider: 05/30/23 12:01 Source: patient, EMS and RN notes reviewed Mode of arrival: ambulatory History of Present Illness HPI Narrative: This is a 52 year old female with history DM, drug abuse who presents for evaluation of nausea and vomiting. Patient states she has not taken her medication in 2 days and it includes her insulin. She developed nausea, vomiting this morning. She has had diarrhea for 2 days. She reports dizziness and she is hyperventilation. She reports sharp midsternal chest pain but she thinks it is her anxiety. She also reports nonproductive cough. She also reports having facial wounds that have been present for a few weeks. She states she has been on antibiotics and she completed her last dose last week. She reports being diagnosed with impetigo. She also reports using crack 1 week ago. Related Data Home Medications Medication Instructions Recorded Confirmed acetaminophen 500 mg tablet 1,000 mg PO Q6-8H PRN pain 05/30/23 05/30/23 aspirin 81 mg tablet,delayed 81 mg DAILY 05/30/23 05/30/23 release atorvastatin 80 mg tablet 80 mg PO HS 05/30/23 05/30/23 bupropion HCl 300 mg 24 hr tablet, 300 mg PO HS depression 05/30/23 05/30/23 extended release cyclobenzaprine 10 mg tablet 10 mg PO TID PRN muscle spasms 05/30/23 05/30/23 furosemide 40 mg tablet 20 mg PO DAILY 05/30/23 05/30/23 hydroxyzine HCl 10 mg tablet 10 mg PO BID anxiety 05/30/23 05/30/23 insulin lispro protamine-lispro 10 unit subcut TIDWMEAL PRN 05/30/23 05/30/23 100 unit/mL (75-25) subcutaneous Hyperglycemia pen (Humalog Mix 75-25 KwikPen) loperamide 2 mg capsule 2 mg PO QID PRN Diarrhea 05/30/23 05/30/23 pantoprazole 40 mg tablet,delayed 40 mg PO DAILY 05/30/23 05/30/23 release paroxetine HCl 40 mg tablet (Paxil) 60 mg PO HS depression 05/30/23 05/30/23 ranolazine 500 mg tablet,extended 500 mg PO BID 05/30/23 05/30/23 release,12 hr topiramate 100 mg tablet 100 mg PO BID migraine 05/30/23 05/30/23 trazodone 100 mg tablet 200 mg PO HS Sleep aide 05/30/23 05/30/23 Allergies Allergy/AdvReac Type Severity Reaction Status Date / Time codeine Allergy Unknown Verified 05/30/23 10:59 metoclopramide [From Reglan] Allergy Unknown Verified 05/30/23 10:59 prochlorperazine Allergy Unknown Verified 05/30/23 10:59 [From Compazine] Sulfa (Sulfonamide Allergy Unknown Verified 05/30/23 10:59 Antibiotics) Review of Systems Constitutional: Constitutional: Reports weakness Cardiovascular: Cardiovascular: Reports chest pain, Denies syncope, Denies rapid heart rate, Denies irregular heart rhythm, Denies leg edema and Denies dyspnea Respiratory: Respiratory: Denies chest congestion, Reports cough, Denies hemoptysis, Denies excessive phlegm production and Reports dyspnea Gastrointestinal: Gastrointestinal: Denies abdominal pain, Denies hematochezia, Reports diarrhea, Reports nausea and Reports vomiting Genitourinary: Genitourinary: Denies hematuria and Denies dysuria Musculoskeletal: Musculoskeletal: Denies joint swelling, Denies loss of height and Denies muscle weakness Neurologic: Denies syncope, Denies focal weakness and Denies weakness PMFSH Past Medical History Medical History (Updated 05/30/23 @ 21:37 by Stephanie Montesinos MD) Chronic obstructive pulmonary disease Cocaine abuse Coronary artery disease History of MRSA infection Insulin dependent diabetes mellitus Complicated by retinopathy and neuropathy peer Obstructive sleep apnea Pancreatitis (07/2019) Tobacco dependence Surgical History Surgical History (Updated 05/30/23 @ 17:35 by Fanny Corona PA-C) History of bone marrow biopsy History of section History of cholecystectomy History of coronary artery stent placement (2012) Stent to the LAD. History of dilation and curettage History of hysterectomy History of tubal ligation F
[2023-05-30] MEDS: SODIUM CHLORIDE 0.9% IV 1,000 ML 999 ML IV CONT ×3 (12:44→14:55)
[2023-05-30] MEDS: INSULIN HUMAN REGULAR (*BKC) 100 UNITS/ML 9 UNITS IV PUSH (12:48)
[2023-05-30 13:04] LABS: Amphetamine Screen Urine Negative (Negative); Barbiturate Screen Urine Negative (Negative); Benzodiazepines Screen Urine Negative (Negative); Cannabinoid Screen Urine Negative (Negative); Cocaine Screen Urine Positive (Negative); Methadone Screen Urine Negative (Negative); Opiate Screen Urine Negative (Negative); Phencyclidine Screen Urine Negative (Negative)
[2023-05-30] MEDS: ONDANSETRON INJ 4 MG/2 ML VIAL IV PUSH (13:08)
[2023-05-30 13:09] LABS: Troponin I < 0.012 ng/mL (0.000-0.034)
[2023-05-30 13:49] LABS: Lactic Acid Reflex 3.1 mmol/L (0.7-2.0)
[2023-05-30] MEDS: AZITHROMYCIN 500 MG/NS 250 ML 500 MG/250 ML BAG 250 MG IVPB (14:55)
[2023-05-30 14:57] LABS: Anion Gap 13 mmol/L (8-16); Blood Urea Nitrogen 10 mg/dL (7-17); Calcium 8.2 mg/dL (8.4-10.2); Carbon Dioxide 18 mmol/L (22-30); Chloride 96 mmol/L (98-107); Estimated CRCL calculation 92 ml/min; Estimated Glomerular Filt Rate > 60; Glucose 367 mg/dL (65-110); Potassium 3.1 mmol/L (3.4-5.0); Sodium 127 mmol/L (137-145)
[2023-05-30] MEDS: POTASSIUM CHLORIDE 20 MEQ ER TABLET 40 MEQ PO (15:48)
[2023-05-30] MEDS: ACETAMINOPHEN 325 MG TABLET 650 MG PO ×2 (15:48→20:51)
--- NOTE | 2023-05-30 16:00 | PM.IMHP ---
H&P: HPI History of Present Illness Date/Time: 05/30/23 17:00 Chief Complaint: Nausea, vomiting, and diarrhea. Narrative: This is a 52-year-old female smoker with insulin dependent diabetes, coronary artery disease status post stent, MRSA skin and soft tissue infections, hypertension, dyslipidemia, pancreatitis, chronic obstructive pulmonary disease, sleep apnea, and substance abuse who presented to the emergency department via EMS for evaluation of nausea, vomiting, and diarrhea. The patient provides the following history. She has not felt well for several days with nausea, nonbloody and nonbilious emesis, and multiple episodes of nonbloody diarrhea a day. She also reports a wet but nonproductive cough, intermittent right-sided pleuritic chest pain, and diffuse headache. She has been feeling so bad that she did not take any of her medications the last 2 days. Today she called the ambulance today as she was weak, dizzy, and lightheaded. She denies recent travel and sick contacts. She has not had a fever, exertional chest pain, sensations of racing heart, or dysuria. In the ED: She was afebrile on arrival with stable blood pressures. Labs were significant for a WBC count of 19.9, sodium 122, potassium 3.5, chloride 93, carbon dioxide 17, glucose 643, lactic acid 3.1, beta hydroxybutyrate 133. ABG showed a pH of 7.500, pCO2 21.8, bicarb 16.6. Brain CT showed a normal brain. Chest x-ray showed a suspicious 5 to 6 cm right upper lobe mass which looks like pneumonia on chest CT. In the ED she was given 2 L IV crystalloid, 8 units insulin, and azithromycin and ceftriaxone. She is being admitted in this setting for treatment of pneumonia, dehydration, and hyperglycemia. Of note she has multiple ulcerated areas on her face which she was told is impetigo and she is using bacitracin ointment on them. Review of Systems Review of Systems: Twelve systems were reviewed and are negative except for as per HPI. [facility] Past Medical History Medical History Chronic obstructive pulmonary disease Cocaine abuse Coronary artery disease History of MRSA infection Insulin dependent diabetes mellitus Complicated by retinopathy and neuropathy peer Obstructive sleep apnea Pancreatitis (07/2019) Tobacco dependence Surgical History Surgical History History of bone marrow biopsy History of section History of cholecystectomy History of coronary artery stent placement (2012) Stent to the LAD. History of dilation and curettage History of hysterectomy History of tubal ligation Family History Family History Other Diabetes mellitus Heart disease Hypertension Social History Social History Social History: Surrogate medical decision maker: Rashaun Hays, ezra. Code status: Full code. Smoking packs per day: 0.5 Smoking cigarettes per day: 10.0 Years smoked: 20 Smoking pack-years: 10.00 Smoking status: Current every day smoker Tobacco type: cigarettes Alcohol intake: never Substance use: current Substance use type: crack/cocaine Lack of Transportation: YES Lack of Food: Often True Current Housing: I Do Not Have Housing Concerned About Future Housing: YES Difficulty Paying Gas/Electric Bills: YES Difficulty Paying for Meds: YES Currently Unemployed: Decline to Answer Education: Grade School Difficulty w/ Childcare or Family Care: No Spiritual care concerns: No Meds Home Medications and Allergies Home Medications Medication Instructions Recorded Confirmed Type acetaminophen 500 mg tablet 1,000 mg PO Q6-8H PRN pain 05/30/23 05/30/23 History aspirin 81 mg tablet,delayed 81 mg DAILY 05/30/23 05/30/23 History release atorvastatin 80 mg tablet 80 mg PO HS 05/30/23 05/30/23 H
[2023-05-30 16:36] LABS: Reflex Lactic Acid Yes or No Add Lactic
[2023-05-30 16:37] LABS: Glucose Point of Care 391 mg/dl (65-105)
[2023-05-30] MEDS: POTASSIUM CHLORIDE INJ 40 MEQ in SODIUM CHLORIDE 0.9% IV 500 ML 130 MEQ IVPB (16:52)
[2023-05-30] MEDS: MORPHINE SULFATE (*CRX) 2 MG/ML INJ IV PUSH (17:19)
[2023-05-30] MEDS: VANCOMYCIN 1,000 MG/NS 250 ML 1,000 MG/250 ML BAG 250 MG IVPB (17:38)
[2023-05-30 18:06] LABS: Lactic Acid 1.2 mmol/L (0.7-2.0)
[2023-05-30 18:50] LABS: Glucose Point of Care 392 mg/dl (65-105)
[2023-05-30] MEDS: VANCOMYCIN 1,250 MG/NS 250 ML 1,250 MG/250 ML BAG 166.67 MG IVPB (19:36)
[2023-05-30] MEDS: INSULIN HUMAN REGULAR (*BKC) 100 UNITS/ML 8 UNITS SUB-Q (20:17)
[2023-05-30 21:16] LABS: Glucose Point of Care 355 mg/dl (65-105)
[2023-05-30] MEDS: INSULIN ASPART (*BKC) 100 UNITS/ML 8 UNITS SUB-Q (21:22)
[2023-05-30] MEDS: SODIUM CHLORIDE 0.9% IV 1,000 ML 125 ML IV CONT ×2 (21:23→22:13)
[2023-05-30 22:59] LABS: Glucose Point of Care 249 mg/dl (65-105)
[2023-05-30 23:01] LABS: Anion Gap 6 mmol/L (8-16); Blood Urea Nitrogen 9 mg/dL (7-17); Calcium 7.5 mg/dL (8.4-10.2); Carbon Dioxide 19 mmol/L (22-30); Chloride 106 mmol/L (98-107); Estimated CRCL calculation 92 ml/min; Estimated Glomerular Filt Rate > 60; Glucose 267 mg/dL (65-110); Potassium 3.7 mmol/L (3.4-5.0); Sodium 131 mmol/L (137-145)
[2023-05-30 23:07] LABS: Hemoglobin A1C 12.7 % (<5.7)
[2023-05-31] VITALS (8 sets, daily range): BP systolic 93–122; BP diastolic 50–78; PULSE 68–88; RESP 18–28; TEMP 36.1–37.2; O2SAT 97–100
[2023-05-31] MEDS: ACETAMINOPHEN 325 MG TABLET 650 MG PO ×2 (01:08→06:24)
[2023-05-31 04:33] LABS: Glucose Point of Care 196 mg/dl (65-105)
[2023-05-31] MEDS: SODIUM CHLORIDE 0.9% IV 1,000 ML 125 ML IV CONT ×2 (04:48→17:32)
[2023-05-31 07:27] LABS: Glucose Point of Care 271 mg/dl (65-105)
[2023-05-31 07:41] LABS: Basophils Percent Auto 0.3 % (0.2-1.2); Eosinophils Absolute Auto 0.1 K/mm3 (0-0.3); Eosinophils Percent Auto 0.8 % (0-4.4); Hematocrit 33.3 % (37.0-47.0); Hemoglobin 11.1 g/dL (12.0-15.0); Immature Granulocyte Absolute 0.14 K/mm3 (0.00-0.031); Immature Granulocyte Percent A 1.1 % (0-0.5); Lymphocytes Absolute Auto 1.87 K/mm3 (0.9-3.2); Lymphocytes Percent Auto 14.3 % (18.3-44.2); Mean Corpuscular HGB Conc 33.3 g/dl (32-36); Mean Corpuscular Hemoglobin 31.4 pg (26-34); Mean Corpuscular Volume 94.1 fl (80-100); Mean Platelet Volume 10.6 fl (7.4-10.4); Monocytes Absolute Auto 0.6 K/mm3 (0.1-0.6); Monocytes Percent Auto 4.5 % (2.6-8.5); Neutrophils Absolute Auto 10.3 K/mm3 (1.3-6.7); Platelet Count Result 174 k/mm3 (150-375); Red Blood Count 3.54 M/mm3 (4.2-5.4); Red Cell Distribution Width 13.2 % (11.5-14.5); White Blood Count 13.1 K/mm3 (4.5-10.0)
[2023-05-31 07:47] LABS: Alanine Aminotransferase 21 U/L (6-35); Albumin Level 2.9 g/dL (3.5-5.1); Alkaline Phosphatase 116 U/L (38-126); Anion Gap 7 mmol/L (8-16); Aspartate Amino Transferase 29 U/L (14-36); Bilirubin,Total 0.7 mg/dL (0.2-1.3); Blood Urea Nitrogen 8 mg/dL (7-17); Calcium 7.9 mg/dL (8.4-10.2); Carbon Dioxide 18 mmol/L (22-30); Chloride 106 mmol/L (98-107); Estimated CRCL calculation 100 ml/min; Estimated Glomerular Filt Rate > 60; Glucose 303 mg/dL (65-110); Magnesium 2.1 mg/dL (1.6-2.3); Potassium 3.8 mmol/L (3.4-5.0); Sodium 131 mmol/L (137-145)
[2023-05-31] MEDS: LORazepam (*CRX) 0.5 MG TABLET PO (08:09)
[2023-05-31 08:34] LABS: Glucose Point of Care 283 mg/dl (65-105)
[2023-05-31] MEDS: RANOLAZINE 500 MG TAB.ER.12H PO ×2 (08:56→16:50)
[2023-05-31] MEDS: PANTOPRAZOLE 40 MG TABLET PO (08:56)
[2023-05-31] MEDS: hydrOXYzine HCL 10 MG TABLET PO ×2 (08:56→16:50)
[2023-05-31] MEDS: TOPIRAMATE 100 MG TABLET PO ×2 (08:56→16:50)
[2023-05-31] MEDS: INSULIN ASPART (*BKC) 100 UNITS/ML SUB-Q ×4 (08:57→20:02)
[2023-05-31] MEDS: ENOXAPARIN 40 MG/0.4 ML SYRINGE SUB-Q (08:59)
[2023-05-31 10:05] LABS: Toxigenic C. Diff NEGATIVE (NEGATIVE)
[2023-05-31] MEDS: LOPERAMIDE HCL 2 MG CAPSULE PO (10:37)
[2023-05-31 11:54] LABS: Glucose Point of Care 328 mg/dl (65-105)
--- NOTE | 2023-05-31 12:41 | PC.NURSE ---
Alicia MACK notified of bp 96/, patient asymptomatic
[2023-05-31] MEDS: LORazepam INJ (*CRX) 2 MG/ML VIAL 1 MG IV PUSH ×2 (12:48→21:08)
[2023-05-31] MEDS: CYCLOBENZAPRINE HCL 10 MG TABLET PO (14:24)
--- NOTE | 2023-05-31 14:43 | PM.IMPN ---
Progress Note: A&P Assessment and Plan (1) Right upper lobe pneumonia: Code(s): J18.9 - Pneumonia, unspecified organism Status: Acute Assessment and Plan: The patient presented to the emergency department for evaluation of cough, nausea, vomiting, and diarrhea. She was found to have a right upper lobe pneumonia. Started on azithromycin, ceftriaxone, and vancomycin given her history of MRSA Check MRSA swab. Check Legionella and pneumococcal urinary antigens as well as mycoplasma IgM. Attempt sputum for culture. DuJosephine ordered Guaifenesin ordered (2) Dehydration: Code(s): E86.0 - Dehydration Status: Acute Assessment and Plan: She also has 1+ ketones in her urine and a mildly elevated beta hydroxybutyrate. DKA is a consideration however the ketones may very well be due to dehydration given poor oral intake the last several days. She has also not taken any of her medication the last few days either. BMP has improved with fluids which will be continued. (3) Insulin dependent diabetes mellitus: Status: Acute Assessment and Plan: She has some component of pseudo hyponatremia given her hyperglycemia. She received 2 L of IV crystalloids in the ED as well as 8 units of insulin with improvement in her repeat BMP. Insulin Lispro sliding scale, Accu-checks qAc and HS and Hold oral hypoglycemics Initiate hypoglycemic precautions HgbA1c 12.7 (4) Elevated lactic acid level: Code(s): R79.89 - Other specified abnormal findings of blood chemistry Status: Resolved Assessment and Plan: lactic acid of 3.1 on admission and repeat was 1.2. (5) History of MRSA infection: Code(s): Z86.14 - Personal history of Methicillin resistant Staphylococcus aureus infection Status: Acute Assessment and Plan: MRSA swab ordered and vancomycin started on the patient. (6) Chronic obstructive pulmonary disease: Code(s): J44.9 - Chronic obstructive pulmonary disease, unspecified Status: Chronic Assessment and Plan: Not in an acute exacerbation (7) Obstructive sleep apnea: Code(s): G47.33 - Obstructive sleep apnea (adult) (pediatric) Status: Acute Assessment and Plan: CPAP will be provided for the patient to use while hospitalized. (8) Tobacco dependence: Code(s): F17.200 - Nicotine dependence, unspecified, uncomplicated Status: Acute Assessment and Plan: nicotine patch p.r.n. (9) Cocaine abuse: Code(s): F14.10 - Cocaine abuse, uncomplicated Status: Acute Assessment and Plan: Urine drug screen positive for cocaine. Patient states that she last smoked a couple days ago on the anniversary of her daughter's . Subjective Date/time seen: 05/31/23 14:43 Interval history: Patient states that she has had increased anxiety and was having a panic attack when I entered the room. Once I was able to talk with the patient she was able to answer the questions appropriately and did not seem to be acting like she was having an active panic attack. She does have a cough with sputum production. She denies any chest pain shortness a breath , nausea, vomiting and dysuria. Exam Narrative: GENERAL: Comfortable, no acute distress HENMT: moist mucous membranes EYES: EOM intact b/l NECK: no lymphadenopathy RESPIRATORY: distant breath sounds CARDIO: RRR GI: soft, nontender, bowel sounds present SKIN: no rashes EXTREMITIES: no edema, redness or tenderness Objective Data Vital Signs Vital Signs: Vital Signs - 24 hr 05/30/23 19:32 05/30/23 22:00 05/30/23 23:50 Temperature 97.9 F Pulse Rate 76 83 80 Respiratory Rate 16 22 H 21 H Blood Pressure 100/69 109/70 Pulse Oximetry 100 100 99 Oxygen Delivery CPAP 05/31/23 04:20 05/30/23 23:50 05/31/23 06:00 Temperature 97.2 F L Pulse Rate 74 68 Respiratory Rate 25 H 18 B
[2023-05-31 14:58] LABS: Glucose Point of Care > 500 mg/dl (65-105)
[2023-05-31] MEDS: AZITHROMYCIN 500 MG/NS 250 ML 500 MG/250 ML BAG 125 MG IVPB (15:47)
[2023-05-31] MEDS: MUPIROCIN 2% OINT 22 GM TUBE 1 APPLIC TOPICAL (16:50)
[2023-05-31 16:52] LABS: Glucose Point of Care 367 mg/dl (65-105)
[2023-05-31] MEDS: INSULIN ASPART (*BKC) 100 UNITS/ML 10 UNITS SUB-Q (17:31)
[2023-05-31] MEDS: traZODone HCL 50 MG TABLET 200 MG PO (20:00)
[2023-05-31] MEDS: buPROPion HCL XL (24 HR) 150 MG TABCR 300 MG PO (20:00)
[2023-05-31] MEDS: INSULIN GLARGINE (*BKC) 100 UNITS/ML 20 UNITS SUB-Q (20:01)
[2023-05-31] MEDS: PARoxetine 20 MG TABLET 60 MG PO (20:01)
[2023-05-31] MEDS: guaiFENesin 600 MG/DEXTROMETHORPHAN 30 MG SR TAB 12 HR 1 TAB PO (20:01)
[2023-05-31 21:00] LABS: Glucose Point of Care 223 mg/dl (65-105)
[2023-06-01 02:35] VITALS: PULSE 72; RESP 25; O2SAT 98
[2023-06-01 04:26] LABS: Basophils Percent Auto 0.4 % (0.2-1.2); Eosinophils Absolute Auto 0.1 K/mm3 (0-0.3); Eosinophils Percent Auto 1.7 % (0-4.4); Hematocrit 31.6 % (37.0-47.0); Hemoglobin 10.5 g/dL (12.0-15.0); Immature Granulocyte Absolute 0.05 K/mm3 (0.00-0.031); Immature Granulocyte Percent A 0.7 % (0-0.5); Lymphocytes Percent Auto 30.6 % (18.3-44.2); Mean Corpuscular HGB Conc 33.2 g/dl (32-36); Mean Corpuscular Hemoglobin 31.2 pg (26-34); Mean Corpuscular Volume 93.8 fl (80-100); Monocytes Absolute Auto 0.3 K/mm3 (0.1-0.6); Neutrophils Absolute Auto 4.7 K/mm3 (1.3-6.7); Neutrophils Percent Auto 62.6 % (45.5-73.1); Platelet Count Result 162 k/mm3 (150-375); Red Blood Count 3.37 M/mm3 (4.2-5.4); Red Cell Distribution Width 13.4 % (11.5-14.5); White Blood Count 7.5 K/mm3 (4.5-10.0)
[2023-06-01 04:34] LABS: Alanine Aminotransferase 20 U/L (6-35); Albumin Level 2.5 g/dL (3.5-5.1); Alkaline Phosphatase 109 U/L (38-126); Anion Gap 4 mmol/L (8-16); Aspartate Amino Transferase 20 U/L (14-36); Bilirubin,Total 0.3 mg/dL (0.2-1.3); Blood Urea Nitrogen 11 mg/dL (7-17); Calcium 7.8 mg/dL (8.4-10.2); Carbon Dioxide 18 mmol/L (22-30); Chloride 113 mmol/L (98-107); Estimated CRCL calculation 87 ml/min; Estimated Glomerular Filt Rate > 60; Glucose 264 mg/dL (65-110); Potassium 3.6 mmol/L (3.4-5.0); Sodium 135 mmol/L (137-145)
[2023-06-01 04:54] LABS: Vancomycin Trough 12.4 ug/mL (10.0-20.0)
[2023-06-01] MEDS: SODIUM CHLORIDE 0.9% IV 1,000 ML 125 ML IV CONT (05:07)
[2023-06-01 05:58] VITALS: BP 110/64; PULSE 84; RESP 18; TEMP 37; O2SAT 100
[2023-06-01 07:41] LABS: Glucose Point of Care 347 mg/dl (65-105)
[2023-06-01] MEDS: INSULIN ASPART (*BKC) 100 UNITS/ML SUB-Q ×3 (08:12→22:08)
[2023-06-01] MEDS: INSULIN ASPART (*BKC) 100 UNITS/ML 10 UNITS SUB-Q ×3 (08:12→17:19)
[2023-06-01] MEDS: ENOXAPARIN 40 MG/0.4 ML SYRINGE SUB-Q (08:13)
[2023-06-01] MEDS: hydrOXYzine HCL 10 MG TABLET PO ×2 (08:13→17:20)
[2023-06-01] MEDS: MUPIROCIN 2% OINT 22 GM TUBE 1 APPLIC TOPICAL ×3 (08:13→17:20)
[2023-06-01] MEDS: guaiFENesin 600 MG/DEXTROMETHORPHAN 30 MG SR TAB 12 HR 1 TAB PO (08:13)
[2023-06-01] MEDS: RANOLAZINE 500 MG TAB.ER.12H PO ×2 (08:13→17:20)
[2023-06-01] MEDS: PANTOPRAZOLE 40 MG TABLET PO (08:13)
[2023-06-01] MEDS: TOPIRAMATE 100 MG TABLET PO ×2 (08:13→17:20)
[2023-06-01 08:44] VITALS: O2SAT 96
[2023-06-01] MEDS: LORazepam INJ (*CRX) 2 MG/ML VIAL 1 MG IV PUSH ×2 (11:40→17:19)
[2023-06-01 11:46] LABS: Glucose Point of Care 252 mg/dl (65-105)
[2023-06-01] MEDS: cefTRIAXone 2 GM/NS 100 ML 2 GM/100 ML BAG IVPB (12:45)
[2023-06-01] MEDS: SODIUM CHLORIDE 0.9% IV 1,000 ML 100 ML IV CONT (12:49)
[2023-06-01 13:48] VITALS: BP 107/62; PULSE 76; RESP 20; TEMP 36.8; O2SAT 99
--- NOTE | 2023-06-01 14:22 | PM.IMPN ---
Progress Note: A&P Assessment and Plan (1) Right upper lobe pneumonia: Code(s): J18.9 - Pneumonia, unspecified organism Status: Acute Assessment and Plan: The patient presented to the emergency department for evaluation of cough, nausea, vomiting, and diarrhea. She was found to have a right upper lobe pneumonia. Check Legionella and pneumococcal urinary antigens as well as mycoplasma IgM. Attempt sputum for culture. Blood culture positive for strep pneumoniae sensitivities pending. 06/01 Ceftriaxone increased to 2 g and vancomycin discontinue DuoNebs ordered Guaifenesin ordered (2) Dehydration: Code(s): E86.0 - Dehydration Status: Acute Assessment and Plan: She also has 1+ ketones in her urine and a mildly elevated beta hydroxybutyrate. DKA is a consideration however the ketones may very well be due to dehydration given poor oral intake the last several days. She has also not taken any of her medication the last few days either. BMP has improved with fluids which will be continued. (3) Insulin dependent diabetes mellitus: Status: Acute Assessment and Plan: She has some component of pseudo hyponatremia given her hyperglycemia. She received 2 L of IV crystalloids in the ED as well as 8 units of insulin with improvement in her repeat BMP. Insulin Lispro sliding scale, Accu-checks qAc and HS and Hold oral hypoglycemics Initiate hypoglycemic precautions HgbA1c 12.7 (4) Elevated lactic acid level: Code(s): R79.89 - Other specified abnormal findings of blood chemistry Status: Resolved Assessment and Plan: lactic acid of 3.1 on admission and repeat was 1.2. (5) History of MRSA infection: Code(s): Z86.14 - Personal history of Methicillin resistant Staphylococcus aureus infection Status: Acute Assessment and Plan: MRSA swab ordered and positive although blood cultures positive for strep pneumonia so vancomycin was discontinued. (6) Chronic obstructive pulmonary disease: Code(s): J44.9 - Chronic obstructive pulmonary disease, unspecified Status: Chronic Assessment and Plan: Not in an acute exacerbation (7) Obstructive sleep apnea: Code(s): G47.33 - Obstructive sleep apnea (adult) (pediatric) Status: Acute Assessment and Plan: CPAP will be provided for the patient to use while hospitalized (8) Tobacco dependence: Code(s): F17.200 - Nicotine dependence, unspecified, uncomplicated Status: Acute Assessment and Plan: nicotine patch p.r.n. (9) Cocaine abuse: Code(s): F14.10 - Cocaine abuse, uncomplicated Status: Acute Assessment and Plan: Urine drug screen positive for cocaine. Patient states that she last smoked a couple days ago on the anniversary of her daughter's . Subjective Date/time seen: 06/01/23 14:22 Interval history: Patient doing better today. She appears to be less anxious than yesterday. She continues to have upper respiratory symptoms. She says that she overall feels groggy and fatigued. She has not had any diarrhea. She has been having some chest discomfort with her coughing that has been going on for several days. She has not had a productive cough. Blood cultures came back positive for strep pneumonia and she was transitioned off of vancomycin on to 2 g of ceftriaxone. Exam Narrative: GENERAL: Comfortable, no acute distress HENMT: moist mucous membranes, Impetigo around patient's mouth and nose EYES: EOM intact b/l NECK: no lymphadenopathy RESPIRATORY: distant breath sounds CARDIO: RRR GI: soft, nontender, bowel sounds present SKIN: no rashes EXTREMITIES: no edema, redness or tenderness Objective Data Vital Signs Vital Signs: Vital Signs - 24 hr 05/31/23 21:18 05/31/23 22:22 05/31/23 20:00 Temperature 98.9 F Pulse Rate 8
[2023-06-01 16:58] LABS: Glucose Point of Care 181 mg/dl (65-105)
[2023-06-01] MEDS: AZITHROMYCIN 250 MG TABLET 500 MG PO (17:20)
[2023-06-01] MEDS: CYCLOBENZAPRINE HCL 10 MG TABLET PO (17:20)
[2023-06-01 20:12] LABS: Glucose Point of Care 248 mg/dl (65-105)
[2023-06-01 22:00] VITALS: BP 125/84; PULSE 75; RESP 18; TEMP 35.9; O2SAT 99
[2023-06-01] MEDS: INSULIN GLARGINE (*BKC) 100 UNITS/ML 20 UNITS SUB-Q (22:08)
--- NOTE | 2023-06-01 22:15 | PC.NURSE ---
pt refusing bedtime medication and CPAP at this time, but was agreeable and did take insulin as prescribed for blood sugar of 248
[2023-06-02] MEDS: LORazepam INJ (*CRX) 2 MG/ML VIAL 1 MG IV PUSH ×4 (01:37→23:59)
[2023-06-02] MEDS: SODIUM CHLORIDE 0.9% IV 1,000 ML 100 ML IV CONT ×2 (04:23→08:49)
[2023-06-02 06:00] VITALS: BP 126/78; PULSE 66; RESP 18; TEMP 35.9; O2SAT 98
[2023-06-02] MEDS: ACETAMINOPHEN 325 MG TABLET 650 MG PO ×3 (06:33→17:28)
[2023-06-02 07:22] LABS: Alanine Aminotransferase 21 U/L (6-35); Albumin Level 2.8 g/dL (3.5-5.1); Alkaline Phosphatase 98 U/L (38-126); Anion Gap 6 mmol/L (8-16); Aspartate Amino Transferase 24 U/L (14-36); Bilirubin,Total 0.4 mg/dL (0.2-1.3); Blood Urea Nitrogen 8 mg/dL (7-17); Calcium 8.2 mg/dL (8.4-10.2); Carbon Dioxide 19 mmol/L (22-30); Chloride 113 mmol/L (98-107); Estimated CRCL calculation 101 ml/min; Estimated Glomerular Filt Rate > 60; Glucose 152 mg/dL (65-110); Potassium 3.5 mmol/L (3.4-5.0); Sodium 138 mmol/L (137-145)
[2023-06-02 07:29] LABS: Hematocrit 33.2 % (37.0-47.0); Hemoglobin 10.8 g/dL (12.0-15.0); Mean Corpuscular HGB Conc 32.5 g/dl (32-36); Mean Corpuscular Hemoglobin 31.1 pg (26-34); Mean Corpuscular Volume 95.7 fl (80-100); Mean Platelet Volume 10.7 fl (7.4-10.4); Platelet Count Result 176 k/mm3 (150-375); Red Blood Count 3.47 M/mm3 (4.2-5.4); Red Cell Distribution Width 13.8 % (11.5-14.5)
[2023-06-02 07:41] LABS: Glucose Point of Care 144 mg/dl (65-105)
[2023-06-02] MEDS: hydrOXYzine HCL 10 MG TABLET PO ×2 (08:42→17:28)
[2023-06-02] MEDS: CYCLOBENZAPRINE HCL 10 MG TABLET PO ×2 (08:42→17:28)
[2023-06-02] MEDS: PANTOPRAZOLE 40 MG TABLET PO (08:42)
[2023-06-02] MEDS: RANOLAZINE 500 MG TAB.ER.12H PO ×2 (08:42→17:28)
[2023-06-02] MEDS: TOPIRAMATE 100 MG TABLET PO ×2 (08:42→17:28)
[2023-06-02] MEDS: guaiFENesin 600 MG/DEXTROMETHORPHAN 30 MG SR TAB 12 HR 1 TAB PO ×2 (08:42→20:24)
[2023-06-02] MEDS: ENOXAPARIN 40 MG/0.4 ML SYRINGE SUB-Q (08:43)
[2023-06-02] MEDS: MUPIROCIN 2% OINT 22 GM TUBE 1 APPLIC TOPICAL ×3 (08:48→17:28)
[2023-06-02 11:25] LABS: Glucose Point of Care 146 mg/dl (65-105)
[2023-06-02] MEDS: INSULIN ASPART (*BKC) 100 UNITS/ML 10 UNITS SUB-Q ×2 (11:50→17:29)
[2023-06-02] MEDS: cefTRIAXone 2 GM/NS 100 ML 2 GM/100 ML BAG IVPB (11:50)
[2023-06-02 14:00] VITALS: BP 104/70; PULSE 70; RESP 22; TEMP 36.7; O2SAT 99
--- NOTE | 2023-06-02 15:57 | PM.IMPN ---
Progress Note: A&P Assessment and Plan (1) Right upper lobe pneumonia: Code(s): J18.9 - Pneumonia, unspecified organism Status: Acute Assessment and Plan: The patient presented to the emergency department for evaluation of cough, nausea, vomiting, and diarrhea. She was found to have a right upper lobe pneumonia. Check Legionella and pneumococcal urinary antigens as well as mycoplasma IgM. Attempt sputum for culture. Blood culture positive for strep pneumoniae sensitive to Levaquin. 06/01 Ceftriaxone increased to 2 g and vancomycin discontinue DuoNebs ordered Guaifenesin ordered (2) Dehydration: Code(s): E86.0 - Dehydration Status: Acute Assessment and Plan: She also has 1+ ketones in her urine and a mildly elevated beta hydroxybutyrate. DKA is a consideration however the ketones may very well be due to dehydration given poor oral intake the last several days. She has also not taken any of her medication the last few days either. BMP has improved with fluids which will be continued. (3) Insulin dependent diabetes mellitus: Status: Acute Assessment and Plan: She has some component of pseudo hyponatremia given her hyperglycemia. She received 2 L of IV crystalloids in the ED as well as 8 units of insulin with improvement in her repeat BMP. Insulin Lispro sliding scale, Accu-checks qAc and HS and Hold oral hypoglycemics Initiate hypoglycemic precautions HgbA1c 12.7 (4) Elevated lactic acid level: Code(s): R79.89 - Other specified abnormal findings of blood chemistry Status: Resolved Assessment and Plan: lactic acid of 3.1 on admission and repeat was 1.2. (5) History of MRSA infection: Code(s): Z86.14 - Personal history of Methicillin resistant Staphylococcus aureus infection Status: Acute Assessment and Plan: MRSA swab ordered and positive although blood cultures positive for strep pneumonia so vancomycin was discontinued. (6) Chronic obstructive pulmonary disease: Code(s): J44.9 - Chronic obstructive pulmonary disease, unspecified Status: Chronic Assessment and Plan: Not in an acute exacerbation (7) Obstructive sleep apnea: Code(s): G47.33 - Obstructive sleep apnea (adult) (pediatric) Status: Acute Assessment and Plan: CPAP will be provided for the patient to use while hospitalized (8) Tobacco dependence: Code(s): F17.200 - Nicotine dependence, unspecified, uncomplicated Status: Acute Assessment and Plan: nicotine patch p.r.n. (9) Cocaine abuse: Code(s): F14.10 - Cocaine abuse, uncomplicated Status: Acute Assessment and Plan: Urine drug screen positive for cocaine. Patient states that she last smoked a couple days ago on the anniversary of her daughter's . Subjective Date/time seen: 06/02/23 15:57 Interval history: Patient states that she has no place to go today. She stated that she would be able to possibly move in with a family member if she could have the day to arrange it. I suspect the patient will be discharged tomorrow after she arranges for some where she can go. She states that she has had some nausea and headache and fatigue and a lot of her symptoms are very vague. I suspect that she is likely coming down from crack cocaine. Her breath sounds are clear and she denies any chest pain. Overall her clinical status appears to be improved. Her labs and vital signs have also improved. Exam Narrative: GENERAL: Comfortable, no acute distress HENMT: moist mucous membranes, Impetigo around patient's mouth and nose EYES: EOM intact b/l NECK: no lymphadenopathy RESPIRATORY: distant breath sounds CARDIO: RRR GI: soft, nontender, bowel sounds present SKIN: no rashes EXTREMITIES: no edema, redness or tenderness Objective Data Vital Signs Vit
[2023-06-02 17:08] LABS: Glucose Point of Care 165 mg/dl (65-105)
[2023-06-02] MEDS: AZITHROMYCIN 250 MG TABLET 500 MG PO (17:27)
[2023-06-02 20:02] LABS: Glucose Point of Care 132 mg/dl (65-105)
[2023-06-02] MEDS: PARoxetine 20 MG TABLET 60 MG PO (20:23)
[2023-06-02] MEDS: traZODone HCL 50 MG TABLET 200 MG PO (20:23)
[2023-06-02] MEDS: buPROPion HCL XL (24 HR) 150 MG TABCR 300 MG PO (20:23)
[2023-06-02] MEDS: INSULIN GLARGINE (*BKC) 100 UNITS/ML 20 UNITS SUB-Q (20:24)
[2023-06-02 21:15] VITALS: BP 116/62; PULSE 67; RESP 20; TEMP 36.3; O2SAT 98
[2023-06-02 22:01] LABS: Pneumococcal Antigen Urine Not Detected (Not Detected)
[2023-06-03 05:46] VITALS: BP 118/50; PULSE 66; RESP 18; TEMP 35.8; O2SAT 95
[2023-06-03 06:35] LABS: Basophils Percent Auto 0.5 % (0.2-1.2); Eosinophils Absolute Auto 0.1 K/mm3 (0-0.3); Eosinophils Percent Auto 2.3 % (0-4.4); Hematocrit 34.1 % (37.0-47.0); Hemoglobin 10.7 g/dL (12.0-15.0); Immature Granulocyte Absolute 0.05 K/mm3 (0.00-0.031); Immature Granulocyte Percent A 0.8 % (0-0.5); Lymphocytes Absolute Auto 2.05 K/mm3 (0.9-3.2); Lymphocytes Percent Auto 34.1 % (18.3-44.2); Mean Corpuscular HGB Conc 31.4 g/dl (32-36); Mean Corpuscular Hemoglobin 30.6 pg (26-34); Mean Corpuscular Volume 97.4 fl (80-100); Mean Platelet Volume 9.9 fl (7.4-10.4); Monocytes Absolute Auto 0.4 K/mm3 (0.1-0.6); Monocytes Percent Auto 6.3 % (2.6-8.5); Neutrophils Absolute Auto 3.4 K/mm3 (1.3-6.7); Platelet Count Result 195 k/mm3 (150-375); Red Cell Distribution Width 13.7 % (11.5-14.5)
[2023-06-03 06:48] LABS: Alanine Aminotransferase 28 U/L (6-35); Albumin Level 2.8 g/dL (3.5-5.1); Alkaline Phosphatase 133 U/L (38-126); Anion Gap 9 mmol/L (8-16); Aspartate Amino Transferase 35 U/L (14-36); Bilirubin,Total 0.3 mg/dL (0.2-1.3); Blood Urea Nitrogen 10 mg/dL (7-17); Calcium 8.3 mg/dL (8.4-10.2); Carbon Dioxide 18 mmol/L (22-30); Chloride 111 mmol/L (98-107); Estimated CRCL calculation 89 ml/min; Estimated Glomerular Filt Rate > 60; Glucose 247 mg/dL (65-110); Potassium 3.8 mmol/L (3.4-5.0); Sodium 138 mmol/L (137-145)
[2023-06-03 07:49] LABS: Glucose Point of Care 253 mg/dl (65-105)
[2023-06-03] MEDS: hydrOXYzine HCL 10 MG TABLET PO ×2 (08:29→16:22)
[2023-06-03] MEDS: ENOXAPARIN 40 MG/0.4 ML SYRINGE SUB-Q (08:29)
[2023-06-03] MEDS: ACETAMINOPHEN 325 MG TABLET 650 MG PO (08:29)
[2023-06-03] MEDS: RANOLAZINE 500 MG TAB.ER.12H PO ×2 (08:29→16:22)
[2023-06-03] MEDS: guaiFENesin 600 MG/DEXTROMETHORPHAN 30 MG SR TAB 12 HR 1 TAB PO (08:29)
[2023-06-03] MEDS: INSULIN ASPART (*BKC) 100 UNITS/ML SUB-Q ×2 (08:30→16:58)
[2023-06-03] MEDS: INSULIN ASPART (*BKC) 100 UNITS/ML 10 UNITS SUB-Q ×2 (08:30→16:58)
[2023-06-03] MEDS: TOPIRAMATE 100 MG TABLET PO ×2 (08:30→16:22)
[2023-06-03] MEDS: PANTOPRAZOLE 40 MG TABLET PO (08:30)
[2023-06-03] MEDS: MUPIROCIN 2% OINT 22 GM TUBE 1 APPLIC TOPICAL ×3 (08:30→16:22)
--- NOTE | 2023-06-03 11:08 | PM.DS ---
DS: Admitting Diagnosis Discharge Date 06/03/23 Admitting Diagnosis pneumonia DS: Discharge Diagnosis Discharge Diagnosis (1) Right upper lobe pneumonia: Code(s): J18.9 - Pneumonia, unspecified organism Status: Acute (2) Dehydration: Code(s): E86.0 - Dehydration Status: Acute (3) Insulin dependent diabetes mellitus: Status: Acute (4) Elevated lactic acid level: Code(s): R79.89 - Other specified abnormal findings of blood chemistry Status: Resolved (5) History of MRSA infection: Code(s): Z86.14 - Personal history of Methicillin resistant Staphylococcus aureus infection Status: Acute (6) Chronic obstructive pulmonary disease: Code(s): J44.9 - Chronic obstructive pulmonary disease, unspecified Status: Chronic (7) Obstructive sleep apnea: Code(s): G47.33 - Obstructive sleep apnea (adult) (pediatric) Status: Acute (8) Tobacco dependence: Code(s): F17.200 - Nicotine dependence, unspecified, uncomplicated Status: Acute (9) Cocaine abuse: Code(s): F14.10 - Cocaine abuse, uncomplicated Status: Acute DS: Summary Hospital Course Hospital Course: This is a 52-year-old female with insulin-dependent diabetes, CAD status post stent, MRSA skin and soft tissue infections, hypertension, dyslipidemia, pancreatitis, COPD, SOFIA and history of substance abuse that recently used 3 days prior to ED presentation. Presented to the ED on 05/30/2023 for evaluation of nausea vomiting and diarrhea. She had nonbilious nonbloody emesis and multiple episodes of nonbloody diarrhea. She also has a wet productive cough. She was found to have pneumonia. Stool cultures and C diff all came back negative. She was dehydrated on presentation Ed with sodium of 122. Lactic acid was 3.1 and white blood cell count was 19.9. Head CT revealed no acute intracranial process. CT abdomen pelvis showed lower lobe pneumonia. She was started on vancomycin,azithromycin and ceftriaxone. vancomycin was added due to patient's history of MRSA. Blood cultures drawn and came back positive for Streptococcus pneumonia . Vancomycin was discontinued and ceftriaxone was increased to 2 g. Patient is homeless and services were provided for her. Her plan was to discharge and stay with her boyfriend. Patient's symptoms improved over hospital stay. Her white blood cell count improved and her cough resolved. She did have some intermittent vague symptoms such as headache and nausea but this is likely due to patient's cocaine withdrawal. The symptoms improved with Ativan and Toradol. Her labs and vital signs are stable and she is medically clear for discharge at this time. Time Spent with Patient Time attestation: Total time spent providing and/or coordinating discharge services: Exam Narrative: GENERAL: Comfortable, no acute distress HENMT: moist mucous membranes, Impetigo around patient's mouth and nose That are improved EYES: EOM intact b/l NECK: no lymphadenopathy RESPIRATORY: distant breath sounds CARDIO: RRR GI: soft, nontender, bowel sounds present SKIN: no rashes EXTREMITIES: no edema, redness or tenderness DS: Data Data Completed and Pending Labs on day of discharge: Labs from last 24 hours 06/03/23 06/03/23 06/02/23 07:32 06:12 19:43 WBC 6.0 RBC 3.50 L Hgb 10.7 L Hct 34.1 L MCV 97.4 MCH 30.6 MCHC 31.4 L RDW 13.7 Plt Count 195 MPV 9.9 Immature Gran % (Auto) 0.8 H Neut % (Auto) 56.0 Lymph % (Auto) 34.1 [place] % (Auto) 6.3 Eos % (Auto) 2.3 Baso % (Auto) 0.5 Lymph # (Auto) 2.05 [place] # (Auto) 0.4 Eos # (Auto) 0.1 Baso # (Auto) 0.0 Abs Immat Gran (auto) 0.05 H Absolute Neuts (auto) 3.4 Absolute Nucleated RBC 0.0 Nucleated RBC % 0.0 Sodium 138 Potassium 3.8 Chloride 111 H Carbon Dioxide 18 L Anion Gap 9 BUN 10 Creatinine 0.70 Estim Creat Clear
[2023-06-03] MEDS: LORazepam INJ (*CRX) 2 MG/ML VIAL 1 MG IV PUSH (11:14)
[2023-06-03 11:48] LABS: Glucose Point of Care 113 mg/dl (65-105)
[2023-06-03] MEDS: KETOROLAC 15 MG/ML VIAL (*BKC) IV PUSH (12:12)
[2023-06-03] MEDS: cefTRIAXone 2 GM/NS 100 ML 2 GM/100 ML BAG IVPB (12:13)
[2023-06-03 14:00] VITALS: BP 131/78; PULSE 68; RESP 20; TEMP 36; O2SAT 97
[2023-06-03] MEDS: CYCLOBENZAPRINE HCL 10 MG TABLET PO (16:22)
[2023-06-03] MEDS: AZITHROMYCIN 250 MG TABLET 500 MG PO (16:22)
[2023-06-03 16:47] LABS: Glucose Point of Care 214 mg/dl (65-105)
[2023-06-05 13:44] LABS: Mycoplasma IgM Antibody Titer 75 U/mL (<770)
[2023-06-06 03:48] LABS: Legionella pneumophila Ag Ur Not Detected (Not Detected)
[2023-06-12 11:02] LABS: Glucose Point of Care > 500 mg/dl (65-105)
== END 2023-06-03 17:24 | disposition home or self-care (01) | DRG 139 ==
LOC: ANHED 12:01 → ANHIMU 18:03 → ANH3MEDSUR 21:04
PROVIDERS: Emergency Medicine; Physician Assistant; Admitting Provider Chiropractor; Emergency Provider General Practice; Visit Provider Internal Medicine Critical Care Medicine
DX: J18.9 Pneumonia, unspecified organism (principal); R78.81 Bacteremia; J44.0 Chronic obstructive pulmonary disease with (acute) lower respiratory infection; E78.5 Hyperlipidemia, unspecified; E11.65 Type 2 diabetes mellitus with hyperglycemia; B95.3 Streptococcus pneumoniae as the cause of diseases classified elsewhere; E86.0 Dehydration; G47.33 Obstructive sleep apnea (adult) (pediatric); F41.9 Anxiety disorder, unspecified; I25.10 Atherosclerotic heart disease of native coronary artery without angina pectoris; I10 Essential (primary) hypertension; F17.210 Nicotine dependence, cigarettes, uncomplicated; F14.13 Cocaine abuse, unspecified with withdrawal; Z95.5 Presence of coronary angioplasty implant and graft; Z90.49 Acquired absence of other specified parts of digestive tract; Z90.710 Acquired absence of both cervix and uterus; Z22.322 Carrier or suspected carrier of Methicillin resistant Staphylococcus aureus; Z59.00 Homelessness unspecified
CPT/HCPCS: 36415; 36600; 70450; 71046; 71260; 80048; 80053; 80202; 80307; 81003; 82010; 82375; 82805; 82948; 83036; 83050; 83605; 83735; 84100; 84484; 85025; 85027; 86738; 87040; 87045; 87081; 87147; 87181; 87186; 87269; 87272; 87427; 87449; 87493; 87899; 93005; 96361; 96365; 96366; 96368; 96372; 96375; 99285; A9270; G0378; G0379; J0456; J0696; J1650; J1815; J1885; J2060; J2270; J2405; J3370; J3480; J7030; J7040; Q9967